=== PATIENT | female | born 1930 | race Caucasian/White ===

== ENCOUNTER 2016-04-17 14:08 | Inpatient (IN) | payer MEDICARE ==
[2016-04-17] MEDS ORDERED: NS 0.9% 1000 ML* 1,000 ML IV ONE (15:02)
[2016-04-17] MEDS ORDERED: cefTRIAXone VIAL(*) 1,000 MG in NS 0.9% 50 ML* 50 ML IVPB ONE (15:03)
[2016-04-17 15:16] LABS: Hematocrit 44 % (35-47); Hemoglobin 14.6 g/dl (12.0-16.0); Mean Corpuscular HGB Conc 33 g/dl (31-36); Mean Corpuscular Hemoglobin 29 pg (27-31); Mean Corpuscular Volume 89 fL (80-97); Mean Platelet Volume 9 um3 (7.4-10.4); Red Blood Count 5.01 10^6/ul (4.0-5.4); Red Cell Distribution Width 15 % (10.5-15); White Blood Count 11.7 10^3/ul (3.5-10.8)
--- NOTE | 2016-04-17 15:25 | RAD ---
INDICATION: Left-sided weakness. COMPARISON: Comparison is made with a prior CT of the brain from December 14, 2013. TECHNIQUE: Contiguous axial sections of the brain were obtained from the skull base to the vertex without contrast. FINDINGS: The ventricles, cisterns and sulci are enlarged consistent with age-related atrophy. No significant focal abnormality or mass effect is seen. There is no evidence for hemorrhage. No significant focal osseous abnormality is seen. The visualized portion of the paranasal sinuses and mastoid air cells appear clear. IMPRESSION: NO EVIDENCE FOR GROSS ACUTE INFARCT, MASS EFFECT OR HEMORRHAGE.
[2016-04-17 15:32] LABS: Albumin 3.8 g/dL (3.2-5.2); Calcium 9.1 mg/dL (8.6-10.3); EGFR African American 18.2 (>60); EGFR Non-African American 14.2 (>60); Globulin 2.4 g/dL (2-4); Potassium 3.9 mmol/L (3.5-5.0); Total Bilirubin 0.6 mg/dL (0.2-1.0); Total Protein 6.2 g/dL (6.4-8.9)
[2016-04-17 15:37] LABS: Troponin I 2.4 ng/mL (<0.04)
[2016-04-17] MEDS ORDERED: Aspirin EC Low Dose* 81 MG TAB.EC PO ONE (15:50)
[2016-04-17] MEDS ORDERED: Aspirin EC TAB* 325 MG ONE (16:04)
--- NOTE | 2016-04-17 16:44 | RAD ---
INDICATION: Hypoxia COMPARISON: September 07, 2015; March 30, 2012 TECHNIQUE: An AP portable view obtained at 1623 hours is submitted. FINDINGS: Bones/Soft Tissues: There are no acute bony findings. Cardiomediastinal: The heart is normal in size.. Lungs: There is mild right infrahilar prominence perhaps related to a right perihilar infiltrate. Suggest a follow-up two-view chest radiograph in one month to reassess. The remaining lung palomares are clear. Pleura: There are no pleural effusions. Other: None IMPRESSION: POSSIBLE RIGHT INFRAHILAR INFILTRATE. SUGGEST SHORT-TERM FOLLOW-UP.
[2016-04-17] MEDS ORDERED: Albuterol HFA INHALER* 8 gm MDI INH PRN (17:06)
[2016-04-17] MEDS ORDERED: Acetaminophen TAB* 325 MG PO PRN (17:07)
[2016-04-17] MEDS ORDERED: Ondansetron INJ* 2 MG/ML VIAL IV PRN (17:07)
[2016-04-17] MEDS ORDERED: Heparin DRIP 25,000 UNITS(*) 25,000 UNITS/500 ML BAG IVPB SCH (17:15)
[2016-04-17] MEDS ORDERED: Heparin VIAL(*) 5000 UNITS/ML VIAL (FIVE THOUSAND) IV SCH (18:00)
--- NOTE | 2016-04-17 18:20 | RAD ---
Indication: Evaluate for stroke. Sagittal and axial T1, axial T2, FLAIR, diffusion and susceptibility weighted images of the brain were obtained. Ventricular structures are midline. No midline shift is noted. There is central and cortical atrophy noted. There is no evidence of intracranial mass or hemorrhage. Tiny areas of restriction of diffusion is noted in the left cerebellar hemisphere, right precentral gyrus frontal lobe as well as the left subcortical precentral gyrus left frontal lobe. These are consistent with small acute strokes. The possibility of embolic phenomenon should be considered. Periventricular lucency consistent with chronic ischemic white matter changes noted. No evidence of hemorrhage from susceptibility weighted artifact is noted. The parotid glands and paranasal sinuses are otherwise unremarkable. IMPRESSION: TINY SUBCORTICAL AREAS OF RESTRICTION OF DIFFUSION IS NOTED IN THE LEFT AND RIGHT PRECENTRAL GYRUS SUBCORTICAL WHITE MATTER WELL IN THE LEFT CEREBELLAR HEMISPHERE. THESE ARE CONSISTENT WITH AREAS OF SMALL INFARCT. POSSIBILITY OF EMBOLIC PHENOMENON SHOULD BE CONSIDERED.
--- NOTE | 2016-04-17 19:55 | HP ---
ADMISSION HISTORY AND PHYSICAL: DATE OF ADMISSION: 04/17/16 PRIMARY CARE PROVIDER: Dr. Garcia. HEALTHCARE PROXY: Her daughter, Evan. CODE STATUS: DNR. SOURCE OF INFORMATION: History obtained from interview with the patient, her daughter, and her son-in-law. RELIABILITY: Fair. CHIEF COMPLAINT: Generalized weakness. HISTORY OF PRESENT ILLNESS: This is an 85-year-old female, past medical history of COPD, compensated diastolic heart failure by last echocardiogram, had been in her usual state of health until 4 days prior to admission, had difficulty sleeping overnight on Thursday. She noted a burning sensation in the center of her chest that lasted for 24 hours. Over the ensuring next 24 hours, she experienced chills and cold sweats associated with new productive cough of white phlegm, not associated with nausea or vomiting. The following day, which is the day prior to admission, she developed diarrhea and proceeded to her primary care provider. She was seen in the office and a spacer was ordered for one of her inhalers and given a Z-Mayank to start at home which she took the first dose yesterday. She notes again she had difficulty sleeping, felt disoriented like something had changed, felt anxious, but was difficult to characterize. She said it was like nothing else that she had experienced in the past. She frequently got out of bed to use the bathroom, but had urinary hesitancy, frequency, and dysuria. Her diarrhea continued. She notes that her p.o. intake had also decreased. In the morning, she had difficulty using her right hand. Noticed that she was dropping the phone and the water bottle and generalized weakness, difficulty getting to the bathroom. She denied any slurred speech, but her daughter had agreed to not bring her to the hospital and the plan would be the mother would call her daughter in the morning and when she did not respond to telephone, her daughter __presented __ to the patient's home, found her weak in bed, and unable to get around. She did not notice any slurred speech or facial asymmetry, but did note that her left arm was "dangling." The patient described that the arm felt numb and that she could not send messages through the neurons to move the arm. The patient was placed in the car with her son-in-law to bring to the emergency room and over the course of the trip to the emergency room, was able to start using her arm again and free it from entrapment under the seatbelt. In the emergency room, she received ceftriaxone as well as IV fluids and generally felt much improved since day prior. PAST MEDICAL HISTORY: Compensated diastolic heart failure, anxiety, insomnia, eczema, hypertension, hyperlipidemia, gout, COPD, history of hysterectomy, cataract surgery, removal of lip cancer, and knee arthroscopy. MEDICATIONS AT HOME: Include: 1. Temazepam 15 to 30 mg at bedtime as needed. 2. Xopenex 2 puffs inhaled every 4 hours as needed for shortness of breath. 3. Xalatan 1 drop both eyes daily. 4. Ibuprofen 400 mg twice daily as needed. The patient notes she was not taking any NSAIDs at home. ALLERGIES: Multiple; BEE VENOM, LATEX, AMOXICILLIN, AUGMENTIN, INDOMETHACIN, PREDNISONE, and SHELLFISH. FAMILY HISTORY: Mother with cervical cancer, father with CVA, brother with ruptured aneurysm, and sister with liver disease. SOCIAL HISTORY: Denies heavy alcohol use in the past, heavy exposure to second - hand smoke, endorses smoking several cigarettes when she was in college. REVIEW OF SYSTEMS: As per HPI. Otherwise, all other systems negative. PHYSICAL EXAMINATION GENERAL: An 85-year-old female sitting up in bed, interactive, pleasant, in no apparent distress. Talking full sentences, interactive. VITAL SIGNS: In the emergency room, blood pressure 115/47, heart rate 80, respiratory rate 20, satting 98% on 3 L nasal cannula, T-max 97.1. HEENT: Oropharynx is clear. Has dry mucous membranes. Sclerae are anicteric. NECK: Has elevated JVD to the angle of her ear. Has no palpable cervical or supraclavicular lymphadenopathy. LUNGS: She has rales in her left base extending to the apex with decreased air entry. HEART: Regular rate and rhythm. Soft, systolic ejection murmur, __LUSB___. ABDOMEN: Soft, nontender, nondistended. EXTREMITIES: Warm and well perfused without clubbing, cyanosis, or edema. She has less than 2-second cap refill. Good skin turgor. NEUROLOGIC: She is alert and oriented x3. Her cranial nerves II through XII are intact. She has 5/5 strength throughout. Sensation intact. Finger-nose- finger intact with slight dysmetria on both sides. Gait not assessed. DIAGNOSTIC STUDIES/LAB DATA: Labs reviewed: Notable for BUN of 53, creatinine 3.12. Lactic acid 2.1. AST 219, ALT 216, alk phos 137. Troponin I is 2.40. White blood cell count 11.7, hemoglobin 14.6, platelets 222. Data reviewed: EKG: Normal sinus rhythm, ventricular rate 79. Normal axis. Normal intervals. Normal R-wave progression, 1-mm ST depression in V5, V6, as well as new T-wave inversions in II, III, and aVF. Brain CT, impression: No evidence for gross infarct or mass effect. Chest x-ray, impression: Possible right infrahilar infiltrate, suggest short- term followup. ASSESSMENT AND PLAN: This is an 85-year-old female, past medical history as outlined above presenting with overall weakness, subjective fevers, and chills at home, found to have elevated troponin and renal insufficiency as well as potential for transient ischemic attack prior to presentation. 1. Elevated troponin: Trend troponin q.3 hours. Repeat EKG with next troponin. Aspirin given, continue tomorrow. Start on a heparin drip until troponin trend is noted. Check lipids in the morning. Holding on statin in the setting of transaminitis. Add on hemoglobin A1c to labs and check transthoracic echocardiogram. Cardiology consult with next troponin if elevated. 2. Pneumonia: Suspect based on x-ray as well as clinical findings. Ceftriaxone, azithromycin, 2 L fluid. Repeat chest x-ray, PA and lateral, tomorrow morning. 3. Neurological deficit: Transient left arm numbness is concerning. Place the patient on neuro checks, telemetry, aspirin. Check MRI of the brain. Transthoracic echocardiogram with bubble. Carotid Dopplers. Consider neurologic consult based on above findings. 4. Acute kidney failure: Suspect prerenal in the setting of diarrhea and frequent urination. Suspect potentially underlying urinary tract infection in the setting of dysuria, frequency, and hesitancy. Urinalysis collection is still pending. Renal ultrasound placed. 5. Lactic acidosis in the setting of above. Repeat pending after administration of fluid. Urine pending. Blood cultures pending. 6. Transaminitis: Potential underlying pneumonia, could be viral in etiology would explain transaminitis as would hepatic congestion, although bilirubin is stable. We will trend with labs tomorrow. Additionally check influenza. 7. DVT prophylaxis is heparin drip. 8. Code status is DNR, discussed with the patient and her daughter. CC: Dr. Garcia * [id number]/CPS #: [id number] [facility] CENTERLuke
--- NOTE | 2016-04-17 20:19 | RAD ---
Indication: Renal failure. Real-time sonography of the kidneys was performed. The right kidney measures 9.7 x 4.0 x 5.0 cm. No hydronephrosis is noted. The left kidney measures 9.1 x 4.0 x 4.4 cm. No hydronephrosis is noted. There is a lesion in the inferior tip of the right lobe liver measuring 4.9 x 3.5 x 5.2 cm. This is consistent with a hepatic cyst. Gallbladder demonstrates calculi. IMPRESSION: No hydronephrosis of either kidney is noted. Large hepatic cyst.
[2016-04-17 20:24] LABS: Troponin I 2.09 ng/mL (<0.04)
--- NOTE | 2016-04-17 20:24 | RAD ---
CPT II: CPT II Codes: 3100F Indication: Transient ischemic attack. Duplex Doppler sonography of the arteries was performed. The right common carotid artery demonstrates intimal wall thickening with plaque in the carotid bulb. Peak systolic velocity of the distal right common carotid arteries 86 cm/s. Peak systolic velocity of the right internal carotid artery is 80 cm/s. The IC/CC ratio of 0.94. Right vertebral artery demonstrates antegrade flow. The left common carotid artery demonstrates intimal wall thickening with heterogeneous plaque in the carotid bulb extending into the left internal carotid artery. Peak systolic velocity of the distal left common carotid artery is 99 cm/s. Peak systolic velocity of the left internal carotid artery 72 cm/s. The IC/CC ratio is 0.73. Left vertebral artery demonstrates antegrade flow. IMPRESSION: Plaque is noted in both internal carotid arteries however no hemodynamically significant stenosis is noted. Less than 50% stenosis of both internal carotid arteries.
[2016-04-17] MEDS: NS 0.9% 1000 ML* 1,000 ML IV SCH (20:48)
[2016-04-17] MEDS: Azithromycin IV(*) 250 MG in NS 0.9% 250 ML* 250 ML IVPB SCH (22:12)
--- NOTE | 2016-04-17 22:35 | ED ---
Ammon Mistry Adam, scribed for Fab Burkett MD on 04/17/16 at 1459 . Complex/Multi-Sys Presentation - HPI Summary HPI Summary: Pt is an 85 year old female presenting with left-sided weakness and confusion. She went to Family Medicine yesterday because of congestion, nausea, and diarrhea that set on 3 days ago. They heard rales and put her on Z-Mayank in case of PNA, as well as nausea medication. Pt has COPD and uses inhaler and they gave her a second inhaler. Her o2 sat was 90 at the doctor's office; she states that it is usually higher. Pt was noncompliant with the Z-Mayank last night and she woke up feeling confused in the middle of the night. She was unable to get out of bed this morning and she c/o weakness in the left side of her body. She also reports new onset of back pain and decreased PO intake (she has only had broth last night and saad juice this morning). She denies MATTA. - History Of Current Complaint Chief Complaint: EDNeurologicalDeficit Time Seen by Provider: 04/17/16 14:42 Hx Obtained From: Patient Onset/Duration: Sudden Onset, Lasting Hours, Still Present Timing: Constant Severity Currently: Moderate Severity Initially: Moderate Aggravating Factor(s): Nothing Alleviating Factor(s): Nothing Associated Signs And Symptoms: Positive: Confusion, Weakness - Left side, Nausea , Diarrhea. Negative: Headache - Allergies/Home Medications Allergies/Adverse Reactions: Allergies Allergy/AdvReac Type Severity Reaction Status Date / Time Bee Venom Allergy Severe Anaphylatic Verified 04/17/16 14:29 Shock Latex Allergy Intermediate REDNESS, Verified 04/17/16 14:29 SWELLING Indomethacin [From Indocin] Allergy SWELLING, Verified 04/17/16 14:29 DIZZINESS, ANXIETY, "BRAIN FOG" Prednisone Allergy SWELLING, Verified 04/17/16 14:29 DIZZINESS, ANXIETY, "BRAIN FOG" Shellfish Allergy Allergy See Comment Verified 09/07/15 13:16 Amoxicillin [From Augmentin] AdvReac Mild Vomiting Verified 04/17/16 17:12 Clavulanic Acid AdvReac Mild Vomiting Verified 04/17/16 17:12 [From Augmentin] Home Medications: Home Medications Azithromycin TAB* [Zithromax TAB (Z-MAYANK) 250 mg #6 tabs] 250 mg PO DAILY [History Confirmed 04/17/16] Latanoprost 0.005%* [Xalatan 0.005%*] 1 drop BOTH EYES DAILY 04/17/16 [History Confirmed 04/17/16] Levalbuterol HFA INHALER* [Xopenex Hfa Inhaler*] 2 puff INH QID PRN 04/17/16 [ History Confirmed 04/17/16] PMH/Surg Hx/FS Hx/Imm Hx Endocrine/Hematology History: Denies: Hx Diabetes, Hx Systemic Lupus Erythematosus, Hx Sickle Cell Disease Comment Only: Hx Thyroid Disease - THYROID NODULE Cardiovascular History: Reports: Hx Hypercholesterolemia, Hx Hypertension - HX OF- NOT CURRENTLY ON MEDICATION FOR Denies: Hx Pacemaker/ICD Respiratory History: Reports: Hx Chronic Bronchitis, Hx Chronic Obstructive Pulmonary Disease (COPD) Denies: Hx Pneumonia GI History: Reports: Other GI Disorders - GOUT, "BOWEL SPASMS" History: Denies: Hx Dialysis, Hx Renal Disease, Other Problems/Disorders Musculoskeletal History: Reports: Hx Arthritis - KNEES, Other Musculoskeletal History - OCC USE OF CANE Denies: Hx Rheumatoid Arthritis, Hx Osteoporosis Sensory History: Reports: Hx Contacts or Glasses - READING GLASSES Denies: Hx Cataracts, Hx Hearing Aid Opthamlomology History: Reports: Hx Contacts or Glasses - READING GLASSES Denies: Hx Cataracts Psychiatric History: Reports: Hx Anxiety - PRN MEDICATION FOR, Hx Depression Denies: Hx Panic Disorder - Cancer History Cancer Type, Location and Year: skin Hx Chemotherapy: No Hx Radiation Therapy: No - Surgical History Surgery Procedure, Year, and Place: 06/2011-left knee arthroscopy-[facility] [place]. BILAT CATARACTS [facility] [place]. 1970s hysterectomy. ovarian cystectomy. lip cancer squamous 2012 [facility] [place]. Mohs surgery July 2015 right side of nose. RIGHT KNEE RECONSTRUCTION [address]. D+C . RIGHT EAR CA EXC 2014 [facility] [place] Hx Anesthesia Reactions: No Infectious Disease History: No Infectious Disease History: Reports: Hx Shingles Denies: Traveled Outside the [place] in Last 30 Days - Family History Known Family History: Positive: Other - CVA. Negative malignant hyperthermia, negative anesthesia reaction. - Social History Occupation: Retired Lives: Alone Alcohol Use: Occasionally Hx Substance Use: No Substance Use Type: Reports: None Hx Tobacco Use: Yes Smoking Status (MU): Former Smoker Amount Used/How Often: <1/2 PPD X 10 YEARS Have You Smoked in the Last Year: No Review of Systems Positive: Shortness Of Breath Positive: Diarrhea, Nausea, Other - Decreased PO intake Positive: Myalgia - Back Neurological: Other - Confusion Positive: Weakness - Left side. Negative: Headache All Other Systems Reviewed And Are Negative: Yes Physical Exam - Summary Physical Exam Summary: General: Weak, alert, pleasant, no distress. HEENT: Mucosa moist, MUNDO. Neck: Soft, supple. Heart: No murmurs, rubs, or gallops. Lungs: Rales on the right. O2 sat on room air is 78%. Abdomen: Soft, flat, nontender. Extremities: No pitting edema. Neurologic: Obvious pronator drift on left. No slurred speech, CN 3-12 intact. Diminished strength bilaterally in the lower extremities. Ankle flexion/ extension 5/5 bilaterally. She seems to have some left-sided neglect. Psych: Logical, coherent. Triage Information Reviewed: Yes Vital Signs On Initial Exam: Initial Vitals Temp Pulse Resp BP Pulse Ox 97.1 F 86 20 115/47 0 04/17/16 14:21 04/17/16 14:21 04/17/16 14:21 04/17/16 14:21 04/17/16 14:21 Vital Signs Reviewed: Yes Diagnostics - Vital Signs Vital Signs Temp Pulse Resp BP Pulse Ox 04/17/16 14:46 96 04/17/16 14:21 97.1 F 86 20 115/47 0 - Laboratory Lab Results: Lab Results 04/17/16 04/17/16 04/17/16 Range/Units 15:05 15:05 15:05 WBC 11.7 H (3.5-10.8) 10^3/ul RBC 5.01 (4.0-5.4) 10^6/ul Hgb 14.6 (12.0-16.0) g/dl Hct 44 (35-47) % MCV 89 (80-97) fL MCH 29 (27-31) pg MCHC 33 (31-36) g/dl RDW 15 (10.5-15) % Plt Count 222 (150-450) 10^3/ul MPV 9 (7.4-10.4) um3 Neut % (Auto) 86.9 H (38-83) % Lymph % (Auto) 6.0 L (25-47) % Cottle % (Auto) 6.6 (1-9) % Eos % (Auto) 0 (0-6) % Baso % (Auto) 0.5 (0-2) % Absolute Neuts (auto) 10.2 H (1.5-7.7) 10^3/ul Absolute Lymphs (auto) 0.7 L (1.0-4.8) 10^3/ul Absolute Monos (auto) 0.8 (0-0.8) 10^3/ul Absolute Eos (auto) 0 (0-0.6) 10^3/ul Absolute Basos (auto) 0.1 (0-0.2) 10^3/ul Absolute Nucleated RBC 0.01 10^3/ul Nucleated RBC % 0 INR (Anticoag Therapy) 0.98 (0.89-1.11) APTT 28.2 (26.0-36.3) seconds Sodium 129 L (133-145) mmol/L Potassium 3.9 (3.5-5.0) mmol/L Chloride 93 L (101-111) mmol/L Carbon Dioxide 24 (22-32) mmol/L Anion Gap 12 H (2-11) mmol/L BUN 53 H (6-24) mg/dL Creatinine 3.12 H (0.51-0.95) mg/dL Est GFR ( Amer) 18.2 (>60) Est GFR (Non-Af Amer) 14.2 (>60) BUN/Creatinine Ratio 17.0 (8-20) Glucose 136 H (70-100) mg/dL Hemoglobin A1c (Less than 6.0) % Lactic Acid (0.5-2.0) mmol/L Calcium 9.1 (8.6-10.3) mg/dL Total Bilirubin 0.60 (0.2-1.0) mg/dL AST 219 H (13-39) U/L ALT 216 H (7-52) U/L Alkaline Phosphatase 137 H (34-104) U/L Troponin I 2.40 H* (<0.04) ng/mL Total Protein 6.2 L (6.4-8.9) g/dL Albumin 3.8 (3.2-5.2) g/dL Globulin 2.4 (2-4) g/dL Albumin/Globulin Ratio 1.6 (1-3) 04/17/16 04/17/16 Range/Units 15:05 15:05 WBC (3.5-10.8) 10^3/ul RBC (4.0-5.4) 10^6/ul Hgb (12.0-16.0) g/dl Hct (35-47) % MCV (80-97) fL MCH (27-31) pg MCHC (31-36) g/dl RDW (10.5-15) % Plt Count (150-450) 10^3/ul MPV (7.4-10.4) um3 Neut % (Auto) (38-83) % Lymph % (Auto) (25-47) % Cottle % (Auto) (1-9) % Eos % (Auto) (0-6) % Baso % (Auto) (0-2) % Absolute Neuts (auto) (1.5-7.7) 10^3/ul Absolute Lymphs (auto) (1.0-4.8) 10^3/ul Absolute Monos (auto) (0-0.8) 10^3/ul Absolute Eos (auto) (0-0.6) 10^3/ul Absolute Basos (auto) (0-0.2) 10^3/ul Absolute Nucleated RBC 10^3/ul Nucleated RBC % INR (Anticoag Therapy) (0.89-1.11) APTT (26.0-36.3) seconds Sodium (133-145) mmol/L Potassium (3.5-5.0) mmol/L Chloride (101-111) mmol/L Carbon Dioxide (22-32) mmol/L Anion Gap (2-11) mmol/L BUN (6-24) mg/dL Creatinine (0.51-0.95) mg/dL Est GFR ( Amer) (>60) Est GFR (Non-Af Amer) (>60) BUN/Creatinine Ratio (8-20) Glucose (70-100) mg/dL Hemoglobin A1c 4.9 (Less than 6.0) % Lactic Acid 2.1 H* (0.5-2.0) mmol/L Calcium (8.6-10.3) mg/dL Total Bilirubin (0.2-1.0) mg/dL AST (13-39) U/L ALT (7-52) U/L Alkaline Phosphatase (34-104) U/L Troponin I (<0.04) ng/mL Total Protein (6.4-8.9) g/dL Albumin (3.2-5.2) g/dL Globulin (2-4) g/dL Albumin/Globulin Ratio (1-3) Result Diagrams: 04/17/16 15:05 04/17/16 15:05 Lab Statement: Any lab studies that have been ordered have been reviewed, and results considered in the medical decision making process. - Radiology CXR Radiology Interpretation Completed By: Radiologist - IMPRESSION: POSSIBLE RIGHT INFRAHILAR INFILTRATE. SUGGEST SHORT-TERM FOLLOW-UP. - CT BRAIN CT Interpretation Completed By: Radiologist - IMPRESSION: NO EVIDENCE FOR GROSS ACUTE INFARCT, MASS EFFECT OR HEMORRHAGE. - EKG 16:02 Cardiac Rate: NL - 79 BPM EKG Interpretation: New T wave inversions in 2 and 3. Otherwise no evidence for STEMI - Additional Comments Diagnostic Additional Comments: Troponin I - 2.40 Lactic Acid - 2.1 Complex Multi-Symp Course/Dx Assessment/Plan: She presents with a few days of respiratory complaint. At some point last night she had an episode of AMS and confusion. This morning she awoke with left-sided weakness and was unable to ambulate. She is a typically high-functionaing 85 year old who lives alone. On exam she presents with hypoxia , rales on the right, and evidence of CVA with most notable finding of LUE pronator drift. No signs of intracranial bleed on CT scan. ASA was given and symptoms have improved. Given her age and the unknown time of onset, she does not meet critera for TPA. This has been relayed to Dr. Stock who accepts admission. Chest X-Ray and EKG are still pending. She is currently comfortable and stable and her oxygen has improved markedly with nasal cannula. - Diagnoses Provider Diagnoses: CVA (cerebral vascular accident), NSTEMI (non-ST elevated myocardial infarction ) - Critical Care Time Critical Care Time: 30-74 min - 60 minutes Discharge - Discharge Plan Condition: Fair Disposition: ADMITTED TO [facility] documentation as recorded by the Ammon hdez Adam accurately reflects the service I personally performed and the decisions made by Madelaine lobato Farzad, MD.
[2016-04-18] MEDS ORDERED: Heparin VIAL(*) 5000 UNITS/ML VIAL (FIVE THOUSAND) IV SCH (02:00)
[2016-04-18 02:29] LABS: Hematocrit 41 % (35-47); Hemoglobin 13.1 g/dl (12.0-16.0); Mean Corpuscular HGB Conc 32 g/dl (31-36); Mean Corpuscular Hemoglobin 29 pg (27-31); Mean Corpuscular Volume 89 fL (80-97); Mean Platelet Volume 9 um3 (7.4-10.4); Red Blood Count 4.54 10^6/ul (4.0-5.4); Red Cell Distribution Width 15 % (10.5-15); White Blood Count 14.2 10^3/ul (3.5-10.8)
[2016-04-18 02:35] LABS: Add Diff/Slide Review? Slide Review Added; Comments Flag Yes
[2016-04-18] MEDS: Heparin DRIP 25,000 UNITS(*) 25,000 UNITS/500 ML BAG IV SCH (02:36)
[2016-04-18 06:21] LABS: Hematocrit 40 % (35-47); Mean Corpuscular HGB Conc 33 g/dl (31-36); Mean Corpuscular Hemoglobin 29 pg (27-31); Mean Corpuscular Volume 88 fL (80-97); Mean Platelet Volume 9 um3 (7.4-10.4); Red Blood Count 4.49 10^6/ul (4.0-5.4); Red Cell Distribution Width 15 % (10.5-15); White Blood Count 13.5 10^3/ul (3.5-10.8)
[2016-04-18 06:37] LABS: Albumin 3.4 g/dL (3.2-5.2); BUN/Creatinine Ratio 18.8 (8-20); Calcium 7.9 mg/dL (8.6-10.3); Direct Bilirubin 0.1 mg/dL (0.03-0.18); EGFR African American 17.5 (>60); EGFR Non-African American 13.6 (>60); Globulin 2.3 g/dL (2-4); HDL Cholesterol 43.3 mg/dL; Indirect Bilirubin 0.2 mg/dL (0.3-1.0); Magnesium 1.9 mg/dL (1.9-2.7); Potassium 4.1 mmol/L (3.5-5.0); Total Bilirubin 0.3 mg/dL (0.2-1.0); Total Protein 5.7 g/dL (6.4-8.9)
[2016-04-18 06:58] LABS: Troponin I 2.05 ng/mL (<0.04)
[2016-04-18 06:59] LABS: Urine Bacteria Absent (Absent); Urine Bilirubin Negative (Negative); Urine Glucose Negative (Negative); Urine Nitrite Negative (Negative)
--- NOTE | 2016-04-18 08:07 | RAD ---
INDICATION: Evaluate for pneumonia COMPARISON: Chest x-ray April 17, 2016 TECHNIQUE: PA and lateral dual-energy views were obtained. FINDINGS: Bones/Soft Tissues: There are no acute bony findings. Cardiomediastinal: The heart is normal in size. The right hilum remains prominent on the PA view. This is likely related to the pulmonary artery as no abnormalities are seen on the lateral view. However, CT imaging the chest is recommended to exclude a right hilar abnormality. Lungs: There are no infiltrates. Pleura: There are no pleural effusions. Other: None IMPRESSION: PERSISTENT RIGHT HILAR PROMINENCE. SUGGEST CT IMAGING OF THE CHEST.
[2016-04-18] MEDS: NS 0.9% 1000 ML* 1,000 ML IV SCH (08:32)
[2016-04-18] MEDS ORDERED: Aspirin EC Low Dose* 81 MG TAB.EC PO SCH (09:00)
[2016-04-18] MEDS ORDERED: Levalbuterol HFA INHALER* 1 PUFF MDI INH PRN (09:20)
--- NOTE | 2016-04-18 13:28 | PN ---
Subjective Date of Service: 04/18/16 Interval History: Patient reports she feels better today overall. She continues to have a productive cough with sputum production. Reports mild SOB. No fevers or chills, Dysuria and diarrhea have resolved. Denies CP. No LE edema or pain. Pt confirms that she does not want "extraordinary measures" and wants to be DNR , Discussed with daughter who agrees with plan Objective Active Medications: Acetaminophen (Tylenol Tab*) 650 mg PO Q6H PRN PRN Reason: PAIN Aspirin (Aspirin Ec Low Dose*) 81 mg PO DAILY [facility] Last Admin: 04/18/16 08:32 Dose: 81 mg Heparin Sodium (Porcine) (Heparin Vial(*)) 0 units IV .PER PROTOCOL [facility] PRN Reason: Protocol Ceftriaxone Sodium 1,000 mg/ (Sodium Chloride) 50 mls @ 200 mls/hr IVPB Q24H [facility] Sodium Chloride (Ns 0.9% 1000 Ml*) 1,000 mls @ 125 mls/hr IV PER RATE [facility] Stop: 04/19/16 01:14 Last Admin: 04/18/16 08:32 Dose: 125 mls/hr Azithromycin 250 mg/ Sodium (Chloride) 250 mls @ 250 mls/hr IVPB Q24H [facility] Stop: 04/20/16 18:59 Last Admin: 04/17/16 22:12 Dose: 250 mls/hr Heparin Sodium/Dextrose (Heparin Drip 25,000 Units(*)) 25,000 units in 500 mls @ 0 mls/hr IV .NO INITIAL BOLUS SAMREEN; As Directed PRN Reason: Protocol Last Admin: 04/18/16 02:36 Dose: 18 mls/hr Levalbuterol HCl (Xopenex Hfa Inhaler*) 2 puff INH Q4H PRN PRN Reason: SHORTNESS OF BREATH Ondansetron HCl (Zofran Inj*) 4 mg IV Q4H PRN PRN Reason: NAUSEA Vital Signs 04/17/16 04/17/16 04/17/16 19:14 19:16 19:29 Temperature Pulse Rate 48 81 Respiratory 26 26 Rate Blood Pressure 119/60 120/59 (mmHg) O2 Sat by Pulse 84 97 Oximetry 04/17/16 04/17/16 04/17/16 19:30 19:45 20:00 Temperature Pulse Rate 81 82 Respiratory 26 23 18 Rate Blood Pressure 126/54 127/54 (mmHg) O2 Sat by Pulse 97 96 Oximetry 04/17/16 04/17/16 04/17/16 20:05 22:46 23:47 Temperature 98.1 F 98.7 F Pulse Rate 90 83 Respiratory 16 16 16 Rate Blood Pressure 122/49 113/48 (mmHg) O2 Sat by Pulse 94 100 Oximetry 04/18/16 04/18/16 04/18/16 02:53 07:28 08:00 Temperature 98.2 F Pulse Rate 78 81 Respiratory 17 20 18 Rate Blood Pressure 132/50 118/43 (mmHg) O2 Sat by Pulse 95 100 Oximetry 04/18/16 04/18/16 09:12 09:13 Temperature Pulse Rate 78 Respiratory 18 Rate Blood Pressure (mmHg) O2 Sat by Pulse 98 98 Oximetry Oxygen Devices in Use Now: Nasal Cannula - 2L Appearance: elderly 85 yo female sitting up in a chair in NAD> A+O x3 Eyes: No Scleral Icterus, PERRLA Ears/Nose/Mouth/Throat: NL Teeth, Lips, Gums, Mucous Membranes Moist Neck: NL Appearance and Movements; NL JVP, Trachea Midline Respiratory: Symmetrical Chest Expansion and Respiratory Effort, - - diminished b/l Cardiovascular: NL Sounds; No Murmurs; No JVD, RRR, No Edema Abdominal: NL Sounds; No Tenderness; No Distention Extremities: No Edema, No Clubbing, Cyanosis Skin: No Rash or Ulcers, No Nodules or Sclerosis Neurological: Alert and Oriented x 3, NL Sensation, NL Gait, NL Muscle Strength and Tone Lines/Tubes/Other Access: Clean, Dry and Intact Peripheral IV Nutrition: Taking PO's Result Diagrams: 04/18/16 06:01 04/18/16 06:01 Additional Lab and Data: Lab Results 04/17/16 04/17/16 04/17/16 Range/Units 15:05 15:05 15:05 WBC 11.7 H (3.5-10.8) 10^3/ul RBC 5.01 (4.0-5.4) 10^6/ul Hgb 14.6 (12.0-16.0) g/dl Hct 44 (35-47) % MCV 89 (80-97) fL MCH 29 (27-31) pg MCHC 33 (31-36) g/dl RDW 15 (10.5-15) % Plt Count 222 (150-450) 10^3/ul MPV 9 (7.4-10.4) um3 Neut % (Auto) 86.9 H (38-83) % Lymph % (Auto) 6.0 L (25-47) % [place] % (Auto) 6.6 (1-9) % Eos % (Auto) 0 (0-6) % Baso % (Auto) 0.5 (0-2) % Absolute Neuts (auto) 10.2 H (1.5-7.7) 10^3/ul Absolute Lymphs (auto) 0.7 L (1.0-4.8) 10^3/ul Absolute Monos (auto) 0.8 (0-0.8) 10^3/ul Absolute Eos (auto) 0 (0-0.6) 10^3/ul Absolute Basos (auto) 0.1 (0-0.2) 10^3/ul Absolute Nucleated RBC 0.01 10^3/ul Nucleated RBC % 0 INR (Anticoag Therapy) 0.98 (0.89-1.11) APTT 28.2 (26.0-36.3) seconds Sodium 129 L (133-145) mmol/L Potassium 3.9 (3.5-5.0) mmol/L Chloride 93 L (101-111) mmol/L Carbon Dioxide 24 (22-32) mmol/L Anion Gap 12 H (2-11) mmol/L BUN 53 H (6-24) mg/dL Creatinine 3.12 H (0.51-0.95) mg/dL Est GFR ( Amer) 18.2 (>60) Est GFR (Non-Af Amer) 14.2 (>60) BUN/Creatinine Ratio 17.0 (8-20) Glucose 136 H (70-100) mg/dL Hemoglobin A1c (Less than 6.0) % Lactic Acid (0.5-2.0) mmol/L Calcium 9.1 (8.6-10.3) mg/dL Total Bilirubin 0.60 (0.2-1.0) mg/dL AST 219 H (13-39) U/L ALT 216 H (7-52) U/L Alkaline Phosphatase 137 H (34-104) U/L Troponin I 2.40 H* (<0.04) ng/mL Total Protein 6.2 L (6.4-8.9) g/dL Albumin 3.8 (3.2-5.2) g/dL Globulin 2.4 (2-4) g/dL Albumin/Globulin Ratio 1.6 (1-3) 04/17/16 04/17/16 Range/Units 15:05 15:05 WBC (3.5-10.8) 10^3/ul RBC (4.0-5.4) 10^6/ul Hgb (12.0-16.0) g/dl Hct (35-47) % MCV (80-97) fL MCH (27-31) pg MCHC (31-36) g/dl RDW (10.5-15) % Plt Count (150-450) 10^3/ul MPV (7.4-10.4) um3 Neut % (Auto) (38-83) % Lymph % (Auto) (25-47) % [place] % (Auto) (1-9) % Eos % (Auto) (0-6) % Baso % (Auto) (0-2) % Absolute Neuts (auto) (1.5-7.7) 10^3/ul Absolute Lymphs (auto) (1.0-4.8) 10^3/ul Absolute Monos (auto) (0-0.8) 10^3/ul Absolute Eos (auto) (0-0.6) 10^3/ul Absolute Basos (auto) (0-0.2) 10^3/ul Absolute Nucleated RBC 10^3/ul Nucleated RBC % INR (Anticoag Therapy) (0.89-1.11) APTT (26.0-36.3) seconds Sodium (133-145) mmol/L Potassium (3.5-5.0) mmol/L Chloride (101-111) mmol/L Carbon Dioxide (22-32) mmol/L Anion Gap (2-11) mmol/L BUN (6-24) mg/dL Creatinine (0.51-0.95) mg/dL Est GFR ( Amer) (>60) Est GFR (Non-Af Amer) (>60) BUN/Creatinine Ratio (8-20) Glucose (70-100) mg/dL Hemoglobin A1c 4.9 (Less than 6.0) % Lactic Acid 2.1 H* (0.5-2.0) mmol/L Calcium (8.6-10.3) mg/dL Total Bilirubin (0.2-1.0) mg/dL AST (13-39) U/L ALT (7-52) U/L Alkaline Phosphatase (34-104) U/L Troponin I (<0.04) ng/mL Total Protein (6.4-8.9) g/dL Albumin (3.2-5.2) g/dL Globulin (2-4) g/dL Albumin/Globulin Ratio (1-3) Microbiology and Other Data: Microbiology 04/17/16 19:05 Influenza Types A,B Antigen (TAMERA) - Final Nasal Specimen received for Influenza A/B Molecular testing Assess/Plan/Problems-Billing Assessment: Ms. 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 - Patient Problems (1) CVA (cerebral vascular accident) Comment: MRI brain showing areas of small infarct consistent with cardioembolic CVA. Run of afib noted on tele monitoring TTE showing no PFO continue statin (2) Pulmonary embolism Comment: - concern for pulmonary embolism with noted RV dilitation on TTE. Appreciate cardiology consult - it is possible the RV dilitation could be from hx of COPD, however, VQ scan reading Intermediate placing her at a 20-80% probability of PE and in the setting of new cardioembolic cva, plan to tx for PE. Obtain doppler of the LE bridge Heparin gtt to coumadin (due to ARF) (3) Elevated troponin Comment: - appreciate cardiology consult - possible elevated trop from cva, renal failure , LVH or possible PE. No evidence of ischemia - on heparin gtt for PE protocol - continue statin, cards recommends no asa in the setting of anticoagulation (4) Acute kidney failure Comment: - pre-renal. continue gentle IVFs. BMP in am. (5) Pneumonia Comment: suspect pneumonia on chest xray, as well pt clinically appears to have possible pna. - continue azithro and ceftriaxone (6) Lactic acid acidosis Comment: - resolved with fluid resusitation (7) Transaminitis Comment: - unclear etiology. trending down. recheck in am (8) DVT prophylaxis Comment: Heparin gtt Status and Disposition: inpatient.
--- NOTE | 2016-04-18 13:53 | ECHO ---
Amended Report Patient: [facility] Rec#: [id number] : 1930 Date: 04/18/2016 Age: 85y Height: 155 cm / 61.0 in Weight: 55 kg / 121.2 lbs Sex: F BSA: 1.5 Room#: 446 Admit Date#: 04/17/2016 Type: Inpatient Referring: Pablo Stock MD Reading: Tin Toth DO Product Representative: Fanta Peres RN RDCS CC: Maulik Garcia MD Transthoracic Echocardiogram Indication: TIA, elevated troponin levels BP: 132/50 HR: 78 Rhythm: NSR Findings History: HTN, HLD, diastolic CHF, COPD, uterine cancer, gout, former smoker Technical Comments: The study is technically limited due to poor apical windows. The study is technically limited due to the patient's history of COPD. The study is technically limited due to the patient's smoking history. Left Ventricle: The left ventricular chamber size is normal. Mild to moderate concentric left ventricular hypertrophy is observed. Global left ventricular wall motion and contractility are within normal limits. There is normal left ventricular systolic function. The estimated ejection fraction is greater than 65%. The assessment of diastolic function is non-diagnostic. Left Atrium: The left atrial chamber size is normal. Right Ventricle: The right ventricle is mild to moderately dilated. The right ventricular global systolic function is moderately reduced., moderate to severely reduced Right Atrium: The right atrium is mildly dilated. The interatrial septum appears lipomatous. Interatrial septum appears intact without evidence of shunting. No atrial septal defected is demonstrated by color Doppler and agitated contrast. The bubble study is negative. Aortic Valve: The aortic valve is trileaflet. The aortic valve leaflets are mildly thickened. There is a trace of aortic regurgitation. There is no evidence of aortic stenosis. Mitral Valve: The mitral valve leaflets are mildly thickened. There is a trace of mitral regurgitation. There is no evidence of mitral stenosis. Tricuspid Valve: The tricuspid valve leaflets are normal. There is mild tricuspid regurgitation. There is evidence of mild pulmonary hypertension. Pulmonic Valve: The pulmonic valve appears normal. There is trace to mild pulmonic regurgitation. There is no pulmonic stenosis. Pericardium: There is no significant pericardial effusion. Aorta: There is no dilatation of the ascending aorta. The aortic arch is not well visualized. There is mild dilatation of the aortic root. Pulmonary Artery: The main pulmonary artery is not well visualized. Venous: The inferior vena cava appears normal in size. There is an approximate 50% respiratory change in the inferior vena cava dimension. Contrast: Normal saline was used as contrast for the bubble study. Image 1 Conclusions The left ventricular chamber size is normal. Mild to moderate concentric left ventricular hypertrophy is observed. The estimated ejection fraction is normal at 65-70% with no segmental wall motion abnormalities noted. The right ventricle is mild to moderately dilated with moderate to severely reduced function. The right atrium is mildly dilated. No significant valvular abnormalities noted. There is evidence of mild pulmonary hypertension that may be underestimated in severity No atrial septal defected is demonstrated by color Doppler and agitated contrast (negative bubble study) Compared to prior study from 11/2013, the LVEF appears higher, the RV size and function appears worse. Results discussed with Primary service at time of study. Report amended to include bubble study results. Measurements Name Value Normal Range RVDdMajor (2D) 4.4 cm (2.2 - 4.4) RAd ISD 4CH 4.5 cm (3.4 - 4.9) RA (A4C)W 5 cm (2.9 - 4.6) IVSd (2D) 1.3 cm (0.6 - 1) LVPWd (2D) 1.3 cm (0.6 - 1) LVIDd (2D) 3.7 cm (3.6 - 5.4) Aortic Annulus 2.2 cm (1.4 - 2.6) Ao root diameter (2D) 3.6 cm (2.1 - 3.5) Ascending Ao 3.3 cm (2.1 - 3.4) LA dimension (AP) 2D 3.2 cm (2.3 - 3.8) LAd ISD 4CH 4 cm (2.9 - 5.3) LA ISD 4CH W 3.1 cm (2.5 - 4.5) Name Value Normal Range LA ESV SP 4CH (A/L) 17 ml - LA ESV SP 4CH (MOD) 14 ml - Name Value Normal Range MV E-wave Vmax 0.53 m/sec - MV deceleration time 215 msec - MV A-wave Vmax 0.88 m/sec - MV E:A ratio 0.6 ratio - LV septal e' Vmax 0.06 m/sec - LV lateral e' Vmax 0.04 m/sec - LV E:e' septal ratio 8.8 ratio - LV E:e' lateral ratio 13.3 ratio - Name Value Normal Range AV Vmax 1.3 m/sec - LVOT Vmax 0.9 m/sec - Name Value Normal Range TR Vmax 2.7 m/sec - TR peak gradient 29 mmHg - RAP 8 mmHg - RVSP 37 mmHg - IVC diameter 2.1 cm - Name Value Normal Range PV Vmax 0.62 m/sec -
[2016-04-18 14:55] LABS: Urine Random Sodium < 18 mmol/L
--- NOTE | 2016-04-18 15:10 | RAD ---
INDICATION: Short of breath. Evaluate for pulmonary embolus COMPARISON: Chest x-ray April 18, 2016 TECHNIQUE: Following the administration of 6.48 millicuries of xenon gas, anterior and posterior deep breath, equilibrium, and washout phase imaging was performed. Following the intravenous administration of 6.18 millicuries of technetium 99m, MAA, anterior, posterior, lateral, and oblique imaging of the chest was performed. FINDINGS: Ventilation images show multiple subsegmental perfusion defects. The perfusion images likewise show show no multiple ventilation defects which are for the most part matched. The probability of acute pulmonary embolus is intermediate. IMPRESSION: INTERMEDIATE (20-80 %) PROBABILITY FOR ACUTE PULMONARY EMBOLUS.
--- NOTE | 2016-04-18 15:48 | CONSULT ---
Subjective Date of Service: 04/18/16 Interval History: Admission Date: 04/17/16 Provider: Hospitalist service Consult date 04/18/2016 PRIMARY CARE PROVIDER: Dr. Garcia. CHIEF COMPLAINT: Generalized weakness. Reason for consult: Stroke, elevated troponin HISTORY OF PRESENT ILLNESS: Elsie Preciado is an 85-year-old woman with a history of hypertension, dysplipidemia, normal creatinine in 2013 she had burning chest pain 4 days ago along with chills, sweats and cough. She was given antibiotics and inhalers. She then had difficulty sleeping, anxiety and disorientation. She had loose stools and decreased PO intake. Had been dropping items and was weakness particularly of left arm. She was found with CVA suggestive of cardioembolic stroke. She had a short episode of rapid atrial fibrillation overnight on telemetry. There has been no fevers, blood cultures are pending. Her TTE showed a dilated and dysfunctional RV with negative bubble study. Her V/Q scan was indeterminate for PE. She was found with acute renal failure. PAST MEDICAL HISTORY: hypertension, hyperlipidemia gout COPD surgical hx history of hysterectomy, cataract surgery, removal of lip cancer, and knee arthroscopy. ALLERGIES: Multiple; BEE VENOM, LATEX, AMOXICILLIN, AUGMENTIN, INDOMETHACIN, PREDNISONE, and SHELLFISH. FAMILY HISTORY: Mother with cervical cancer, father with CVA, brother with ruptured aneurysm, and sister with liver disease. SOCIAL HISTORY: Denies heavy alcohol use in the past, heavy exposure to second - hand smoke, endorses smoking several cigarettes when she was in college. Medications Active Medications: Acetaminophen (Tylenol Tab*) 650 mg PO Q6H PRN PRN Reason: PAIN Aspirin (Aspirin Ec Low Dose*) 81 mg PO DAILY [facility] Last Admin: 04/18/16 08:32 Dose: 81 mg Heparin Sodium (Porcine) (Heparin Vial(*)) 0 units IV .PER PROTOCOL [facility] PRN Reason: Protocol Ceftriaxone Sodium 1,000 mg/ (Sodium Chloride) 50 mls @ 200 mls/hr IVPB Q24H [facility] Sodium Chloride (Ns 0.9% 1000 Ml*) 1,000 mls @ 125 mls/hr IV PER RATE [facility] Stop: 04/19/16 01:14 Last Admin: 04/18/16 08:32 Dose: 125 mls/hr Azithromycin 250 mg/ Sodium (Chloride) 250 mls @ 250 mls/hr IVPB Q24H [facility] Stop: 04/20/16 18:59 Last Admin: 04/17/16 22:12 Dose: 250 mls/hr Heparin Sodium/Dextrose (Heparin Drip 25,000 Units(*)) 25,000 units in 500 mls @ 0 mls/hr IV .NO INITIAL BOLUS SAMREEN; As Directed PRN Reason: Protocol Last Admin: 04/18/16 02:36 Dose: 18 mls/hr Levalbuterol HCl (Xopenex Hfa Inhaler*) 2 puff INH Q4H PRN PRN Reason: SHORTNESS OF BREATH Ondansetron HCl (Zofran Inj*) 4 mg IV Q4H PRN PRN Reason: NAUSEA Home Medications: Ibuprofen TAB* [Advil TAB*] 400 mg PO BID PRN 09/08/14 [History Confirmed ] Temazepam CAP* [Restoril CAP*] 15 - 30 mg PO BEDTIME PRN 09/08/14 [History Confirmed 04/17/16] Azithromycin TAB* [Zithromax TAB (Z-NOA) 250 mg #6 tabs] 250 mg PO DAILY [History Confirmed 04/17/16] Latanoprost 0.005%* [Xalatan 0.005%*] 1 drop BOTH EYES DAILY 04/17/16 [History Confirmed 04/17/16] Levalbuterol HFA INHALER* [Xopenex Hfa Inhaler*] 2 puff INH QID PRN 04/17/16 [ History Confirmed 04/17/16] previously had been on a statin and ARB unsure if still taking. Review of Systems - Measurements Intake and Output: Intake and Output Last 24 Hours 04/16/16 04/17/16 04/18/16 04/19/16 06:59 06:59 06:59 06:59 Intake Total 1036 2237 Output Total 200 Balance 836 2237 Weight 121 lb Intake: IV Fluids 764 979 NS (0.9%) 764 979 IVPB 272 ABX - AZITHROMYCIN 272 Heparin 318 Oral 0 940 Output: Urine 200 Other: # Bowel Movements 0 # Voids 0 - Review of Systems Constitutional Symptoms: Positive: Weakness, Fatigue Dermatology: Negative: Rash, Skin Lesions HEENT: Negative: Change in Hearing, Vertigo Eyes: Negative: Change in Vision, Double Vision, Eye Pain Thyroid: Positive: Cold Intolerance Negative: Tremor, Frequent Defecation, Constipation, Palpitations, Primary Hypothyroidism, Primary Hyperthyroidism, Weight Loss, Weight Gain, Change in Skin/Hair Pulmonary: Positive: Cough, Shortness of Breath, COPD Negative: Sputum, Hemoptysis, Wheezing, Respiratory Distress, Asthma, Exercise Intolerance, Home Oxygen Cardiology: Positive: Chest Pain, Shortness of Breath, Faintness Negative: Palpitations, Swelling of Ankles, Peripheral Vascular Dis, Edema, Syncope, Claudication, Paroxysmal Nocturnal Dyspnea, Orthopnea Gastroenterology: Positive: Diarrhea Negative: Abdominal Pain, Nausea, Vomiting, Indigestion, Difficulty Swallowing, Heartburn, Constipation, Blood in Stools, Change in Bowel Habits, Haematemesis, Melena Genital - Urinary: Negative: Hematuria, Nocturia Musculoskeletal: Negative: Joint Pain, Joint Stiffness, Arthritis, Osteoporosis Endocrinology: Negative: Thyroid Problems, Family Hx Endocrine Disorders, Obesity, Diabetes , Hyperglycemia, Hypoglycemia Hematologic/Lymphatic: Negative: Anemia, Easy Brusing, Hx Leukemia, Hx Lymphoma, Use of Anticoagulant, Use of Antiplatelet Drugs Neurology: Positive: Dizziness, Change in Balancing, Change in Walking, Numbness \Paresthesiae, Unexplained Weakness Negative: Headaches, Migraines, Change in Vision, Diplopia, Change in Coordination, Change in Memory, Change in Speech, Change in Sphincter Function Psychiatry: Positive: Anxiety, Unusual Anxiety Negative: Depression, Sexual Dysfunction, Weight Change, Guilt Feelings, Eating Disorders Allergic/Immunologic: Negative: Hx HIV, Immunocompromise, Swollen Glands Lymph Nodes Review of Systems Statement: All other review of systems negative, unless stated above. Objective Vital Signs: Temp Pulse Resp BP Pulse Ox 98.2 F 79 18 110/40 98 04/18/16 13:41 04/18/16 13:41 04/18/16 13:41 04/18/16 13:41 04/18/16 09:13 Appearance: nad pleasant Ears/Nose/Mouth/Throat: Clear Oropharnyx, Mucous Membranes Moist Neck: NL Appearance and Movements; NL JVP Respiratory: Symmetrical Chest Expansion and Respiratory Effort, Clear to Auscultation Cardiovascular: RRR, No Edema, - - no murmur Abdominal: NL Sounds; No Tenderness; No Distention Extremities: No Edema Skin: No Rash or Ulcers Neurological: Alert and Oriented x 3 Laboratory Results: 04/18/16 06:01 04/18/16 06:01 INR (Anticoag Therapy) 0.98 (0.89-1.11) 04/17/16 15:05 APTT 107.2 seconds (26.0-36.3) H* 04/18/16 10:25 Total Bilirubin 0.30 mg/dL (0.2-1.0) 04/18/16 06:01 Direct Bilirubin 0.10 mg/dL (0.03-0.18) 04/18/16 06:01 Indirect Bilirubin 0.2 mg/dL (0.3-1.0) L 04/18/16 06:01 AST 112 U/L (13-39) H 04/18/16 06:01 ALT 161 U/L (7-52) H 04/18/16 06:01 Alkaline Phosphatase 107 U/L (34-104) H 04/18/16 06:01 Total Protein 5.7 g/dL (6.4-8.9) L 04/18/16 06:01 Albumin 3.4 g/dL (3.2-5.2) 04/18/16 06:01 Globulin 2.3 g/dL (2-4) 04/18/16 06:01 Albumin/Globulin Ratio 1.5 (1-3) 04/18/16 06:01 Triglycerides 118 mg/dL 04/18/16 06:01 Cholesterol 189 mg/dL 04/18/16 06:01 LDL Cholesterol 122 mg/dL 04/18/16 06:01 HDL Cholesterol 43.3 mg/dL 04/18/16 06:01 04/17/16 04/18/16 04/18/16 18:40 00:59 06:01 Troponin I 2.09 H* 2.61 H* 2.05 H* Diagnostic Imaging: US 04/18/2016: Intermediate risk for PE US abdomen: No hydronephrosis Carotid US 04/17/2016: Plaque b/l ICA < 50% stenosis MRI 04/17/2016: Tiny subcortical areas of restriction of diffuse noted in right precentral gyrus as well as left cerebellar hemisphere. There are consistent with small area of infarcts embolic phenomenon to be considered. TTE 04/18/2016: Normal LV size, mild-mod LVH, LVEF 65-70%, normal LA size, RV mild-moderately dilated with mod-severely reduced function. Mild pHTN may be underestimated, negative bubble study EKG Data: EKGs this admission: NSR, IVCD, new inferior T wave inversions from prior Assessment/Plan Elsie Preciado is an 85 year old woman with a history of HTN, dyslipidemia, ? COPD admitted with acute CVA suggestive of cardioembolic source and short episode of atrial fibrillation on telemetry monitoring. Also with RV dilation on TTE and intermediate risk V/Q PE study. Has THOMAS and hepatitis. - Elevated troponin likely from stroke, renal failure, LVH and possibly PE. No evidence of a type 1 plaque disruption ACS - Would start anti-coagulation without aspirin. Would use warfarin for now with bridge would cover both potential PE and AFib, possibility of using eliquis if renal function improves but would be uncomfortable using the 10 mg short term BID dose that is PE recommended. - Continue intensive dose statin - Would check lower extremity US - All things considered, I think the risks of a CHAVA outweigh the benefits in this situation - Other medical care per primary service - Will arrange cardiology follow up Thank you for allowing me to participate in the cardiovascular care of this patient. Please do not hesitate to contact me with questions or concerns.
[2016-04-18] MEDS: cefTRIAXone VIAL(*) 1,000 MG in NS 0.9% 50 ML* 50 ML IVPB SCH (15:52)
[2016-04-18] MEDS: Warfarin TAB(*) 5 MG PO SCH (16:35)
[2016-04-18] MEDS: Azithromycin IV(*) 250 MG in NS 0.9% 250 ML* 250 ML IVPB SCH (17:58)
--- NOTE | 2016-04-18 18:33 | RAD ---
INDICATION: Bilateral ankle edema. Diastolic heart failure. Assess for DVT. COMPARISON: None. TECHNIQUE: [place] scale, color Doppler, and spectral analysis of the deep veins of the bilateral lower extremities. Vessel compression, phasicity, and augmentation assessed. REPORT: The right common femoral, great saphenous, profunda femoral, femoral, popliteal, peroneal, and posterior tibial veins are patent. The left common femoral, great saphenous, profunda femoral, femoral, popliteal, peroneal, and posterior tibial veins are patent. Venous flow is pulsatile bilaterally consistent with elevated RIGHT atrial pressures. Bilateral diffuse lower extremity edema. IMPRESSION: 1. No evidence for right or left lower extremity deep venous thrombosis. 2. Pulsatile venous flow bilaterally consistent with elevated RIGHT atrial pressures. 3. Bilateral lower extremity edema.
--- NOTE | 2016-04-18 19:25 | CONS ---
NEUROLOGY CONSULT: DATE OF CONSULT: 04/18/16 ORDERING PROVIDER: Leti Powers NP REASON FOR CONSULT: Embolic strokes on MRI. PRIMARY CARE DOCTOR: Dr. Garcia. HISTORY OF PRESENT ILLNESS: Elsie Preciado is an 85-year-old woman with a history of COPD as well as diastolic heart failure, hypertension and hyperlipidemia who presented to the emergency department yesterday with left arm weakness. Over the past week; however, she has had several new health problems. She first reported having some difficulty sleeping and then developed a burning sensation in the center of her chest 5 days ago. She then had chills and cold sweats associated with a new productive cough of white phlegm with increased difficulty breathing. Though she has COPD, she does not typically need oxygen. She then developed diarrhea and went to see her primary care provider where she was given a Z-Mayank. She then describes what sounds to be a panic attack in the middle of the night where she says it felt like she went through some trauma and recalls her granddaughter somehow being involved and then, her daughter was trying to call her on the phone and she was unable to get out of bed to answer the phone. Her daughter subsequently showed up to her home and found her weak in bed with her left arm "dangling." The patient says that her arms felt very weak and also a bit numb and it still is not quite back to baseline at this point. Since she has been admitted and evaluated, there has been concern for infection including pneumonia and a possible urinary tract infection. Her labs have been notable for acute renal failure as well as an elevated white count and a slightly low sodium. In addition, she has had elevated troponins to over 2. I was contacted by Dr. Stock who was admitting the patient last evening as he was concerned for an NSTEMI and was going to put the patient on a heparin drip but then received MRI results of the brain, which indicated the patient had suffered several small embolic-appearing strokes. Neurology consultation was requested to weigh in on the safety of anticoagulation in the setting of these small embolic strokes. PAST MEDICAL HISTORY: 1. COPD. 2. Compensated diastolic heart failure. 3. Anxiety. 4. Insomnia. 5. Eczema. 6. Hypertension. 7. Hyperlipidemia. 8. Gout. 9. History of hysterectomy. 10. Cataract surgery. 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 12. Knee arthroscopy. HOME MEDICATIONS: 1. Temazepam 15 to 30 mg at bedtime as needed. 2. Xopenex 2 puffs q.4 hours as needed. 3. Xalatan drops. 4. Ibuprofen 400 mg twice daily. ALLERGIES: BEE VENOM causes anaphylaxis. LATEX causes redness and swelling. INDOMETHACIN causes swelling, dizziness, and anxiety. PREDNISONE causes similar symptoms. SHELLFISH allergy. AUGMENTIN causes vomiting. FAMILY HISTORY: Mother with cervical cancer. Father had a stroke. Brother had a ruptured aneurysm. Sister with liver disease. 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 She smoked briefly in the past, but has been a nonsmoker for 40 plus years, but had heavy exposure to secondhand smoke. She denies alcohol use. REVIEW OF SYSTEMS: She reports a 10-pound weight loss in the past few months but says that her weight has plateaued and she stopped losing weight. Her appetite has been down recently. No fevers. Otherwise, as per HPI. PHYSICAL EXAM: Vital Signs: Temperature 98.1, blood pressure 113/41, heart rate is 78, oxygen saturation 99% on 2 L nasal cannula. On general examination , she is a tired appearing elderly female in no acute distress. Heart was in a regular rate and rhythm with no murmurs, rubs, or gallops. Lungs were notable for decreased air entry bilaterally. On neurologic examination, she was fully oriented. Her speech is clear without dysarthria or aphasia. On cranial nerve testing, pupils are equal, round, and reactive from 3 to 2 mm bilaterally. Versions were full without nystagmus, but she endorsed diplopia on rightward gaze. There was no obvious malalignment of the eyes. Visual palomares are full to confrontation. Facial sensation and musculature was full and symmetric. Hearing is intact to voice. Palate elevates symmetrically and the tongue is midline. On motor examination, there is paratonia. There was slight proximal weakness in the left shoulder and left hip flexor and otherwise, strength appeared full. There was slight left pronator drift. Sensation was intact to light touch in the upper and lower extremities. There is no ataxia on [id number] testing. Reflexes are 2+ in the upper and lower extremities except some ankle jerks and downgoing toes. She was not ambulated. DIAGNOSTIC STUDIES/LAB DATA: CMP is notable for a sodium of 131, BUN of 61, creatinine of 3.24, a GFR of 13.6, and a glucose of 113. AST is 112, ALT 161, alkaline phosphatase 107. Troponin was 2.4 on admission, then 2.09, then trended to 2.61 and now most recently 2.05 this morning. Cholesterol studies showed triglycerides of 118, total cholesterol of 189, LDL of 122, HDL of 43.3. Flu was negative. Urinalysis was a dirty sample but showed 2+ protein, 2+ leukocyte esterase, 3+ white blood cells, 1+ rbc's. CBC is notable for a white count of 13.5 with 83% PMN's. MRI of the brain without contrast was personally reviewed and shows 3 tiny foci of restricted diffusion in the left cerebellar hemisphere, left and right precentral gyri. She underwent a carotid Doppler study, which showed plaque in both internal carotid arteries but no hemodynamically significant stenosis. She also underwent a transthoracic echocardiogram today which showed hyperdynamic left ventricle with EF of greater than 65%, [id number] concentric LVH and right ventricular dysfunction. There was no patent foramen ovale. The right ventricle was noted to be mild to moderately dilated. The patient had a short run of atrial fibrillation overnight. IMPRESSION: Elsie Preciado is an 85-year-old woman who presented to the emergency department due to left arm weakness in the context of approximately 1 week of productive cough as well as diarrhea and decreased p.o. intake. Imaging of her brain has been notable for 3 tiny areas of stroke, which appeared consistent with embolic phenomenon. She also has evidence of potential infection as well as right heart strain, which led to concern for pulmonary embolism. In addition, she has new acute renal failure and has had elevated troponins. Last evening, given the presence of embolic phenomenon in her brain and signs of infection, I was concerned about the possibility of infective endocarditis and septic emboli as the etiology for her strokes. I had cautioned about the use of heparin drip in this setting as there is a high risk of hemorrhagic transformation. Now, it appears that she has had some atrial fibrillation and most likely has a pneumonia, has not had any fever, and given the concern for a pulmonary embolism after her TTE, it seems that her risk of hemorrhagic transformation in the setting of anticoagulation from her small strokes is relatively low while the benefit to her for potential PEs would outweigh these small risks. The primary service is planning on having her undergo a transesophageal echocardiogram, which I would agree with given her overall complicated picture. At this time, it seems that her strokes are of relatively minor significance compared to the other issues she is facing with her other organ systems. Neurology will continue to follow along with the patient. Thank you for the consultation. [id number]/[facility] #: [id number] SHANNON
[2016-04-18] MEDS ORDERED: NS 0.9% 1000 ML* 1,000 ML IV SCH (20:45)
[2016-04-18] MEDS ORDERED: Atorvastatin* 40 MG TAB PO SCH (21:30)
--- NOTE | 2016-04-18 22:08 | PN ---
Hospitalist Progress Note I responded to a CAT call due to concern for pt being unresponsive. Dr. Langston at the bedside. The primary nurse tried to wake the patient and the patient appeared unresponsive, he applied a hard sternal rub and the patient did not respond so he called a CAT CALL. Upon my arrival the patient was A+O x3, groggy but awake and responding to my questions, she appeared to be at her baseline from my earlier assessment. VSS. patient is in NAD. My impression is that the patient was in a deep sleep and it took her several minutes to awake. Neuro exam: intact w/o deficit. No further recommendations or treatments at this time
[2016-04-19 03:58] LABS: Albumin 3.3 g/dL (3.2-5.2); BUN/Creatinine Ratio 28.8 (8-20); EGFR African American 22.8 (>60); EGFR Non-African American 17.7 (>60); Globulin 2.4 g/dL (2-4); Potassium 4.1 mmol/L (3.5-5.0); Total Bilirubin 0.3 mg/dL (0.2-1.0); Total Protein 5.7 g/dL (6.4-8.9)
[2016-04-19 04:19] LABS: Hematocrit 37 % (35-47); Hemoglobin 12.1 g/dl (12.0-16.0); Mean Corpuscular HGB Conc 33 g/dl (31-36); Mean Corpuscular Hemoglobin 29 pg (27-31); Mean Corpuscular Volume 90 fL (80-97); Mean Platelet Volume 9 um3 (7.4-10.4); Red Blood Count 4.12 10^6/ul (4.0-5.4); Red Cell Distribution Width 15 % (10.5-15); White Blood Count 13.2 10^3/ul (3.5-10.8)
[2016-04-19 05:55] LABS: Hematocrit 37 % (35-47); Hemoglobin 11.9 g/dl (12.0-16.0); Mean Platelet Volume 9 um3 (7.4-10.4)
[2016-04-19 06:00] LABS: Comments Flag Yes
--- NOTE | 2016-04-19 10:55 | PN ---
Subjective Date of Service: 04/19/16 Interval History: Patient seen this morning. Says her breathing feels "about the same" which she says is not great. Says she needs "supplementation" in the form of NC. Denies chest pain. Has been coughing and feels wheezy. No fever or chills. Reports little PO intake. Family History: Unchanged from Admission Social History: Unchanged from Admission Past Medical History: Unchanged from Admission Objective Active Medications: Acetaminophen (Tylenol Tab*) 650 mg PO Q6H PRN Atorvastatin Calcium (Lipitor*) 40 mg PO 2100 SAMREEN Heparin Sodium (Porcine) (Heparin Vial(*)) 0 units IV .PER PROTOCOL SAMREEN Ceftriaxone Sodium 1,000 mg/ (Sodium Chloride) 50 mls @ 200 mls/hr IVPB Q24H SAMREEN Azithromycin 250 mg/ Sodium (Chloride) 250 mls @ 250 mls/hr IVPB Q24H SAMREEN Heparin Sodium/Dextrose (Heparin Drip 25,000 Units(*)) 25,000 units in 500 mls @ 0 mls/hr IV .NO INITIAL BOLUS SAMREEN; As Directed Levalbuterol HCl (Xopenex 1.25 Mg/0.5 Ml Neb.Kate*) 1.25 mg INH Q2H PRN Mometasone Furoate/Formoterol Fumar (Dulera 200/5 Mdi*) 2 puff INH BID SAMREEN Ondansetron HCl (Zofran Inj*) 4 mg IV Q4H PRN Pharmacy Profile Note (Coumadin Per Pharmacy*) 1 note FOLLOW UP .PER PHARMACY PROTOC SAMREEN Prednisone (Deltasone Tab*) 40 mg PO DAILY SAMREEN Tiotropium [place] (Spiriva Cap.Inh*) 1 cap INH DAILY SAMREEN Warfarin Sodium (Coumadin Tab(*)) 5 mg PO DAILY@1700 [facility] Vital Signs 04/18/16 04/18/16 04/18/16 13:41 15:44 19:33 Temperature 98.2 F 98.1 F 98.0 F Pulse Rate 79 78 78 Respiratory 18 18 18 Rate Blood Pressure 110/40 113/41 118/55 (mmHg) O2 Sat by Pulse 99 100 Oximetry 04/18/16 04/18/16 04/19/16 20:00 23:21 02:53 Temperature 99.1 F Pulse Rate 83 81 Respiratory 16 16 16 Rate Blood Pressure 124/47 (mmHg) O2 Sat by Pulse 100 100 Oximetry 04/19/16 04/19/16 04/19/16 03:14 07:38 08:38 Temperature 98.4 F Pulse Rate 90 88 70 Respiratory 16 24 18 Rate Blood Pressure 147/47 138/45 (mmHg) O2 Sat by Pulse 97 97 91 Oximetry Oxygen Devices in Use Now: Nasal Cannula - 3L Appearance: Elderly, ill-appearing F, laying in chair in mild respiratory distress Eyes: No Scleral Icterus Ears/Nose/Mouth/Throat: - - Dry MM Neck: No Thyroid Enlargement, Masses Respiratory: Symmetrical Chest Expansion and Respiratory Effort, - - Mild tachypnea, diffuse wheezing throughout all lung palomares Cardiovascular: RRR Abdominal: NL Sounds; No Tenderness; No Distention Lymphatic: No Cervical Adenopathy Extremities: - - Mild LE edema Neurological: Alert and Oriented x 3, - - no notable neurological deficits Result Diagrams: 04/19/16 05:15 04/19/16 03:25 Additional Lab and Data: Microbiology and Other Data: Assess/Plan/Problems-Billing Assessment: Ms. Preciado is a 85 yo with a PMH HTN, COPD, compensated diastolic heart failure who presents to the ED on 04/17 with c/o of chest pain 4 days ago along with cough, sweats and chills now with generalized weakness found to have AKF, NSTEMI, pneumonia, transaminitis, lactic acidosis and cardioembolic CVA and possible PE. - Patient Problems (1) NSTEMI (non-ST elevated myocardial infarction) Current Visit: Yes Comment: - appreciate cardiology consult - possible elevated trop from cva, renal failure, LVH or possible PE. - on heparin gtt - LE dopplers negative, Dr. Toth recommends no CHAVA at this time - continue statin, cards recommends no asa in the setting of anticoagulation (2) Pneumonia Current Visit: Yes Comment: suspect pneumonia on chest xray, as well pt clinically appears to have possible pna. - continue azithro and ceftriaxone (3) Pulmonary embolism Current Visit: Yes Comment: - concern for pulmonary embolism with noted RV dilitation on TTE. Appreciate cardiology consult - it is possible the RV dilitation could be from hx of COPD, however, VQ scan reading Intermediate placing her at a 20-80% probability of PE and in the setting of new cardioembolic cva, plan to tx for PE. LE dopplers negative bridge Heparin gtt to coumadin (due to ARF) (4) COPD exacerbation Current Visit: Yes Comment: Diffuse wheezing on exam. Will change Xopenex to nebs and also start Dulera and Spiriva. Prednisone 40 mg daily. (5) Transaminitis Current Visit: Yes Comment: Likely congestive, trending down (6) CVA (cerebral vascular accident) Current Visit: Yes Comment: MRI brain showing areas of small infarct consistent with cardioembolic CVA. Run of afib noted on tele monitoring as well TTE showing no PFO continue AC (heparin bridging to coumadin) and statin INR daily (7) Acute kidney failure Current Visit: Yes Comment: - pre-renal, improving, continue to monitor closely. Receiving fluids with heparin gtt Status and Disposition: inpatient.
[2016-04-19] MEDS ORDERED: Mometasone/Formoter 200/5 MDI INH SCH (11:00)
[2016-04-19] MEDS ORDERED: predniSONE TAB* 20 MG PO SCH (11:00)
[2016-04-19] MEDS ORDERED: Tiotropium CAP.INH* CAP.INH/18 MCG (USE ORDER SET !) INH SCH (11:00)
[2016-04-19] MEDS ORDERED: Spiriva Inhaler DEVICE* 1 EACH DEVICE INH SCH (11:00)
[2016-04-19] MEDS: Levalbuterol 1.25MG/0.5ML NEB INH PRN ×2 (11:24→14:15)
[2016-04-19] MEDS ORDERED: Heparin DRIP 25,000 UNITS(*) 25,000 UNITS/500 ML BAG ONE (11:34)
[2016-04-19] MEDS: Heparin DRIP 25,000 UNITS(*) 25,000 UNITS/500 ML BAG IV SCH (11:39)
[2016-04-19] MEDS: Ipratropium 0.5MG/2.5ML NEB* 0.5 MG/2.5 ML NEB.SOLN INH SCH ×2 (11:53→17:39)
[2016-04-19 12:06] LABS: PCO2 Arterial 87 mmHg (35-45)
--- NOTE | 2016-04-19 12:19 | PN ---
Hospitalist Progress Note Throughtout the morning the patient continued to report SOB despite additional nebulizer therapy. Also became more lethargic. ABG was taken which demonstrated significant respiratory acidosis. BiPAP ordered stat and RT at bedside to apply. Will transfer to ICU. Discussed at length with friends at bedside who will notify patient's daughter who is in [place] [facility] today.
[2016-04-19] MEDS ORDERED: Senna TAB PO PRN (13:33)
[2016-04-19] MEDS ORDERED: Docusate CAP* 100 MG PO SCH (13:34)
[2016-04-19 13:36] LABS: EPAP 6; FIO2 40; IPAP 16; Resp Rate 12
[2016-04-19 13:44] LABS: PCO2 Arterial 88 mmHg (35-45)
[2016-04-19] MEDS ORDERED: Polyethylene Glycol 3350* 17 GM PACKET PO SCH (14:00)
[2016-04-19 14:37] LABS: EPAP 6; FIO2 30; IPAP 16; Resp Rate 18
[2016-04-19 14:43] LABS: PCO2 Arterial 84 mmHg (35-45)
[2016-04-19] MEDS ORDERED: Succinylcholine* 20 MG/ML 10 ML VIAL ONE (14:53)
[2016-04-19] MEDS ORDERED: fentaNYL* 50 MCG/ML 5 ML VIAL (250 MCG VIAL) ONE (15:30)
[2016-04-19] MEDS ORDERED: Etomidate* 2 MG/ML 20 ML VIAL (40 MG) ONE (15:33)
[2016-04-19] MEDS ORDERED: Propofol* 100 ML ONE (15:38)
--- NOTE | 2016-04-19 16:32 | RAD ---
INDICATION: Status post intubation, orogastric tube placement. COMPARISON: Comparison is made with a prior study from April 18, 2016. TECHNIQUE: A portable view of the chest was obtained. FINDINGS: There is an endotracheal tube which projects over the midline. There is a nasogastric tube present. The catheter tip projects in the midline overlying the inferior portion of the mediastinum likely in the distal esophagus. The heart is within normal limits in size. The lungs are hyperinflated and clear. IMPRESSION: 1. STATUS POST NASOGASTRIC TUBE PLACEMENT. THE CATHETER TIP IS LIKELY LOCATED WITHIN THE DISTAL ESOPHAGUS APPROXIMATELY 4 CM PROXIMAL TO THE GASTROESOPHAGEAL JUNCTION. 2. THE LUNGS ARE CLEAR.
[2016-04-19 16:56] LABS: FIO2 45; Resp Rate 16; Ventilator Volume 450
[2016-04-19 17:01] LABS: PCO2 Arterial 62 mmHg (35-45)
[2016-04-19] MEDS ORDERED: fentaNYL* 50 MCG/ML 2 ML VIAL (100 MCG VIAL) ONE (17:28)
--- NOTE | 2016-04-19 17:59 | PN ---
Critical Care Services: 80 YO female with multiple medical problems - currently hospitalized with SOB ( Hx of COPD and possible acute PE by V/Q scan), left-sided weakness (possible cardioembolic CVA), nonSTEMI (elevated troponins), and THOMAS - brought to ICU because of acute hypercapnic respiratory failure (PCO2 in high 80s) - did not improve after BiPAP, and was subsequently intubated. Vital Signs: Temp Pulse Resp BP SpO2 FiO2 99.1 F 89 15 128/47 96 45 Physical Exam: Gen:Patient unresponsive on propofol HEENT:Orotracheal tube in place Lungs:expiratory wheezing Cardiac: Exaggerated P2 Abdomen:Not distended. Extremities:No cyanosis. 1+ edema. Fluid Balance (Past 24 Hours): 04/19/16 06:59 Intake Total 3580 Output Total 1200 Balance +2380 Weight Intake: IV Fluids 1601 NS (0.9%) 1601 IVPB ABX - AZITHROMYCIN Medicated IV 221 Heparin Drip 221 Heparin 318 Oral 1440 Output: Urine 1200 Other: # Bowel Movements 0 Estimated Stool Amount Medium # Voids 0 Labs: Laboratory Results - last 24 hr 04/19/16 04/19/16 03:25 03:25 WBC 13.2 H RBC 4.12 Hgb 12.1 Hct 37 MCV 90 MCH 29 MCHC 33 RDW 15 Plt Count 204 MPV 9 Neut % (Auto) 86.6 H Lymph % (Auto) 6.7 L [place] % (Auto) 6.5 Eos % (Auto) 0 Baso % (Auto) 0.2 Absolute Neuts (auto) 11.5 H Absolute Lymphs (auto) 0.9 L Absolute Monos (auto) 0.9 H Absolute Eos (auto) 0 Absolute Basos (auto) 0 Absolute Nucleated RBC 0 Nucleated RBC % 0 Sodium 129 L Potassium 4.1 Chloride 98 L Carbon Dioxide 22 Anion Gap 9 BUN 74 H Creatinine 2.57 H Glucose 116 H Calcium 8.0 L Total Bilirubin 0.30 AST 62 H ALT 123 H Alkaline Phosphatase 88 Total Protein 5.7 L Albumin 3.3 Globulin 2.4 Albumin/Globulin Ratio 1.4 04/19/16 04/19/16 04/19/16 03:25 05:15 05:15 WBC RBC Hgb 11.9 L Hct 37 MCV MCH MCHC RDW Plt Count 215 MPV 9 Neut % (Auto) Lymph % (Auto) [place] % (Auto) Eos % (Auto) Baso % (Auto) Absolute Neuts (auto) Absolute Lymphs (auto) Absolute Monos (auto) Absolute Eos (auto) Absolute Basos (auto) Absolute Nucleated RBC Nucleated RBC % INR (Anticoag Therapy) 1.00 APTT 75.1 H Patient Temperature ABG pH ABG pCO2 ABG pO2 ABG HCO3 ABG O2 Saturation ABG Base Excess Respiration Rate O2 Delivery Device Ventilator Type Vent Mode FiO2 Inspiratory Time PEEP Pressure Support Pressure Control EPAP IPAP BiPAP Sodium Potassium Chloride Carbon Dioxide Anion Gap BUN Creatinine Est GFR ( Amer) Est GFR (Non-Af Amer) BUN/Creatinine Ratio Glucose Calcium Total Bilirubin AST ALT Alkaline Phosphatase Total Protein Albumin Globulin Albumin/Globulin Ratio 04/19/16 04/19/16 04/19/16 11:50 12:14 13:32 APTT 62.0 H Patient Temperature Not Reportable Not Reportable ABG pH 7.06 L* 7.08 L* ABG pCO2 87 H* 88 H* ABG pO2 114 H 135 H ABG HCO3 19.4 20.6 ABG O2 Saturation 99.2 H 99.5 H ABG Base Excess -7.1 L -5.5 L Respiration Rate Not Reportable 12 O2 Delivery Device 2 lnc Ventilator Type Not Reportable Not Reportable Vent Mode Not Reportable st FiO2 Not Reportable 40 Inspiratory Time Not Reportable Not Reportable PEEP Not Reportable Not Reportable Pressure Support Not Reportable Not Reportable Pressure Control Not Reportable Not Reportable EPAP Not Reportable 6 IPAP Not Reportable 16 BiPAP Not Reportable Not Reportable 04/19/16 04/19/16 14:33 16:50 ABG pH 7.10 L* 7.20 L ABG pCO2 84 H* 62 H ABG pO2 67 L 187 H ABG HCO3 20.9 21.4 ABG O2 Saturation 95.5 100.0 H ABG Base Excess -5.0 L -4.5 L Respiration Rate 18 16 O2 Delivery Device Bipap Ventilator Ventilator Type 450 Vent Mode spontaneous cmv FiO2 30 45 Inspiratory Time Not Reportable 1 PEEP Not Reportable 5 Pressure Control Not Reportable Not Reportable EPAP 6 Not Reportable IPAP 16 Not Reportable BiPAP Not Reportable Not Reportable Studies: CXR (post-intubation) : lung palomares clear, but marked hyperinflation bilaterally. Nutrition: None today Impression: Patient with multiple m,edical problems who has no developed acute hypercarbic respiratory failure, probably due to COPD exacerbation. Doubt PE is playing a major role here. Plan: Bronchodilators and steroids are the principle Rx here. Considering the multiple medical problems, the prognosis is poor. Intubation was performed at the request of the patient's daughter, who wants a trial of mechanical ventilation. We will continue heparin Rx for presumed thromboembolism (although the V/Q scan is nondiagnostic), but I will not repeat V/Q scan (can't do CT angio because of THOMAS). Critical Care Time: 70 minutes
[2016-04-19] MEDS ORDERED: fentaNYL PCA* 20 ML ONE (18:17)
[2016-04-19] MEDS ORDERED: Propofol* 100 ML IV SCH (19:00)
[2016-04-19] MEDS ORDERED: fentaNYL PCA* 20 ML PCA SCH (19:00)
[2016-04-19] MEDS: Albuterol/Ipratropium NEB.SOL* Albuterol 2.5 MG/Ipratropium 0.5 MG 3 ML INH SCH ×2 (19:40→23:23)
[2016-04-19] MEDS ORDERED: Heparin VIAL(*) 5000 UNITS/ML VIAL (FIVE THOUSAND) IV SCH (21:00)
[2016-04-19] MEDS: Chlorhexidine MOUTHWASH 0.12%* 15 ML UDC SWISH SPIT SCH (23:36)
[2016-04-20] MEDS: Albuterol/Ipratropium NEB.SOL* Albuterol 2.5 MG/Ipratropium 0.5 MG 3 ML INH SCH ×6 (03:30→23:00)
[2016-04-20] MEDS: Chlorhexidine MOUTHWASH 0.12%* 15 ML UDC SWISH SPIT SCH (04:47)
[2016-04-20 05:06] LABS: Hematocrit 30 % (35-47); Hemoglobin 10.2 g/dl (12.0-16.0); Mean Corpuscular HGB Conc 34 g/dl (31-36); Mean Corpuscular Hemoglobin 30 pg (27-31); Mean Corpuscular Volume 87 fL (80-97); Mean Platelet Volume 9 um3 (7.4-10.4); Red Blood Count 3.46 10^6/ul (4.0-5.4); Red Cell Distribution Width 14 % (10.5-15); White Blood Count 9.4 10^3/ul (3.5-10.8)
[2016-04-20 05:15] LABS: Albumin 2.9 g/dL (3.2-5.2); BUN/Creatinine Ratio 36.5 (8-20); Calcium 8.2 mg/dL (8.6-10.3); Globulin 1.9 g/dL (2-4); Potassium 4.1 mmol/L (3.5-5.0); Total Bilirubin 0.4 mg/dL (0.2-1.0); Total Protein 4.8 g/dL (6.4-8.9)
[2016-04-20] MEDS ORDERED: Furosemide IV* 10 MG/ML 10 ML VIAL (100 MG) IV ONE (08:42)
--- NOTE | 2016-04-20 12:47 | PRO ---
PROCEDURE NOTE: DATE OF PROCEDURE: 04/19/16 PROCEDURE: Endotracheal intubation. INDICATIONS: The patient is an 85-year-old white female, who was hospitalized for lethargy and shor tness of breath, who developed acute hypercapnic respiratory failure with PCO2s in the high 80s that did not improve with BiPAP therapy. The patient was subsequently brought to the intensive care [facility] and intubated with videoscopic assistance. DESCRIPTION OF PROCEDURE: A 7.5-Portuguese endotracheal tube was inserted without difficulty and trache al placement was verified by expiratory CO2 detection. The patient was sedated with 200 mg of fenta nyl and 20 mg of etomidate to facilitate the procedure. There were no apparent complications and th e patient was placed on mechanical ventilation, and a postinsertion portable chest film was ordered. Chest film subsequently verified the acceptable placement of the endotracheal tube within the [facility]a. The patient's immediate family was informed of the procedure and they are currently en route to the hospital. [id number]/[facility] #: [id number]
--- NOTE | 2016-04-20 16:28 | PN ---
Critical Care Services: Patient improved overnight and was weaned and extubated this aM. Family present at bedside. patient requested not to be reintubated, and a DNI order was entered. Vital Signs: Temp Pulse Resp BP SpO2 FiO2 98.9 F 85 19 155/65 99 35 Physical Exam: Gen:Somnolent but easily arousable. Oriented when awake. Lungs:wheezing both bases. Extremities:warm/ No cyanosis Fluid Balance (Past 24 Hours): 04/20/16 06:59 Intake Total 1532 Output Total 450 Balance 1082 Weight 133 lb Intake: IV Fluids 1348 LR 1074 NS (0.9%) 274 NS to Maintain IV Patency IVPB ABX - AZITHROMYCIN Medicated IV 70.3 CC - Propofol/Diprivan 70.3 Heparin Drip Heparin 114 Oral Output: Urine [place] 450 Other: # Bowel Movements Estimated Stool Amount # Voids 0 Labs: 04/20/16 04:30 Sodium 130 L Potassium 4.1 Chloride 100 L Carbon Dioxide 22 BUN 81 H Creatinine 2.22 H Glucose 115 Calcium 8.2 L Total Bilirubin 0.40 AST 45 ALT 90 Alkaline Phosphatase 61 Total Protein 4.8 Albumin 2.9 04/20/16 04/20/16 04:30 04:30 WBC 9.4 RBC 3.46 Hgb 10.2 Hct 30 MCV 87 MCH 30 MCHC 34 RDW 14 Plt Count 181 MPV 9 Neut % (Auto) 87.7 H Lymph % (Auto) 6.0 L [place] % (Auto) 6.0 Eos % (Auto) 0.1 Baso % (Auto) 0.2 Absolute Neuts (auto) 8.2 H Absolute Lymphs (auto) 0.6 L Absolute Monos (auto) 0.6 Absolute Eos (auto) 0 Absolute Basos (auto) 0 Absolute Nucleated RBC 0.02 Nucleated RBC % 0.2 APTT 99.7 H Studies: None today Nutrition: Oral diet Impression: Clinical improvement - most likely cause of acute hypercapnic respiratory failure is exacerbation of COPD, Plan: General supportive care, including bronchodilators. No steroids because of apparent patient allergy. Patient is now DNR/DNI Critical Care Time: 45 minutes
[2016-04-21] MEDS: Albuterol/Ipratropium NEB.SOL* Albuterol 2.5 MG/Ipratropium 0.5 MG 3 ML INH SCH ×7 (00:26→23:00)
[2016-04-21] MEDS ORDERED: hydrALAZINE IV* 20 MG/ML VIAL ONE (05:41)
[2016-04-21] MEDS ORDERED: hydrALAZINE IV* 20 MG/ML VIAL IV SLOW PU PRN (05:46)
[2016-04-21 05:47] LABS: Hematocrit 31 % (35-47); Hemoglobin 10.3 g/dl (12.0-16.0); Mean Corpuscular HGB Conc 34 g/dl (31-36); Mean Corpuscular Hemoglobin 29 pg (27-31); Mean Corpuscular Volume 87 fL (80-97); Mean Platelet Volume 8 um3 (7.4-10.4); Red Blood Count 3.55 10^6/ul (4.0-5.4); Red Cell Distribution Width 14 % (10.5-15); White Blood Count 8.6 10^3/ul (3.5-10.8)
[2016-04-21 05:57] LABS: BUN/Creatinine Ratio 37.5 (8-20); Calcium 8.5 mg/dL (8.6-10.3); EGFR African American 37.2 (>60); Potassium 3.9 mmol/L (3.5-5.0)
[2016-04-21] MEDS ORDERED: hydrALAZINE IV* 20 MG/ML VIAL IV SLOW PU ONE (07:21)
[2016-04-21] MEDS: fentaNYL* 50 MCG/ML 2 ML VIAL (100 MCG VIAL) IV SLOW PU PRN ×2 (07:32→21:12)
--- NOTE | 2016-04-21 16:17 | PN ---
Critical Care Services: Patient is somnolent but arousable, and mental status is appropriate when aroused. Up in chair and appears comfortable. Vital Signs: Temp Pulse Resp BP SpO2 FiO2 99.0 F 94 26 174/75 98 35 Physical Exam: Gen:As stated Lungs:Wheezes both bases. No crackles Extremities:Cool. No cyanosis or edema. Fluid Balance (Past 24 Hours): 04/21/16 06:59 Intake Total 308 Output Total 1100 Balance -792 Weight 122 lb Intake: IV Fluids 182 LR NS (0.9%) NS to Maintain IV Patency 182 Medicated IV 126 CC - Propofol/Diprivan Heparin Drip 126 Heparin Oral Output: Urine [place] 1100 Other: # Bowel Movements Estimated Stool Amount # Voids Labs: 04/21/16 04/21/16 05:27 05:30 WBC 8.6 Hgb 10.3 Hct 31 Plt Count 186 Sodium 138 Potassium 3.9 Chloride 104 Carbon Dioxide 28 Anion Gap 6 BUN 63 H Creatinine 1.68 H Glucose 96 Calcium 8.5 L Studies: None today Nutrition: Oral diet - intake poor. Impression: Patient working harder to breathe when compared to yesterday. Wheezing persists despite bronchodilator Rx. Plan: Continue present management, and use morphine infusion if respiratory distress returns. Patient's daughter and son present at bedside.
[2016-04-21] MEDS ORDERED: Albuterol 2.5 MG/3 ML NEB.SOL* (0.083%) INH PRN (16:21)
[2016-04-21] MEDS ORDERED: Morphine INJ* 2 MG/ML 1 ML CARPUJECT ONE (20:27)
[2016-04-21] MEDS: Azithromycin IV(*) 250 MG in NS 0.9% 250 ML* 250 ML IVPB SCH (21:36)
[2016-04-21] MEDS: Chlorhexidine MOUTHWASH 0.12%* 15 ML UDC SWISH SPIT SCH ×2 (21:36→21:37)
[2016-04-21] MEDS: cefTRIAXone VIAL(*) 1,000 MG in NS 0.9% 50 ML* 50 ML IVPB SCH (21:36)
[2016-04-21] MEDS: Warfarin TAB(*) 5 MG PO SCH (21:36)
[2016-04-21] MEDS: hydrALAZINE IV* 20 MG/ML VIAL IV SLOW PU PRN (23:12)
[2016-04-22] MEDS: Morphine INJ* 2 MG/ML 1 ML CARPUJECT IV PRN ×2 (01:33→23:44)
[2016-04-22] MEDS: Albuterol/Ipratropium NEB.SOL* Albuterol 2.5 MG/Ipratropium 0.5 MG 3 ML INH SCH ×6 (03:00→23:01)
[2016-04-22] MEDS: hydrALAZINE IV* 20 MG/ML VIAL IV SLOW PU PRN (03:05)
[2016-04-22 06:39] LABS: Hematocrit 34 % (35-47); Hemoglobin 11.5 g/dl (12.0-16.0); Mean Corpuscular HGB Conc 34 g/dl (31-36); Mean Corpuscular Hemoglobin 29 pg (27-31); Mean Corpuscular Volume 87 fL (80-97); Mean Platelet Volume 9 um3 (7.4-10.4); Red Blood Count 3.93 10^6/ul (4.0-5.4); Red Cell Distribution Width 14 % (10.5-15); White Blood Count 10.7 10^3/ul (3.5-10.8)
--- NOTE | 2016-04-22 17:09 | PN ---
Critical Care Services: Continues to improve. Now off Vapotherm and on [place] high-flow system. Vital Signs: Temp Pulse Resp BP SpO2 FiO2 99.2 F 93 23 162/57 96 35 Physical Exam: Gen:Alert, oriented, breathing comfortably Lungs: no wheezes today. Cardiac: Abdomen: Extremities:Warm. No cyanosis or edema Fluid Balance (Past 24 Hours): 04/22/16 06:59 Intake Total 520 Output Total 2175 Balance -1655 Weight 126 lb Intake: IV Fluids LR NS (0.9%) NS to Maintain IV Patency Medicated IV CC - Propofol/Diprivan Heparin Drip Heparin Oral 520 Output: [place] 2175 Other: Date of Last Bowel Movement # Voids Labs: 04/22/16 06:00 WBC 10.7 Hgb 11.5 L Hct 34 L Plt Count 243 Studies: None Nutrition: Oral diet Impression: Continues to improve, but still has high O2 requirement. Plan: Have consulted hospice service about future care.
[2016-04-22] MEDS: fentaNYL* 50 MCG/ML 2 ML VIAL (100 MCG VIAL) IV SLOW PU PRN (19:59)
--- NOTE | 2016-04-22 20:36 | CONS ---
CONSULTATION REPORT: DATE OF CONSULTATION: 04/22/16 REQUESTING PHYSICIAN: Demond Toth MD REASON FOR CONSULTATION: Evaluation for hospice. HISTORY OF PRESENT ILLNESS: This is an 85-year-old female who was living at home independent of her ADLs when she became acutely ill on the for generalized weakness. The patient and her daughter who is her healthcare proxy and the patient's friend are at the bedside all are contributing to the history. The patient states that she began feeling ill around the with upper respiratory symptoms and some nausea, vomiting, diarrhea. She was given a Z-Mayank when she saw her primary care physician on the and then on the , she was unable to get out of the bed. There was concern for a stroke because she had some focal weakness that was noted with her left arm dangling. She was seen in the emergency room. She was admitted for concern for pneumonia, possible stroke, acute kidney failure, and elevated troponin. She has had a thorough workup since her admission including an MRI that does show consistent areas of small infarct. Possibility of embolic phenomenon should be considered. Neurology has been consulted as well. She had an echocardiogram that showed an ejection fraction of 65% of 70% with no segmental wall motion abnormalities. The RV is mild to moderately dilated with moderate to severe reduced function. The right ventricular global systolic function is moderate to severely reduced, mild pulmonary hypertension that may be underestimated and no ASD. The patient had negative Dopplers of her lower extremities as there was concern for a PE. Her lung V/Q scan is equivocal, but unreliable in someone with underlying COPD. On hospital day 2, the patient became more short of breath and then became lethargic. ABG was done that showed significant respiratory acidosis and hypercapnic respiratory failure. The patient was put on BiPAP, transferred to the ICU. She was later intubated by Dr. Toth on the morning of 04/20/16. She was intubated for about 24 hours and transitioned to Vapotherm. She has been reduced off Vapotherm to the Salter at [address] Toth's concern is with her comorbidities and her COPD that she is a candidate for hospice. The patient states she has been living at home independently of her ADLs. She does have aides that come in with cleaning and she has assistance with her shopping. For the past 6 or 7 months, her energy has declined. She has stopped working at the [employer]. She was planning to go to [place] this winter for 6 weeks. She enjoys playing Scrabble, reading, and Facebooking. She feels that she is getting better, but is worried about how much this has made her weak and worried about her safety at home and taking the steroids and how she is going to do as she does not feel that she will be as independent as she was initially. The patient denies any shortness of breath. No pain at this time. She does have some anxiety regarding the situation. Otherwise, remaining review of systems is negative. PAST MEDICAL HISTORY: COPD, not on oxygen no hx of intubations in the past; compensated diastolic heart failure; anxiety; insomnia; eczema; hypertension; hyperlipidemia; gout; history of hysterectomy; cataract surgery; removal of lip cancer; and knee arthroscopic surgery. HOME MEDICATIONS: Include: 1. Temazepam 15 to 30 mg at bedtime as needed. 2. Xopenex 2 puffs inhaled every 4 hours as needed for shortness of breath. 3. Xalatan 1 drop both eyes daily. 4. Ibuprofen 400 mg twice daily. 5. Albuterol MDI as needed for shortness of breath, which was just prescribed to her a week prior to her admission for her URI illness. ALLERGIES: BEE VENOM, LATEX, INDOMETHACIN, PREDNISONE. She said she has swelling of her lower extremities. SHELLFISH ALLERGY, AMOXICILLIN CLAVULANIC ACID. FAMILY HISTORY: Mother with cervical cancer, father with CVA, brother with ruptured aneurysm, and sister with liver disease. SOCIAL HISTORY: As mentioned, she was living in home independently. 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 Her daughter, Evan Woodson, is her healthcare proxy. She also has a son Tristan, who lives in [place], [place]. She normally ambulates with a cane. MOLST form on admission was a trial of intubation and a DNR. Since she has been extubated, her MOLST form has been modified to be a DNR/DNI. She was a remote smoker, but not a heavy smoker but she was exposed to significant amount of secondhand smoke from her . REVIEW OF SYSTEMS: As mentioned in the HPI. PHYSICAL EXAMINATION: Vitals: Temperature 99.2, pulse rate 74, respiratory rate 22, oxygen saturation 100% on 10 L of Salter, blood pressure 162/57. General: In no acute distress, resting comfortably in the chair with her daughter and a friend at the bedside. HEENT: Neck is supple. No lymphadenopathy. Pupils equal, reactive to light, anicteric. Head: Normocephalic. Oropharynx: Mucous membranes moist. No erythema or exudate. Cardiac: Regular rate and rhythm. Soft systolic murmur heard throughout. Respiratory: Poor aeration, prolonged expiratory phase and bilateral expiratory wheezing. Abdomen: Soft, nontender, nondistended. Extremities: +1 pretibial edema. Neurologic: Alert and oriented x3. No focal neurologic deficits. LABORATORY DATA: White count 10.7, hemoglobin 11.5, hematocrit 34, platelets 243, sodium 138, potassium 3.9, chloride 104, bicarb 28, BUN 63, creatinine 1.68. Her LFTs are trending down, troponin peaked at 2.61, albumin currently 2.9, on admission 3.8, procalcitonin less than 0.1. ASSESSMENT: This is an 85-year-old female with a past medical history of chronic obstructive pulmonary disease, pulmonary hypertension, who presented to the emergency room after setting of an upper respiratory infection illness who came in with weakness and some focal neurologic deficits. It appears the patient has findings of small infarcts on her MRI, possibly embolic. She also has slight bump in her troponin, but no significant findings on her echocardiogram other than severe RV dysfunction, but unfortunately with a renal impairment, a CT of her chest is contraindicated. Her renal failure is also significant finding, although it has been improving during this admission. The patient is only on albuterol inhaler prior to this admission, and she had been on room air prior to this admission. It is unclear why she became short of breath and hypercapnic respiratory failure two days into her hospital course. There is a concern that she does have an underlying pulmonary embolism or more likely cor pulmonale. She talked about an allergy to ORAL STEROIDS, getting swelling of her hands and her feet. I wonder if an inhaled steroid may be beneficial as a limited systemic absorption to that. I think having Pulmonology weigh in and obtaining PFTs to determine the severity of chronic obstructive pulmonary disease to see if she would be a hospice candidate. At this time, she does not appear eligible for hospice but would be a good candidate for the PATH referral program for an outpatient palliative care followup and likely a candidate for short-term rehab. RECOMMENDATION: Recommend Pulmonary consultation to evaluate the severity of her COPD as it does not seem end-stage at this point. Based on her prior history and her improving on her respiratory status on her admission, the patient would benefit from a PATH referral for palliative care followup as an outpatient and further evaluation for her infarct and short-term rehab with physical therapy. Consider continuing nebulizer treatments at discharge as patient has a difficulty using an inhalers with her arthritis. Consider inhaled steroids with limited systemic side effects and long acting beta agonist. Thank you for this consultation. We will follow along with you. This patient was seen and discussed with Dr. Villatoro. PATIENT TIME: Greater than 60 minutes were spent doing the consultation, more than half the time was spent in direct patient contact. [id number]/CPS #: [id number] MTDD
[2016-04-23] MEDS: Albuterol/Ipratropium NEB.SOL* Albuterol 2.5 MG/Ipratropium 0.5 MG 3 ML INH SCH ×6 (02:44→23:00)
[2016-04-23 06:37] LABS: BUN/Creatinine Ratio 38.3 (8-20); Calcium 9.3 mg/dL (8.6-10.3); EGFR African American 62.7 (>60); EGFR Non-African American 48.7 (>60); Potassium 4.1 mmol/L (3.5-5.0)
--- NOTE | 2016-04-23 10:43 | PN ---
Critical Care Services: Continues to improve. Now on nasal O2 at 5 L/min, with adequate arterial oxygenation. This AM is up in bed and breathing comfortably. Vital Signs: Temp Pulse Resp BP SpO2 FiO2 97.9 F 64 18 151/54 100 35 Physical Exam: Gen:Alert, oriented, and appropriate Lungs:occasional wheezing (insp and exp) bilaterally. Extremities:Warm. No cyanosis or edema. Fluid Balance (Past 24 Hours): I and O recording not accurate because of oral intake. Labs: 0 04/23/16 06:10 Sodium 140 Potassium 4.1 Chloride 104 Carbon Dioxide 36 BUN 41 Creatinine 1.07 Glucose 113 Calcium 9.3 Note: Elevated HCO3 most likely due to chronic CO2 retention. Studies: None today. Nutrition: Oral diet Impression: Recovering from exacerbation of COPD. Patient is DNR/DNI. Plan: 1. Continue to taper inhaled O2 as tolerated. 2. Physical therapy to enhance recovery. Patient may need a stay in a rehab facility prior to returning home. Hospice consult: patient not a candidate. Pulmonary consult recommended, and will be sent.
[2016-04-23] MEDS: Heparin VIAL(*) 5000 UNITS/ML VIAL (FIVE THOUSAND) SUBCUT SCH ×2 (14:44→21:23)
--- NOTE | 2016-04-23 15:26 | PN ---
Progress Note - Progress Note Note: Stopped by to see patient who is now out of the ICU on the medical floor, and claims to be feeling much improved and is regaining her appetite, although still feels very fatigued. Respiratory: Although the patient did experience hypoxic hypercapnic respiratory failure in the context of her initial presentation with gastroenteritis and dehydration and CVA, now she is maintaining O2 sats of 100% on 2 LPM. Prior to hospitalization she was on no O2, no ipratropium, only Albuterol or Xopenex. She has never been on inhaled steroids, and had a reaction of "puffiness" to systemic prednisone, so has been avoiding steroids since then. However, I think she would benefit from inhaled budesonide, and also she and the family prefer to use a nebulizer, which would allow her inhaled medications to be covered 100% by Medicare. The family reports that the patient has very violent coughing fits and was also noted to have elevated LFTs on this admission. She did not get a CT scan due to concern for her renal function, but now that this has normalized it might make sense to have better imaging of her lungs and liver with concern for possible underlying neoplasm. She will be seen by Dr. Chung and she may elect to initiate inhaled steroids, order CT scan, and offer an opinion about this patient's prognosis since Dr. Toth felt she was hospice appropriate. Cardiac: The patient probably had her 3 small cerebral infarcts as a result of her intermittent A. Fib, and should be maintained on warfarin, which has not yet been initiated. Her troponins peaked at 2.61, she had inferior TW inversions and precordial ST changes, new intermittent rapid AFib, and RV overload and mild-mod pulmonary HTN on echo, and will need follow up with Dr. Tin Toth or Marv Membreno, who did her cardiac stress test a few years ago. Her blood pressure has been elevated and she may need Rx for this with ROLANDA inhibition. Neuro: The patient did have thre small infarcts with left hemiparesis, but on exam today she has equal strength in both UEs and seems quite articulate with her speech. As mentioned above, anticoagulation is indicated. ADLs: This patient was independent in her ADLs and living alone prior to admission. She needs a PT evaluation and may be a candidate for ST rehab before going home. The current plan is for her to return to live with her daughter, Evan, after discharge, at least temporarily.
[2016-04-23] MEDS ORDERED: Temazepam CAP* 15 MG PO ONE (15:38)
--- NOTE | 2016-04-23 17:55 | RAD ---
INDICATION: Short of breath COMPARISON: Chest x-ray April 19, 2016; thyroid sonogram January 29, 2009; renal sonogram April 17, 2016 TECHNIQUE: Noncontrast axial source images were obtained from the thoracic inlet to the hemidiaphragms. Coronal and sagittal reconstructed images were acquired. The left lobe of the thyroid is enlarged and heterogeneous. This is been documented previously.. Chest wall: There are no acute abnormalities of the bony thorax or chest wall. There is a minor scoliotic deformity. There is no gross supraclavicular, infraclavicular, or axillary lymphadenopathy. Lungs : There are no pulmonary masses. There is minor airspace disease in the lung bases likely related to compression atelectasis There are mild emphysematous changes. There are no endobronchial lesions. Cardiomediastinal structures: The heart is normal in size. There is no pericardial effusion. There is no evidence of aortic aneurysm or dissection. The pulmonary vessels appear normal. There is no mediastinal or hilar adenopathy. The esophagus appears normal. Pleura : Small moderate size bilateral pleural effusions. Other: Limited views the upper abdomen show a low-density right hepatic lesion which is imaged only in part. A cyst is documented on earlier sonography. There is also cholelithiasis as also reported previously. IMPRESSION: HYPERINFLATION WITH MILD BIBASILAR COMPRESSION ATELECTASIS AND SMALL TO MODERATE-SIZED BILATERAL PLEURAL EFFUSIONS.
--- NOTE | 2016-04-23 18:59 | CONS ---
PULMONARY CONSULTATION REPORT: DATE OF CONSULTATION: 04/23/16 CONSULTATION REQUESTED BY: Demond Toth MD. REASON FOR CONSULTATION: Evaluation of COPD, hypoxic and hypercapnic respiratory failure. HISTORY OF PRESENT ILLNESS: The patient is an 85-year-old female with history of COPD, diastolic CHF, who lives alone at home and was independent with activities of daily living prior to the current admission. The patient was brought in for evaluation of generalized weakness. The patient reported she started feeling ill around 15th of this month with URI symptoms. The patient also reported nausea, vomiting, and diarrhea around that time. The patient was seen by primary care physician, Z-Mayank was prescribed. She did not feel improved and was brought in for evaluation of generalized weakness and left arm dangling. The patient was admitted for evaluation of pneumonia, possible CVA, acute kidney failure and elevated troponins. Further workup including MRI did not reveal acute ischemic infarct, was consistent with areas of small infarct. The patient had echocardiogram, which showed normal ejection fraction with no segmental wall motion abnormalities, right ventricle that is mild to moderately dilated with decreased function. The patient had lower extremity Dopplers, which showed no DVT. The patient had decreased renal function and could not undergo CTA. A V/Q scan was read as intermittent probability for PE. The patient subsequently became more short of breath and lethargic. Blood gas analysis at that time revealed hypercapnic respiratory failure and respiratory acidosis. The patient was placed on BIPAP and transferred to the ICU. The patient had required intubation given further worsening while on BIPAP on 04/20/16 and was extubated to [facility] the next morning. The patient was seen and examined by me at bedside. The patient is currently on 2 L O2 supplementation. The patient reports improved breathing currently. The patient reports significant fatigue. The patient's daughter who is at bedside reports that the patient has been having declining generalized performance over the past 6 months. She has one exacerbation every year. The patient had last exacerbation in April 2015 at which time she also had pneumonia and was treated for that. The patient denies any other issues other than that one exacerbation. She had side effects to steroids and has difficulty coordinating her inhalers and is currently on Xopenex and albuterol as needed. The patient reports significant productive cough usually in the mornings. The patient also reports chest tightness and bronchospasm when she is exposed to strong perfumes, chemicals. The patient has wood stove at home and reports significant issues with fumes inside the house. The patient also reports secondhand smoke exposure. She quit smoking 50 years ago. The patient was also noted to have mildly enlarged troponins during this current admission. PAST MEDICAL HISTORY: 1. COPD. 2. Diastolic heart failure. 3. Anxiety. 4. Insomnia. 5. Eczema. 6. Hypertension. 7. Hyperlipidemia. 8. Gout. 9. Hysterectomy. 10. Cataract surgery. 11. Removal of lip cancer. 12. Knee arthroscopic surgery. MEDICATIONS: 1. Temazepam. 2. Xopenex. 3. Xalatan. 4. Ibuprofen. 5. Albuterol. ALLERGIES: BEE VENOM, LATEX, INDOMETHACIN, PREDNISONE, SHELLFISH, AMOXICILLIN. FAMILY HISTORY: Cervical cancer in mother, CVA in father, unruptured aneurysm in brother, sister with liver disease. SOCIAL HISTORY: She lives at home independently. 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 She quit smoking 50 years ago, significant secondhand smoke exposure. REVIEW OF SYSTEMS: All systems reviewed and as per HPI. PHYSICAL EXAMINATION: GENERAL: The patient is in bed in no apparent distress. VITAL SIGNS: Temperature 98, pulse 76 beats per minute, respiratory rate 16 per minute, O2 sat 100% on 2 L, blood pressure 155/62. HEENT: Pupils equal and reactive to light, mucous membranes moist. NECK: Supple. No lymphadenopathy. LUNGS: Good air entry bilaterally, scattered expiratory wheezing present. CARDIOVASCULAR: S1 and S2 present, regular. ABDOMEN: Soft, nontender, nondistended. Bowel sounds present. EXTREMITIES: 1+ edema bilaterally. NEUROLOGICAL: Alert, awake, oriented x3. No focal deficits. LABORATORY WORKUP: WBC count 10.7, hemoglobin 11.5, hematocrit 34, platelet count 243. Blood gas analysis on admission was suggestive of significant respiratory acidosis with pH of 7.06 and PCO2 of 87 with PO2 of 111 on 2 L O2 and bicarb of 19.4. Repeat blood gas on 04/19/16 showed pH of 7.20 with PCO2 of 62 and PO2 of 187 and bicarb of 21. Sodium is 140, potassium 4.1, chloride 104, bicarb 36, BUN 41, creatinine 1.07, the patient with improving renal function since admission. Elevated LFTs upon admission trending down currently. Procalcitonin less than 0.1. Chest x-ray performed on admission was personally reviewed by me. Clear lung palomares with no airspace opacities. V/Q scan and lower extremity Dopplers as described above in HPI. IMPRESSION AND RECOMMENDATIONS: 85-year-old female with history of chronic obstructive pulmonary disease, admitted with altered mental status, generalized weakness, found to have hypercapnic respiratory failure, elevated LFTs, and renal failure. 1. Acute hypercapnic respiratory failure. 2. Acute chronic obstructive pulmonary disease exacerbation. 3. Acute renal failure. 4. Elevated troponins likely secondary to renal failure and hypoxemia. 5. Elevated LFTs of unclear etiology, abdominal ultrasound suggestive of large liver cyst. The patient improving clinically. O2 requirements are minimal now, saturating 100% on 2 L O2. The patient has difficulty coordinating on inhalers. She would benefit from nebulizers at home upon discharge. The patient otherwise with stable chronic obstructive pulmonary disease until recently. I would recommend CT scan of the chest without contrast for evaluation of pulmonary nodules. She was advised to avoid exposure to wood stove. Pathophysiology of chronic obstructive pulmonary disease was discussed in detail. Signs of exacerbation were discussed in detail. Will follow her up as outpatient of for chronic obstructive pulmonary disease. She will need PFTs as outpatient. The patient is otherwise stable, not in need of hospice at this time. I would recommend physical therapy. Thank you for allowing me to participate in the care of your patient. I will follow up with you. [id number]/CPS #: [id number] SHANNON
[2016-04-23] MEDS: Temazepam CAP* 15 MG PO PRN (21:23)
[2016-04-24] MEDS: hydrALAZINE IV* 20 MG/ML VIAL IV SLOW PU PRN (03:53)
[2016-04-24] MEDS: Albuterol/Ipratropium NEB.SOL* Albuterol 2.5 MG/Ipratropium 0.5 MG 3 ML INH SCH ×6 (03:58→23:39)
[2016-04-24] MEDS: Heparin VIAL(*) 5000 UNITS/ML VIAL (FIVE THOUSAND) SUBCUT SCH (08:52)
[2016-04-24] MEDS: amLODIPine TAB* 5 MG PO SCH (08:52)
[2016-04-24 08:53] LABS: PCO2 Arterial 60 mmHg (35-45)
--- NOTE | 2016-04-24 10:13 | PN ---
Subjective Date of Service: 04/24/16 Interval History: Pt still feels SOB. Has had mostly nonproductive cough. Doesn't remember much from her hospital stay prior to intubation. Had a regular formed BM today Family History: Unchanged from Admission Social History: Unchanged from Admission Past Medical History: Unchanged from Admission Objective Active Medications: Albuterol (Ventolin 2.5 Mg/3 Ml Neb.Kate*) 2.5 mg INH Q2H PRN PRN Reason: SOB/WHEEZING Albuterol/Ipratropium (Duoneb Neb.Kate*) 1 neb INH [id number] AWAKE [facility] Last Admin: 04/24/16 08:33 Dose: 1 neb Amlodipine Besylate (Norvasc Tab*) 10 mg PO DAILY [facility] Last Admin: 04/24/16 08:52 Dose: 10 mg Enoxaparin Sodium (Lovenox(*)) 50 mg SUBCUT Q12H [facility] Hydralazine HCl (Apresoline Iv*) 10 mg IV SLOW PU Q2H PRN PRN Reason: SBP > 175 MMHG Last Admin: 04/24/16 03:53 Dose: 10 mg Mometasone Furoate/Formoterol Fumar (Dulera 200/5 Mdi*) 2 puff INH BID [facility] Morphine Sulfate (Morphine Inj (Syringe)*) 2 mg IV Q4H PRN PRN Reason: Pain/agitation Last Admin: 04/22/16 23:44 Dose: 2 mg Temazepam (Restoril Cap*) 15 mg PO BEDTIME PRN PRN Reason: INSOMNIA Last Admin: 04/23/16 21:23 Dose: 15 mg Warfarin Sodium (Coumadin Tab(*)) 5 mg PO DAILY@1700 [facility] PRN Reason: Protocol Vital Signs 04/23/16 04/23/16 04/23/16 11:00 12:00 12:59 Temperature 98.0 F 98.7 F Pulse Rate 81 84 90 Respiratory 24 21 25 Rate Blood Pressure 126/45 145/53 (mmHg) O2 Sat by Pulse 94 98 100 Oximetry 04/23/16 04/23/16 04/23/16 13:00 13:03 13:42 Temperature 98.0 F Pulse Rate 76 90 76 Respiratory 22 24 18 Rate Blood Pressure 142/49 155/62 (mmHg) O2 Sat by Pulse 99 100 100 Oximetry 04/23/16 04/23/16 04/23/16 13:59 16:35 16:40 Temperature 98.0 F 97.9 F Pulse Rate 76 75 78 Respiratory 16 20 14 Rate Blood Pressure 155/62 161/58 (mmHg) O2 Sat by Pulse 100 98 98 Oximetry 04/23/16 04/23/16 04/23/16 19:48 20:00 20:59 Temperature 97.9 F Pulse Rate 84 79 Respiratory 24 16 14 Rate Blood Pressure 160/62 (mmHg) O2 Sat by Pulse 99 98 Oximetry 04/23/16 04/24/16 04/24/16 23:51 03:46 04:36 Temperature 97.8 F 97.5 F Pulse Rate 89 88 93 Respiratory 16 18 Rate Blood Pressure 165/58 187/71 154/58 (mmHg) O2 Sat by Pulse 97 96 Oximetry 04/24/16 04/24/16 07:28 08:34 Temperature 97.3 F Pulse Rate 96 101 Respiratory 16 18 Rate Blood Pressure 163/46 (mmHg) O2 Sat by Pulse 97 94 Oximetry Oxygen Devices in Use Now: Nasal Cannula - 3L Appearance: 85 yo F in nAD, AAOx3, mildly increased WOB Eyes: No Scleral Icterus, PERRLA Ears/Nose/Mouth/Throat: NL Teeth, Lips, Gums, Mucous Membranes Moist Neck: NL Appearance and Movements; NL JVP, Trachea Midline Respiratory: Symmetrical Chest Expansion and Respiratory Effort, - - diffuse wheezes and rhonchi b/l Cardiovascular: NL Sounds; No Murmurs; No JVD, RRR Abdominal: NL Sounds; No Tenderness; No Distention, No Hepatosplenomegaly Lymphatic: No Cervical Adenopathy Extremities: No Clubbing, Cyanosis, - - trace pedal edema b/l Skin: No Rash or Ulcers, No Nodules or Sclerosis Neurological: Alert and Oriented x 3, NL Muscle Strength and Tone Result Diagrams: 04/22/16 06:00 04/23/16 06:10 Additional Lab and Data: Microbiology and Other Data: Assess/Plan/Problems-Billing Assessment: Ms. Preciado is a 85 yo with a PMH HTN, COPD, compensated diastolic heart failure who presents to the ED on 04/17 with c/o of chest pain 4 days ago along with cough, sweats and chills now with generalized weakness found to have AKF, NSTEMI, pneumonia, transaminitis, lactic acidosis and cardioembolic CVA and possible PE. - Patient Problems (1) Acute hypercapnic respiratory failure Comment: ABG shows high pC02 and normal PH. Pt's respiratory status is improving transferred out of ICU on 04/23/16 On 2-3 L Nc still significant wheezing Pt has h/o "face getting swollen" when on systemic steroids. Which seems a usual consequence of steroids. Will start on Dulera since systemic absorbtion of the inhaled steroid is minimal. cont duonebs CT chest shows b/l pleural effusion-most likley due to IVF resusctiation, and no nodules (2) NSTEMI (non-ST elevated myocardial infarction) Comment: Appreciate cardiology consult - possible elevated trop from cva, renal failure, LVH or possible PE. LE dopplers negative restart statin, cards recommended no asa in the setting of anticoagulation echo shows EF 65% (3) Acute kidney failure Comment: pre-renal, improving, continue to monitor closely. FeNa <1 (4) Pneumonia Comment: Pneumonia, community acquired, with severe sepsis and intubation /stay in ICU. 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 Run of afib noted on tele monitoring TTE showing no PFO will restart Lovenox and Coumadin INR daily (7) COPD exacerbation Comment: Diffuse wheezing on exam. Cont Dulera/nebs pt is not interested in systemic steroids due to h/o "facial edema" (8) Hypertension Comment: Started on Norvasc (9) DVT prophylaxis Comment: lovenox, Coumadin Status and Disposition: inpatient.
[2016-04-24] MEDS: Enoxaparin(*) 60 MG/0.6 ML SYR SUBCUT SCH ×2 (11:45→21:38)
[2016-04-24] MEDS: Mometasone/Formoter 200/5 MDI INH SCH ×3 (11:56→21:37)
--- NOTE | 2016-04-24 16:49 | PN ---
Progress Note - Progress Note Note: Pulm consult f/u note 04/24/16. Pt seen and examined at bedside. Pt reprots feeling better. Having dry cough Active Medications Generic Name Dose Route Start Last Admin Trade Name Freq PRN Reason Stop Dose Admin Albuterol 2.5 mg 04/21/16 16:21 Ventolin 2.5 Mg/3 Ml Neb.Kate* INH Q2H PRN SOB/WHEEZING Albuterol/Ipratropium 1 neb 04/19/16 19:00 04/24/16 15:33 Duoneb Neb.Kate* INH 1 neb [id number] AWAKE SAMREEN Administration Amlodipine Besylate 10 mg 04/24/16 09:00 04/24/16 08:52 Norvasc Tab* PO 10 mg DAILY SAMREEN Administration Atorvastatin Calcium 10 mg 04/24/16 17:00 Lipitor* PO 1700 [facility] Enoxaparin Sodium 50 mg 04/24/16 11:00 04/24/16 11:45 Lovenox(*) SUBCUT 50 mg Q12H SAMREEN Administration Hydralazine HCl 10 mg 04/21/16 21:38 04/24/16 03:53 Apresoline Iv* IV SLOW PU 10 mg Q2H PRN Administration SBP > 175 MMHG Mometasone Furoate/Formoterol Fumar 2 puff 04/24/16 11:00 04/24/16 11:56 Dulera 200/5 Mdi* INH 2 puff BID SAMREEN Administration Morphine Sulfate 2 mg 04/21/16 21:38 04/22/16 23:44 Morphine Inj (Syringe)* IV 2 mg Q4H PRN Administration Pain/agitation Temazepam 15 mg 04/23/16 16:32 04/23/16 21:23 Restoril Cap* PO 15 mg BEDTIME PRN Administration INSOMNIA Warfarin Sodium 5 mg 04/24/16 17:00 Coumadin Tab(*) PO DAILY@1700 [facility] Protocol Vital Signs Temp Pulse Resp BP Pulse Ox 97.7 F 84 20 168/66 98 04/24/16 15:58 04/24/16 15:58 04/24/16 15:58 04/24/16 15:58 04/24/16 15:58 Gen: Pt in NAD HEENT: No Scleral Icterus, PERRLA, NL Teeth, Lips, Gums, Mucous Membranes Moist Neck: NL Appearance and Movements; NL JVP, Trachea Midline Respiratory: Symmetrical Chest Expansion and Respiratory Effort, diffuse wheezes and rhonchi b/l Cardiovascular: NL Sounds; No Murmurs; No JVD, RRR Abdominal: NL Sounds; No Tenderness; No Distention, No Hepatosplenomegaly Lymphatic: No Cervical Adenopathy Extremities: No Clubbing, Cyanosis, trace pedal edema b/l Skin: No Rash or Ulcers, No Nodules or Sclerosis Neurological: Alert and Oriented x 3, NL Muscle Strength and Tone Laboratory Results - last 24 hr 04/24/16 08:40 ABG pH 7.39 ABG pCO2 60 H ABG pO2 85 ABG HCO3 32.2 H ABG O2 Saturation 98.2 H ABG Base Excess 9.[address] chest: Was personally reviewed by me. Mild emphysematous changes, no lymphadenopathy. No acute air space opacities. NO suspicious nodules or masses noted Impression/Recommendations: Pt is a 85 yo with a PMH HTN, COPD, compensated diastolic heart failure who presents to the ED with c/o of chest pain 4 days a , generalized weakness, cough, sweats and chills found to have AKF, NSTEMI, pneumonia, transaminitis, lactic acidosis and cardioembolic CVA Acute on chronic hypercapnic resp failure sec to COPD improving Transaminitis and renal failure improving ABG reviewed- compensated resp acidosis Pt's respiratory status is improving On 2-3 L Nc Still significant wheezing Steroids d/c ed due to . Will start on Dulera since systemic absorbtion of the inhaled steroid is minimal. contnebs, pt has difficulty with inhaler technique CT chest shows b/l pleural effusion-most likley due to IVF resusctiation, and no nodules
[2016-04-24] MEDS: Warfarin TAB(*) 5 MG PO SCH (17:06)
[2016-04-24] MEDS: Atorvastatin* 10 MG TAB PO SCH (17:06)
[2016-04-24] MEDS: Morphine INJ* 2 MG/ML 1 ML CARPUJECT IV PRN (20:21)
[2016-04-25] MEDS: Albuterol/Ipratropium NEB.SOL* Albuterol 2.5 MG/Ipratropium 0.5 MG 3 ML INH SCH ×6 (03:18→23:34)
[2016-04-25 06:20] LABS: Hematocrit 31 % (35-47); Hemoglobin 10.3 g/dl (12.0-16.0); Mean Corpuscular HGB Conc 33 g/dl (31-36); Mean Corpuscular Hemoglobin 29 pg (27-31); Mean Corpuscular Volume 89 fL (80-97); Mean Platelet Volume 8 um3 (7.4-10.4); Red Blood Count 3.52 10^6/ul (4.0-5.4); Red Cell Distribution Width 14 % (10.5-15); White Blood Count 7.7 10^3/ul (3.5-10.8)
[2016-04-25 06:26] LABS: Add Diff/Slide Review? Slide Review Added; Comments Flag Yes
[2016-04-25 06:30] LABS: BUN/Creatinine Ratio 31.7 (8-20); Calcium 9.3 mg/dL (8.6-10.3); EGFR African American 64.8 (>60); EGFR Non-African American 50.4 (>60); Potassium 4.4 mmol/L (3.5-5.0)
[2016-04-25] MEDS: Mometasone/Formoter 200/5 MDI INH SCH ×2 (08:22→19:25)
[2016-04-25] MEDS: amLODIPine TAB* 5 MG PO SCH (09:00)
[2016-04-25] MEDS: Enoxaparin(*) 60 MG/0.6 ML SYR SUBCUT SCH ×2 (11:10→22:33)
--- NOTE | 2016-04-25 13:59 | PN ---
Progress Note - Progress Note Note: Pulm consult f/u note 04/25/16. Pt seen and examined at bedside. Pt reprots feeling better. Active Medications Generic Name Dose Route Start Last Admin Trade Name Freq PRN Reason Stop Dose Admin Albuterol 2.5 mg 04/21/16 16:21 Ventolin 2.5 Mg/3 Ml Neb.Kate* INH Q2H PRN SOB/WHEEZING Albuterol/Ipratropium 1 neb 04/19/16 19:00 04/25/16 11:46 Duoneb Neb.Kate* INH 1 neb [id number] AWAKE SAMREEN Administration Amlodipine Besylate 10 mg 04/24/16 09:00 04/25/16 09:00 Norvasc Tab* PO 10 mg DAILY SAMREEN Administration Atorvastatin Calcium 10 mg 04/24/16 17:00 04/24/16 17:06 Lipitor* PO 10 mg 1700 SAMREEN Administration Enoxaparin Sodium 50 mg 04/24/16 11:00 04/25/16 11:10 Lovenox(*) SUBCUT 50 mg Q12H SAMREEN Administration Hydralazine HCl 10 mg 04/21/16 21:38 04/24/16 03:53 Apresoline Iv* IV SLOW PU 10 mg Q2H PRN Administration SBP > 175 MMHG Mometasone Furoate/Formoterol Fumar 2 puff 04/24/16 11:00 04/25/16 08:22 Dulera 200/5 Mdi* INH 2 puff BID SAMREEN Administration Morphine Sulfate 2 mg 04/21/16 21:38 04/24/16 20:21 Morphine Inj (Syringe)* IV 2 mg Q4H PRN Administration Pain/agitation Temazepam 15 mg 04/23/16 16:32 04/23/16 21:23 Restoril Cap* PO 15 mg BEDTIME PRN Administration INSOMNIA Warfarin Sodium 5 mg 04/24/16 17:00 04/24/16 17:06 Coumadin Tab(*) PO 5 mg DAILY@1700 SAMREEN Administration Protocol Vital Signs Temp Pulse Resp BP Pulse Ox 97.6 F 75 18 149/62 98 04/25/16 11:21 04/25/16 11:48 04/25/16 11:48 04/25/16 11:21 04/25/16 11:48 Gen: Pt in NAD HEENT: No Scleral Icterus, PERRLA, NL Teeth, Lips, Gums, Mucous Membranes Moist Neck: NL Appearance and Movements; NL JVP, Trachea Midline Respiratory: Symmetrical Chest Expansion and Respiratory Effort, diffuse wheezes and rhonchi b/l Cardiovascular: NL Sounds; No Murmurs; No JVD, RRR Abdominal: NL Sounds; No Tenderness; No Distention, No Hepatosplenomegaly Lymphatic: No Cervical Adenopathy Extremities: No Clubbing, Cyanosis, trace pedal edema b/l Skin: No Rash or Ulcers, No Nodules or Sclerosis Neurological: Alert and Oriented x 3, NL Muscle Strength and Tone Laboratory Results - last 24 hr 04/24/16 08:40 ABG pH 7.39 ABG pCO2 60 H ABG pO2 85 ABG HCO3 32.2 H ABG O2 Saturation 98.2 H ABG Base Excess 9.4 H Laboratory Results - last 24 hr 04/25/16 04/25/16 04/25/16 05:47 05:47 05:47 WBC 7.7 RBC 3.52 L Hgb 10.3 L Hct 31 L MCV 89 MCH 29 MCHC 33 RDW 14 Plt Count 225 MPV 8 Neut % (Auto) 79.7 Lymph % (Auto) 9.8 L [place] % (Auto) 8.4 Eos % (Auto) 1.9 Baso % (Auto) 0.2 Absolute Neuts (auto) 6.1 Absolute Lymphs (auto) 0.8 L Absolute Monos (auto) 0.6 Absolute Eos (auto) 0.1 Absolute Basos (auto) 0 Absolute Nucleated RBC 0 Nucleated RBC % 0 INR (Anticoag Therapy) 1.12 H Sodium Potassium Chloride Carbon Dioxide Anion Gap BUN Creatinine Est GFR ( Amer) Est GFR (Non-Af Amer) BUN/Creatinine Ratio Glucose Calcium Hepatitis A IgM Ab Nonreactive Hep Bs Antigen Nonreactive Hep B Core IgM Ab Nonreactive Hepatitis C Antibody Nonreactive 04/25/16 05:47 WBC RBC Hgb Hct MCV MCH MCHC RDW Plt Count MPV Neut % (Auto) Lymph % (Auto) [place] % (Auto) Eos % (Auto) Baso % (Auto) Absolute Neuts (auto) Absolute Lymphs (auto) Absolute Monos (auto) Absolute Eos (auto) Absolute Basos (auto) Absolute Nucleated RBC Nucleated RBC % INR (Anticoag Therapy) Sodium 142 Potassium 4.4 Chloride 105 Carbon Dioxide 35 H Anion Gap 2 BUN 33 H Creatinine 1.04 H Est GFR ( Amer) 64.8 Est GFR (Non-Af Amer) 50.4 BUN/Creatinine Ratio 31.7 H Glucose 100 Calcium 9.3 Hepatitis A IgM Ab Hep Bs Antigen Hep B Core IgM Ab Hepatitis C Antibody CT chest: Was personally reviewed by me. Mild emphysematous changes, no lymphadenopathy. No acute air space opacities. NO suspicious nodules or masses noted Impression/Recommendations: Pt is a 85 yo with a PMH HTN, COPD, compensated diastolic heart failure who presents to the ED with c/o of chest pain 4 days a , generalized weakness, cough, sweats and chills found to have AKF, NSTEMI, pneumonia, transaminitis, lactic acidosis and cardioembolic CVA Acute on chronic hypercapnic resp failure sec to COPD improving, now on 2L O2 Transaminitis and renal failure improving ABG - compensated resp acidosis Pt's respiratory status is improving On 2-3 L Nc Still has wheezing but much improved Steroids d/c ed due to side effects. c/w Dulera cont nebs, pt has difficulty with inhaler technique CT chest shows b/l pleural effusion-most likley due to IVF resusctiation, and no nodules Pt for d/c to rehab today Will f/u as out pt
--- NOTE | 2016-04-25 15:08 | DS ---
DISCHARGE SUMMARY: DATE OF ADMISSION: 04/17/16 DATE OF DISCHARGE: 04/25/16 PRIMARY CARE PROVIDER: Dr. Garcia. DISCHARGE DIAGNOSES: 1. Acute hypercapnic and hypoxic respiratory failure due to chronic obstructive pulmonary disease exacerbation and pneumonia requiring intubation. 2. Embolic cerebrovascular accident. 3. Paroxysmal atrial fibrillation. 4. Non-ST elevation myocardial infarction. 5. Acute renal failure due to severe sepsis, due to pneumonia. 6. Transaminitis, most likely due to severe sepsis. 7. Chronic obstructive pulmonary disease exacerbation. 8. Hypertension. PAST MEDICAL HISTORY: 1. Compensated diastolic heart failure. 2. Anxiety. 3. Insomnia. 4. Eczema. 5. Hypertension. 6. Hyperlipidemia. 7. Gout. 8. History of COPD. MEDICATIONS AT DISCHARGE: Include: 1. DuoNeb 1 neb every 6 hours p.r.n. 2. Lipitor 10 mg daily. 3. Lovenox 50 mg subcutaneously every 12 hours until INR above 2, then stop. 4. Xalatan eye drops 0.005% one drop both eyes daily. 5. Xopenex inhaler 2 puffs up to 4 times a day p.r.n. 6. Dulera 200/5 two puffs inhalation b.i.d. 7. Temazepam 15 mg at bedtime. 8. Coumadin 5 mg daily. 9. Norvasc 10 mg daily. The patient is discharged on oxygen continuously at 2 L. Ambulation with walker and assistance. The patient is being discharged to [facility] for rehabilitation. CONSULTANTS DURING THE HOSPITAL STAY: Included: 1. Dr. Garcia from Neurology. 2. Dr. Toth, the administrative and program specialist. 3. Dr. Sayra Maravilla. 4. Dr. Leanne Villatoro from Palliative Care. 5. Dr. Chung, Pulmonology. 6. Dr. Tin Toth from Cardiology. LABORATORY DATA AND STUDIES PERFORMED DURING THE HOSPITAL STAY: Included: 04/25, sodium of 142, potassium 4.4, chloride 105, carbon dioxide 35. BUN 33; creatinine 1.04, creatinine at its peak was 3.24. Troponin at its peak was 2.61. Procalcitonin was below 0.1 on 04/18/16. Liver function tests, last obtained on 04/18/16 showed AST of 45, ALT of 90, alkaline phosphatase of 61, total protein of 4.8, albumin 2.9, globulin 1.9, bilirubin total of 0.4. The LFTs peaked at admission with AST of 219, ALT of 216, alkaline phosphatase of 137, and total protein of 6.2. ABG last obtained on 04/24/16 showed pH of 7.39, PCO2 of 60, PO2 of 85, and bicarb of 32. The patient's ABG obtained on 04/19/16 showed pH of 7.06, PCO2 of 87, PO2 of 114 , bicarb of 19. Microbiology studies showed urine legionella and Strep pneumo antigen were negative. Urine culture growth was negative. Blood cultures showed no growth from admission. Influenza serology was nonreactive. Acute hepatitis serology was nonreactive for hepatitis A, B, and C. The patient's INR on the day of discharge on 04/25/16 was 1.12. Transthoracic echocardiogram obtained on 04/17/16, showed in conclusion: The left ventricular chamber size normal with moderate concentric LVH with EF of 65 % to 70%. The right ventricle was mild to moderately dilated with moderate-to- severe reduced function. The right atrium was mildly dilated. There was evidence of mild pulmonary hypertension. There was no ASD demonstrated by bubble study. Compared to prior study from 2014, the LVEF appears higher, the RV size and function appears worse. Brain CT obtained on 04/17/16, impression: "No evidence for gross acute infarct , mass effect, or hemorrhage." Chest x-ray obtained on admission, impression: "Possible right infrahilar infiltrate, suggest short-term followup." Brain MRI, impression: "Tiny subcortical areas of restriction of diffusion is noted in the left and right paracentral gyrus, subcortical white matter, as well as the left cerebellar hemisphere. These are consistent with areas of small infarct. Possibility of embolic phenomenon should be considered." Carotid Doppler study obtained on 04/17/16, impression: "Plaque is noted in both internal carotid arteries; however, no hemodynamically significant stenosis is noted. Less than 50% stenosis in both carotid arteries." Lung scan V/Q obtained on 04/18/16, impression: "Intermediate 20% to 80% probability for acute pulmonary embolism." Venous Doppler study obtained on 04/18/16, impression: "No evidence of right or left lower extremity DVT. Pulsatile venous flow bilaterally consistent with elevated right atrial pressures. Bilateral lower extremity edema." Chest CT obtained on 04/23/16, impression: "Hyperinflation with mild bibasilar compression atelectasis and [id number] sized bilateral pleural effusions. " HOSPITALIZATION COURSE: Elsie Preciado is an 85-year-old female with the above - mentioned chronic medical conditions, who presented to the hospital complaining of generalized weakness, shortness of breath. She also was noted to have left arm numbness. She was noted to have elevated troponin, acute renal failure. She was admitted and treated with IV antibiotics and despite that, she continued to progress and worsen with her respiratory status to the point of needing to be transferred to the intensive care unit on 04/19/16. On 04/19/16, the patient was intubated by Dr. Toth for acute hypercapnic respiratory failure, respiratory acidosis, and hypoxemia. Initially, the thought was that the patient may have PE. Due to acute renal failure, she was unable to have a CT angiogram of the chest. A V/Q scan was intermediate probability, but there were no clots noted on bilateral lower extremity Doppler study. Eventually, it was thought that PE is low on differential. The patient was eventually extubated on 04/20/16 and transitioned to Vapotherm. At that point, her condition appeared almost terminal to the point that Dr. Toth, the weighter, asked Dr. Maravilla and Dr. Leanne Villatoro from Palliative Care to see the patient in consultation. At that point, there was no evidence of terminal condition but Palliative Care followed with the patient throughout her hospital stay. In regards to the patient's left-sided numbness and reported weakness at home, an MRI of the brain showed embolic stroke. The patient's numbness resolved throughout her hospital stay. When on telemetry monitored bed, she was noted to be in intermittent atrial fibrillation. Anticoagulation with heparin and then Coumadin was recommended by Dr. Garcia, the neurologist. Briefly, due to the patient's terminal appearing condition in the ICU, the heparin drip was stopped and anticoagulation was not restarted until 04/24/16 when the patient was transferred out of the ICU. After the patient was transferred out of the ICU, she did markedly better and she was able to be weaned down to oxygen at 2 L continuously. Anticoagulation for cardioembolic stroke was restarted with Lovenox and Coumadin. Her acute renal failure was due to sepsis and pneumonia, resolved. Her creatinine at the time of discharge was down to baseline. Please also note the patient had transaminitis at admission and that was felt to be due to sepsis and that also resolved. Due to procalcitonin levels being low suspicion, viral infection is plausible. That will also explain the transaminitis and somewhat atypical course of the pneumonia. Unfortunately, for her COPD exacerbation, she was not able to take steroids due to her history of "face getting puffy" on steroids. Nevertheless, she was started on Dulera inhaler since the steroid absorption from the inhaler is minimal. She did very well and actually improved over 24 hours while using Dulera. Please also note that the patient had a troponin of above 2 at admission. She was consulted by Dr. Tin Toth. She was noted to most likely have suffered from non- ST elevation ND. Due to ongoing anticoagulation, aspirin was not recommended. A statin was added. Unfortunately, the patient cannot be on beta blockers due to her COPD. Her transthoracic echocardiogram actually showed pretty good EF function. Prior to discharge, the patient was evaluated by Physical Therapy, Occupational Therapy, and deemed to be a good candidate for short-term rehabilitation. She is going to be discharged to [facility] today. PHYSICAL EXAMINATION: At the time of discharge, blood pressure of 149/62, heart rate of 78 and regular, respiratory rate 16, oxygen saturation 100% on 2 L of oxygen nasal cannula, and temperature 97.6. General Appearance: This is a very pleasant 85-year-old female who is in no acute distress. Awake, alert, and oriented x3. HEENT: Head atraumatic and normocephalic. Eyes: Pupils equal, round, reactive to light and accommodation. Oropharynx clear. Mucosa moist. Neck: Supple. No JVD. No bruits bilaterally. Cardiovascular: Regular rate and rhythm. No murmur. Respiratory: Distant breath sounds bilaterally with scant wheezes in bilateral upper lung palomares. Abdomen: Soft and nontender. Bowel sounds present in all 4 quadrants. Lower Extremities: There is trace bilateral pedal edema. Pulses are +2 bilaterally. No clubbing or cyanosis. Neuro Evaluation: Speech clear. Cranial nerves II through XII grossly intact. Motor strength is 5/5 bilaterally. Please note that this is a short summary of the patient's long and complicated hospitalization. Please refer to further medical records for details. TIME SPENT: Approximately 50 minutes was spent on the patient's discharge. CC: Dr. Garcia; [facility] * [id number]/CPS #: [id number]
[2016-04-25] MEDS: Warfarin TAB(*) 5 MG PO SCH (18:13)
[2016-04-25] MEDS: Atorvastatin* 10 MG TAB PO SCH (18:13)
[2016-04-25] MEDS: Morphine INJ* 2 MG/ML 1 ML CARPUJECT IV PRN (20:18)
[2016-04-25] MEDS: Temazepam CAP* 15 MG PO PRN (20:19)
[2016-04-26] MEDS: Morphine INJ* 2 MG/ML 1 ML CARPUJECT IV PRN ×2 (00:40→21:00)
[2016-04-26] MEDS: Albuterol/Ipratropium NEB.SOL* Albuterol 2.5 MG/Ipratropium 0.5 MG 3 ML INH SCH ×6 (03:35→23:58)
[2016-04-26] MEDS: Mometasone/Formoter 200/5 MDI INH SCH ×2 (08:11→19:38)
[2016-04-26] MEDS: amLODIPine TAB* 5 MG PO SCH (08:19)
[2016-04-26] MEDS: Enoxaparin(*) 60 MG/0.6 ML SYR SUBCUT SCH ×2 (11:56→22:08)
--- NOTE | 2016-04-26 15:35 | PN ---
Subjective Date of Service: 04/26/16 Interval History: pt feels "so much better" Family History: Unchanged from Admission Social History: Unchanged from Admission Past Medical History: Unchanged from Admission Objective Active Medications: Albuterol (Ventolin 2.5 Mg/3 Ml Neb.Kate*) 2.5 mg INH Q2H PRN PRN Reason: SOB/WHEEZING Albuterol/Ipratropium (Duoneb Neb.Kate*) 1 neb INH [id number] AWAKE [facility] Last Admin: 04/26/16 15:08 Dose: 1 neb Amlodipine Besylate (Norvasc Tab*) 10 mg PO DAILY [facility] Last Admin: 04/26/16 08:19 Dose: 10 mg Atorvastatin Calcium (Lipitor*) 10 mg PO 1700 [facility] Last Admin: 04/25/16 18:13 Dose: 10 mg Enoxaparin Sodium (Lovenox(*)) 50 mg SUBCUT Q12H [facility] Last Admin: 04/26/16 11:56 Dose: 50 mg Hydralazine HCl (Apresoline Iv*) 10 mg IV SLOW PU Q2H PRN PRN Reason: SBP > 175 MMHG Last Admin: 04/24/16 03:53 Dose: 10 mg Mometasone Furoate/Formoterol Fumar (Dulera 200/5 Mdi*) 2 puff INH BID [facility] Last Admin: 04/26/16 08:11 Dose: 2 puff Morphine Sulfate (Morphine Inj (Syringe)*) 2 mg IV Q4H PRN PRN Reason: Pain/agitation Last Admin: 04/26/16 00:40 Dose: 2 mg Temazepam (Restoril Cap*) 15 mg PO BEDTIME PRN PRN Reason: INSOMNIA Last Admin: 04/25/16 20:19 Dose: 15 mg Warfarin Sodium (Coumadin Tab(*)) 5 mg PO DAILY@1700 [facility] PRN Reason: Protocol Last Admin: 04/25/16 18:13 Dose: 5 mg Vital Signs 04/25/16 04/25/16 04/25/16 16:09 19:16 19:26 Temperature 98.0 F Pulse Rate 80 86 85 Respiratory 18 21 16 Rate Blood Pressure 160/58 (mmHg) O2 Sat by Pulse 98 100 99 Oximetry 04/25/16 04/25/16 04/25/16 19:47 20:00 20:18 Temperature Pulse Rate 82 Respiratory 16 26 26 Rate Blood Pressure (mmHg) O2 Sat by Pulse 99 Oximetry 04/25/16 04/25/16 04/26/16 21:18 23:30 00:40 Temperature 97.9 F Pulse Rate 84 Respiratory 18 16 16 Rate Blood Pressure 128/49 (mmHg) O2 Sat by Pulse 99 Oximetry 04/26/16 04/26/16 04/26/16 01:40 07:31 08:00 Temperature 97.7 F Pulse Rate 72 Respiratory 16 16 18 Rate Blood Pressure 144/56 (mmHg) O2 Sat by Pulse 100 Oximetry 04/26/16 04/26/16 08:17 15:10 Temperature Pulse Rate 76 78 Respiratory 18 18 Rate Blood Pressure (mmHg) O2 Sat by Pulse 97 95 Oximetry Oxygen Devices in Use Now: Nasal Cannula - 1L Appearance: 85 yo F in nAD, aAOx3 Eyes: No Scleral Icterus, PERRLA Ears/Nose/Mouth/Throat: NL Teeth, Lips, Gums, Mucous Membranes Moist Neck: NL Appearance and Movements; NL JVP Respiratory: Symmetrical Chest Expansion and Respiratory Effort, - - decreased breath sounds b/l with scen mid lung rhonchi and wheezes Cardiovascular: NL Sounds; No Murmurs; No JVD, RRR Abdominal: NL Sounds; No Tenderness; No Distention Lymphatic: No Cervical Adenopathy Extremities: No Clubbing, Cyanosis, - - trace pedal edema b/l Skin: No Rash or Ulcers, No Nodules or Sclerosis Neurological: Alert and Oriented x 3, NL Muscle Strength and Tone Result Diagrams: 04/25/16 05:47 04/25/16 05:47 Additional Lab and Data: Microbiology and Other Data: Assess/Plan/Problems-Billing Assessment: Ms. Preciado is a 85 yo with a PMH HTN, COPD, compensated diastolic heart failure who presents to the ED on 04/17 with c/o of chest pain 4 days ago along with cough, sweats and chills now with generalized weakness found to have AKF, NSTEMI, pneumonia, transaminitis, lactic acidosis and cardioembolic CVA and possible PE. - Patient Problems (1) Acute hypercapnic respiratory failure Comment: ABG shows high pC02 and normal PH. Pt's respiratory status is improving transferred out of ICU on 04/23/16 On 1 L Nc Pt has h/o "face getting swollen" when on systemic steroids. Which seems a usual consequence of steroids. started on Dulera since systemic absorbtion of the inhaled steroid is minimal. cont duonebs prn CT chest shows b/l pleural effusion-most likley due to IVF resusctiation, and no nodules (2) NSTEMI (non-ST elevated myocardial infarction) Comment: troponin elevated due to most likley NSTEMI LE dopplers negative cont statin, cards recommended no asa in the setting of anticoagulation echo shows EF 65% (3) Acute kidney failure Comment: pre-renal, improving, continue to monitor closely. FeNa <1 (4) Pneumonia Comment: Pneumonia, community acquired, with severe sepsis and intubation /stay in ICU. Off antibiotics currently-discontinued by the dance artist (5) Transaminitis Comment: Likely congestive, trending down Liver US shows large liver cyst acute hepatitis panel negative (6) CVA (cerebral vascular accident) Comment: MRI brain showing areas of small infarct consistent with cardioembolic CVA. Run of afib noted on tele monitoring TTE showing no PFO cont Lovenox and Coumadin INR daily (7) COPD exacerbation Comment: Diffuse wheezing on exam. Cont Dulera/nebs pt is not interested in systemic steroids due to h/o "facial edema" (8) Hypertension Comment: Started on Norvasc (9) DVT prophylaxis Comment: lovenox, Coumadin Status and Disposition: inpatient. discharge to [facility] prepared on 04/25/16, but family appealed discharge and requested another evaluation for admission to [facility].
[2016-04-26] MEDS: Warfarin TAB(*) 5 MG PO SCH (17:12)
[2016-04-26] MEDS: Atorvastatin* 10 MG TAB PO SCH (17:14)
[2016-04-26] MEDS: Temazepam CAP* 15 MG PO PRN (21:00)
[2016-04-27] MEDS: Morphine INJ* 2 MG/ML 1 ML CARPUJECT IV PRN ×2 (01:00→21:51)
[2016-04-27] MEDS: Albuterol/Ipratropium NEB.SOL* Albuterol 2.5 MG/Ipratropium 0.5 MG 3 ML INH SCH ×6 (03:11→23:30)
[2016-04-27] MEDS: amLODIPine TAB* 5 MG PO SCH (08:13)
[2016-04-27] MEDS: Mometasone/Formoter 200/5 MDI INH SCH ×2 (09:10→19:32)
--- NOTE | 2016-04-27 11:16 | PN ---
Subjective Date of Service: 04/27/16 Interval History: feels better every day. off 02 when sitting today Family History: Unchanged from Admission Social History: Unchanged from Admission Past Medical History: Unchanged from Admission Objective Active Medications: Albuterol (Ventolin 2.5 Mg/3 Ml Neb.Kate*) 2.5 mg INH Q2H PRN PRN Reason: SOB/WHEEZING Albuterol/Ipratropium (Duoneb Neb.Kate*) 1 neb INH [id number] AWAKE [facility] Last Admin: 04/27/16 09:10 Dose: 1 neb Amlodipine Besylate (Norvasc Tab*) 10 mg PO DAILY [facility] Last Admin: 04/27/16 08:13 Dose: 10 mg Atorvastatin Calcium (Lipitor*) 10 mg PO 1700 [facility] Last Admin: 04/26/16 17:14 Dose: 10 mg Enoxaparin Sodium (Lovenox(*)) 50 mg SUBCUT Q12H [facility] Last Admin: 04/26/16 22:08 Dose: 50 mg Hydralazine HCl (Apresoline Iv*) 10 mg IV SLOW PU Q2H PRN PRN Reason: SBP > 175 MMHG Last Admin: 04/24/16 03:53 Dose: 10 mg Mometasone Furoate/Formoterol Fumar (Dulera 200/5 Mdi*) 2 puff INH BID [facility] Last Admin: 04/27/16 09:10 Dose: 2 puff Morphine Sulfate (Morphine Inj (Syringe)*) 2 mg IV Q4H PRN PRN Reason: Pain/agitation Last Admin: 04/27/16 01:00 Dose: 2 mg Temazepam (Restoril Cap*) 15 mg PO BEDTIME PRN PRN Reason: INSOMNIA Last Admin: 04/26/16 21:00 Dose: 15 mg Warfarin Sodium (Coumadin Tab(*)) 5 mg PO DAILY@1700 [facility] PRN Reason: Protocol Last Admin: 04/26/16 17:12 Dose: 5 mg Vital Signs 04/26/16 04/26/16 04/26/16 15:10 16:00 19:26 Temperature 97.5 F Pulse Rate 78 78 78 Respiratory 18 28 20 Rate Blood Pressure 123/65 (mmHg) O2 Sat by Pulse 95 100 98 Oximetry 04/26/16 04/26/16 04/26/16 20:00 21:00 22:00 Temperature Pulse Rate Respiratory 18 20 16 Rate Blood Pressure (mmHg) O2 Sat by Pulse 98 Oximetry 04/26/16 04/27/16 04/27/16 23:13 01:00 02:00 Temperature 97.5 F Pulse Rate 78 Respiratory 16 18 16 Rate Blood Pressure 157/55 (mmHg) O2 Sat by Pulse 91 Oximetry 04/27/16 04/27/16 07:45 09:13 Temperature 97.9 F Pulse Rate 77 78 Respiratory 16 16 Rate Blood Pressure 155/64 (mmHg) O2 Sat by Pulse 95 92 Oximetry Oxygen Devices in Use Now: None Appearance: 85 yo F in nAd, aAOx3 Eyes: No Scleral Icterus, PERRLA Ears/Nose/Mouth/Throat: NL Teeth, Lips, Gums, Mucous Membranes Moist Neck: NL Appearance and Movements; NL JVP, Trachea Midline Respiratory: Symmetrical Chest Expansion and Respiratory Effort, - - dry crackles in b/l lower lungs, distant breath sounds b/l Cardiovascular: NL Sounds; No Murmurs; No JVD, RRR Abdominal: NL Sounds; No Tenderness; No Distention Lymphatic: No Cervical Adenopathy Extremities: No Clubbing, Cyanosis, - - b/l LE edema, b/l hand edema l>R Neurological: Alert and Oriented x 3, NL Muscle Strength and Tone Result Diagrams: 04/25/16 05:47 04/25/16 05:47 Additional Lab and Data: Microbiology and Other Data: Assess/Plan/Problems-Billing Assessment: Ms. Preciado is a 85 yo with a PMH HTN, COPD, compensated diastolic heart failure who presents to the ED on 04/17 with c/o of chest pain 4 days ago along with cough, sweats and chills now with generalized weakness found to have AKF, NSTEMI, pneumonia, transaminitis, lactic acidosis and cardioembolic CVA and possible PE. - Patient Problems (1) Acute hypercapnic respiratory failure Comment: Pt's respiratory status is improving daily transferred out of ICU on 04/23/16 on RA, but requires 02 when ambulating 02 at 2 l is being set up for discharge) Pt has h/o "face getting swollen" when on systemic steroids. Which seems a usual consequence of steroids. started on Dulera since systemic absorbtion of the inhaled steroid is minimal. No side effects noted, but pt has problems with self administering the medication. will ask RT to advice. cont duonebs prn ( nebulizer is set up at discharge) CT chest shows b/l pleural effusion-most likley due to IVF resuscitation, and no nodules (2) NSTEMI (non-ST elevated myocardial infarction) Comment: troponin elevated due to most likley NSTEMI LE dopplers negative cont statin, cards recommended no asa in the setting of anticoagulation echo shows EF 65% (3) Acute kidney failure Comment: pre-renal, improving, continue to monitor closely. FeNa <1 at admission (4) Pneumonia Comment: Pneumonia, community acquired, with severe sepsis and intubation /stay in ICU. Off antibiotics currently-discontinued by the asphalt tamping machine operator (5) Transaminitis Comment: Likely congestive, trending down Liver US shows large liver cyst acute hepatitis panel negative (6) CVA (cerebral vascular accident) Comment: MRI brain showing areas of small infarct consistent with cardioembolic CVA. Run of afib noted on tele monitoring TTE showing no PFO cont Lovenox and Coumadin INR daily lovenox teaching for pt and family ordered. (7) COPD exacerbation Comment: Diffuse wheezing on exam. Cont Dulera/nebs pt is not interested in systemic steroids due to h/o "facial edema" (8) Hypertension Comment: Started on Norvasc, controlled (9) DVT prophylaxis Comment: lovenox, Coumadin Status and Disposition: Inpatient. Discharge to [facility] prepared on 04/25/16, but family appealed discharge and requested another evaluation for admission to [facility]. Currently pt has improved dramatically and will be able to go home on Thursday. Discussed with family that pt needs to use a walker and one person assist when ambulating and will require 24/7 assistance for the next 7-14 days. Daughter is in the process or arranging it
[2016-04-27] MEDS: Enoxaparin(*) 60 MG/0.6 ML SYR SUBCUT SCH ×2 (11:49→21:47)
[2016-04-27] MEDS: Warfarin TAB(*) 5 MG PO SCH (17:19)
[2016-04-27] MEDS: Atorvastatin* 10 MG TAB PO SCH (17:19)
[2016-04-27] MEDS: Temazepam CAP* 15 MG PO PRN (21:51)
[2016-04-28] MEDS: Albuterol/Ipratropium NEB.SOL* Albuterol 2.5 MG/Ipratropium 0.5 MG 3 ML INH SCH ×3 (03:13→13:42)
[2016-04-28] MEDS: Mometasone/Formoter 200/5 MDI INH SCH (07:45)
[2016-04-28] MEDS: amLODIPine TAB* 5 MG PO SCH (08:41)
--- NOTE | 2016-04-28 10:08 | DCNOTE ---
Patient seen this morning. Anxious to leave. Says she feels great. Has been walking "acres" around the unit. No SOB, chest pain. Understands plans for Lovenox bridge. On exam, lungs CTA B/L, no wheezing appreciated, RRR, s1 and s2 present, no m/g/ r, B/L LE edema to mid-chiu. Plan to discharge home today on Lovenox bridge to coumadin. Will write for home inhalers/nebs. F/U with Dr. Garcia.
[2016-04-28 10:25] VITALS: BP 173/68
[2016-04-28] MEDS: Enoxaparin(*) 60 MG/0.6 ML SYR SUBCUT SCH (11:23)
--- NOTE | 2016-04-29 08:20 | DS ---
DISCHARGE SUMMARY: ADDENDUM: This is an addendum to the discharge summary from 04/25/[address] Shirin Hughes. DATE OF ADMISSION: 04/17/16 DATE OF DISCHARGE: 04/28/16 FINAL DISCHARGE MEDICATION REGIMEN: 1. DuoNeb one nebulization inhaler every 6 hours as needed for shortness of breath or wheezing. 2. Amlodipine 10 mg by mouth daily. 3. Atorvastatin 10 mg by mouth daily. 4. Symbicort one puff inhale two times daily. 5. Lovenox 50 mg subcutaneous every 12 hours. 6. Xopenex inhaler two puffs inhaled 4 times daily as needed for shortness of breath or wheezing one nebulizer. 7. Senna one tablet by mouth daily as needed for constipation. 8. Warfarin 5 mg by mouth daily. 9. Latanoprost one drop in both eyes daily. Please see Dr. Shirin Hughes's discharge summary, which covers the patient's admission from 04/17/16 to 04/25/16. Remainder of hospital summary. The patient continued to improve and over the weekend it was felt that she did not require placement in rehabilitation center. She was able to be weaned off oxygen at rest, although was still recommended for her to continue during ambulation. Her INR was improving and it was 1.59 on discharge. He will continue home oral Coumadin as well as Lovenox bridging. The patient was sent home with an inhaled corticosteroid long-acting beta agonist combination as well as p.r.n. nebulizer and inhalers. She will follow up with her PCP as an outpatient. TIME SPENT: Total time spent on this discharge 30 minutes. This is a summary of the hospitalization. Please see the full medical record for further details. [id number]/[facility] #: [id number] MTDD
== END 2016-04-28 14:00 | disposition home health service (06) | DRG 871 ==
LOC: ED 14:08 → MEDTELE 17:10 → ICU 04-19 13:33 → MED 04-23 11:30
PROVIDERS: ADMIT Internal Medicine; ATTEND Hospitalist
PROC: 5A1935Z Respiratory Ventilation, Less than 24 Consecutive Hours (ICD-10-PCS; principal; 2016-04-19)
PROC: 0BH17EZ Insertion of Endotracheal Airway into Trachea, Via Natural or Artificial Opening (ICD-10-PCS; 2016-04-19)
PROC: 5A09357 Assistance with Respiratory Ventilation, Less than 24 Consecutive Hours, Continuous Positive Airway Pressure (ICD-10-PCS; 2016-04-19)
DX: A41.9 Sepsis, unspecified organism (principal); I63.9 Cerebral infarction, unspecified; I21.4 Non-ST elevation (NSTEMI) myocardial infarction; J96.02 Acute respiratory failure with hypercapnia; J18.9 Pneumonia, unspecified organism; N17.9 Acute kidney failure, unspecified; I11.0 Hypertensive heart disease with heart failure; J44.0 Chronic obstructive pulmonary disease with (acute) lower respiratory infection; D57.1 Sickle-cell disease without crisis; I50.32 Chronic diastolic (congestive) heart failure; E87.2 Acidosis; J44.1 Chronic obstructive pulmonary disease with (acute) exacerbation; G81.94 Hemiplegia, unspecified affecting left nondominant side; R65.20 Severe sepsis without septic shock; Z91.14 Patient's other noncompliance with medication regimen; Z88.1 Allergy status to other antibiotic agents; Z91.030 Bee allergy status; Z91.040 Latex allergy status; Z88.8 Allergy status to other drugs, medicaments and biological substances; Z91.013 Allergy to seafood; E78.5 Hyperlipidemia, unspecified; M13.862 Other specified arthritis, left knee; M13.861 Other specified arthritis, right knee; F32.9 Major depressive disorder, single episode, unspecified; F41.9 Anxiety disorder, unspecified; Z85.828 Personal history of other malignant neoplasm of skin; Z98.42 Cataract extraction status, left eye; Z98.41 Cataract extraction status, right eye; Z90.710 Acquired absence of both cervix and uterus; Z82.3 Family history of stroke; Z87.891 Personal history of nicotine dependence; M10.9 Gout, unspecified; Z80.49 Family history of malignant neoplasm of other genital organs; Z66 Do not resuscitate; I27.2 Other secondary pulmonary hypertension; I65.23 Occlusion and stenosis of bilateral carotid arteries; K75.9 Inflammatory liver disease, unspecified; Z51.5 Encounter for palliative care; K76.89 Other specified diseases of liver; I48.0 Paroxysmal atrial fibrillation; G47.00 Insomnia, unspecified; Z79.01 Long term (current) use of anticoagulants
CPT/HCPCS: 36415; 36600; 70450; 70551; 71010; 71020; 71250; 76770; 78582; 80048; 80053; 80061; 80074; 80076; 81003; 81015; 82570; 82803; 82947; 83036; 83605; 83735; 84145; 84300; 84484; 84520; 85014; 85018; 85025; 85049; 85610; 85730; 87040; 87086; 87502; 87899; 93005; 93306; 93880; 93970; 94002; 94640; 94660; 94760; 99284; A9270-GY; A9540; A9558; J0330; J0360; J0456; J0696; J1644; J1650; J2270; J2405; J2704; J3010; J7512; J7644

== ENCOUNTER 2016-05-01 13:41 | Inpatient (IN) | payer MEDICARE ==
[2016-05-01] MEDS ORDERED: NS 0.9% 1000 ML* 1,000 ML IV SCH ×2 (15:00→17:30)
[2016-05-01] MEDS ORDERED: Ondansetron INJ* 2 MG/ML VIAL IV ONE (17:01)
[2016-05-01 17:02] LABS: Hematocrit 19 % (35-47); Mean Corpuscular HGB Conc 34 g/dl (31-36); Mean Corpuscular Hemoglobin 30 pg (27-31); Mean Corpuscular Volume 88 fL (80-97); Mean Platelet Volume 9 um3 (7.4-10.4); Red Blood Count 2.13 10^6/ul (4.0-5.4); Red Cell Distribution Width 14 % (10.5-15); White Blood Count 19.7 10^3/ul (3.5-10.8)
[2016-05-01 17:04] LABS: Comments Flag Yes
[2016-05-01 17:07] LABS: Add Diff/Slide Review? Slide Review Added; Hemoglobin 6.3 g/dl (12.0-16.0)
[2016-05-01] MEDS ORDERED: Pantoprazole IV* 40 MG IV ONE (17:19)
[2016-05-01 17:24] LABS: Albumin 3.3 g/dL (3.2-5.2); C Reactive Protein 40.53 mg/L (< 5.00); Calcium 9.1 mg/dL (8.6-10.3); EGFR African American 37.5 (>60); EGFR Non-African American 29.2 (>60); Globulin 2.2 g/dL (2-4); Magnesium 1.4 mg/dL (1.9-2.7); Potassium 4.3 mmol/L (3.5-5.0); Total Bilirubin 0.5 mg/dL (0.2-1.0); Total Protein 5.5 g/dL (6.4-8.9)
[2016-05-01] MEDS ORDERED: Magnesium Sulfate IV* 3 GM in NS 0.9% 100 ML* 100 ML IVPB ONE (17:27)
[2016-05-01] MEDS ORDERED: Phytonadione Oral Solution* 5 MG/25 ML UDC PO ONE (17:29)
[2016-05-01] MEDS ORDERED: Phytonadione INJ (Adult)* 10 MG/ML 1 ML AMP IV ONE (17:30)
[2016-05-01] MEDS ORDERED: Magnesium Sulfate 1 GM IV* 1 GM/100 ML BAG IV ONE (17:43)
[2016-05-01] MEDS ORDERED: Morphine INJ* 2 MG/ML 1 ML CARPUJECT IV PRN (18:28)
[2016-05-01] MEDS ORDERED: Levalbuterol HFA INHALER* 1 PUFF MDI INH PRN (18:31)
[2016-05-01] MEDS ORDERED: Albuterol/Ipratropium NEB.SOL* Albuterol 2.5 MG/Ipratropium 0.5 MG 3 ML INH PRN (18:31)
--- NOTE | 2016-05-01 18:32 | RAD ---
INDICATION: Abdominal pain and constipation. COMPARISON: Comparison is made with a prior CT of the abdomen and pelvis from September 07, 2015. TECHNIQUE: A CT scan of the abdomen and pelvis was performed without intravenous and with oral contrast. Contiguous axial sections were obtained from the lung bases through the symphysis pubis. Images were reconstructed in the coronal and sagittal planes. FINDINGS: Images through the lung bases demonstrate small bilateral pleural effusions. There is also a small Bochdalek hernias present at both lung bases containing retroperitoneal fat. The liver and spleen are normal in size. There are several hypodense hepatic lesions which are better visualized on the prior study. These measure up to 4.9 cm in size and are unchanged and most consistent with cysts as previously noted. There are calcifications within the gallbladder consistent with gallstones. The pancreas appears grossly within normal limits. The adrenal glands appear to be within normal limits. The kidneys are slightly small in size with bilateral cortical thinning. No hydronephrosis is seen. The aorta is normal in caliber with moderate calcific plaque present. No significant enlarged retroperitoneal lymph nodes are seen. There is a small hiatal hernia present. There is increased soft tissue density at the esophageal gastric junction concerning for a mass. Recommend follow-up endoscopy for further evaluation. The stomach, small and large bowel appear nondistended. The appendix is nonvisualized. There is a moderate amount retained stool which is mainly in the transverse and ascending colon. There is a large heterogeneous mass present in the inferior portion of the rectus abdominis muscle nonspecific although most consistent with a rectus sheath hematoma. This measures 11.3 x 10.7 x 6.5 cm. There is a small amount of free intraperitoneal fluid present. No free intraperitoneal air is seen. No significant focal osseous abnormality is seen. IMPRESSION: 1. MASS IN THE LOWER ANTERIOR ABDOMINAL WALL MOST CONSISTENT WITH A RECTUS SHEATH HEMATOMA DESCRIBED. 2. INCREASED SOFT TISSUE DENSITY AT THE ESOPHAGOGASTRIC JUNCTION SUSPICIOUS FOR A MASS. RECOMMEND FOLLOW-UP ENDOSCOPY. 3. SMALL HIATAL HERNIA. 4. CHOLELITHIASIS. 5. SMALL BILATERAL PLEURAL EFFUSIONS AND BILATERAL SMALL BOCHDALEK HERNIAS.
--- NOTE | 2016-05-01 19:28 | ED ---
Arun Mistry Billy, scribed for Froilan Lozada MD on 05/01/16 at 1555 . Abdominal Pain/Female - HPI Summary HPI Summary: Patient is an 85 year-old female coming to [facility] presenting with constant RLQ pain and constipation since last night. Pain severity 5/10. She also reports nausea and vomiting last night and tonight. She took laxatives with no improvement. She states that she has only been able to move a "small amount of black tarry stool." She states she has not been passing any gas and has had urinary retention since his morning. She was discharged from [facility] on 04/28/2016 after a 10-day stay and she now has / home care. - History of Current Complaint Chief Complaint: EDAbdPain Stated Complaint: constipation Time Seen by Provider: 05/01/16 15:29 Hx Obtained From: Patient Onset/Duration: Gradual Onset, Lasting Hours, Still Present Timing: Constant Severity Initially: Moderate Severity Currently: Moderate Pain Intensity: 5 Pain Scale Used: 0-10 Numeric Location: Discrete At: RLQ Radiates: No Aggravating Factor(s): Nothing Alleviating Factor(s): Nothing Associated Signs and Symptoms: Positive: Constipation, Urinary Symptoms, Nausea , Vomiting, Other: - black tarry stool Allergies/Adverse Reactions: Allergies Allergy/AdvReac Type Severity Reaction Status Date / Time Bee Venom Allergy Severe Anaphylatic Verified 05/01/16 13:52 Shock Latex Allergy Intermediate REDNESS, Verified 05/01/16 13:52 SWELLING Indomethacin [From Indocin] Allergy SWELLING, Verified 05/01/16 13:52 DIZZINESS, ANXIETY, "BRAIN FOG" Prednisone Allergy SWELLING, Verified 05/01/16 13:52 DIZZINESS, ANXIETY, "BRAIN FOG" Shellfish Allergy Allergy See Comment Verified 05/01/16 13:52 Amoxicillin [From Augmentin] AdvReac Mild Vomiting Verified 05/01/16 13:52 Clavulanic Acid AdvReac Mild Vomiting Verified 05/01/16 13:52 [From Augmentin] Home Medications: Home Medications Mometasone/Formoter 200/5 MDI* [Dulera 200/5 MDI*] 2 puff INH BID 05/01/16 [ History Confirmed 05/01/16] amLODIPine TAB* [Norvasc TAB*] 10 mg PO DAILY 05/01/16 [History Confirmed ] PMH/Surg Hx/FS Hx/Imm Hx Endocrine/Hematology History: Denies: Hx Diabetes, Hx Systemic Lupus Erythematosus, Hx Sickle Cell Disease , Hx Thyroid Disease Cardiovascular History: Reports: Hx Hypercholesterolemia, Hx Hypotension, Hx Hypertension, Other Cardiovascular Problems/Disorders - Diastolic heart failure Denies: Hx Pacemaker/ICD, Hx Peripheral Vascular Disease Respiratory History: Reports: Hx Asthma, Hx Chronic Bronchitis, Hx Chronic Obstructive Pulmonary Disease (COPD), Hx Pneumonia GI History: Reports: Other GI Disorders - "BOWEL SPASMS" History: Denies: Hx Dialysis, Hx Renal Disease, Other Problems/Disorders Musculoskeletal History: Reports: Hx Gout, Other Musculoskeletal History - OCC USE OF CANE Denies: Hx Arthritis, Hx Rheumatoid Arthritis, Hx Osteoporosis Sensory History: Reports: Hx Contacts or Glasses - READING GLASSES Denies: Hx Cataracts, Hx Hearing Aid Opthamlomology History: Reports: Hx Contacts or Glasses - READING GLASSES Denies: Hx Cataracts Neurological History: Denies: Hx Headaches Psychiatric History: Reports: Hx Anxiety Denies: Hx Depression, Hx Panic Disorder - Cancer History Cancer Type, 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 [facility]. hysterectomy. ovarian cystectomy. lip cancer squamous 2012 [facility]. Mohs surgery July 2015 right side of nose. RIGHT KNEE RECONSTRUCTION [address]. D+C . RIGHT EAR CA EXC 2014 [facility] Hx Anesthesia Reactions: No Infectious Disease History: No Infectious Disease History: Reports: Hx Shingles Denies: Traveled Outside the [place] in Last 30 Days - Family History Known Family History: Positive: Other - CVA. Negative malignant hyperthermia, negative anesthesia reaction. - Social History Alcohol Use: Occasionally Hx Substance Use: No Substance Use Type: Reports: None Hx Tobacco Use: Yes Smoking Status (MU): Former Smoker Amount Used/How Often: <1/2 PPD X 10 YEARS Have You Smoked in the Last Year: No Review of Systems Positive: Abdominal Pain, Vomiting, Nausea, Other - constipation Positive: other - retention All Other Systems Reviewed And Are Negative: Yes Physical Exam - Summary Physical Exam Summary: VITAL SIGNS: Reviewed. GENERAL: Patient is a well developed and nourished female who is lying comfortable in the stretcher. Patient is not in any acute respiratory distress. HEAD AND FACE: Normocephalic and atraumatic. EYES: PERRLA, EOMI x 2, EARS: Hearing grossly intact. MOUTH: Oropharynx within normal limits. NECK: Supple, trachea is midline, no adenopathy, no JVD. CHEST: Symmetric, no tenderness at palpation LUNGS: Clear to auscultation bilaterally. No wheezing or crackles. CVS: RRR,, S1 and S2 present, no murmurs or gallops appreciated. ABDOMEN: Soft, lower badominal tenderness. No signs of distention. Positive bowel sounds. No rebound no guarding, and no masses palpated. No abdominal bruit or pulsations. Rectal exam: normal sphincter tone, positive external hemorrhoids, no melena and no stool in the vault. EXTREMITIES: FROM in all major joints, no edema, no cyanosis or clubbing. NEURO: Alert and oriented x 3. No acute neurological deficits. Speech is normal. SKIN: Dry and warm Triage Information Reviewed: Yes Vital Signs On Initial Exam: Initial Vitals Temp Pulse Resp BP Pulse Ox 100.7 F 90 20 98/43 100 05/01/16 13:52 05/01/16 13:52 05/01/16 13:52 05/01/16 13:52 05/01/16 13:52 Vital Signs Reviewed: Yes Diagnostics - Vital Signs Vital Signs Temp Pulse Resp BP Pulse Ox 05/01/16 14:48 100.6 F 87 32 107/40 100 05/01/16 13:52 100.7 F 90 20 98/43 100 - Laboratory Result Diagrams: 05/01/16 16:38 05/01/16 16:38 Lab Statement: Any lab studies that have been ordered have been reviewed, and results considered in the medical decision making process. - CT abd/pel w CT Interpretation Completed By: Radiologist - 1. MASS IN THE LOWER ANTERIOR ABDOMINAL WALL MOST CONSISTENT WITH A RECTUS SHEATH HEMATOMA DESCRIBED. 2. INCREASED SOFT TISSUE DENSITY AT THE ESOPHAGOGASTRIC JUNCTION SUSPICIOUS FOR A MASS. RECOMMEND FOLLOW-UP ENDOSCOPY. 3. SMALL HIATAL HERNIA. 4. CHOLELITHIASIS. 5. SMALL BILATERAL PLEURAL EFFUSIONS AND BILATERAL SMALL BOCHDALEK HERNIAS. Abdominal Pain Fem Course/Dx - Course Course Of Treatment: Patient is an 85 year-old female coming to [facility] presenting with constant RLQ pain and constipation since last night. Pain severity 5/10. She also reports nausea and vomiting last night and tonight. She took laxatives with no improvement. She states that she has only been able to move a "small amount of black tarry stool." She states she has not been passing any gas and has had urinary retention since his morning. She was discharged from [facility] on 04/28/2016 after a 10-day stay and she now has 24/7 home care. Bloodwork WNL except for WBC of 19.7, Hgb 6.3, Hct 19, INR is 2.52, BUN 40, creatinine 1.67, magnesium 1.4, and CRP of 40.53. Initially, the blood pressure was stable however he was given IV fluids. Rectal exam positive for occult blood and there was no stool in the vault. The patient seems to have a GI bleed and was started on Coumadin on discharge several days ago, which may be the cause of the rectal bleed. She was given Protonix and she will be given a transfusion of RBCs. Initially, I ordered a CT since she c/o constipation. She started to drink the PO contrast and is awaiting results. She continues to be hemodynamically stable, is A&Ox3. I discussed the case with Dr. Caldwell and Dr. Hughes who accept the patient for admission. Her last colonscopy was 7 years ago, with Dr. Pereyra (GI). Abdominal and pelvic CT as above. - Diagnoses Differential Diagnosis: Positive: Bowel Obstruction, Constipation, Diverticulitis, Pancreatitis, Urinary Tract Infection Provider Diagnoses: GI bleed, Abdominal wall hematoma, Symptomatic anemia - Provider Notifications Discussed Care Of Patient With: Dr. Caldwell (hospitalist) @ 1722: accepts admission. Discharge - Discharge Plan Condition: Stable Disposition: ADMITTED TO [facility] documentation as recorded by the Arun hdez Billy accurately reflects the service I personally performed and the decisions made by me, Froilan Lozada MD.
[2016-05-01] MEDS: Mometasone/Formoter 200/5 MDI INH SCH ×2 (19:34→21:44)
[2016-05-01] MEDS: cefTRIAXone VIAL(*) 1,000 MG in NS 0.9% 50 ML* 50 ML IVPB SCH (22:07)
[2016-05-01] MEDS: metroNIDAZOLE IV 500 MG/100ML* 500 MG/100 ML BAG IVPB SCH (22:54)
[2016-05-01] MEDS: Polyethylene Glycol 3350* 17 GM PACKET PO SCH (23:06)
--- NOTE | 2016-05-01 23:22 | HP ---
HISTORY AND PHYSICAL: DATE OF ADMISSION: 05/01/16 PRIMARY CARE PHYSICIAN: Maulik Garcia MD CHIEF COMPLAINT: Constipation and abdominal pain. HISTORY OF PRESENT ILLNESS: Elsie Preciado is a very nice 85-year-old female who was just discharged from our service in the hospital on 04/28/16 after a long hospitalization for acute hypercapnic and hypoxic respiratory failure due to COPD exacerbation and pneumonia. During that hospital stay, the patient was intubated. 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 She also developed a complication of acute renal failure due to severe sepsis and pneumonia and transient transaminitis. She was eventually able to be discharged home on room air on 04/28/16 and to home under the care of her daughter. Apparently, the patient had been doing okay for a couple of days, but then she developed lower abdominal pain. She also complained of constipation and not being able to have a "normal bowel movement" for several days. She also had been burping and vomited a couple of times. The description of the vomitus was "brown." The patient's stool was melenic and heme-positive in the ED. CT of the abdomen showed abundant stool in the colon as well as the rectus sheath hematoma. Her hemoglobin was 6. She is going to be admitted with a diagnosis of GI bleed. PAST MEDICAL HISTORY: 1. History of compensated diastolic heart failure. 2. Anxiety. 3. Insomnia. 4. Eczema. 5. Hypertension. 6. Hyperlipidemia. 7. Gout. 9. History of COPD with recent history of COPD exacerbation and pneumonia, requiring ventilator in March 2016. 10. 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 PAST SURGICAL HISTORY: Includes: 1. Cataract surgery. 2. Appendectomy. 3. Hysterectomy. 4. Knee surgery. MEDICATIONS AT HOME: Included: 1. Coumadin 5 mg daily. 2. DuoNeb on a p.r.n. basis. 3. Dulera 200/5 mcg 2 puffs inhalation b.i.d. 4. Xopenex inhaler 2 puffs up to 4 times a day p.r.n. 5. Senna 1 tablet daily p.r.n. 6. Xalatan eye drops 1 drop both eyes daily. 7. Lipitor 10 mg daily. 8. Amlodipine 10 mg daily. ALLERGIES: Include BEE VENOM, LATEX, INDOMETHACIN, and SHELLFISH. The patient is allergic to PREDNISONE, but she stated that PREDNISONE makes her "face swell up." She had been on inhaled steroids without any consequences. SOCIAL HISTORY: The patient quit smoking about 50 years ago. She has a history of approximately 20-pack year smoking. She denies any alcohol or drug use. She used to live alone prior to her hospitalization in March 2016. Currently, she is under the care of her daughter who for the time being is staying with her. The patient's daughter is also the surrogate. The patient had been DNR. REVIEW OF SYSTEMS: Please see history of present illness. All the remaining 14 systems were reviewed with the patient and were otherwise negative. PHYSICAL EXAMINATION GENERAL: The patient is a very pleasant 85-year-old female who is in no acute distress. Awake, alert, and oriented x3. VITAL SIGNS: Blood pressure of 107/40, heart rate of 87 and regular, respiratory rate 32, oxygen saturation 100% on room air, and temperature of 100.7. HEENT: Head is atraumatic, normocephalic. Eyes: Pupils equal and reactive to light and accommodation. Oropharynx clear. Mucosa moist. NECK: Supple. No JVD. No bruit bilaterally. RESPIRATORY: Clear to auscultation bilaterally with very faint bibasilar crackles. CARDIOVASCULAR: Regular rate and rhythm. No murmur. ABDOMEN: Soft. Exquisitely tender in the right lower quadrant, where a palpable rectal sheath hematoma is present of the size of a sphere approximately 12 cm in diameter . Bowel sounds present in all 4 quadrants. There is no rebound. No guarding. EXTREMITIES: There is +1 pitting pedal edema. Pulses present 2+ bilaterally. No clubbing or cyanosis. SKIN: On evaluation of the skin, no rashes noted. NEUROLOGIC: Speech clear. Cranial nerves II through XII grossly intact. Motor strength is 5/5 bilaterally. DIAGNOSTIC STUDIES/LAB DATA: Shows white blood cell count of 19.7, hemoglobin of 6.3, hematocrit of 19, and platelets of 155. Sodium 133, chloride 98, carbon dioxide 28, BUN 40, and creatinine 1.67. The patient's C-reactive protein was 40.5. INR was 2.5. CT of abdomen and pelvis, impression: "Mass in the lower abdominal wall most consistent with a rectus sheath hematoma as described. Increased soft tissue density at the esophagogastric junction suspicious for a mass. Recommend followup endoscopy. Small hiatal hernia. Cholelithiasis. Small bilateral pleural effusions and bilateral small Bochdalek hernia." ASSESSMENT AND PLAN: 1. In regards to the patient's GI bleed, it appears to be upper. 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 At this point, she prefers conservative treatment. We will place her on Protonix drip and transfuse her with packed red blood cells. We will talk with Gastroenterology consultants in the morning in regards to further management. For the time being , the patient is going to be placed on clear liquid diet. 2. In regards to the patient's rectus sheath hematoma as above, she is going to be transfused. She has anemia due to acute blood loss due to above GI bleed as well as rectus sheath hematoma. Anticoagulation is going to be reversed with vitamin K. 3. Sepsis: The patient meets sepsis criteria with fever and increased respiratory rate. At this point, the source maybe intraabdominal or that the CAT scan failed to show possibility of diverticulitis. She is constipated and I discussed with the mainspring winder on-call. I will place the patient on gentle MiraLAX. I will place the patient empirically on ceftriaxone and metronidazole. Blood cultures are going to be obtained. 4. In regards to the patient's chronic obstructive pulmonary disease, she does not appear to be in exacerbation and her inhalers are going to be continued. 5. In regards to acute kidney injury most likely due to dehydration: We will place the patient on intravenous hydration and monitor. 6. For DVT prophylaxis, the patient's anticoagulation is contraindicated due to GI bleed. 7. In regards to hypertension history, the patient's systolic blood pressures are in the low normal. We will hold all of her antihypertensives. 8. In regards to history of paroxysmal atrial fibrillation, the patient is going to be placed on telemetry monitored bed for the time being. 9. In regards to code status, the patient is a full code. TIME SPENT: Approximately 65 minutes was spent on admission of this patient, more than half that time was spent [id number] with the patient during the interview and physical exam. CC: Dr. Garcia * [id number]/[facility] #: [id number] [facility]
[2016-05-02] MEDS: Pantoprazole IV* 80 MG in NS 0.9% 250 ML* 250 ML IVPB SCH ×3 (00:28→21:56)
[2016-05-02] MEDS: metroNIDAZOLE IV 500 MG/100ML* 500 MG/100 ML BAG IVPB SCH ×3 (05:02→20:59)
[2016-05-02 05:51] LABS: Hematocrit 23 % (35-47); Hemoglobin 7.5 g/dl (12.0-16.0); Mean Corpuscular HGB Conc 33 g/dl (31-36); Mean Corpuscular Hemoglobin 28 pg (27-31); Mean Corpuscular Volume 85 fL (80-97); Mean Platelet Volume 10 um3 (7.4-10.4); Red Blood Count 2.68 10^6/ul (4.0-5.4); Red Cell Distribution Width 15 % (10.5-15); White Blood Count 17.3 10^3/ul (3.5-10.8)
[2016-05-02 05:55] LABS: BUN/Creatinine Ratio 25.2 (8-20); Calcium 8.4 mg/dL (8.6-10.3); EGFR African American 46.3 (>60); Potassium 4.4 mmol/L (3.5-5.0)
[2016-05-02 06:35] LABS: Urine Bacteria Absent (Absent); Urine Bilirubin Negative (Negative); Urine Glucose Negative (Negative); Urine Nitrite Negative (Negative)
[2016-05-02] MEDS: Latanoprost 0.005%* 2.5 ml BTL BOTH EYES SCH (07:27)
[2016-05-02] MEDS: Polyethylene Glycol 3350* 17 GM PACKET PO SCH ×2 (07:29→20:59)
[2016-05-02] MEDS ORDERED: Phytonadione Oral Solution* 5 MG/25 ML UDC PO ONE (07:42)
[2016-05-02] MEDS: Mometasone/Formoter 200/5 MDI INH SCH ×2 (07:53→19:24)
[2016-05-02] MEDS ORDERED: NS 0.9% 1000 ML* 1,000 ML IV SCH (08:49)
--- NOTE | 2016-05-02 14:16 | PN ---
Subjective Date of Service: 05/02/16 Interval History: pt feels better, still c/o pain in R lower abd. no BM since admission Objective Active Medications: Albuterol/Ipratropium (Duoneb Neb.Kaet*) 1 neb INH Q6H PRN PRN Reason: WHEEZING Ceftriaxone Sodium 1,000 mg/ (Sodium Chloride) 50 mls @ 200 mls/hr IVPB Q24H [facility] Last Admin: 05/01/16 22:07 Dose: 200 mls/hr Metronidazole/Sodium Chloride (Flagyl 500 Mg Ivpb*) 500 mg in 100 mls @ 100 mls /hr IVPB Q8H [facility] Last Admin: 05/02/16 13:06 Dose: 100 mls/hr Pantoprazole Sodium 80 mg/ (Sodium Chloride) 250 mls @ 25 mls/hr IVPB Q10H [facility] Last Admin: 05/02/16 11:43 Dose: 25 mls/hr Sodium Chloride (Ns 0.9% 1000 Ml*) 1,000 mls @ 75 mls/hr IV PER RATE [facility] Latanoprost (Xalatan 0.005%*) 1 drop BOTH EYES DAILY [facility] Last Admin: 05/02/16 07:27 Dose: 1 drop Levalbuterol HCl (Xopenex Hfa Inhaler*) 2 puff INH QID PRN PRN Reason: SHORTNESS OF BREATH Mometasone Furoate/Formoterol Fumar (Dulera 200/5 Mdi*) 2 puff INH BID [facility] Last Admin: 05/02/16 07:53 Dose: 2 puff Morphine Sulfate (Morphine Inj (Syringe)*) 2 mg IV Q4H PRN PRN Reason: PAIN Last Admin: 05/02/16 07:28 Dose: 2 mg Polyethylene Glycol/Electrolytes (Miralax*) 17 gm PO 0800,2100 [facility] Last Admin: 05/02/16 07:29 Dose: 17 gm Temazepam (Restoril Cap*) 30 mg PO BEDTIME PRN PRN Reason: INSOMNIA Vital Signs 05/01/16 05/01/16 05/01/16 20:00 20:25 21:55 Temperature 98.2 F Pulse Rate 80 Respiratory 18 18 18 Rate Blood Pressure 143/61 (mmHg) O2 Sat by Pulse 97 Oximetry 05/01/16 05/01/16 05/01/16 22:00 22:15 23:59 Temperature 98.2 F 98.2 F 98.3 F Pulse Rate 82 82 88 Respiratory 18 18 20 Rate Blood Pressure 139/51 144/56 137/51 (mmHg) O2 Sat by Pulse 90 91 92 Oximetry 05/02/16 05/02/16 05/02/16 01:17 01:35 04:25 Temperature 98.3 F 98.3 F 98.5 F Pulse Rate 87 85 84 Respiratory 18 18 18 Rate Blood Pressure 127/56 140/53 139/55 (mmHg) O2 Sat by Pulse 90 92 91 Oximetry 05/02/16 05/02/16 05/02/16 07:28 07:47 07:51 Temperature 98.3 F Pulse Rate 80 Respiratory 18 14 16 Rate Blood Pressure 120/47 (mmHg) O2 Sat by Pulse 93 Oximetry 05/02/16 05/02/16 05/02/16 07:55 08:28 11:27 Temperature 97.8 F Pulse Rate 82 85 Respiratory 14 16 18 Rate Blood Pressure 145/57 (mmHg) O2 Sat by Pulse 92 92 Oximetry Oxygen Devices in Use Now: None Appearance: 85 yo F in NAD, AAOx3 Eyes: No Scleral Icterus, PERRLA Ears/Nose/Mouth/Throat: NL Teeth, Lips, Gums, Mucous Membranes Moist Neck: NL Appearance and Movements; NL JVP, Trachea Midline Respiratory: Symmetrical Chest Expansion and Respiratory Effort, - - crackles in b/l lower lung and at R anterior mid lung Cardiovascular: NL Sounds; No Murmurs; No JVD, RRR Abdominal: - - palpable mass (hematoma) in r lower abd at 10 cm in diam-tender, BS+ Lymphatic: No Cervical Adenopathy Extremities: No Clubbing, Cyanosis, - - +1 pitting pedal edema b/l Skin: No Rash or Ulcers, No Nodules or Sclerosis Neurological: Alert and Oriented x 3, NL Muscle Strength and Tone Result Diagrams: 05/02/16 05:04 05/02/16 05:04 Assess/Plan/Problems-Billing Assessment: 85 yo F with h/o PAF, cardioembolic CVA ( on coumadin x 1 week), recent pneumonia and intubation 1 week prior to current admission presents with melena, constipation and tender lower abd mass (CT shows rectus sheath hematoma) - Patient Problems (1) GI bleed Comment: suspect upper. CT shows mass like thickening of EG junction Dr. Maki consulted cont Protonix gtt. (2) Anemia due to acute blood loss Comment: due to GI bleed and rectus sheath hematoma s/p 2 U PRBC transfusion Hb improved, cont to monitor (3) Rectus sheath hematoma Comment: INR down to 1.5 Treated with vit K (4) CVA (cerebral vascular accident) Comment: h/o cardioembolic CVA in 03/2016. H/o PAF Off antocoagulation (5) COPD (chronic obstructive pulmonary disease) Comment: not in exacerbation, cont inhalers as at home (6) Sepsis Comment: Pt met sepsis criteria at admission. Source suspect intraabdominal. ?diverticulitis? cont empiric Ceftriaxone/Flagyl Blood cx pending (7) Acute kidney failure Comment: pre-renal, improving, continue to monitor closely. (8) DVT prophylaxis Comment: SCD's anticoagulants contraindicated Status and Disposition: inpatient for GI bleed, rectus sheath hemmatoma
[2016-05-02 15:04] LABS: Hematocrit 23 % (35-47); Hemoglobin 7.5 g/dl (12.0-16.0)
[2016-05-02] MEDS: cefTRIAXone VIAL(*) 1,000 MG in NS 0.9% 50 ML* 50 ML IVPB SCH (19:51)
--- NOTE | 2016-05-02 20:52 | CONS ---
GASTROENTEROLOGY CONSULT: DATE OF CONSULT: 05/02/16 REASON FOR CONSULTATION: Nausea, vomiting, heme positive stool, and hemoglobin of 6 in a woman discharged 5 days ago on Lovenox and warfarin because of CVA, felt related to paroxysmal atrial fibrillation. HISTORY OF PRESENT ILLNESS: This 85-year-old woman was hospitalized about 2 weeks ago with a respiratory infection and she developed a sequence of derangements including fluid overload, need for intubation, then fluctuating neurologic deficits, thus she went home on 04/28/16 on Lovenox shots and warfarin. At home, she was doing okay for a couple of days, able to eat. She developed some constipation and was straining. There was also an episode of gagging and profound abdominal contraction when she gagged on Listerine. She really did not effectively have a bowel movement. She has been prone to constipation for a long time taking MiraLAX on rare occasions. She states she might do this twice a year. Why it is so infrequent is not clear. She actually had to come to the emergency room a couple of years ago with an impaction secondary to hydrocodone. Yesterday, she developed abdominal pain along with constipation and she came to the ER and CT scan shows a large right rectus sheath hematoma. PAST MEDICAL HISTORY: 1. Diastolic heart failure. 2. Insomnia and anxiety. 3. Hyperlipidemia. 4. Gout. 5. COPD. 6. Atrial fibrillation. 7. Status post hysterectomy. 8. Status post appendectomy. SOCIAL HISTORY: She lives alone. She has a daughter, Shayna Woodson ([phone] ), living in [place]. MEDICATIONS: At home: Amlodipine 10mg, Lipitor, Dulera inhaler, DuoNeb inhaler , Warfarin 5 mg. She is not taking anything routinely for GERD. REVIEW OF SYSTEMS: She does have GERD on occasion, but does not really take anything for it. She eats a general diet. During the August 2015 admission, she had a CTA of the abdomen and pelvis, which raised a question of an esophagogastric mass. She had EGD by Dr García and there was nothing there besides a [id number] hiatal hernia. She also had some scoliosis. On this admission, another CT scan raised the same question. There is no history of syncope, IA, renal stone, or hepatitis. CT scans have shown a large 6 cm right hepatic cyst and a 3 cm one on the left. She had her EGD, there were some polyps, but none looked impressive. PHYSICAL EXAMINATION: She is a somewhat pale elderly woman in bed, interviewed with her daughter present. She is in no cardiorespiratory distress whatsoever. She has no adenopathy. The lungs are clear. Heart sounds are irregular. The abdomen has normal bowel sounds. She is quite tender on the right deepti-abdomen exquisitely so. Rectal deferred. Extremities show no edema. Neurologic shows her to be awake and alert with normal mentation and no facial weakness. There is no arm weakness. Gait was not tested. DIAGNOSTIC STUDIES/LAB DATA: Initial hemoglobin this admission was 6.3, hematocrit 19, MCV 88, white count 19.7, platelets 255. BUN 40, creatinine 1.67. LFTs normal. Radiology review - the EG junction is difficult to isolate on the CAT scans, August 2015 and April 2016. A hiatal hernia can be appreciated with intraluminal gas, but there is lack of distention of this area and scoliosis appears to compress the anatomy together. The esophagus is not dilated IMPRESSION: This 85-year-old woman who had a cardioembolic cerebrovascular accident was sent home on warfarin and because of the acuteness of the cerebrovascular accident, also Lovenox. She now presents with bleeding into her right rectus muscle and there may have been some gastrointestinal bleeding, but its extent is very modest. She has not really been vomiting much blood and she has been constipated. Majority of the blood loss resulting in hemoglobin of 6.3 what appeared to be into the rectus sheath. A question was raised about the EG junction on CT scan and I do not think, there would be any reason to think that has changed from August 2015 until now especially with no symptoms focused on that area and would not repeat the EGD. For the moment, we can follow her diet intake and Hemoccult status on the stool. I would not rule out cautiously starting warfarin as a single agent again in a month, monitoring her Hemoccult and CBC. Something routinely for constipation would likely assist with the plan - i.e. Miralax QOD ongoing. [id number]/[facility] #: [id number] [facility]
[2016-05-02] MEDS: Temazepam CAP* 15 MG PO PRN (20:59)
[2016-05-03] MEDS: metroNIDAZOLE IV 500 MG/100ML* 500 MG/100 ML BAG IVPB SCH (05:32)
[2016-05-03 05:59] LABS: Hematocrit 20 % (35-47); Mean Corpuscular HGB Conc 33 g/dl (31-36); Mean Corpuscular Hemoglobin 29 pg (27-31); Mean Corpuscular Volume 86 fL (80-97); Mean Platelet Volume 10 um3 (7.4-10.4); Red Blood Count 2.36 10^6/ul (4.0-5.4); Red Cell Distribution Width 15 % (10.5-15); White Blood Count 14.5 10^3/ul (3.5-10.8)
[2016-05-03 06:02] LABS: Comments Flag Yes; Hemoglobin 6.7 g/dl (12.0-16.0)
[2016-05-03 06:15] LABS: BUN/Creatinine Ratio 20.8 (8-20); EGFR African American 52.4 (>60); EGFR Non-African American 40.7 (>60); Magnesium 1.8 mg/dL (1.9-2.7); Potassium 3.7 mmol/L (3.5-5.0)
[2016-05-03] MEDS ORDERED: Pantoprazole IV* 40 MG ONE (08:20)
[2016-05-03] MEDS: Pantoprazole IV* 80 MG in NS 0.9% 250 ML* 250 ML IVPB SCH (08:46)
[2016-05-03] MEDS: Latanoprost 0.005%* 2.5 ml BTL BOTH EYES SCH (08:48)
[2016-05-03] MEDS: Polyethylene Glycol 3350* 17 GM PACKET PO SCH ×2 (08:48→21:11)
[2016-05-03] MEDS: Mometasone/Formoter 200/5 MDI INH SCH ×2 (10:36→20:18)
--- NOTE | 2016-05-03 13:03 | PN ---
Subjective Date of Service: 05/03/16 Interval History: pt feels "much better.". Had a small dark brown BM today. Objective Active Medications: Albuterol/Ipratropium (Duoneb Neb.Kate*) 1 neb INH Q6H PRN PRN Reason: WHEEZING Latanoprost (Xalatan 0.005%*) 1 drop BOTH EYES DAILY [facility] Last Admin: 05/03/16 08:48 Dose: 1 drop Levalbuterol HCl (Xopenex Hfa Inhaler*) 2 puff INH QID PRN PRN Reason: SHORTNESS OF BREATH Magnesium Oxide (Magox 400 Tab*) 800 mg PO DAILY [facility] Mometasone Furoate/Formoterol Fumar (Dulera 200/5 Mdi*) 2 puff INH BID [facility] Last Admin: 05/03/16 10:36 Dose: 2 puff Morphine Sulfate (Morphine Inj (Syringe)*) 2 mg IV Q4H PRN PRN Reason: PAIN Last Admin: 05/02/16 07:28 Dose: 2 mg Omeprazole (Prilosec Cap*) 20 mg PO BID [facility] Polyethylene Glycol/Electrolytes (Miralax*) 17 gm PO 0800,2100 [facility] Last Admin: 05/03/16 08:48 Dose: 17 gm Temazepam (Restoril Cap*) 30 mg PO BEDTIME PRN PRN Reason: INSOMNIA Last Admin: 05/02/16 20:59 Dose: 30 mg Vital Signs 05/02/16 05/02/16 05/02/16 13:55 14:28 15:27 Temperature 99.9 F 99.4 F 98.1 F Pulse Rate 77 77 79 Respiratory 20 19 Rate Blood Pressure 125/47 125/47 148/53 (mmHg) O2 Sat by Pulse 95 95 91 Oximetry 05/02/16 05/02/16 05/03/16 20:00 21:04 00:54 Temperature 97.6 F Pulse Rate 84 83 Respiratory 16 15 16 Rate Blood Pressure 117/45 (mmHg) O2 Sat by Pulse 93 87 Oximetry 05/03/16 05/03/16 05/03/16 08:00 08:50 10:00 Temperature 97.7 F 98.0 F Pulse Rate 76 79 Respiratory 18 Rate Blood Pressure 121/51 128/49 (mmHg) O2 Sat by Pulse 98 94 Oximetry 05/03/16 05/03/16 10:28 10:37 Temperature 97.9 F Pulse Rate 75 77 Respiratory 18 18 Rate Blood Pressure 111/37 (mmHg) O2 Sat by Pulse 91 95 Oximetry Oxygen Devices in Use Now: None Appearance: 85 yo f in nAd, AAOx3 Eyes: No Scleral Icterus, PERRLA Ears/Nose/Mouth/Throat: NL Teeth, Lips, Gums, Mucous Membranes Moist Neck: NL Appearance and Movements; NL JVP, Trachea Midline Respiratory: Symmetrical Chest Expansion and Respiratory Effort, - - crackles at b/l bases Cardiovascular: NL Sounds; No Murmurs; No JVD, RRR Abdominal: NL Sounds; No Tenderness; No Distention, - - palpable tender R rectus sheath hematoma Lymphatic: No Cervical Adenopathy Extremities: No Clubbing, Cyanosis Skin: No Nodules or Sclerosis, - - +1 pitting pedal edema Neurological: Alert and Oriented x 3, NL Muscle Strength and Tone Result Diagrams: 05/03/16 05:09 05/03/16 05:09 Microbiology and Other Data: Microbiology 05/01/16 22:30 Aerobic Blood Culture - Preliminary Blood Venous No Growth Day 1 Anaerobic Blood Culture - Preliminary No Growth Day 1 Assess/Plan/Problems-Billing Assessment: 85 yo F with h/o PAF, cardioembolic CVA ( on coumadin x 1 week), recent pneumonia and intubation 1 week prior to current admission presents with melena, constipation and tender lower abd mass (CT shows rectus sheath hematoma) - Patient Problems (1) GI bleed Comment: suspect upper. CT shows mass like thickening of EG junction Dr. Maki consulted. In light of no findings on EGD in 08/2015, will cont PPI BID, no EGD needed. (2) Anemia due to acute blood loss Comment: due to GI bleed and rectus sheath hematoma s/p 2 U PRBC transfusion on 05/01/16 Hb down again , will transfuse another 2 U. (3) Rectus sheath hematoma Comment: INR down to 1.5 Treated with vit K (4) CVA (cerebral vascular accident) Comment: h/o cardioembolic CVA in 03/2016. H/o PAF Off antocoagulation (5) COPD (chronic obstructive pulmonary disease) Comment: not in exacerbation, cont inhalers as at home (6) Sepsis Comment: Pt met sepsis criteria at admission. Source suspect intraabdominal, but no evidence of infection so far. Possible inflammatory response to hematoma. will d/c antibiotics. (7) Acute kidney failure Comment: pre-renal, improving, continue to monitor closely. (8) DVT prophylaxis Comment: SCD's anticoagulants contraindicated Status and Disposition: inpatient for GI bleed, rectus sheath hematoma
[2016-05-03] MEDS: Magnesium Oxide TAB* 400 MG PO SCH (14:47)
[2016-05-03 20:01] LABS: Hematocrit 31 % (35-47); Hemoglobin 10.3 g/dl (12.0-16.0)
[2016-05-03] MEDS: Temazepam CAP* 15 MG PO PRN (21:10)
[2016-05-03] MEDS: Omeprazole CAP* 20 MG PO SCH (21:11)
[2016-05-04 06:00] LABS: Hematocrit 29 % (35-47); Hemoglobin 9.8 g/dl (12.0-16.0); Mean Corpuscular HGB Conc 33 g/dl (31-36); Mean Corpuscular Hemoglobin 29 pg (27-31); Mean Corpuscular Volume 88 fL (80-97); Mean Platelet Volume 9 um3 (7.4-10.4); Red Blood Count 3.33 10^6/ul (4.0-5.4); Red Cell Distribution Width 15 % (10.5-15); White Blood Count 13.6 10^3/ul (3.5-10.8)
[2016-05-04 06:16] LABS: BUN/Creatinine Ratio 23.5 (8-20); Calcium 8.5 mg/dL (8.6-10.3); EGFR African American 66.2 (>60); EGFR Non-African American 51.5 (>60); Potassium 3.6 mmol/L (3.5-5.0)
[2016-05-04] MEDS: Magnesium Oxide TAB* 400 MG PO SCH (07:57)
[2016-05-04] MEDS: Polyethylene Glycol 3350* 17 GM PACKET PO SCH ×2 (07:57→19:46)
[2016-05-04] MEDS: Latanoprost 0.005%* 2.5 ml BTL BOTH EYES SCH (07:57)
[2016-05-04] MEDS: Omeprazole CAP* 20 MG PO SCH ×2 (07:58→22:15)
[2016-05-04] MEDS: Mometasone/Formoter 200/5 MDI INH SCH ×2 (10:01→21:08)
--- NOTE | 2016-05-04 11:50 | PN ---
Subjective Date of Service: 05/04/16 Interval History: Pt noted labia majora edema last night. Today much improved with ice packs tx. No pain in the area noted. Pt had several loose , black BM's in the past 24H. Objective Active Medications: Albuterol/Ipratropium (Duoneb Neb.Kate*) 1 neb INH Q6H PRN PRN Reason: WHEEZING Latanoprost (Xalatan 0.005%*) 1 drop BOTH EYES DAILY [facility] Last Admin: 05/04/16 07:57 Dose: 1 drop Levalbuterol HCl (Xopenex Hfa Inhaler*) 2 puff INH QID PRN PRN Reason: SHORTNESS OF BREATH Magnesium Oxide (Magox 400 Tab*) 800 mg PO DAILY [facility] Last Admin: 05/04/16 07:57 Dose: 800 mg Mometasone Furoate/Formoterol Fumar (Dulera 200/5 Mdi*) 2 puff INH BID [facility] Last Admin: 05/04/16 10:01 Dose: 2 puff Morphine Sulfate (Morphine Inj (Syringe)*) 2 mg IV Q4H PRN PRN Reason: PAIN Last Admin: 05/02/16 07:28 Dose: 2 mg Omeprazole (Prilosec Cap*) 20 mg PO BID [facility] Last Admin: 05/04/16 07:58 Dose: 20 mg Polyethylene Glycol/Electrolytes (Miralax*) 17 gm PO 0800,2100 [facility] Last Admin: 05/04/16 07:57 Dose: 17 gm Temazepam (Restoril Cap*) 30 mg PO BEDTIME PRN PRN Reason: INSOMNIA Last Admin: 05/03/16 21:10 Dose: 30 mg Vital Signs 05/03/16 05/03/16 05/03/16 13:25 14:08 16:06 Temperature 97.9 F 97.9 F 98.2 F Pulse Rate 79 83 82 Respiratory 18 16 Rate Blood Pressure 137/69 149/60 153/68 (mmHg) O2 Sat by Pulse 98 96 96 Oximetry 05/03/16 05/03/16 05/04/16 19:24 20:00 00:13 Temperature 98.1 F 97.8 F Pulse Rate 92 72 Respiratory 22 20 16 Rate Blood Pressure 160/61 127/57 (mmHg) O2 Sat by Pulse 94 94 Oximetry 05/04/16 10:04 Temperature Pulse Rate 72 Respiratory 16 Rate Blood Pressure (mmHg) O2 Sat by Pulse 96 Oximetry Oxygen Devices in Use Now: None Appearance: 85 yo f in nAD, aAOx3 Eyes: No Scleral Icterus, PERRLA Ears/Nose/Mouth/Throat: NL Teeth, Lips, Gums, Mucous Membranes Moist Neck: NL Appearance and Movements; NL JVP, Trachea Midline Respiratory: Symmetrical Chest Expansion and Respiratory Effort, - - b/l lower lung crackles, crackles in R mid lung anteriorly Cardiovascular: NL Sounds; No Murmurs; No JVD, RRR Abdominal: - - b/l labia majora edema +1, no erythema, no tenderness noted.On abd eval: R sided hemaotma palpated, mildy tended, no rebound, no guarding Lymphatic: No Cervical Adenopathy Extremities: No Clubbing, Cyanosis, - - +1 pitting edema b/l ankles Skin: No Rash or Ulcers, No Nodules or Sclerosis Neurological: Alert and Oriented x 3, NL Muscle Strength and Tone Result Diagrams: 05/04/16 05:39 05/04/16 05:39 Microbiology and Other Data: Microbiology 05/01/16 22:30 Aerobic Blood Culture - Preliminary Blood Venous No Growth Day 1 Anaerobic Blood Culture - Preliminary No Growth Day 1 Assess/Plan/Problems-Billing Assessment: 85 yo F with h/o PAF, cardioembolic CVA ( on coumadin x 1 week), recent pneumonia and intubation 1 week prior to current admission presents with melena, constipation and tender lower abd mass (CT shows rectus sheath hematoma) - Patient Problems (1) GI bleed Comment: suspect upper. CT shows mass like thickening of EG junction Dr. Maki consulted. In light of no findings on EGD in 08/2015, will cont PPI BID, no EGD needed. (2) Anemia due to acute blood loss Comment: due to GI bleed and rectus sheath hematoma s/p 2 U PRBC transfusion on 05/01/16 and another 2 U on 05/03/16. Hb now appears stable will re-check stool guaiac. (3) Rectus sheath hematoma Comment: Hb fairly stable. cont to monitor daily (4) CVA (cerebral vascular accident) Comment: h/o cardioembolic CVA in 03/2016. H/o PAF Off anticoagulation for now, could be restarted in approx a month if stool guaiac neg as per Dr. Maki (5) COPD (chronic obstructive pulmonary disease) Comment: not in exacerbation, cont inhalers as at home (6) Acute kidney failure Comment: pre-renal, improving, continue to monitor closely. (7) SIRS (systemic inflammatory response syndrome) Comment: Pt met SIRS criteria at admission. Source suspect intraabdominal, but no evidence of infection so far. Possible inflammatory response to hematoma. Off antibiotics x 24 H, doing well, afebrile (8) DVT prophylaxis Comment: SCD's anticoagulants contraindicated Status and Disposition: inpatient for GI bleed, rectus sheath hematoma
[2016-05-04] MEDS: Temazepam CAP* 15 MG PO PRN (22:15)
[2016-05-05 06:10] LABS: Hematocrit 30 % (35-47); Hemoglobin 10.2 g/dl (12.0-16.0); Mean Corpuscular HGB Conc 34 g/dl (31-36); Mean Corpuscular Hemoglobin 30 pg (27-31); Mean Corpuscular Volume 88 fL (80-97); Mean Platelet Volume 9 um3 (7.4-10.4); Red Blood Count 3.45 10^6/ul (4.0-5.4); Red Cell Distribution Width 15 % (10.5-15); White Blood Count 9.7 10^3/ul (3.5-10.8)
[2016-05-05 06:22] LABS: BUN/Creatinine Ratio 20.4 (8-20); Calcium 8.9 mg/dL (8.6-10.3); EGFR African American 69.4 (>60); EGFR Non-African American 53.9 (>60); Magnesium 1.5 mg/dL (1.9-2.7); Potassium 3.4 mmol/L (3.5-5.0)
[2016-05-05] MEDS: Polyethylene Glycol 3350* 17 GM PACKET PO SCH (06:54)
[2016-05-05] MEDS ORDERED: Furosemide IV* 10 MG/ML 2 ML VIAL (20 MG) IV ONE (07:33)
[2016-05-05] MEDS: Latanoprost 0.005%* 2.5 ml BTL BOTH EYES SCH (08:14)
[2016-05-05] MEDS: Omeprazole CAP* 20 MG PO SCH ×2 (08:15→22:00)
[2016-05-05] MEDS: Magnesium Oxide TAB* 400 MG PO SCH ×2 (08:15→21:59)
[2016-05-05] MEDS ORDERED: Potassium Chlor TAB* 20 MEQ TAB.ER PO ONE (08:41)
[2016-05-05] MEDS: Mometasone/Formoter 200/5 MDI INH SCH ×2 (09:36→20:58)
--- NOTE | 2016-05-05 16:33 | PN ---
Subjective Date of Service: 05/05/16 Interval History: Pt now has loose stool that is becoming "less black". Good appetite. Vulvar edema resolved. abd pain due to hematoma resolving Objective Active Medications: Albuterol/Ipratropium (Duoneb Neb.Kate*) 1 neb INH Q6H PRN PRN Reason: WHEEZING Latanoprost (Xalatan 0.005%*) 1 drop BOTH EYES DAILY [facility] Last Admin: 05/05/16 08:14 Dose: 1 drop Levalbuterol HCl (Xopenex Hfa Inhaler*) 2 puff INH QID PRN PRN Reason: SHORTNESS OF BREATH Magnesium Oxide (Magox 400 Tab*) 800 mg PO DAILY [facility] Last Admin: 05/05/16 08:15 Dose: 800 mg Mometasone Furoate/Formoterol Fumar (Dulera 200/5 Mdi*) 2 puff INH BID [facility] Last Admin: 05/05/16 09:36 Dose: 2 puff Morphine Sulfate (Morphine Inj (Syringe)*) 2 mg IV Q4H PRN PRN Reason: PAIN Last Admin: 05/02/16 07:28 Dose: 2 mg Omeprazole (Prilosec Cap*) 20 mg PO BID [facility] Last Admin: 05/05/16 08:15 Dose: 20 mg Polyethylene Glycol/Electrolytes (Miralax*) 17 gm PO 0800,2100 [facility] Last Admin: 05/05/16 06:54 Dose: Not Given Temazepam (Restoril Cap*) 30 mg PO BEDTIME PRN PRN Reason: INSOMNIA Last Admin: 05/04/16 22:15 Dose: 30 mg Vital Signs 05/04/16 05/04/16 05/05/16 16:29 20:17 04:40 Temperature 98.4 F 98.3 F Pulse Rate 81 86 Respiratory 16 18 16 Rate Blood Pressure 162/58 159/67 (mmHg) O2 Sat by Pulse 95 94 Oximetry 05/05/16 05/05/16 05/05/16 07:41 07:45 09:40 Temperature 98.0 F Pulse Rate 87 85 Respiratory 18 16 Rate Blood Pressure 148/52 (mmHg) O2 Sat by Pulse 93 94 Oximetry 05/05/16 15:41 Temperature 98.3 F Pulse Rate 81 Respiratory 19 Rate Blood Pressure 150/60 (mmHg) O2 Sat by Pulse 97 Oximetry Oxygen Devices in Use Now: None Appearance: 85 yo F in nAd, aAOx3 Eyes: No Scleral Icterus, PERRLA Ears/Nose/Mouth/Throat: NL Teeth, Lips, Gums, Mucous Membranes Moist Neck: NL Appearance and Movements; NL JVP, Trachea Midline Respiratory: Symmetrical Chest Expansion and Respiratory Effort, - - crackles at b/l lower lungs Cardiovascular: NL Sounds; No Murmurs; No JVD, RRR Abdominal: No Hepatosplenomegaly, - - R rectus sheath hematoma less prominent and less tender on eval today Lymphatic: No Cervical Adenopathy Extremities: No Clubbing, Cyanosis, - - +1 pitting pedal edma Skin: No Rash or Ulcers, No Nodules or Sclerosis Neurological: Alert and Oriented x 3, NL Muscle Strength and Tone Result Diagrams: 05/05/16 05:35 05/05/16 05:35 Microbiology and Other Data: Microbiology 05/01/16 22:30 Aerobic Blood Culture - Preliminary Blood Venous No Growth Day 1 Anaerobic Blood Culture - Preliminary No Growth Day 1 Assess/Plan/Problems-Billing Assessment: 85 yo F with h/o PAF, cardioembolic CVA ( on coumadin x 1 week), recent pneumonia and intubation 1 week prior to current admission presents with melena, constipation and tender lower abd mass (CT shows rectus sheath hematoma) - Patient Problems (1) GI bleed Comment: suspect upper. Stool still heme + last night, but Hb stable. I suspect she will be stable enough to go home tomorrow. CT shows mass like thickening of EG junction Dr. Maki consulted. In light of no findings on EGD in 08/2015, will cont PPI BID, no EGD needed. (2) Anemia due to acute blood loss Comment: due to GI bleed and rectus sheath hematoma s/p 2 U PRBC transfusion on 05/01/16 and another 2 U on 05/03/16. Hb now appears stable (3) Rectus sheath hematoma Comment: Hb fairly stable. cont to monitor daily (4) CVA (cerebral vascular accident) Comment: h/o cardioembolic CVA in 03/2016. H/o PAF Off anticoagulation for now, could be restarted in approx a month if stool guaiac neg as per Dr. Maki (5) COPD (chronic obstructive pulmonary disease) Comment: not in exacerbation, cont inhalers as at home (6) Acute kidney failure Comment: resolved. appears slightly fluid overloaded. will start Lasix daily (7) SIRS (systemic inflammatory response syndrome) Comment: Pt met SIRS criteria at admission. Source suspect intraabdominal, but no evidence of infection so far. Possible inflammatory response to hematoma. Off antibiotics x 48 H, doing well, afebrile (8) DVT prophylaxis Comment: SCD's anticoagulants contraindicated Status and Disposition: inpatient for GI bleed, rectus sheath hematoma. Plan to d/c home tomorrow
[2016-05-05] MEDS ORDERED: Magnesium Sulfate 2 GM IV* 2 GM/50 ML BAG IVPB ONE (17:00)
[2016-05-05] MEDS: Temazepam CAP* 15 MG PO PRN (22:00)
[2016-05-06] MEDS ORDERED: Furosemide IV* 10 MG/ML 2 ML VIAL (20 MG) IV SLOW PU ONE (08:00)
[2016-05-06] MEDS ORDERED: Furosemide IV* 10 MG/ML 10 ML VIAL (100 MG) IV ONE ×2 (08:14)
--- NOTE | 2016-05-06 08:20 | PN ---
Subjective Date of Service: 05/06/16 Interval History: Despite fair amount of urine output last night pt's appears more SOB today . Feet still with edema Still has dark loose BM's Objective Active Medications: Albuterol/Ipratropium (Duoneb Neb.Kate*) 1 neb INH Q6H PRN PRN Reason: WHEEZING Furosemide (Lasix Iv*) 20 mg IV ONCE ONE Stop: 05/06/16 08:15 Latanoprost (Xalatan 0.005%*) 1 drop BOTH EYES DAILY [facility] Last Admin: 05/05/16 08:14 Dose: 1 drop Levalbuterol HCl (Xopenex Hfa Inhaler*) 2 puff INH QID PRN PRN Reason: SHORTNESS OF BREATH Magnesium Oxide (Magox 400 Tab*) 800 mg PO BID [facility] Last Admin: 05/05/16 21:59 Dose: 800 mg Mometasone Furoate/Formoterol Fumar (Dulera 200/5 Mdi*) 2 puff INH BID [facility] Last Admin: 05/05/16 20:58 Dose: 2 puff Morphine Sulfate (Morphine Inj (Syringe)*) 2 mg IV Q4H PRN PRN Reason: PAIN Last Admin: 05/02/16 07:28 Dose: 2 mg Omeprazole (Prilosec Cap*) 20 mg PO BID [facility] Last Admin: 05/05/16 22:00 Dose: 20 mg Temazepam (Restoril Cap*) 30 mg PO BEDTIME PRN PRN Reason: INSOMNIA Last Admin: 05/05/16 22:00 Dose: 30 mg Vital Signs 05/05/16 05/05/16 05/05/16 09:40 15:41 22:00 Temperature 98.3 F Pulse Rate 85 81 Respiratory 16 19 18 Rate Blood Pressure 150/60 (mmHg) O2 Sat by Pulse 94 97 Oximetry 05/05/16 22:45 Temperature Pulse Rate 80 Respiratory 18 Rate Blood Pressure 169/64 (mmHg) O2 Sat by Pulse 96 Oximetry Oxygen Devices in Use Now: None Appearance: 85 yo F in nAD, aAOx3 Eyes: No Scleral Icterus, PERRLA Ears/Nose/Mouth/Throat: NL Teeth, Lips, Gums, Mucous Membranes Moist Neck: NL Appearance and Movements; NL JVP, Trachea Midline Respiratory: Symmetrical Chest Expansion and Respiratory Effort, - - crackles at b/l lower to mid lungs Cardiovascular: NL Sounds; No Murmurs; No JVD, RRR Abdominal: - - soft, tender over R rectus sheath hematoma Lymphatic: No Cervical Adenopathy Extremities: No Clubbing, Cyanosis, - - +2 pitting pedal edema Skin: No Rash or Ulcers, No Nodules or Sclerosis Neurological: Alert and Oriented x 3, NL Muscle Strength and Tone Result Diagrams: 05/05/16 05:35 05/05/16 05:35 Microbiology and Other Data: Microbiology 05/01/16 22:30 Aerobic Blood Culture - Preliminary Blood Venous No Growth Day 1 Anaerobic Blood Culture - Preliminary No Growth Day 1 Assess/Plan/Problems-Billing Assessment: 85 yo F with h/o PAF, cardioembolic CVA ( on coumadin x 1 week), recent pneumonia and intubation 1 week prior to current admission presents with melena, constipation and tender lower abd mass (CT shows rectus sheath hematoma) - Patient Problems (1) GI bleed Comment: suspect upper. Hb stable. I suspect she will be stable enough to go home tomorrow. CT shows mass like thickening of EG junction Dr. Maki consulted. In light of no findings on EGD in 08/2015, will cont PPI BID, no EGD needed. (2) Anemia due to acute blood loss Comment: due to GI bleed and rectus sheath hematoma s/p 2 U PRBC transfusion on 05/01/16 and another 2 U on 05/03/16. Hb now appears stable (3) Rectus sheath hematoma Comment: Hb fairly stable. (4) CVA (cerebral vascular accident) Comment: h/o cardioembolic CVA in 03/2016. H/o PAF Off anticoagulation for now, could be restarted in approx a month if stool guaiac neg as per Dr. Maki (5) COPD (chronic obstructive pulmonary disease) Comment: not in exacerbation, cont inhalers as at home (6) Acute kidney failure Comment: resolved. (7) Fluid overload Comment: pt received 4 U PRBC and IVF, now in fluid overload. will tx with a dose of Lasix 40 IV today. Although she would like to go home I suspect that she may need more IV diuretic for another 24-48 H priror to d/c (8) SIRS (systemic inflammatory response syndrome) Comment: Pt met SIRS criteria at admission. Source suspect intraabdominal, but no evidence of infection so far. Possible inflammatory response to hematoma. Off antibiotics ,doing well, afebrile (9) Hypomagnesemia Comment: replacing PO (10) DVT prophylaxis Comment: SCD's anticoagulants contraindicated Status and Disposition: inpatient for GI bleed, rectus sheath hematoma.
[2016-05-06] MEDS: Magnesium Oxide TAB* 400 MG PO SCH ×2 (08:30→21:49)
[2016-05-06] MEDS: Omeprazole CAP* 20 MG PO SCH ×2 (08:31→21:49)
[2016-05-06] MEDS: Latanoprost 0.005%* 2.5 ml BTL BOTH EYES SCH (08:38)
[2016-05-06] MEDS: Mometasone/Formoter 200/5 MDI INH SCH ×2 (08:39→22:22)
[2016-05-06] MEDS: Lactobacillus Acidophilu (GG)* 1 CAP CAP PO SCH ×2 (10:23→21:49)
[2016-05-06] MEDS: amLODIPine TAB* 5 MG PO SCH (10:23)
[2016-05-06] MEDS: Temazepam CAP* 15 MG PO PRN (22:28)
[2016-05-07 07:04] LABS: Hematocrit 30 % (35-47); Hemoglobin 10.1 g/dl (12.0-16.0); Mean Corpuscular HGB Conc 34 g/dl (31-36); Mean Corpuscular Hemoglobin 30 pg (27-31); Mean Corpuscular Volume 88 fL (80-97); Mean Platelet Volume 8 um3 (7.4-10.4); Red Blood Count 3.39 10^6/ul (4.0-5.4); Red Cell Distribution Width 15 % (10.5-15); White Blood Count 6.9 10^3/ul (3.5-10.8)
[2016-05-07 07:18] LABS: BUN/Creatinine Ratio 19.6 (8-20); EGFR African American 70.2 (>60); EGFR Non-African American 54.6 (>60); Magnesium 1.5 mg/dL (1.9-2.7); Potassium 3.4 mmol/L (3.5-5.0)
[2016-05-07] MEDS ORDERED: Furosemide IV* 10 MG/ML 10 ML VIAL (100 MG) IV ONE (10:00)
[2016-05-07 10:12] VITALS: BP 162/70
[2016-05-07] MEDS: Mometasone/Formoter 200/5 MDI INH SCH (10:12)
[2016-05-07] MEDS: amLODIPine TAB* 5 MG PO SCH (10:25)
[2016-05-07] MEDS: Lactobacillus Acidophilu (GG)* 1 CAP CAP PO SCH (10:25)
[2016-05-07] MEDS: Omeprazole CAP* 20 MG PO SCH (10:25)
[2016-05-07] MEDS: Magnesium Oxide TAB* 400 MG PO SCH (10:25)
[2016-05-07] MEDS: Latanoprost 0.005%* 2.5 ml BTL BOTH EYES SCH (10:26)
--- NOTE | 2016-05-08 04:23 | DS ---
DISCHARGE SUMMARY: DATE OF ADMISSION: 05/01/16 DATE OF DISCHARGE: 05/07/16 PRIMARY CARE PROVIDER: Dr. Garcia. PRIMARY DIAGNOSES: 1. Rectus sheath hematoma. 2. Suspected upper gastrointestinal bleed. SECONDARY DIAGNOSES: 1. Cerebrovascular accident. 2. Hypertension. 3. History of compensated diastolic heart failure. 4. Anxiety. 5. Insomnia. 6. Hyperlipidemia. 7. Gout. 8. History of chronic obstructive pulmonary disease. 9. Acute kidney injury. MEDICATIONS ON DISCHARGE: Include: 1. Dulera 200/5 two puffs inhaled twice daily. 2. Xopenex 2 puffs inhaled 4 times a day as needed for shortness of breath or wheezing. 3. Senna 1 tab daily as needed for constipation. 4. Xalatan 1 drop both eyes daily. 5. Lipitor 20 mg daily. 6. DuoNeb 1 neb inhaled every 6 hours as needed for shortness of breath. 7. Prilosec 20 mg twice daily. 8. Aspirin 81 mg daily. LABORATORY DATA: Apparent labs from hospital stay, hemoglobin on presentation 6.3, on discharge 9.8 after receipt of 4 units of packed red blood cells. INR on discharge 1.59. Creatinine on presentation 1.67, on discharge 0.97. PERTINENT IMAGING STUDIES: CT abdomen and pelvis, impression: Mass in the lower anterior abdominal wall most consistent with rectus sheath hematoma. Increased soft tissue density at the esophagogastric junction suspicious for a mass, small hiatal hernia, cholelithiasis, small bilateral pleural effusions, and bilateral small Bochdalek hernias. CONSULTATIONS DURING THE HOSPITAL STAY: Dr. Mickey Maki from Gastroenterology. HISTORY OF PRESENT ILLNESS AND HOSPITAL COURSE: This is autumn 85-year-old female with complicated medical course in the last month after presenting with suspected embolic CVA in the setting of atrial fibrillation, started with that hospital stay complicated by respiratory failure, requiring intubation in the setting of pneumonia, extubation, discharged home last week, re-presenting after having episode of what sounds like melenic stool as well as coffee-ground emesis. She was also found to have a rectus sheath hematoma on imaging. On discussion with Dr. Maki, the patient ultimately decided not to pursue EGD. She received 4 units of packed red blood cells during the course of the hospital stay, complicated by volume overload, transfusion-associated cardiac overload (TACO). She was diuresed with Lasix, improved with improvement in her acute kidney injury, volume overload, and titration off to room air. On the day of discharge, felt comfortable returning home. She was able to get out of bed without assistance. She had at most 1+ lower extremity edema and clear lungs. We discussed discontinuation of Coumadin at this time. FOLLOWUP INSTRUCTIONS: At followup, please: 1. As per Dr. Maki's note, which I agree with the patient, could be considered for repeat initiation of Coumadin in the future, but not in less than 1 month. 2. Please evaluate for blood pressure control. 3. Please evaluate volume status. The patient may require additional Lasix in the future, although at this time, she does not. 4. Please evaluate for any evidence of continued bleeding. May require serial CBCs or stool guaiacs in the future. 5. No other specific labs or vitals that need followup. Reason to return to the hospital including but not limited to recurrent or worsening symptoms including chest pain, shortness of breath, nausea, vomiting, headache, lightheadedness, loss of consciousness, near loss of consciousness, bleeding from any source, black or tarry stool, coffee-ground emesis, asymmetric weakness or numbness, difficulty with speaking were discussed with the patient. She acknowledged understanding. TIME SPENT: Greater than 45 minutes was spent on the discharge of this patient , greater than half was spent [id number] with the patient. CC: Dr. Garcia * [id number]/CPS #: [id number] MTDD
== END 2016-05-07 14:40 | disposition home or self-care (01) | DRG 377 ==
LOC: ED 13:41 → MEDTELE 17:42 → MED 05-02 13:48
PROVIDERS: ADMIT Internal Medicine; ATTEND Internal Medicine
PROC: 30233N1 Transfusion of Nonautologous Red Blood Cells into Peripheral Vein, Percutaneous Approach (ICD-10-PCS; principal; 2016-05-02)
DX: K92.1 Melena (principal); Q79.0 Congenital diaphragmatic hernia; N17.9 Acute kidney failure, unspecified; I50.32 Chronic diastolic (congestive) heart failure; E87.71 Transfusion associated circulatory overload; D62 Acute posthemorrhagic anemia; E83.42 Hypomagnesemia; I48.0 Paroxysmal atrial fibrillation; M79.81 Nontraumatic hematoma of soft tissue; I12.9 Hypertensive chronic kidney disease with stage 1 through stage 4 chronic kidney disease, or unspecified chronic kidney disease; F41.9 Anxiety disorder, unspecified; G47.00 Insomnia, unspecified; E78.5 Hyperlipidemia, unspecified; M10.9 Gout, unspecified; J44.9 Chronic obstructive pulmonary disease, unspecified; J45.909 Unspecified asthma, uncomplicated; Z66 Do not resuscitate; K80.20 Calculus of gallbladder without cholecystitis without obstruction; N90.89 Other specified noninflammatory disorders of vulva and perineum; Z86.73 Personal history of transient ischemic attack (TIA), and cerebral infarction without residual deficits; Z79.82 Long term (current) use of aspirin; Z87.01 Personal history of pneumonia (recurrent); Z88.8 Allergy status to other drugs, medicaments and biological substances; Z88.0 Allergy status to penicillin; Z91.030 Bee allergy status; Z91.040 Latex allergy status; Z91.013 Allergy to seafood; Z85.828 Personal history of other malignant neoplasm of skin; Z98.42 Cataract extraction status, left eye; Z98.41 Cataract extraction status, right eye; Z90.710 Acquired absence of both cervix and uterus; Z82.3 Family history of stroke; Z87.891 Personal history of nicotine dependence
CPT/HCPCS: 36415; 74176; 80048; 80053; 81003; 81015; 82150; 82272; 83605; 83690; 83735; 85014; 85018; 85025; 85027; 85610; 86140; 86850; 86900; 86901; 86922; 87040; 94640; 94760; 96374; 99282; A9270-GY; J0696; J1940; J2270; J2405; J3475; J3490; P9016; P9040

== ENCOUNTER 2016-07-02 17:10 | Emergency (ER) | payer MEDICARE ==
[2016-07-02] MEDS ORDERED: Ondansetron INJ* 2 MG/ML VIAL IV ONE (18:02)
[2016-07-02] MEDS ORDERED: Morphine INJ* 4 MG/ML 1 ML SYRINGE IV ONE ×2 (18:02→20:01)
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
[2016-07-02 18:18] LABS: Hematocrit 35 % (35-47); Hemoglobin 11.6 g/dl (12.0-16.0); Mean Corpuscular HGB Conc 33 g/dl (31-36); Mean Corpuscular Hemoglobin 29 pg (27-31); Mean Corpuscular Volume 87 fL (80-97); Mean Platelet Volume 8 um3 (7.4-10.4); Red Blood Count 3.96 10^6/ul (4.0-5.4); Red Cell Distribution Width 14 % (10.5-15); White Blood Count 7.8 10^3/ul (3.5-10.8)
[2016-07-02 18:32] LABS: BUN/Creatinine Ratio 23.3 (8-20); EGFR African American 65.5 (>60); EGFR Non-African American 50.9 (>60); Globulin 2.1 g/dL (2-4); Potassium 4.6 mmol/L (3.5-5.0); Total Bilirubin 0.6 mg/dL (0.2-1.0); Total Protein 6.1 g/dL (6.4-8.9)
[2016-07-02 18:44] LABS: Urine Bilirubin Negative (Negative); Urine Glucose Negative (Negative); Urine Nitrite Negative (Negative)
[2016-07-02] MEDS ORDERED: Iodixanol* (CONTRAST) 320 MG/ML 100 ML SDV IV ONE (19:22)
--- NOTE | 2016-07-02 20:04 | RAD ---
Indication: Fall. LEFT facial injury. Comparison: April 17, [address] Technique: Noncontrast CT vertex of skull through foramen magnum. Report: 1.2 x 0.6 cm chronic lacunar infarct at the subcortical white matter of the RIGHT frontal lobe at the vertex. No new region of hypodensity or mass effect. Negative for intra or extra-axial hemorrhage. Moderate prominence of the cerebral sulci and cerebellar fissures reflecting atrophy. Unremarkable orbital contents. Negative for calvarial or skull base fracture. Clear visualized paranasal sinuses and mastoid air spaces. Negative for scalp hematoma. IMPRESSION: 1. No evidence for traumatic brain injury. 2. Moderate involutional change. Small chronic lacunar infarct at the subcortical white matter of the RIGHT frontal lobe.
--- NOTE | 2016-07-02 20:17 | RAD ---
INDICATION: Fall. Extreme LEFT rib pain. Abdomen pain. Shortness of breath. COMPARISON: April 23, [address] and May 01, [address] TECHNIQUE: Multidetector CT images were obtained from the lung apices to the ischial tuberosities with 68 mL Visipaque 320 IV contrast. No oral contrast administered. Multiplanar reformation including with bone algorithm. CHEST REPORT: Minimal bilateral apical pleural-parenchymal scarring. Small calcified granuloma at the anteromedial basal segment of the LEFT lower lobe. No suspicious focal pulmonary lesions. Negative for pleural effusion or pneumothorax. Negative for mediastinal hematoma. Mild atherosclerotic plaque of normal diameter thoracic aorta. No evidence for aortic dissection. Negative for thoracic lymphadenopathy. 3.1 x 2.8 cm heterogeneous density LEFT thyroid lobe nodule extending into the superior mediastinum without change. Chronic bilateral glenohumeral joint effusions. Healing fracture of the LEFT eighth rib laterally. No acute rib or other thoracic fracture evident. Negative for soft tissue plane hematoma. CHEST IMPRESSION: 1. No evidence for acute traumatic thoracic injury. 2. Healing LEFT eighth rib fracture laterally. 3. Unchanged large heterogeneous density LEFT thyroid lobe nodule extending to the superior mediastinum. ABDOMEN PELVIS REPORT: 2.3 cm sharply circumscribed water density simple cyst dome of LEFT hepatic lobe without change. 4.7 cm simple cyst at the RIGHT hepatic lobe inferiorly and adjacent smaller hepatic cyst without change. No suspicious hepatic lesions evident. Suggestion of small dependent stones at the gallbladder without additional CT abnormality of the gallbladder. Unremarkable pancreas and spleen. Negative for CT abnormality of the upper GI or small bowel. Moderate diverticulosis of the sigmoid colon without findings of diverticulitis. Negative for ascites, free air, or significant hernias. Normal adrenal glands. Mildly atrophic kidneys with symmetric nephrograms and pyelograms. No suspicious focal renal lesions. Unremarkable nondilated ureters and urinary bladder. The uterus is not visualized. Unremarkable adnexal regions. Negative for lymphadenopathy. Peripheral atherosclerotic plaque. Negative for aortoiliac aneurysm. Negative for superficial or retroperitoneal soft tissue hematoma. Atrophy of the bilateral hip abductor muscles primarily the gluteus minimus. Polyarticular degenerative arthropathy. Negative for fracture of the lumbar sacral spine, pelvis, or proximal femurs. ABDOMEN PELVIS IMPRESSION: 1. No evidence for traumatic abdominal pelvic visceral injury or fracture. 2. Cholelithiasis without additional CT abnormality of the gallbladder. 3. Colonic diverticulosis without findings of diverticulitis.
[2016-07-02] MEDS ORDERED: traMADol TAB* 50 MG PO ONE (20:34)
[2016-07-02] MEDS ORDERED: Naproxen TAB* 250 MG PO ONE (20:34)
[2016-07-02 21:37] VITALS: BP 153/63
== END 2016-07-02 21:55 | disposition home or self-care (01) ==
LOC: ED 17:10
DX: S20.212A Contusion of left front wall of thorax, initial encounter (principal); R06.02 Shortness of breath; R10.9 Unspecified abdominal pain; W19.XXXA Unspecified fall, initial encounter; Y93.9 Activity, unspecified; Y92.9 Unspecified place or not applicable; Z87.891 Personal history of nicotine dependence
CPT/HCPCS: 36415; 70450; 71260; 74177; 80053; 81003; 83605; 85025; 85610; 96374; 96375; 99283; A9270-GY; J2270; J2405; Q9967

== ENCOUNTER 2016-08-28 17:07 | Emergency (ER) | payer MEDICARE ==
--- NOTE | 2016-08-28 18:26 | RAD ---
INDICATION: Pain and shortness of breath. History of rib fracture COMPARISON: April 19, 2016 TECHNIQUE: PA and lateral dual-energy views were obtained. FINDINGS: Bones/Soft Tissues: There are no acute bony findings. There are no acute bony findings Cardiomediastinal: The cardiomediastinal silhouette is normal. Lungs: There are no infiltrates. There is no pneumothorax. There is mild hyperinflation Pleura: There are no pleural effusions. Other: None IMPRESSION: HYPERINFLATION. NO ACTIVE DISEASE.
[2016-08-28] MEDS ORDERED: oxyCODONE/Acetamin 5/325 MG* TAB PO ONE (18:27)
[2016-08-28 19:06] VITALS: BP 167/93
--- NOTE | 2016-08-28 20:49 | ED ---
Donna Mistry Claudia, scribed for Tomer Rausch MD on 08/28/16 at 1800 . HPI Chest Pain - HPI Summary HPI Summary: 85 year old female presents to the ED with left lateral CP over her ribs. Pt states that she bruised her 8th rib on her left side about 1 month ago. She notes that over the last 2 days she has been having 10/10 pain similar to that when she suffered the fall bruising her rib. Pt states that she has not had the pain for weeks but it returned yesterday and today. She notes SOB, cough and chills with the pain. PMHx of COPD is noted. Pt neighbor notes that the pt had a tick on her and she removed it 2 days ago. Pt notes that she has been more active lately especially gardening- pulling and twisting. She states aggravating factors of movement, certain positions and ambulation. She also notes some positions are alleviating. She notes that her pain has decreased since in ED to a 3/10. - History of Current Complaint Chief Complaint: EDShortnessOfBreath Time Seen by Provider: 08/28/16 17:48 Hx Obtained From: Patient, Family/[employer]ling [employer] Maker Onset/Duration: Started Days Ago, Still Present Timing: Constant Pain Intensity: 5 Pain Scale Used: 0-10 Numeric Chest Pain Location: Left Lateral - over her lower ribs Character: Cough, Productive, Other: - SOB Aggravating Factor(s): Position, Movement - ambulating Alleviating Factor(s): Position Associated Signs and Symptoms: Positive: Chest Pain - rib pain, Shortness of Breath, Chills. Negative: Abdominal Pain - Additional Pertinent History Primary Care Physician: EDILBERTO - Allergy/Home Medications Allergies/Adverse Reactions: Allergies Allergy/AdvReac Type Severity Reaction Status Date / Time Bee Venom Allergy Severe Anaphylatic Verified 05/01/16 13:52 Shock Latex Allergy Intermediate REDNESS, Verified 05/01/16 13:52 SWELLING Indomethacin [From Indocin] Allergy SWELLING, Verified 05/01/16 13:52 DIZZINESS, ANXIETY, "BRAIN FOG" Prednisone Allergy SWELLING, Verified 05/01/16 13:52 DIZZINESS, ANXIETY, "BRAIN FOG" Shellfish Allergy Allergy See Comment Verified 05/01/16 13:52 Amoxicillin [From Augmentin] AdvReac Mild Vomiting Verified 05/01/16 13:52 Clavulanic Acid AdvReac Mild Vomiting Verified 05/01/16 13:52 [From Augmentin] PMH/Surg Hx/FS Hx/Imm Hx Previously Healthy: Yes Endocrine/Hematology History: Denies: Hx Diabetes, Hx Systemic Lupus Erythematosus, Hx Sickle Cell Disease , Hx Thyroid Disease Cardiovascular History: Reports: Hx Hypercholesterolemia, Hx Hypotension, Hx Hypertension, Other Cardiovascular Problems/Disorders - Diastolic heart failure Denies: Hx Pacemaker/ICD, Hx Peripheral Vascular Disease Respiratory History: Reports: Hx Asthma, Hx Chronic Bronchitis, Hx Chronic Obstructive Pulmonary Disease (COPD), Hx Pneumonia GI History: Reports: Other GI Disorders - "BOWEL SPASMS" History: Denies: Hx Dialysis, Hx Renal Disease, Other Problems/Disorders Musculoskeletal History: Reports: Hx Gout, Other Musculoskeletal History - USES CANE Denies: Hx Arthritis, Hx Rheumatoid Arthritis, Hx Osteoporosis Sensory History: Reports: Hx Contacts or Glasses - READING GLASSES, at home Denies: Hx Cataracts, Hx Hearing Aid Opthamlomology History: Reports: Hx Contacts or Glasses - READING GLASSES, at home Denies: Hx Cataracts Neurological History: Denies: Hx Headaches Psychiatric History: Reports: Hx Anxiety Denies: Hx Depression, Hx Panic Disorder - Cancer History Cancer Type, 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 BILAT CATARACTS [facility] [place]. 1970 hysterectomy. ovarian cystectomy. lip cancer squamous 2012 [facility] [place]. Mohs surgery July 2015 right side of nose. RIGHT KNEE RECONSTRUCTION [address]. D+C . RIGHT EAR CA EXC 2014 [facility] [place] Hx Anesthesia Reactions: No Infectious Disease History: No Infectious Disease History: Reports: Hx Shingles Denies: Traveled Outside the [place] in Last 30 Days - Family History Known Family History: Positive: None, Other - CVA. Negative malignant hyperthermia, negative anesthesia reaction. - Social History Occupation: Retired Alcohol Use: None Hx Substance Use: No Substance Use Type: Reports: None Hx Tobacco Use: Yes Smoking Status (MU): Former Smoker Amount Used/How Often: <1/2 PPD X 10 YEARS Have You Smoked in the Last Year: No Review of Systems Positive: Chills Eyes: Negative ENT: Negative Positive: Chest Pain - rib pain- left lateral Positive: Shortness Of Breath Gastrointestinal: Negative Negative: Abdominal Pain Genitourinary: Negative Musculoskeletal: Negative Skin: Negative Neurological: Negative Psychological: Normal All Other Systems Reviewed And Are Negative: Yes Physical Exam - Summary Physical Exam Summary: The patient is well-nourished in no acute distress and in no acute pain. The skin is warm and dry and skin color reflects adequate perfusion. HEENT: The head is normocephalic and atraumatic. The pupils are equal and reactive. The conjunctivae are clear and without drainage. Nares are patent and without drainage. Mouth reveals moist mucous membranes and the throat is without erythema and exudate. The external ears are intact. The ear canals are patent and without drainage. The tympanic membranes are intact. Neck is supple with full range of motion and non-tender. There are no carotid bruits. There is no neck vein distension. Respiratory: Chest is non-tender. Lungs are clear to auscultation and breath sounds are diminished more so in the left than right. There was reproducible pain on the lower left anterior/lateral pain. there was no crepitus or step off. Cardiovascular: Hear is regular rate and rhythm. There is no murmur or rub auscultated. There is no peripheral edema and pulses are symmetrical and equal. Abdomen: The abdomen is soft and non-tender. There are normal bowel sounds heard in all four quadrants and there is no organomegaly palpated. Musculoskeletal: There is no back pain noted. Extremities are non-tender with full range of motion. There is good capillary refill 2 seconds. Theremis edema to the LE. Neurological: Patient is alert and oriented to person, place and time. The patient has symmetrical motor strength in all four extremities. Cranial nerves are grossly intact. Deep tendon reflexes are symmetrical and equal in all four extremities. Psychiatric: The patient has an appropriate affect and does not exhibit any anxiety or depression. Vital Signs On Initial Exam: Initial Vitals Temp Pulse Resp BP Pulse Ox 98.7 F 85 24 233/75 98 08/28/16 17:09 08/28/16 17:09 08/28/16 17:09 08/28/16 17:09 08/28/16 17:09 Diagnostics - Vital Signs Vital Signs Temp Pulse Resp BP Pulse Ox 08/28/16 17:15 98.6 F 82 20 170/92 99 08/28/16 17:09 98.7 F 85 24 233/75 98 - Laboratory Lab Statement: Any lab studies that have been ordered have been reviewed, and results considered in the medical decision making process. - Radiology CXR Xray Interpretation: No Acute Changes - HYPERINFLATION. NO ACTIVE DISEASE. Radiology Interpretation Completed By: Radiologist - EKG 1726 Cardiac Rate: NL EKG Rhythm: Sinus Rhythm - 79 beats/min EKG Interpretation: no stemi Re-Evaluation - Re-Evaluation 1 Re-Evaluation Time: 18:41 Comment: CXR are discussed with the pt. The pt is agreeable with the plan to be d/c home and follow-up with PCP. Chest Pain Course/Dx - Course Assessment/Plan: MDM: 85 year old female presents to the ED with left sided rib pain. Concerns for rib fracture and pneumothorax. CXR reveals no acute disease. Pt will be discharged home with instructions to continue the use of tramadol and follow-up with PCP. - Chest Pain Differential Diagnosis/HQI/PQRI: Lower Respiratory Infection, Other: - pneumothorax - Diagnoses Provider Diagnoses: Rib pain on left side Discharge - Discharge Plan Condition: Stable Disposition: HOME Patient Education Materials: Rib Contusion (ED) Referrals: Maulik Garcia MD [Primary Care Provider] - 4 Days Additional Instructions: Continue with the Tramadol and follow-up with your primary care provider. The documentation as recorded by the Donna hdez Claudia accurately reflects the service I personally performed and the decisions made by , Tomer Rausch MD.
== END 2016-08-28 19:05 | disposition home or self-care (01) ==
LOC: ED 17:07
DX: R07.81 Pleurodynia (principal); Z87.891 Personal history of nicotine dependence; R06.02 Shortness of breath
CPT/HCPCS: 71020; 93005; 99282; A9270-GY

== ENCOUNTER 2016-12-11 13:51 | Inpatient (IN) | payer MEDICARE ==
[2016-12-11] MEDS ORDERED: NS 0.9% 1000 ML* 1,000 ML IV ONE (15:15)
[2016-12-11 15:37] LABS: Urine Bacteria Absent (Absent); Urine Bilirubin Negative (Negative); Urine Glucose Negative (Negative); Urine Nitrite Negative (Negative)
--- NOTE | 2016-12-11 15:56 | RAD ---
HISTORY: Weakness, pneumonia, CHF COMPARISONS: October 24, 2016 VIEWS: 2: Frontal and lateral views of the chest. FINDINGS: CARDIOMEDIASTINAL SILHOUETTE: The cardiomediastinal silhouette is normal. MARTA: There is prominence of the central pulmonary vasculature PLEURA: The costophrenic angles are sharp. No pleural abnormalities are noted. LUNG PARENCHYMA: There is hyperinflation with flattening of the diaphragm and expansion of the AP diameter of the chest. ABDOMEN: The upper abdomen is clear. There is no subphrenic gas. BONES AND SOFT TISSUES: No bone or soft tissue abnormalities are noted. OTHER: None. IMPRESSION: HYPERINFLATION, CONSISTENT WITH COPD. NO ACTIVE CARDIOPULMONARY DISEASE.
--- NOTE | 2016-12-11 16:08 | RAD ---
INDICATION: Fall. Possible intracranial injury. COMPARISON: CT brain July 02, 2016 TECHNIQUE: Noncontrast axial source images were acquired from the skull base to the vertex. FINDINGS: Ventricles/sulci: There is age-related cortical atrophy with compensatory dilatation of the CSF spaces. Brain parenchyma: There is mild periventricular and subcortical white matter change compatible with chronic ischemia. Intracranial hemorrhage:None. Extra-axial spaces: There are no abnormal extra axial fluid collections or evidence of extra-axial mass. Calvarium: There is no calvarial fracture or other calvarial abnormality. Scalp: There is no evidence of scalp or extracalvarial soft tissue abnormality. Paranasal sinuses/mastoid: The paranasal sinuses and mastoid air cells are clear. Other: None. IMPRESSION: Mild cortical atrophy with mild chronic marked thoracic ischemic change. No acute findings
--- NOTE | 2016-12-11 16:14 | RAD ---
INDICATION: Fall. Possible back injury COMPARISON: CT chest/abdomen/pelvis July 02, 2016 TECHNIQUE: Noncontrast axial source images was performed from the thoracolumbar junction to the sacrum. Coronal and and sagittal reformatted images were generated. FINDINGS: Vertebrae: There is no fracture or acute focal bony lesion. There is multilevel degenerative spurring with marginal osteophyte formation throughout. There is endplate sclerosis at L2-L3 with moderate disc space narrowing. There is minor disc space narrowing at L4-L5 and L5-S1 with vacuum disc phenomena. There is facet arthropathy at L4-L5 and L5-S1. Alignment: There is S-type scoliotic deformity with dextroscoliosis of the lumbar spine with apex of curvature at L2. There is mild compensatory levoscoliosis of the lower thoracic spine. Central Canal: There are no significant CT abnormalities of the central canal or foramina. MR imaging is a more sensitive method to evaluate the canal and foramina. Intervertebral disc spaces: The remaining disc spaces are maintained. Soft tissues: The paravertebral soft tissues are normal. Other: None IMPRESSION: MULTILEVEL OSTEOARTHRITIC CHANGE. NO ACUTE FINDINGS.
[2016-12-11 16:18] LABS: BUN/Creatinine Ratio 24.3 (8-20); C Reactive Protein 5.68 mg/L (< 5.00); Calcium 9.3 mg/dL (8.6-10.3); EGFR African American 95.7 (>60); EGFR Non-African American 74.4 (>60); Globulin 2.7 g/dL (2-4); Hematocrit 32 % (35-47); Hemoglobin 10.8 g/dl (12.0-16.0); Magnesium 1.4 mg/dL (1.9-2.7); Mean Corpuscular HGB Conc 33 g/dl (31-36); Mean Corpuscular Hemoglobin 28 pg (27-31); Mean Corpuscular Volume 85 fL (80-97); Mean Platelet Volume 8 um3 (7.4-10.4); Potassium 4.1 mmol/L (3.5-5.0); Red Blood Count 3.81 10^6/ul (4.0-5.4); Red Cell Distribution Width 15 % (10.5-15); Total Bilirubin 0.7 mg/dL (0.2-1.0); Total Protein 5.7 g/dL (6.4-8.9); White Blood Count 12.9 10^3/ul (3.5-10.8)
--- NOTE | 2016-12-11 16:28 | RAD ---
INDICATION: Fall. Possible neck injury. COMPARISON: CTA head and neck December 15, 2013 TECHNIQUE: Noncontrast axial source images was performed from the skull base to the thoracic inlet. Coronal and and sagittal reformatted images were generated. The images are mildly degraded due to dental amalgam FINDINGS: Vertebrae: There is no fracture or acute focal bony lesion. There is multilevel degenerative change with multilevel facet arthropathy left greater than right. There is marginal osteophyte formation. There is a 2 to 3 mm anterolisthesis of C5 and C6 unchanged and likely related to underlying osteoarthritis. Alignment: The craniocervical junction appears normal. The cervical vertebrae are otherwise normally aligned. Central Canal: There are no significant CT abnormalities of the central canal or foramina. MR imaging is a more sensitive method to evaluate the canal and foramina. Intervertebral disc spaces: The disc spaces are maintained. Brain: The visualized brain appears unremarkable. Soft tissues: The visualized soft tissue elements of the neck are unremarkable. The prevertebral soft tissues appear normal. The lung apices are clear. IMPRESSION: MODERATE OSTEOARTHRITIC CHANGES. NO ACUTE FINDINGS.
--- NOTE | 2016-12-11 16:29 | RAD ---
INDICATION: Fall. Possible back injury. COMPARISON: CT chest September 16, 2016 TECHNIQUE: Noncontrast axial source images was performed from the thoracic inlet to the level the hemidiaphragms. Coronal and and sagittal reformatted images were generated. FINDINGS: Vertebrae: There is no fracture or acute focal bony lesion. Alignment: The thoracic vertebrae are normally aligned. Central Canal: There are no significant CT abnormalities of the central canal or foramina. MR imaging is a more sensitive method to evaluate the canal and foramina. Intervertebral disc spaces: The disc spaces are maintained. Soft tissues: There are no paravertebral soft tissue abnormalities. There is a left thyroid mass similar to earlier imaging and likely related to a goiter IMPRESSION: NO ACUTE CT FINDINGS. SUSPECTED GOITER
[2016-12-11 16:53] LABS: TSH (Thyroid Stimulating Horm) 3.51 mcIU/mL (0.34-5.60)
[2016-12-11] MEDS ORDERED: amLODIPine TAB* 5 MG PO ONE (17:54)
[2016-12-11] MEDS ORDERED: Labetalol IV* 5 MG/ML 20 ML VIAL IV PUSH ONE (18:15)
--- NOTE | 2016-12-11 19:05 | ED ---
Zoë Mistry SooYoung, scribed for Tomer Rausch MD on 12/11/16 at 1509 . Dizziness - HPI Summary HPI Summary: An 86 y/o F presents to ED with c/o constant MATTA due to head trauma onset yesterday after a fall. Pt was attempting to get out of bed to use the bathroom and she passed out. She hit her head on the dresser and then the floor. Momentary LOC. She states she was able to get up off the floor, but "it took a while." Associated sx: confusion onset two days, atraumatic back pain, LE weakness, dizziness/lightheaded, syncope with LOC, decreased oral intake, worsening hallucinations. Denies: slurred speech, vomiting, CP, SOB. Home UTI test which was positive. Family states she's usually quite coherent. They are also requesting a social work consult. Ambulates with cane. No new medications. PMHx: TIA, COPD, cardiac event. - History Of Current Complaint Chief Complaint: EDDizziness Stated Complaint: DIZZINESS Time Seen by Provider: 12/11/16 14:54 Hx Obtained From: Patient, Family/Copywriter Onset/Duration: Still Present Timing: Constant Character: Lightheaded, Dizzy Associated Signs And Symptoms: Positive: Decreased Oral Intake, Other: - pos: confusion, back pain, LE weakness, dizzy/lightheaded, syncope with LOC, hallucinations. Negative: Vomiting, Chest Pain, SOB, Slurred Speech - Allergies/Home Medications Allergies/Adverse Reactions: Allergies Allergy/AdvReac Type Severity Reaction Status Date / Time Bee Venom Allergy Severe Anaphylatic Verified 12/11/16 14:10 Shock Latex Allergy Intermediate REDNESS, Verified 12/11/16 14:10 SWELLING Indomethacin [From Indocin] Allergy SWELLING, Verified 12/11/16 14:10 DIZZINESS, ANXIETY, "BRAIN FOG" Prednisone Allergy SWELLING, Verified 12/11/16 14:10 DIZZINESS, ANXIETY, "BRAIN FOG" Shellfish Allergy Allergy See Comment Verified 12/11/16 14:10 Amoxicillin [From Augmentin] AdvReac Mild Vomiting Verified 12/11/16 14:10 Clavulanic Acid AdvReac Mild Vomiting Verified 12/11/16 14:10 [From Augmentin] PMH/Surg Hx/FS Hx/Imm Hx Previously Healthy: No Endocrine/Hematology History: Denies: Hx Diabetes, Hx Systemic Lupus Erythematosus, Hx Sickle Cell Disease , Hx Thyroid Disease Cardiovascular History: Reports: Hx Hypercholesterolemia, Hx Hypotension, Hx Hypertension, Other Cardiovascular Problems/Disorders - Diastolic heart failure Denies: Hx Pacemaker/ICD, Hx Peripheral Vascular Disease Respiratory History: Reports: Hx Asthma, Hx Chronic Bronchitis, Hx Chronic Obstructive Pulmonary Disease (COPD), Hx Pneumonia GI History: Reports: Other GI Disorders - "BOWEL SPASMS" History: Denies: Hx Dialysis, Hx Renal Disease, Other Problems/Disorders Musculoskeletal History: Reports: Hx Gout, Other Musculoskeletal History - USES CANE Denies: Hx Arthritis, Hx Rheumatoid Arthritis, Hx Osteoporosis Sensory History: Reports: Hx Contacts or Glasses - READING GLASSES, at home Denies: Hx Cataracts, Hx Hearing Aid Opthamlomology History: Reports: Hx Contacts or Glasses - READING GLASSES, at home Denies: Hx Cataracts Neurological History: Denies: Hx Headaches Psychiatric History: Reports: Hx Anxiety Denies: Hx Depression, Hx Panic Disorder - Cancer History Cancer Type, 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 BILAT CATARACTS [facility] – [place]. hysterectomy. ovarian cystectomy. lip cancer squamous 2012 [facility] – [place]. Mohs surgery July 2015 right side of nose. RIGHT KNEE RECONSTRUCTION [address]. D+C . RIGHT EAR CA EXC 2014 [facility] – [place] Hx Anesthesia Reactions: No Infectious Disease History: No Infectious Disease History: Reports: Hx Shingles Denies: Traveled Outside the [place] in Last 30 Days - Family History Known Family History: Positive: Other - CVA. Negative malignant hyperthermia, negative anesthesia reaction. - Social History Occupation: Retired Lives: With Family Alcohol Use: None Hx Substance Use: No Substance Use Type: Reports: None Hx Tobacco Use: Yes Smoking Status (MU): Former Smoker Amount Used/How Often: <1/2 PPD X 10 YEARS Have You Smoked in the Last Year: No Review of Systems Negative: Chest Pain Negative: Shortness Of Breath Positive: Other - pos: decreased oral intake. Negative: Vomiting Positive: Other - pos: back pain Neurological: Other - pos: confusion, dizzy/lightheaded Positive: Headache, Weakness - LE, Syncope - with LOC. Negative: Slurred Speech Psychological: Other - pos: hallucinations All Other Systems Reviewed And Are Negative: Yes Physical Exam - Summary Physical Exam Summary: The patient is well-nourished in no acute distress and in no acute pain. Pt is frail. The skin is warm and dry and skin color reflects adequate perfusion. Pt has decreased skin turgor. HEENT: The head is normocephalic. Pt has tenderness to L occipital area. The pupils are equal and reactive. EOMI. The conjunctivae are clear and without drainage. Nares are patent and without drainage. Mouth reveals dry oral mucous membranes and the throat is without erythema and exudate. The external ears are intact. The ear canals are patent and without drainage. The tympanic membranes are intact. Neck is supple with full range of motion and non-tender. There are no carotid bruits. There is no neck vein distension. Respiratory: Chest is non-tender. Lungs are clear to auscultation and breath sounds are symmetrical and equal. Pt has diminished breath sounds without rales , rhonchi or wheezing. Cardiovascular: Heart is regular rate and rhythm. There is no murmur or rub auscultated. There is bilat peripheral edema. Pulses are symmetrical and equal. Abdomen: The abdomen is soft. LLQ and epigastric pain without rebound or guarding. Pt has questionable CVA tenderness. There are normal bowel sounds heard in all four quadrants and there is no organomegaly palpated. Musculoskeletal: There is tenderness to lower T-spine and upper L-spine. Extremities are non-tender with full range of motion. There is good capillary refill. There is bilat pitting edema. No calf tenderness elicited. Neurological: Patient is alert and oriented to person, place and time. The patient has symmetrical motor strength in all four extremities. Cranial nerves are grossly intact. Deep tendon reflexes are symmetrical and equal in all four extremities. No obvious focal neuro deficits. Psychiatric: The patient has an appropriate affect and does not exhibit any anxiety or depression. Triage Information Reviewed: Yes Vital Signs On Initial Exam: Initial Vitals BP 196/83 12/11/16 14:02 Vital Signs Reviewed: Yes - [place] Coma Scale Coma Scale Total: 15 Diagnostics - Vital Signs Vital Signs Temp Pulse Resp BP Pulse Ox 12/11/16 14:30 209/81 12/11/16 14:05 75 92 12/11/16 14:04 98.7 F 75 15 196/83 99 12/11/16 14:02 83 - Laboratory Lab Results: Lab Results 12/11/16 12/11/16 12/11/16 Range/Units 15:19 15:47 15:47 WBC (3.5-10.8) 10^3/ul RBC (4.0-5.4) 10^6/ul Hgb (12.0-16.0) g/dl Hct (35-47) % MCV (80-97) fL MCH (27-31) pg MCHC (31-36) g/dl RDW (10.5-15) % Plt Count (150-450) 10^3/ul MPV (7.4-10.4) um3 Neut % (Auto) (38-83) % Lymph % (Auto) (25-47) % [place] % (Auto) (1-9) % Eos % (Auto) (0-6) % Baso % (Auto) (0-2) % Absolute Neuts (auto) (1.5-7.7) 10^3/ul Absolute Lymphs (auto) (1.0-4.8) 10^3/ul Absolute Monos (auto) (0-0.8) 10^3/ul Absolute Eos (auto) (0-0.6) 10^3/ul Absolute Basos (auto) (0-0.2) 10^3/ul Absolute Nucleated RBC 10^3/ul Nucleated RBC % Sodium 124 L (133-145) mmol/L Potassium 4.1 (3.5-5.0) mmol/L Chloride 94 L (101-111) mmol/L Carbon Dioxide 26 (22-32) mmol/L Anion Gap 4 (2-11) mmol/L BUN 18 (6-24) mg/dL Creatinine 0.74 (0.51-0.95) mg/dL Est GFR ( Amer) 95.7 (>60) Est GFR (Non-Af Amer) 74.4 (>60) BUN/Creatinine Ratio 24.3 H (8-20) Glucose 110 H (70-100) mg/dL Lactic Acid (0.5-2.0) mmol/L Calcium 9.3 (8.6-10.3) mg/dL Magnesium 1.4 L (1.9-2.7) mg/dL Total Bilirubin 0.70 (0.2-1.0) mg/dL AST 14 (13-39) U/L ALT 10 (7-52) U/L Alkaline Phosphatase 72 (34-104) U/L Total Creatine Kinase 15 (10-223) U/L Troponin I 0.00 (<0.04) ng/mL C-Reactive Protein 5.68 H (< 5.00) mg/L B-Natriuretic Peptide 184 H ( - 100) pg/mL Total Protein 5.7 L (6.4-8.9) g/dL Albumin 3.0 L (3.2-5.2) g/dL Globulin 2.7 (2-4) g/dL Albumin/Globulin Ratio 1.1 (1-3) TSH 3.51 (0.34-5.60) mcIU/mL Urine Color Yellow Urine Appearance Cloudy Urine pH 7.0 (5-9) Ur Specific Sar[place] 1.015 (1.010-1.030) Urine Protein 1+(30 mg/dl) H (Negative) Urine Ketones Negative (Negative) Urine Blood Negative (Negative) Urine Nitrate Negative (Negative) Urine Bilirubin Negative (Negative) Urine Urobilinogen Negative (Negative) Ur Leukocyte Esterase Negative (Negative) Urine WBC (Auto) Absent (Absent) Urine RBC (Auto) Absent (Absent) Ur Squamous Epith Cells Present H (Absent) Urine Bacteria Absent (Absent) Urine Glucose Negative (Negative) Urine Ascorbic Acid * H (Negative) 12/11/16 12/11/16 Range/Units 15:47 15:47 WBC 12.9 H (3.5-10.8) 10^3/ul RBC 3.81 L (4.0-5.4) 10^6/ul Hgb 10.8 L (12.0-16.0) g/dl Hct 32 L (35-47) % MCV 85 (80-97) fL MCH 28 (27-31) pg MCHC 33 (31-36) g/dl RDW 15 (10.5-15) % Plt Count 357 (150-450) 10^3/ul MPV 8 (7.4-10.4) um3 Neut % (Auto) 86.0 H (38-83) % Lymph % (Auto) 6.6 L (25-47) % [place] % (Auto) 6.6 (1-9) % Eos % (Auto) 0.4 (0-6) % Baso % (Auto) 0.4 (0-2) % Absolute Neuts (auto) 11.1 H (1.5-7.7) 10^3/ul Absolute Lymphs (auto) 0.9 L (1.0-4.8) 10^3/ul Absolute Monos (auto) 0.8 (0-0.8) 10^3/ul Absolute Eos (auto) 0.1 (0-0.6) 10^3/ul Absolute Basos (auto) 0.1 (0-0.2) 10^3/ul Absolute Nucleated RBC 0.01 10^3/ul Nucleated RBC % 0.1 Sodium (133-145) mmol/L Potassium (3.5-5.0) mmol/L Chloride (101-111) mmol/L Carbon Dioxide (22-32) mmol/L Anion Gap (2-11) mmol/L BUN (6-24) mg/dL Creatinine (0.51-0.95) mg/dL Est GFR ( Amer) (>60) Est GFR (Non-Af Amer) (>60) BUN/Creatinine Ratio (8-20) Glucose (70-100) mg/dL Lactic Acid 0.6 (0.5-2.0) mmol/L Calcium (8.6-10.3) mg/dL Magnesium (1.9-2.7) mg/dL Total Bilirubin (0.2-1.0) mg/dL AST (13-39) U/L ALT (7-52) U/L Alkaline Phosphatase (34-104) U/L Total Creatine Kinase (10-223) U/L Troponin I (<0.04) ng/mL C-Reactive Protein (< 5.00) mg/L B-Natriuretic Peptide ( - 100) pg/mL Total Protein (6.4-8.9) g/dL Albumin (3.2-5.2) g/dL Globulin (2-4) g/dL Albumin/Globulin Ratio (1-3) TSH (0.34-5.60) mcIU/mL Urine Color Urine Appearance Urine pH (5-9) Ur Specific [place] (1.010-1.030) Urine Protein (Negative) Urine Ketones (Negative) Urine Blood (Negative) Urine Nitrate (Negative) Urine Bilirubin (Negative) Urine Urobilinogen (Negative) Ur Leukocyte Esterase (Negative) Urine WBC (Auto) (Absent) Urine RBC (Auto) (Absent) Ur Squamous Epith Cells (Absent) Urine Bacteria (Absent) Urine Glucose (Negative) Urine Ascorbic Acid (Negative) Result Diagrams: 12/11/16 15:47 12/11/16 15:47 Lab Statement: Any lab studies that have been ordered have been reviewed, and results considered in the medical decision making process. - Radiology CXR Xray Interpretation: No Acute Changes - IMPRESSION: HYPERINFLATION, CONSISTENT WITH COPD. NO ACTIVE CARDIOPULMONARY DISEASE. ED physician has reviewed this radiology report and agrees Radiology Interpretation Completed By: Radiologist - CT Brain CT CT Interpretation: No Acute Changes - IMPRESSION: Mild cortical atrophy with mild chronic marked thoracic ischemic change. No acute findings. ED physician has reviewed this radiology report and agrees. CT Interpretation Completed By: Radiologist L-SPINE CT Interpretation: No Acute Changes - IMPRESSION: MULTILEVEL OSTEOARTHRITIC CHANGE. NO ACUTE FINDINGS. ED physician has reviewed this radiology report and agrees. CT Interpretation Completed By: Radiologist C-Spine CT Interpretation: No Acute Changes - IMPRESSION: MODERATE OSTEOARTHRITIC CHANGES. NO ACUTE FINDINGS. ED physician has reviewed this radiology report and agrees CT Interpretation Completed By: Radiologist T-SPINE CT Interpretation: Positive (See Comments) - IMPRESSION: NO ACUTE CT FINDINGS. SUSPECTED GOITER. ED physician has reviewed this radiology report and agrees CT Interpretation Completed By: Radiologist - EKG 1421 Cardiac Rate: NL - 75bpm EKG Rhythm: Sinus Rhythm ST Segment: Non-Specific - no STEMI EKG Interpretation: nml axis Re-Evaluation - Re-Evaluation 1 Re-Evaluation Time: 17:58 Change: Unchanged Comment: Discussing with family, results and hospitalist consult to admit. Family voiced understanding. Dizzy Course/Dx - Course Course Of Treatment: An 86 y/o F presents to ED with c/o constant MATTA due to head trauma onset yesterday after a fall. Pt was attempting to get out of bed to use the bathroom and she passed out. She hit her head on the dresser and then the floor. Momentary LOC. She states she was able to get up off the floor, but "it took a while." Associated sx: confusion onset two days, atraumatic back pain, LE weakness, dizziness/lightheaded, syncope with LOC, decreased oral intake, worsening hallucinations. Denies: slurred speech, vomiting, CP, SOB. Home UTI test which was positive. Family states she's usually quite coherent. They are also requesting a social work consult. Ambulates with cane. No new medications. PMHx: TIA, COPD, cardiac event. Bloodwork is without significant abnormality. UA shows 1+ protein, squamous epithelia present, ascorbic acid is present. EKG is NSR with no STEMI. CXR shows " HYPERINFLATION, CONSISTENT WITH COPD. NO ACTIVE CARDIOPULMONARY DISEASE." Brain CT, L-Spine, C-Spine have no acute findings. T-Spine shows "no acute CT findings, suspected goiter.". Pt given fluids in ED. Consulted with hospitalist, will admit pt. - Diagnoses Differential Diagnosis/HQI/PQRI: Benign Paroxysmal Positional Vertigo, Coronary Artery Disease, Medication Reaction, Metabolic Abnormality, Other - uti, dehydration, cerebral hemorhage, lumbar spine fracture, Provider Diagnoses: Dizziness, Dehydration - Provider Notifications Discussed Care Of Patient With: Nelsy Iyer - hospitalist Time Discussed With Above Provider: 17:53 Instructed by Provider To: Admit As Inpatient Discharge - Discharge Plan Condition: Stable Disposition: ADMITTED TO [facility] Referrals: Maulik Garcia MD [Primary Care Provider] - The documentation as recorded by the Zoë hdez SooYoung accurately reflects the service I personally performed and the decisions made by me, Tomer Rausch MD.
[2016-12-11] MEDS ORDERED: Labetalol IV* 200 MG in NS 0.9% 250 ML* 160 ML IVPB SCH (20:00)
[2016-12-11] MEDS: Labetalol IV* 200 MG in NS 0.9% 250 ML* 160 ML IVPB SCH (20:50)
[2016-12-11] MEDS: LORazepam TAB(*) 0.5 MG PO SCH (21:38)
[2016-12-11] MEDS ORDERED: NS 0.9% 1000 ML* 1,000 ML IV SCH (21:45)
[2016-12-11] MEDS ORDERED: Magnesium Sulfate 2 GM IV* 2 GM/50 ML BAG IVPB ONE (22:00)
[2016-12-11 22:15] LABS: BUN/Creatinine Ratio 22.2 (8-20); Calcium 9.1 mg/dL (8.6-10.3); EGFR African American 98.8 (>60); EGFR Non-African American 76.8 (>60); Potassium 4.1 mmol/L (3.5-5.0)
--- NOTE | 2016-12-12 01:16 | HP ---
CC: Dr. Garcia * [facility] MEDICINE HISTORY AND PHYSICAL: DATE OF ADMISSION: 12/11/16 PRIMARY CARE PHYSICIAN: Dr. Garcia. ATTENDING PHYSICIAN: Nelsy Iyer DO * (dictation provided by Donna Meza NP ) CHIEF COMPLIANT: Altered mental status, syncope and dizziness. HISTORY OF PRESENT ILLNESS: Ms. 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 Ms. Preciado lives alone normally, but she has her son and [id number] staying with her since Thursday. They report that when they first came to visit that she was oriented and appeared her "normal self." However, yesterday at 4:30 a.m., she reports passing out. She felt like she could not get to sleep after that, but then through today slept on and off. She has very poor recollection of what happened during the day, but her son who is at the bedside reports that she was acting very abnormally. She was sleeping and wandering around the house intermittently. At some points, she was oriented and at some points, she was making unusual statements such as " have I been [facility] the [facility] all day." They saw her walking into bedrooms other than hers and randomly lying down on guest beds. She has reported to have at least 2 separate syncopal episodes, although the exact course of events is a little unclear. Today, when her symptoms persisted, they brought her in to the emergency room for evaluation. Ms. Preciado denies any other complaints. She has no report of known fever. No complaint of chest pain, shortness of breath, nausea, vomiting or abdominal pain. In the emergency room, Ms. Preciado had dramatically elevated blood pressure with a systolic blood pressure running as high as 228. She is not normally on any blood pressure medications (though she has been on them in the past) and she notes that she was seen by Dr. Garcia in his office just last week and her systolic blood pressure was 103. The patient reports dizziness and clearly states that the room is spinning when she sits up in bed. She is unsteady on her feet. She had a CT of the brain, which showed mild cortical atrophy with mild chronic marked thoracic ischemic change and no acute findings. She had a CT of the cervical, thoracic and lumbar spine all of which were negative for acute injury, but showed multilevel osteoarthritic changes. Her labs were remarkable for hyponatremia with a sodium of 124, which is new for her. I will note Ms. Preciado was oriented and answered all questions appropriately today in the ED. PAST MEDICAL HISTORY: 1. 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 2. History of rectus sheath hematoma and suspected upper GI bleed, now off anticoagulation despite AFib with history of CVA. 3. Hypertension. 4. History of chronic congestive diastolic heart failure. 5. Anxiety. 6. Insomnia. 7. Hyperlipidemia. 8. Gout. 9. History of COPD. MEDICATIONS: 1. Latanoprost 0.005% one drop left eye q.p.m. 2. Lorazepam 0.5 mg p.o. b.i.d. 3. Citalopram 30 mg p.o. daily. 4. Atorvastatin 20 mg p.o. daily. 5. Levalbuterol 2 puffs inhaled q.4 hours p.r.n. 6. Breo Ellipta 1 puff inhaled daily. 7. Aspirin 81 mg p.o. daily. 8. Omeprazole 20 mg p.o. daily. 9. Morphine 15 mg p.o. at bedtime (the patient states this is for difficulty sleeping.) ALLERGIES: To BEE VENOM, LATEX, INDOMETHACIN, PREDNISONE, SHELL FISH, AMOXICILLIN and CLAVULANIC ACID. FAMILY HISTORY: The patient reports her mother at 62 related to cervical cancer and father related after multiple CVAs at age 86. She has had a sister, who has COPD, 2 brothers with COPD and a brother who related to a burst triple abdominal aortic aneurysms. SOCIAL HISTORY: No reported alcohol, tobacco or drug use. She lives alone, but has some visitors consisting of her son and her [id number] who are up from [place] after [place]. Her healthcare proxy is her daughter, Shayna. REVIEW OF SYSTEMS: A 14-point review of systems was completed with Ms. Preciado and all those not mentioned above were negative. PHYSICAL EXAMINATION GENERAL: Ms. Preciado is lying in the bed. She is no acute distress. VITAL SIGNS: Temperature 98.7, heart rate 65, respiratory rate 15, O2 saturation 97% on room air. Blood pressure is as high as 220/97 in the ED running systolically approximately right at 200 at the time of my evaluation. LUNGS: Clear to auscultation bilaterally with no accessory muscle use and good aeration. HEART: S1 and S2. No murmur, rub or gallop and regular. ABDOMEN: Soft, nontender with bowel sounds positive x4. EXTREMITIES: No cyanosis or edema. NEUROLOGIC: She is alert. She is oriented x3. She is very appropriate in her conversation. She move all extremities equally. Not able to detect any weakness or focal abnormality. Her face is symmetrical. Her pupils are equal and reactive to light. Sensation is intact. No nystagmus evident on exam. SKIN: Intact. LABORATORY DATA/DIAGNOSTIC STUDIES: Sodium 124, potassium 4.1, chloride 94, serum bicarbonate 26, BUN 18, creatinine 0.74, glucose 110, lactic acid 0.6, magnesium 1.4. Troponin 0.00. CRP 5.68. WBC 12.9, hemoglobin 10.8, hematocrit 32, platelet count 357. Urine shows no evidence of infection. BNP is 184. TSH is 3.51. CT brain is as per above. Chest x-ray shows hyperinflation consistent with COPD. No active cardiopulmonary disease. The lumbar spine CT shows multilevel osteoarthritic change. No acute findings. The thoracic spine CT shows no acute findings, suspected goiter. The cervical spine CT shows moderate osteoarthritic changes, no acute findings. EKG shows sinus rhythm with no evidence of ischemia. ASSESSMENT AND PLAN: Ms. Preciado is an 86-year-old female with a past medical history of cerebrovascular accident suspected due to atrial fibrillation, who has been unable to tolerate anticoagulation due to rectus sheath hematoma and suspected GI bleed back in April 2016. She presents today after having episodes yesterday of syncope and altered mental status, now with dizziness and hypertensive urgency. Our plans are for inpatient admission to the intensive care unit for the followin. Hypertensive urgency. The fact that her blood pressure is so high today and was actually normal back last week at Dr. Garcia's office raises my suspicion of posterior CVA. Plans are to control the blood pressure with labetalol drip with the goal systolic blood pressure of 160 to 180 given the high concerns for stroke. It is also possible that her symptoms are related to hypertensive urgency and we will see how her symptoms evolve when her blood pressure is better controlled. 2. Syncope. The patient reports 2 episode of syncope yesterday, plans for her to be monitored on telemetry. She will also have a transthoracic echocardiogram. Her last one was done in March of this year. 3. Dizziness. The patient could certainly have a posterior cerebrovascular accident especially given her history of stroke in April, now her dramatically elevated blood pressure. I have consulted Neurology and Dr. Lopez will be seeing the patient. The patient's CT of the brain is negative and the MRI of the brain has been ordered. She will have aspirin. She is not able to be anticoagulated due to her history of GI bleeding and rectus sheath hematoma. 4. Altered mental status. The patient was very confused yesterday and acting abnormally. Here today in the emergency room, she seems more appropriate. The patient's family reports that she seems much better after receiving 1 L of IV fluids. I am not quite clear what has caused her alteration in mentation yesterday. Perhaps, she was dehydrated as evidenced by her low sodium at 124 today. Regardless, continue the workup as per above and treat any alternate etiologies as indicated. 5. Hyponatremia. The patient received a liter of IV fluids in the ED and again has improved in her mentation per family. Plan to recheck her sodium level this evening and will continue with normal saline infusion based on the clinical course. 6. DVT prophylaxis will be with SCDs only in this patient with history of significant bleeding during last hospitalization. 7. Depression. Continue citalopram. 8. Insomnia. Plan to hold morphine for now given the patient's recent altered mental status, and then consider resuming at a lower dose. She states she has been taking this regularly at a 15 mg dose each night and actually took half a dose last night. It could be that the use of narcotics and benzodiazepines in an 86 year old female may have contributed to her alteration in mental status yesterday. 9. Hypomagnesemia. The patient will magnesium supplementation, we will recheck in the the a.m. 10. Hyperlipidemia. Continue atorvastatin. 11. Suspected goiter. Noted on thoracic CT, TSH normal. Follow up outpatient as indicated. 12. Code status is full code. TIME SPENT: Approximately 75 minutes were spent on the admission of this patient, more than half of the time was spent with the patient at the bedside reviewing the events leading up to this hospitalization, performing the physial examination and reviewing the plan of care. DONNA MEZA NP [id number]/[facility] #: [id number] SHANNON
[2016-12-12 05:43] LABS: Hematocrit 29 % (35-47); Hemoglobin 9.7 g/dl (12.0-16.0); Mean Corpuscular HGB Conc 33 g/dl (31-36); Mean Corpuscular Hemoglobin 29 pg (27-31); Mean Corpuscular Volume 85 fL (80-97); Mean Platelet Volume 8 um3 (7.4-10.4); Red Blood Count 3.41 10^6/ul (4.0-5.4); Red Cell Distribution Width 15 % (10.5-15); White Blood Count 12.5 10^3/ul (3.5-10.8)
[2016-12-12 05:57] LABS: BUN/Creatinine Ratio 22.7 (8-20); Calcium 8.8 mg/dL (8.6-10.3); EGFR African American 109.2 (>60); EGFR Non-African American 84.9 (>60); Magnesium 1.8 mg/dL (1.9-2.7); Potassium 3.8 mmol/L (3.5-5.0)
[2016-12-12] MEDS: Atorvastatin* 20 MG TAB PO SCH (08:15)
[2016-12-12] MEDS: Aspirin EC Low Dose* 81 MG TAB.EC PO SCH (08:15)
[2016-12-12] MEDS: LORazepam TAB(*) 0.5 MG PO SCH ×2 (08:15→20:41)
[2016-12-12] MEDS: Citalopram TAB* 20 MG PO SCH (08:16)
[2016-12-12] MEDS: Omeprazole CAP* 20 MG PO SCH (08:16)
--- NOTE | 2016-12-12 08:33 | PN ---
Subjective Date of Service: 12/12/16 Interval History: Ms. Preciado states that she is feeling well today though she feels a bit confused on the details about the events of the past 24-48 hours. She denies chest pain, SOB. She does have some nausea and dizziness. Objective Active Medications: Aspirin (Aspirin Ec Low Dose*) 81 mg PO DAILY [facility] Atorvastatin Calcium (Lipitor*) 20 mg PO DAILY [facility] Citalopram Hydrobromide (Celexa Tab*) 30 mg PO DAILY [facility] Labetalol HCl 200 mg/ Sodium (Chloride) 200 mls @ 30 mls/hr IVPB Q6H SAMREEN Sodium Chloride (Ns 0.9% 1000 Ml*) 1,000 mls @ 75 mls/hr IV PER RATE [facility] Latanoprost (Xalatan 0.005%*) 1 drop BOTH EYES QPM [facility] Levalbuterol HCl (Xopenex Hfa Inhaler*) 2 puff INH Q4HR PRN Lorazepam (Ativan Tab(*)) 0.5 mg PO BID [facility] Omeprazole (Prilosec Cap*) 20 mg PO DAILY@0730 [facility] Vital Signs 12/11/16 12/11/16 12/11/16 19:30 19:34 20:00 Temperature Pulse Rate 71 66 Respiratory Rate Blood Pressure 174/137 182/69 173/73 (mmHg) O2 Sat by Pulse 95 96 Oximetry 12/11/16 12/11/16 12/11/16 20:25 20:30 20:50 Temperature 99 F Pulse Rate 70 66 Respiratory 24 Rate Blood Pressure 198/81 205/101 (mmHg) O2 Sat by Pulse 96 97 Oximetry 12/11/16 12/11/16 12/11/16 20:52 21:00 21:15 Temperature Pulse Rate 68 62 Respiratory 18 22 28 Rate Blood Pressure 200/93 198/81 176/71 (mmHg) O2 Sat by Pulse 96 96 Oximetry 12/11/16 12/11/16 12/11/16 21:30 21:38 21:45 Temperature Pulse Rate 62 59 Respiratory 20 27 25 Rate Blood Pressure 195/76 157/71 (mmHg) O2 Sat by Pulse 94 93 Oximetry 12/11/16 12/11/16 12/11/16 22:00 22:15 22:30 Temperature Pulse Rate 56 59 59 Respiratory 23 26 24 Rate Blood Pressure 155/70 144/71 167/69 (mmHg) O2 Sat by Pulse 96 95 94 Oximetry 12/11/16 12/11/16 12/11/16 22:43 22:45 23:00 Temperature Pulse Rate 60 60 58 Respiratory 25 24 26 Rate Blood Pressure 144/65 159/59 (mmHg) O2 Sat by Pulse 94 95 95 Oximetry 12/11/16 12/11/16 12/11/16 23:15 23:16 23:21 Temperature Pulse Rate 58 57 58 Respiratory 25 29 27 Rate Blood Pressure 138/62 (mmHg) O2 Sat by Pulse 94 94 94 Oximetry 12/11/16 12/11/16 12/11/16 23:22 23:30 23:45 Temperature Pulse Rate 57 56 56 Respiratory 23 23 26 Rate Blood Pressure 125/52 133/57 (mmHg) O2 Sat by Pulse 93 94 94 Oximetry 12/12/16 12/12/16 12/12/16 00:00 00:15 00:30 Temperature 98.1 F Pulse Rate 57 56 62 Respiratory 25 25 26 Rate Blood Pressure 143/58 149/58 166/63 (mmHg) O2 Sat by Pulse 94 94 94 Oximetry 12/12/16 12/12/16 12/12/16 00:45 01:00 01:15 Temperature Pulse Rate 60 64 63 Respiratory 26 20 25 Rate Blood Pressure 160/65 171/69 174/72 (mmHg) O2 Sat by Pulse 94 92 94 Oximetry 12/12/16 12/12/16 12/12/16 01:30 01:32 01:45 Temperature Pulse Rate 66 64 64 Respiratory 24 25 28 Rate Blood Pressure 170/72 166/71 (mmHg) O2 Sat by Pulse 93 94 93 Oximetry 12/12/16 12/12/16 12/12/16 02:00 02:15 02:30 Temperature Pulse Rate 61 59 57 Respiratory 29 26 25 Rate Blood Pressure 150/62 129/53 144/58 (mmHg) O2 Sat by Pulse 93 92 93 Oximetry 12/12/16 12/12/16 12/12/16 02:45 03:00 03:15 Temperature Pulse Rate 57 57 58 Respiratory 26 25 28 Rate Blood Pressure 144/60 143/55 152/61 (mmHg) O2 Sat by Pulse 93 92 93 Oximetry 12/12/16 12/12/16 12/12/16 03:30 03:45 04:00 Temperature 98.5 F Pulse Rate 63 62 61 Respiratory 27 28 28 Rate Blood Pressure 144/59 167/65 167/64 (mmHg) O2 Sat by Pulse 93 93 97 Oximetry 12/12/16 12/12/16 12/12/16 04:15 04:16 04:30 Temperature Pulse Rate 57 57 57 Respiratory 25 25 27 Rate Blood Pressure 151/78 168/73 (mmHg) O2 Sat by Pulse 98 98 98 Oximetry 12/12/16 12/12/16 12/12/16 04:45 05:00 05:15 Temperature Pulse Rate 58 58 59 Respiratory 24 21 26 Rate Blood Pressure 165/68 173/67 174/76 (mmHg) O2 Sat by Pulse 99 98 99 Oximetry 12/12/16 12/12/16 12/12/16 05:30 05:45 06:00 Temperature Pulse Rate 58 58 56 Respiratory 26 21 25 Rate Blood Pressure 160/63 161/68 167/75 (mmHg) O2 Sat by Pulse 98 98 99 Oximetry 12/12/16 12/12/16 12/12/16 06:15 06:30 06:31 Temperature Pulse Rate 58 57 58 Respiratory 21 19 24 Rate Blood Pressure 163/77 167/68 (mmHg) O2 Sat by Pulse 98 98 98 Oximetry 12/12/16 12/12/16 12/12/16 06:45 07:00 07:15 Temperature Pulse Rate 59 57 57 Respiratory 25 26 26 Rate Blood Pressure 180/84 169/67 (mmHg) O2 Sat by Pulse 98 98 98 Oximetry 12/12/16 12/12/16 12/12/16 07:16 07:30 07:45 Temperature Pulse Rate 57 55 56 Respiratory 27 21 19 Rate Blood Pressure 159/67 151/59 (mmHg) O2 Sat by Pulse 98 98 98 Oximetry 12/12/16 12/12/16 12/12/16 07:48 08:00 08:15 Temperature 98.3 F Pulse Rate 57 56 Respiratory 16 26 Rate Blood Pressure 174/57 (mmHg) O2 Sat by Pulse 98 98 Oximetry 12/12/16 08:16 Temperature Pulse Rate 55 Respiratory 25 Rate Blood Pressure 142/59 (mmHg) O2 Sat by Pulse 98 Oximetry Oxygen Devices in Use Now: None Appearance: Female lying in bed in NAD Eyes: No Scleral Icterus Ears/Nose/Mouth/Throat: Mucous Membranes Moist Neck: Trachea Midline Respiratory: Symmetrical Chest Expansion and Respiratory Effort, Clear to Auscultation Cardiovascular: NL Sounds; No Murmurs; No JVD, No Edema Abdominal: NL Sounds; No Tenderness; No Distention Lymphatic: No Cervical Adenopathy Extremities: No Edema Skin: No Rash or Ulcers Neurological: Alert and Oriented x 3, NL Muscle Strength and Tone Nutrition: Taking PO's Result Diagrams: 12/12/16 05:30 12/12/16 05:30 Additional Lab and Data: Lab Results 12/11/16 12/11/16 12/11/16 Range/Units 15:19 15:47 15:47 WBC (3.5-10.8) 10^3/ul RBC (4.0-5.4) 10^6/ul Hgb (12.0-16.0) g/dl Hct (35-47) % MCV (80-97) fL MCH (27-31) pg MCHC (31-36) g/dl RDW (10.5-15) % Plt Count (150-450) 10^3/ul MPV (7.4-10.4) um3 Neut % (Auto) (38-83) % Lymph % (Auto) (25-47) % [place] % (Auto) (1-9) % Eos % (Auto) (0-6) % Baso % (Auto) (0-2) % Absolute Neuts (auto) (1.5-7.7) 10^3/ul Absolute Lymphs (auto) (1.0-4.8) 10^3/ul Absolute Monos (auto) (0-0.8) 10^3/ul Absolute Eos (auto) (0-0.6) 10^3/ul Absolute Basos (auto) (0-0.2) 10^3/ul Absolute Nucleated RBC 10^3/ul Nucleated RBC % Sodium 124 L (133-145) mmol/L Potassium 4.1 (3.5-5.0) mmol/L Chloride 94 L (101-111) mmol/L Carbon Dioxide 26 (22-32) mmol/L Anion Gap 4 (2-11) mmol/L BUN 18 (6-24) mg/dL Creatinine 0.74 (0.51-0.95) mg/dL Est GFR ( Amer) 95.7 (>60) Est GFR (Non-Af Amer) 74.4 (>60) BUN/Creatinine Ratio 24.3 H (8-20) Glucose 110 H (70-100) mg/dL Lactic Acid (0.5-2.0) mmol/L Calcium 9.3 (8.6-10.3) mg/dL Magnesium 1.4 L (1.9-2.7) mg/dL Total Bilirubin 0.70 (0.2-1.0) mg/dL AST 14 (13-39) U/L ALT 10 (7-52) U/L Alkaline Phosphatase 72 (34-104) U/L Total Creatine Kinase 15 (10-223) U/L Troponin I 0.00 (<0.04) ng/mL C-Reactive Protein 5.68 H (< 5.00) mg/L B-Natriuretic Peptide 184 H ( - 100) pg/mL Total Protein 5.7 L (6.4-8.9) g/dL Albumin 3.0 L (3.2-5.2) g/dL Globulin 2.7 (2-4) g/dL Albumin/Globulin Ratio 1.1 (1-3) TSH 3.51 (0.34-5.60) mcIU/mL Urine Color Yellow Urine Appearance Cloudy Urine pH 7.0 (5-9) Ur Specific [place] 1.015 (1.010-1.030) Urine Protein 1+(30 mg/dl) H (Negative) Urine Ketones Negative (Negative) Urine Blood Negative (Negative) Urine Nitrate Negative (Negative) Urine Bilirubin Negative (Negative) Urine Urobilinogen Negative (Negative) Ur Leukocyte Esterase Negative (Negative) Urine WBC (Auto) Absent (Absent) Urine RBC (Auto) Absent (Absent) Ur Squamous Epith Cells Present H (Absent) Urine Bacteria Absent (Absent) Urine Glucose Negative (Negative) Urine Ascorbic Acid * H (Negative) 12/11/16 12/11/16 Range/Units 15:47 15:47 WBC 12.9 H (3.5-10.8) 10^3/ul RBC 3.81 L (4.0-5.4) 10^6/ul Hgb 10.8 L (12.0-16.0) g/dl Hct 32 L (35-47) % MCV 85 (80-97) fL MCH 28 (27-31) pg MCHC 33 (31-36) g/dl RDW 15 (10.5-15) % Plt Count 357 (150-450) 10^3/ul MPV 8 (7.4-10.4) um3 Neut % (Auto) 86.0 H (38-83) % Lymph % (Auto) 6.6 L (25-47) % [place] % (Auto) 6.6 (1-9) % Eos % (Auto) 0.4 (0-6) % Baso % (Auto) 0.4 (0-2) % Absolute Neuts (auto) 11.1 H (1.5-7.7) 10^3/ul Absolute Lymphs (auto) 0.9 L (1.0-4.8) 10^3/ul Absolute Monos (auto) 0.8 (0-0.8) 10^3/ul Absolute Eos (auto) 0.1 (0-0.6) 10^3/ul Absolute Basos (auto) 0.1 (0-0.2) 10^3/ul Absolute Nucleated RBC 0.01 10^3/ul Nucleated RBC % 0.1 Sodium (133-145) mmol/L Potassium (3.5-5.0) mmol/L Chloride (101-111) mmol/L Carbon Dioxide (22-32) mmol/L Anion Gap (2-11) mmol/L BUN (6-24) mg/dL Creatinine (0.51-0.95) mg/dL Est GFR ( Amer) (>60) Est GFR (Non-Af Amer) (>60) BUN/Creatinine Ratio (8-20) Glucose (70-100) mg/dL Lactic Acid 0.6 (0.5-2.0) mmol/L Calcium (8.6-10.3) mg/dL Magnesium (1.9-2.7) mg/dL Total Bilirubin (0.2-1.0) mg/dL AST (13-39) U/L ALT (7-52) U/L Alkaline Phosphatase (34-104) U/L Total Creatine Kinase (10-223) U/L Troponin I (<0.04) ng/mL C-Reactive Protein (< 5.00) mg/L B-Natriuretic Peptide ( - 100) pg/mL Total Protein (6.4-8.9) g/dL Albumin (3.2-5.2) g/dL Globulin (2-4) g/dL Albumin/Globulin Ratio (1-3) TSH (0.34-5.60) mcIU/mL Urine Color Urine Appearance Urine pH (5-9) Ur Specific [place] (1.010-1.030) Urine Protein (Negative) Urine Ketones (Negative) Urine Blood (Negative) Urine Nitrate (Negative) Urine Bilirubin (Negative) Urine Urobilinogen (Negative) Ur Leukocyte Esterase (Negative) Urine WBC (Auto) (Absent) Urine RBC (Auto) (Absent) Ur Squamous Epith Cells (Absent) Urine Bacteria (Absent) Urine Glucose (Negative) Urine Ascorbic Acid (Negative) Microbiology and Other Data: Microbiology 12/11/16 23:30 Nasal Screen MRSA (PCR)([facility]) - Final Nasal Mrsa Negative Assess/Plan/Problems-Billing Assessment: Ms. 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 - Patient Problems (1) Dizziness Comment: - Patient described sensation that room was spinning when she would sit up in bed in ED. - Concern for possible posterior CVA given hx of CVA and dramatic hypertension in ED. Could also be BPPV or labrynthitis. - Neuro consult pending. MRI brain pending. (2) Hypertensive urgency Comment: - BP well controlled on labetalol gtt. - D/C gtt and switch to amlodipine, add additional agents as needed. (3) Hyponatremia Comment: - Na essentially unchanged overnight with IV fluids. - ? SIADH vs hypovolemia. ? if drop in sodium be causing symptoms. - Check urine na and osmolality. Stop IVF for now, may need salt tabs. (4) Altered mental status Comment: - Patient described as acting oddly yesterday by family. Wandering around the house, opening doors, sleeping in a guest bedroom, making odd statements. - No evidence of infection. ? if related to dehydration, low sodium, occult seizures. - EEG pending. (5) Syncope Comment: - At least two syncopal episodes described by patient. - Plan to check echo. No evidence of arrhythmia on telemetry. (6) History of CVA (cerebrovascular accident) Comment: - Hx of embolic stroke earlier this year. No longer on anticoagulation due to suspected GI bleed and rectus sheath hematoma. (7) COPD (chronic obstructive pulmonary disease) Comment: - No evidence of exacerbation. (8) DVT prophylaxis Comment: - SCD's. Status and Disposition: Inpatient with expected LOS > 2 days. Patient may need rehab vs NH placement pending clinical course.
[2016-12-12] MEDS: Ondansetron INJ* 2 MG/ML VIAL IV PRN (09:14)
[2016-12-12] MEDS: amLODIPine TAB* 5 MG PO SCH (10:06)
[2016-12-12] MEDS: Labetalol IV* 200 MG in NS 0.9% 250 ML* 160 ML IVPB SCH ×3 (10:08→20:15)
--- NOTE | 2016-12-12 10:28 | ECHO ---
Patient: [facility] Rec#: [id number] : 1930 Date: 12/12/2016 Age: 86y Height: 154.94 cm / 61.0 in Weight: 49.44 kg / 109.0 lbs Sex: F BSA: 1.46 Room#: [facility] Admit Date#: 12/11/2016 Type: Inpatient Referring: Donna Meza NP Reading: Julian Perez MD B[employer] Molding Machine Operator: Indy Atkins RDCS CC: Maulik Garcia MD Transthoracic Echocardiogram Indication: Syncope BP: 167/75 HR: 55 Rhythm: Bradycardia Findings History: Embolic CVA, a-fib, HTN, diastolic CHF, anxiety, COPD, HLD, gout. Technical Comments: The study quality is fair. The study is technically limited due to poor apical windows. Completed at 0830. Left Ventricle: The left ventricular chamber size is normal. Mild concentric left ventricular hypertrophy is observed. There is a prominent septal knuckle. Global left ventricular wall motion and contractility are within normal limits. There is normal left ventricular systolic function. The estimated ejection fraction is 60-65%. Abnormal left ventricular diastolic function is observed. Abnormal left ventricular diastolic filling is observed, consistent with impaired relaxation. Left Atrium: The left atrium is moderately dilated. Right Ventricle: Moderator Band present. The right ventricular cavity size is normal. The right ventricular global systolic function is normal. Right Atrium: The right atrium is mild to moderately dilated. Aortic Valve: The aortic valve is trileaflet. The aortic valve leaflets are mildly thickened. There is mild aortic regurgitation. There is no evidence of aortic stenosis. Mitral Valve: The mitral valve leaflets are mildly thickened. There is trace to mild mitral regurgitation. There is no evidence of mitral stenosis. Tricuspid Valve: The tricuspid valve leaflets are normal. There is moderate tricuspid regurgitation. The right ventricular systolic pressure is estimated at 34 mmHg. No pulmonary hypertension is noted. There is no tricuspid stenosis. Pulmonic Valve: The pulmonic valve appears thickened with good excursion. There is moderate pulmonic regurgitation. There is no pulmonic stenosis. Pericardium: There is no significant pericardial effusion. Aorta: There is no dilatation of the ascending aorta. There is no dilatation of the aortic arch. The aortic root is normal in size. Pulmonary Artery: The main pulmonary artery is not well visualized. Venous: The inferior vena cava appears normal in size. There is a greater than 50% respiratory change in the inferior vena cava dimension. Conclusions Mild concentric left ventricular hypertrophy is observed. The estimated ejection fraction is 60-65%. Abnormal left ventricular diastolic function is observed. The left atrium is moderately dilated. There is mild aortic regurgitation. There is trace to mild mitral regurgitation. There is moderate tricuspid regurgitation. There is moderate pulmonic regurgitation. No bubble study performed. Similar to 03/2016 except that RV function has improved and the TR,PI have increased from mild then to moderate now. Measurements Name Value Normal Range RVIDd (AP) 2D 2.9 cm (0.9 - 2.6) RVDdMajor (2D) 3.1 cm (2.2 - 4.4) RAd ISD 4CH 4.5 cm (3.4 - 4.9) RA (A4C)W 4.4 cm (2.9 - 4.6) IVSd (2D) 1.1 cm (0.6 - 1) LVPWd (2D) 1.1 cm (0.6 - 1) LVIDd (2D) 4.5 cm (3.6 - 5.4) LVIDs (2D) 2.9 cm - LV FS (2D) 35 % (25 - 45) Aortic Annulus 2.1 cm (1.4 - 2.6) Ao root diameter (2D) 3.3 cm (2.1 - 3.5) Ascending Ao 3.4 cm (2.1 - 3.4) Aortic arch 2.5 cm (1.8 - 3.4) LA dimension (AP) 2D 3.3 cm (2.3 - 3.8) LAd ISD 4CH 4.7 cm (2.9 - 5.3) LA ISD 4CH W 4.1 cm (2.5 - 4.5) Name Value Normal Range LA ESV SP 4CH (A/L) 43 ml - LA ESV SP 2CH (A/L) 56 ml - LA ESV BP (A/L) 57 ml - LA ESV BP (A/L) index 39 ml/m2 - LA ESV SP 4CH (MOD) 39 ml - LA ESV SP 2CH (MOD) 53 ml - Name Value Normal Range MV E-wave Vmax 0.53 m/sec - MV deceleration time 319.4 msec - MV A-wave Vmax 0.9 m/sec - MV E:A ratio 0.57 ratio - LV septal e' Vmax 0.04 m/sec - LV lateral e' Vmax 0.05 m/sec - LV E:e' septal ratio 13.25 ratio - LV E:e' lateral ratio 10.6 ratio - Name Value Normal Range AV Vmax 1.25 m/sec - AV VTI 30.7 cm - AV peak gradient 6.29 mmHg - AV mean gradient 3.59 mmHg - LVOT diameter 2 cm - LVOT Vmax 1.02 m/sec - LVOT VTI 22.48 cm - LVOT peak gradient 4.18 mmHg - LVOT mean gradient 1.66 mmHg - SV LVOT 70 ml - FUENTES Vmax 0.49 m/sec - Name Value Normal Range TR Vmax 2.81 m/sec - TR peak gradient 31 mmHg - RAP 3 mmHg - RVSP 34 mmHg - IVC diameter 1.5 cm - Name Value Normal Range PV Vmax 0.78 m/sec - PV peak gradient 2.42 mmHg - VA end-diastolic Vmax 1.25 m/sec -
[2016-12-12] MEDS ORDERED: Gadoteridol* (CONTRAST) 279.3 MG/ML 10 ML IV ONE (11:43)
--- NOTE | 2016-12-12 12:10 | RAD ---
HISTORY: The loss, right-sided numbness COMPARISONS: Head CT dated December 11, 2016, MRI dated April 17, 2016 TECHNIQUE: The following sequences were obtained of the head: Sagittal T1-weighted images, axial T2-weighted images, axial FLAIR images, axial susceptibility weighted images, axial T1-weighted images. Additionally, axial diffusion-weighted images were obtained with calculated apparent diffusion coefficients. FINDINGS: The study is limited by patient motion artifact. HEMORRHAGE/INFARCT: There is no hemorrhage or acute infarct. MASSES/SHIFT: There is no mass or shift. EXTRA-AXIAL SPACES/MENINGES: There are small subdural fluid collections S unenhanced the CSF along the frontal convexities bilaterally measuring up to 0.4 cm in depth. SULCI AND VENTRICLES: The sulci and ventricles are normal in size and position for the patient's stated age. CEREBRUM: There are multiple scattered small foci of elevated T2/FLAIR signal within the periventricular and subcortical white matter. BRAINSTEM: There are no focal parenchymal abnormalities. CEREBELLUM: There are no focal parenchymal abnormalities. The cerebellar tonsils are normal in size and position. SELLA: The sella is normal. PINEAL: The pineal region is clear. CP ANGLE/TEMPORAL BONES: The labyrinthine structures are grossly normal. VESSELS: Normal flow-voids are noted within the visualized vertebral vasculature. DIFFUSION ABNORMALITIES: There are no diffusion abnormalities. PARANASAL SINUSES/MASTOIDS: The paranasal sinuses are clear. ORBITS: The orbits are unremarkable. BONES AND SOFT TISSUE: No bone or soft tissue abnormalities are noted. OTHER: None IMPRESSION: 1. LIMITED STUDY. 2. SMALL BIFRONTAL CHRONIC SUBDURAL HEMATOMAS VERSUS SUBDURAL HYGROMAS. 3. SCATTERED NONSPECIFIC WHITE MATTER CHANGES,.
--- NOTE | 2016-12-12 12:14 | RAD ---
HISTORY: Right-sided numbness, weight loss COMPARISONS: CT of the thoracic spine dated December 11, 2016 TECHNIQUE: The following sequences were obtained of the thoracic spine: Sagittal and axial T1- and T2-weighted images, coronal T2-weighted images, and sagittal STIR images. Additionally, axial and sagittal T1 weighted images were obtained after contrast enhancement with a gadolinium-based intravenous contrast agent.. FINDINGS: The study is limited by patient motion artifact. Localization is based on counting from C2 SPINAL CORD, CONUS, AND CAUDA EQUINA: The visualized spinal cord, conus, and cauda equina are normal in caliber, position, and signal intensity. ALIGNMENT: The alignment is normal. VERTEBRAL BODIES: Several hemangiomas are noted. The vertebral bodies are preserved in height. There is mild anterolateral marginal osteophyte formation. JOINTS: There is osteoporosis of the costovertebral articulations. MUSCULATURE: Unremarkable INTERVERTEBRAL DISCS: The intervertebral discs are normal in height and T2 signal AXIAL IMAGES: There is no central canal stenosis or neuroforaminal narrowing. SOFT TISSUES: There is a small right pleural effusion. A hepatic cyst is noted. OTHER: There is no abnormal enhancement. IMPRESSION: 1. LIMITED STUDY. 2. DEGENERATIVE DISC DISEASE AND OSTEOARTHRITIS. 3. NO SIGNIFICANT NEURAL FORAMINAL NARROWING OR CENTRAL CANAL STENOSIS. 4. NO APPRECIABLE ABNORMAL ENHANCEMENT
[2016-12-12 14:12] LABS: Folate > 20.00 ng/mL (>3.99); Vitamin B12 624 pg/mL (180-914)
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
[2016-12-12] MEDS: Latanoprost 0.005%* 2.5 ml BTL BOTH EYES SCH (20:20)
[2016-12-12] MEDS ORDERED: Acetaminophen TAB* 325 MG PO PRN (23:10)
[2016-12-13] MEDS: Labetalol IV* 200 MG in NS 0.9% 250 ML* 160 ML IVPB SCH ×4 (03:09→23:18)
[2016-12-13] MEDS: amLODIPine TAB* 5 MG PO SCH (04:16)
[2016-12-13] MEDS ORDERED: Morphine ORAL.SOLN 10 mg* 2 MG/ML UDC 5 ml ONE (04:35)
--- NOTE | 2016-12-13 05:04 | EEG ---
ELECTROENCEPHALOGRAPHY: DATE OF STUDY: CLINICAL PROBLEM: Ms. Preciado is an 86-year-old woman admitted to the hospital after repeat episodes of passing out and confusion. She has very little memory of what happened during the day. Her son states that she was acting very abnormally. She was sleeping and wondering around the house. At one point, she will be oriented. Other times, she will make unusual comments such as "I had been at the [facility] all day." REPORT: This was a 16-channel EEG. In the beginning of the record, there was a quite bit of muscle artifact posteriorly; however, there was a well formed rhythm. At best, there was a posterior dominant alpha rhythm of 8 Hz. There was attenuation of the alpha rhythm with eye opening. As the record continued during the record that was a quite bit of muscle artifact particularly anteriorly, and more generalized when the patient was talking. Throughout the record, there was no clear asymmetry to the background rhythm. There was no evidence of sharp or spike wave activity. CLINICAL IMPRESSION: This was an essentially normal; however, limited EEG. The EEG was limited by muscle artifact. There was; however, no evidence of epileptiform activity. [id number]/[facility] #: [id number] [facility]
[2016-12-13] MEDS: Aspirin EC Low Dose* 81 MG TAB.EC PO SCH (09:01)
[2016-12-13] MEDS: Omeprazole CAP* 20 MG PO SCH (09:02)
[2016-12-13] MEDS: Citalopram TAB* 20 MG PO SCH (09:02)
[2016-12-13] MEDS: Atorvastatin* 20 MG TAB PO SCH (09:02)
[2016-12-13] MEDS: LORazepam TAB(*) 0.5 MG PO SCH ×2 (09:03→21:24)
[2016-12-13 10:33] LABS: BUN/Creatinine Ratio 24.6 (8-20); Blood Urea Nitrogen 17 mg/dL (6-24); CO2 Carbon Dioxide 31 mmol/L (22-32); Calcium 8.8 mg/dL (8.6-10.3); Chloride 88 mmol/L (101-111); EGFR African American 103.7 (>60); EGFR Non-African American 80.7 (>60); Glucose 142 mg/dL (70-100); Potassium 3.7 mmol/L (3.5-5.0)
[2016-12-13 10:47] LABS: Sodium 118 mmol/L (133-145)
[2016-12-13] MEDS ORDERED: Sodium Chloride TAB* 1 GM PO SCH ×2 (11:00→21:00)
[2016-12-13] MEDS: Ondansetron INJ* 2 MG/ML VIAL IV PRN (11:05)
[2016-12-13 15:14] LABS: BUN/Creatinine Ratio 25.7 (8-20); Calcium 8.9 mg/dL (8.6-10.3); EGFR Non-African American 79.3 (>60)
--- NOTE | 2016-12-13 16:23 | PN ---
Subjective Date of Service: 12/13/16 Interval History: Ms. Preciado states that she is feeling much better. She denies any complaint this morning including chest pain, SOB, nausea, or abdominal pain. Objective Active Medications: Acetaminophen (Tylenol Tab*) 650 mg PO Q4H PRN Amlodipine Besylate (Norvasc Tab*) 5 mg PO DAILY [facility] Aspirin (Aspirin Ec Low Dose*) 81 mg PO DAILY [facility] Atorvastatin Calcium (Lipitor*) 20 mg PO DAILY [facility] Citalopram Hydrobromide (Celexa Tab*) 30 mg PO DAILY [facility] Labetalol HCl 200 mg/ Sodium (Chloride) 200 mls @ 30 mls/hr IVPB Q6H [facility] Latanoprost (Xalatan 0.005%*) 1 drop BOTH EYES QPM [facility] Levalbuterol HCl (Xopenex Hfa Inhaler*) 2 puff INH Q4HR PRN Lorazepam (Ativan Tab(*)) 0.5 mg PO BID [facility] Morphine Sulfate (Morphine Oral Concentrate*) 2.5 mg PO Q6H PRN Omeprazole (Prilosec Cap*) 20 mg PO DAILY@0730 [facility] Ondansetron HCl (Zofran Inj*) 4 mg IV Q6H PRN Sodium Chloride (Sodium Chloride Tab*) 1 gm PO BID [facility] Vital Signs: Temp Pulse Resp BP Pulse Ox 97.8 F 60 20 145/50 91 12/13/16 14:17 12/13/16 14:17 12/13/16 14:17 12/13/16 14:17 12/13/16 14:17 Oxygen Devices in Use Now: None Appearance: Female lying in bed in NAD Eyes: No Scleral Icterus Ears/Nose/Mouth/Throat: Mucous Membranes Moist Neck: Trachea Midline Respiratory: Symmetrical Chest Expansion and Respiratory Effort, Clear to Auscultation Cardiovascular: NL Sounds; No Murmurs; No JVD, No Edema Abdominal: NL Sounds; No Tenderness; No Distention Lymphatic: No Cervical Adenopathy Extremities: No Edema Skin: No Rash or Ulcers Neurological: Alert and Oriented x 3, NL Muscle Strength and Tone Nutrition: Taking PO's Result Diagrams: 12/12/16 05:30 12/13/16 14:46 Additional Lab and Data: . Microbiology and Other Data: Microbiology 12/11/16 23:30 Nasal Screen MRSA (PCR)(TAEMRA) - Final Nasal Mrsa Negative Assess/Plan/Problems-Billing Assessment: Ms. 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 - Patient Problems (1) Hyponatremia Comment: - Na down to 118 this AM. - Urine Na 58, suspect SIADH. Salts tabs initiated, Na 119 this afternoon. - No etiology apparent for SIADH except MACHINE HAND disturbance of unknown cause, which seems to have resolved. (2) Dizziness Comment: - Resolved. - Appreciate neuro consult. No evidence of stroke on MRI brain. Could have be BPPV or labrynthitis. (3) Hypertensive urgency Comment: - Resolved. - Continue amlodipine. (4) Altered mental status Comment: - Patient described as acting oddly prior to admission by family. Wandering around the house, opening doors, sleeping in a guest bedroom, making odd statements. - No evidence of infection. ? if related to dehydration, low sodium, occult seizures. EEG negative, MRI negative. Question if patient may have been using her benzodiazepines and/or inappropriately. (5) Syncope Comment: - At least two syncopal episodes described by patient. - Echo essentially normal with no significant wall motion or valvular abnormalities. No evidence of arrhythmia on telemetry. (6) History of CVA (cerebrovascular accident) Comment: - Hx of embolic stroke earlier this year. No longer on anticoagulation due to suspected GI bleed and rectus sheath hematoma. (7) COPD (chronic obstructive pulmonary disease) Comment: - No evidence of exacerbation. (8) DVT prophylaxis Comment: - SCD's. Status and Disposition: Inpatient with expected LOS > 2 days. Patient may need rehab vs NH placement pending clinical course.
[2016-12-13] MEDS: Latanoprost 0.005%* 2.5 ml BTL BOTH EYES SCH (18:17)
[2016-12-13] MEDS: Levalbuterol HFA INHALER* 1 PUFF MDI INH PRN (19:32)
[2016-12-13] MEDS ORDERED: Labetalol IV* 5 MG/ML 20 ML VIAL ONE (20:57)
[2016-12-13] MEDS: Morphine ORAL CONCENTRATE* 5 MG/0.25 ML ORAL.SYRIN PO PRN (21:23)
--- NOTE | 2016-12-13 22:57 | PN ---
PROGRESS NOTE: DATE OF PROGRESS NOTE: 12/13/16 SUBJECTIVE: Overnight, the patient had some high blood pressure and received her morning blood pressure medication, but otherwise has been doing well. She has had no further episodes of altered mental status or speech difficulties as she did previously. Her appetite remains poor. She continues to feel down and does endorse some depression. She feels that her appetite changes have been secondary to her depression. I reviewed her recent history and physical and progress notes and apparently she has had some major psychosocial changes in the last few months. On admission to the hospital, she was noted to have sodium of 124, which dropped to 123 yesterday. Due to her elevated blood pressure, she was put on labetalol drip initially, but that has since been removed. She is getting p.o. medications. She denies any nausea currently. She has had no vomiting reported. She denies any shortness of breath or chest pain. Otherwise , has been doing about the same overnight, no worsening, no significant improvement. STUDIES: I did review her MRI of the brain from yesterday, which showed bilateral frontal subdural hematomas versus hygromas, which are very small and some white matter changes. EEG from yesterday was limited, but no epileptiform activity. There was some muscle artifact as well. She had a thoracic spine study yesterday because of her weight loss and some paresthesias she was having in her chest. It showed no significant neuroforaminal narrowing or central canal stenosis and no abnormal enhancement. She did have an echocardiogram done as well, which showed an ejection fraction of 60% to 65% and some hypertensive changes similar to her study in March 2016 with improvement of right ventricular function and some increased tricuspid regurg and PI since her last study. OBJECTIVE: Vital Signs: Heart rate of 71, respiratory rate of 25, pulse ox 99%, blood pressure of 154/68 this morning, 168/68 earlier today, high of 182/67 this morning and around 4 a.m. yesterday high of 185/71. Her blood pressures generally remain in the 150 to 160s over 60 to 70s. In general, she is a well-developed although very thin female in no acute distress, sitting in her hospital bed, the nurse is at the bedside. She is well dressed, well groomed. HEENT: She is normocephalic, atraumatic. Her sclerae are anicteric. Her mucous membranes are slightly dry. Neck is supple. No carotid bruits. Chest: Clear to auscultation bilaterally. Cardiovascular: Regular rate and rhythm. Abdomen: Nontender, scaphoid. Extremities: No rashes or lesions. Neurologic Exam: She is oriented to person, place and time this morning. Speech is fluent. There is no dysarthria. Her repetition is intact. Cranial nerves II through XII are intact. Motor exam, she is moving all extremities antigravity with good resistance, 5/5 throughout. Tone is normal. [id number] rapid alternating movements were intact. Sensation showed reduced vibration in the feet, otherwise intact. She continues to have some mild numbness in the right T7 to 10 distribution. Reflexes at the biceps were 2+, brachioradialis 2+, at the knees trace, at the ankles absent. She had equivocal response on the left and some mild flexion on the right. Gait was not tested this morning. ASSESSMENT AND PLAN: Ms. Preciado is an 86-year-old female who presented to the hospital with an episode of some altered mental status prior to admission. She has family who is with her now who came up recently from [place]. Since admission to the hospital, she did have some word finding difficulties yesterday morning, but has not had any further episodes. There is possible loss of consciousness at the time of admission as well. She was found to be hyponatremic on presentation and she also noted some depression. It was thought that she has had very poor intake with possible weight loss secondary to her anorexia and depression. She did note to me that she has had disinterest in her life recently. She is also on antidepressant currently. Her workup today has been essentially negative. She has no evidence of stroke. No evidence of thoracic spine disease. An EEG was essentially normal and at this point, I suspect that her altered mental status and possible loss of consciousness may have been due to dehydration. She seems to have improved since she was hydrated. Transient ischemic attack is within the differential. She is on Lipitor and aspirin, was previously on blood thinner for paroxysmal atrial fibrillation, but had a significant GI bleed earlier this year, so I think that aspirin is appropriate. She is on a blood pressure medication. Her primary is working on correcting her hyponatremia, which could have also contributed. My suspicion for underlying transient ischemic attack is low. Certainly, an episode of arrhythmia could cause some alteration of consciousness as well. She is currently being monitored on telemetry, ultimately although I suspect that her depression is playing a very large role in her presentation and I will continue to follow her. I have no new recommendations at this time. [id number]/[facility] #: [id number] SHANNON
[2016-12-14] MEDS: Labetalol IV* 200 MG in NS 0.9% 250 ML* 160 ML IVPB SCH (04:10)
[2016-12-14 06:39] LABS: BUN/Creatinine Ratio 25.4 (8-20); Blood Urea Nitrogen 17 mg/dL (6-24); CO2 Carbon Dioxide 31 mmol/L (22-32); Calcium 8.8 mg/dL (8.6-10.3); Chloride 88 mmol/L (101-111); EGFR African American 107.3 (>60); EGFR Non-African American 83.5 (>60); Glucose 96 mg/dL (70-100); Potassium 4.1 mmol/L (3.5-5.0)
[2016-12-14 06:42] LABS: Sodium 119 mmol/L (133-145)
--- NOTE | 2016-12-14 07:57 | PN ---
Subjective Date of Service: 12/14/16 Interval History: Ms. Preciado states that she is feeling much better overall this morning. She does have complaint of abdominal distention and feels that she is constipated. She denies chest pain, SOB, nausea. She has long standing decreased appetite but states that she doesn't want to eat much this morning because her abdomen feels full. Objective Active Medications: Acetaminophen (Tylenol Tab*) 650 mg PO Q4H PRN Amlodipine Besylate (Norvasc Tab*) 5 mg PO DAILY [facility] Aspirin (Aspirin Ec Low Dose*) 81 mg PO DAILY [facility] Atorvastatin Calcium (Lipitor*) 20 mg PO DAILY [facility] Citalopram Hydrobromide (Celexa Tab*) 30 mg PO DAILY [facility] Labetalol HCl 200 mg/ Sodium (Chloride) 200 mls @ 30 mls/hr IVPB Q6H [facility] Latanoprost (Xalatan 0.005%*) 1 drop BOTH EYES QPM [facility] Levalbuterol HCl (Xopenex Hfa Inhaler*) 2 puff INH Q4HR PRN Lorazepam (Ativan Tab(*)) 0.5 mg PO BID [facility] Morphine Sulfate (Morphine Oral Concentrate*) 2.5 mg PO Q6H PRN Omeprazole (Prilosec Cap*) 20 mg PO DAILY@0730 [facility] Ondansetron HCl (Zofran Inj*) 4 mg IV Q6H PRN Sodium Chloride (Sodium Chloride Tab*) 1 gm PO TID [facility] Vital Signs: Temp Pulse Resp BP Pulse Ox 98.3 F 67 16 172/57 100 12/14/16 05:41 12/14/16 05:41 12/14/16 05:41 12/14/16 05:41 12/14/16 05:41 Oxygen Devices in Use Now: None Appearance: Female sitting up in chair in NAD Eyes: No Scleral Icterus Ears/Nose/Mouth/Throat: Mucous Membranes Moist Neck: Trachea Midline Respiratory: Symmetrical Chest Expansion and Respiratory Effort, Clear to Auscultation Cardiovascular: NL Sounds; No Murmurs; No JVD, No Edema Abdominal: - - Soft, nontender, distended, BS+ Extremities: No Edema Skin: No Rash or Ulcers Neurological: Alert and Oriented x 3, NL Muscle Strength and Tone Nutrition: Taking PO's Result Diagrams: 12/12/16 05:30 12/14/16 05:48 Additional Lab and Data: . Microbiology and Other Data: Microbiology 12/11/16 23:30 Nasal Screen MRSA (PCR)([facility]) - Final Nasal Mrsa Negative Assess/Plan/Problems-Billing Assessment: Ms. 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 - Patient Problems (1) Hyponatremia Comment: - Na up to 119 this AM. - Urine Na 58, suspect SIADH. Increase salt tabs to TID dosing. - ? if SIADH could be related to citalopram, patient reports only starting this medication recently and having the dose increased in the past 2 weeks. Plan to titrate down to 20mg and then discontinue over the next few days. (2) Constipation Comment: - Senna, colace, miralax, dulcolax and fleets enema available prn. (3) Dizziness Comment: - Resolved. - Appreciate neuro consult. No evidence of stroke on MRI brain. Could have be BPPV or labrynthitis. (4) Hypertensive urgency Comment: - Resolved. - Continue amlodipine. (5) Altered mental status Comment: - Patient described as acting oddly prior to admission by family. Wandering around the house, opening doors, sleeping in a guest bedroom, making odd statements. - No evidence of infection. ? if related to dehydration, low sodium, occult seizures. EEG negative, MRI negative. Question if patient may have been using her benzodiazepines and/or inappropriately. (6) Syncope Comment: - At least two syncopal episodes described by patient. - Echo essentially normal with no significant wall motion or valvular abnormalities. No evidence of arrhythmia on telemetry. (7) History of CVA (cerebrovascular accident) Comment: - Hx of embolic stroke earlier this year. No longer on anticoagulation due to suspected GI bleed and rectus sheath hematoma. (8) COPD (chronic obstructive pulmonary disease) Comment: - No evidence of exacerbation. (9) DVT prophylaxis Comment: - SCD's. Status and Disposition: Inpatient with expected LOS > 2 days. Patient may need rehab vs NH placement pending clinical course.
[2016-12-14] MEDS: Sodium Chloride TAB* 1 GM PO SCH ×3 (08:35→20:48)
[2016-12-14] MEDS: Aspirin EC Low Dose* 81 MG TAB.EC PO SCH (08:35)
[2016-12-14] MEDS: Atorvastatin* 20 MG TAB PO SCH (08:35)
[2016-12-14] MEDS: Citalopram TAB* 20 MG PO SCH ×2 (08:35→08:57)
[2016-12-14] MEDS: LORazepam TAB(*) 0.5 MG PO SCH ×2 (08:35→20:50)
[2016-12-14] MEDS: Omeprazole CAP* 20 MG PO SCH (08:36)
[2016-12-14] MEDS: amLODIPine TAB* 5 MG PO SCH (08:36)
[2016-12-14] MEDS: Morphine ORAL CONCENTRATE* 5 MG/0.25 ML ORAL.SYRIN PO PRN ×2 (09:09→20:53)
[2016-12-14] MEDS: Ondansetron INJ* 2 MG/ML VIAL IV PRN (09:10)
[2016-12-14] MEDS ORDERED: Senna TAB PO PRN (12:05)
[2016-12-14] MEDS ORDERED: Sodium Phosphate ADULT ENEMA* 118 ml bottle PR PRN (12:05)
[2016-12-14] MEDS ORDERED: Bisacodyl SUPP* 10 MG SUPP PR PRN (12:05)
[2016-12-14] MEDS: Polyethylene Glycol 3350* 17 GM PACKET PO PRN (14:58)
[2016-12-14] MEDS: Latanoprost 0.005%* 2.5 ml BTL BOTH EYES SCH (17:42)
--- NOTE | 2016-12-14 18:58 | PN ---
PROGRESS NOTE: DATE OF SERVICE: 12/14/16 SUBJECTIVE: No new issues overnight. She continues to have a poor appetite with poor p.o. intake, but she denies any episodes of altered mental status or confusion. No episodes of loss of consciousness. No worsening shortness of breath, no palpitations that she is aware of. This morning, she is somewhat tearful. She states that she had reached her rock bottom, but feels hopeful now and may have some options as far as getting better. She admits to some depression. She states that her symptoms seem to have worsened at the time she was put on Celexa. She denies any suicidal or homicidal ideations. She has had no focal findings or focal numbness, tingling or weakness overnight. She has otherwise been stable. OBJECTIVE: Vital Signs: She is afebrile, pulse is 67, blood pressure of 172/57 , pulse ox of 100%. General: She is a thin well-developed female, in no acute distress. She is lying in her hospital bed, pleasant, well dressed, well groomed. HEENT: She is normocephalic, atraumatic. Sclerae are anicteric. Mucous membranes are moist. Oropharynx is clear. Neck: Supple. No thyromegaly or carotid bruits. Chest: Clear to auscultation bilaterally. Cardiovascular: Regular rate and rhythm. Abdomen: Nontender. Extremities: No edema present. Neurologic Exam: She is awake, alert. She is oriented x3. Her speech is fluent. There is no dysarthria. Repetition is intact. Cranial nerves II through XII are intact. No focal deficits. Motor exam: Spontaneously moving all extremities antigravity 4+/5 throughout. There is no focal weakness noted. Sensation is grossly intact to light touch and pinprick in all 4 extremities. [id number] and rapid alternating movements were intact without tremor. Gait was not tested. LABORATORY DATA: Her sodium this morning of 119, chloride of 88, BUN and creatinine ratio of 25.4. Her cortisol 14.45, B12 of 624, folate of greater than 20. She has had no new studies done since I last saw her. ASSESSMENT AND PLAN: Ms. Preciado is an 86-year-old female, who has a history of prior stoke and was previously on anticoagulation, but had a bleed and is now on aspirin, came in with an episode of altered mental status, what appears to be worsening depression, poor p.o. intake, and anorexia. She also takes both morphine and Klonopin at home. There was one episode of word finding difficulties 2 days ago, but she has had none since. She was also found to be hyponatremic on admission, currently on salt tablets. At this point, I suspect that her episodes were likely multifactorial in nature. I do not see any evidence for transient ischemic attack or stroke. There is no strong evidence for underlying seizure. It is likely that it was the combination of her depression and anxiety, her medications, her poor p.o. intake, and likely some dehydration and poor nutrition. She has been taken off her Celexa as this seems to be the point when her symptoms worsened. Family is apparently moving up to be closer to her and will need to monitor her medications, specifically her narcotics and benzodiazepines at home as this may be part of the problem. From a stroke standpoint, I would not change anything, continue her current medications including the aspirin and a statin. This morning we did discuss the fact that she would benefit from continued psychological care. I do suspect that depression is playing a large role in her symptoms, amotivation, anorexia. I have no new recommendations at this time. I will continue to follow her. [id number]/[facility] #: [id number] SHANNON
[2016-12-14] MEDS: Docusate CAP* 100 MG PO PRN (20:52)
[2016-12-14] MEDS: MDI INH SCH (22:24)
[2016-12-14] MEDS: FLUTICASONE INH SCH (22:24)
[2016-12-14] MEDS: VILANTEROL MDI INH SCH (22:24)
[2016-12-15] MEDS: Ondansetron INJ* 2 MG/ML VIAL IV PRN (02:37)
[2016-12-15] MEDS: Morphine ORAL CONCENTRATE* 5 MG/0.25 ML ORAL.SYRIN PO PRN (02:51)
[2016-12-15 07:34] LABS: BUN/Creatinine Ratio 25.7 (8-20); Blood Urea Nitrogen 18 mg/dL (6-24); CO2 Carbon Dioxide 32 mmol/L (22-32); Calcium 8.8 mg/dL (8.6-10.3); Chloride 90 mmol/L (101-111); EGFR Non-African American 79.3 (>60); Glucose 118 mg/dL (70-100); Potassium 4.2 mmol/L (3.5-5.0); Sodium 122 mmol/L (133-145)
[2016-12-15] MEDS: amLODIPine TAB* 5 MG PO SCH (08:08)
[2016-12-15] MEDS: Sodium Chloride TAB* 1 GM PO SCH ×3 (08:08→20:22)
[2016-12-15] MEDS: LORazepam TAB(*) 0.5 MG PO SCH ×2 (08:13→20:22)
[2016-12-15] MEDS: Atorvastatin* 20 MG TAB PO SCH (08:13)
[2016-12-15] MEDS: Aspirin EC Low Dose* 81 MG TAB.EC PO SCH (08:13)
[2016-12-15] MEDS: Omeprazole CAP* 20 MG PO SCH (08:13)
[2016-12-15] MEDS: Citalopram TAB* 20 MG PO SCH (08:14)
--- NOTE | 2016-12-15 15:22 | PN ---
Subjective Date of Service: 12/15/16 Interval History: Ms. Preciado states that she is feeling well today. She reports eating about a quarter of her breakfast this morning which is an improvement for her. She denies any specific acute complaint including chest pain, SOB, nausea, or abdominal pain. Objective Active Medications: Acetaminophen (Tylenol Tab*) 650 mg PO Q4H PRN Amlodipine Besylate (Norvasc Tab*) 5 mg PO DAILY [facility] Aspirin (Aspirin Ec Low Dose*) 81 mg PO DAILY [facility] Atorvastatin Calcium (Lipitor*) 20 mg PO DAILY [facility] Bisacodyl (Dulcolax Supp*) 10 mg ME DAILY [facility] Citalopram Hydrobromide (Celexa Tab*) 20 mg PO DAILY [facility] Docusate Sodium (Colace Cap*) 100 mg PO DAILY PRN Fluticasone/Vilanterol (Breo Ellipta Mdi 100/25(Nf)) 1 puff INH DAILY@2000 [facility] Latanoprost (Xalatan 0.005%*) 1 drop BOTH EYES QPM [facility] Levalbuterol HCl (Xopenex Hfa Inhaler*) 2 puff INH Q4HR PRN Lorazepam (Ativan Tab(*)) 0.5 mg PO BID [facility] Morphine Sulfate (Morphine Oral Concentrate*) 2.5 mg PO Q6H PRN Omeprazole (Prilosec Cap*) 20 mg PO DAILY@0730 [facility] Ondansetron HCl (Zofran Inj*) 4 mg IV Q6H PRN Polyethylene Glycol/Electrolytes (Miralax*) 17 gm PO DAILY PRN Senna (Senokot Tab*) 1 tab PO BEDTIME PRN Sodium Biphosphate/Sodium Phosphate (Fleet Enema*) 1 bottle ME DAILY PRN Sodium Chloride (Sodium Chloride Tab*) 1 gm PO TID [facility] Vital Signs: Temp Pulse Resp BP Pulse Ox 98.2 F 72 24 148/55 100 12/14/16 23:30 12/15/16 06:15 12/15/16 08:13 12/15/16 06:15 12/15/16 06:15 Oxygen Devices in Use Now: None Appearance: Female sitting up in bed in NAD Eyes: No Scleral Icterus Ears/Nose/Mouth/Throat: Mucous Membranes Moist Neck: Trachea Midline Respiratory: Symmetrical Chest Expansion and Respiratory Effort, Clear to Auscultation Cardiovascular: NL Sounds; No Murmurs; No JVD, No Edema Abdominal: NL Sounds; No Tenderness; No Distention Lymphatic: No Cervical Adenopathy Extremities: No Edema Skin: No Rash or Ulcers Neurological: Alert and Oriented x 3, NL Muscle Strength and Tone Nutrition: Taking PO's Result Diagrams: 12/12/16 05:30 12/15/16 06:40 Additional Lab and Data: . Microbiology and Other Data: Microbiology 12/11/16 23:30 Nasal Screen MRSA (PCR)([facility]) - Final Nasal Mrsa Negative Assess/Plan/Problems-Billing Assessment: Ms. 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 - Patient Problems (1) Hyponatremia Comment: - Na up to 122 this AM. - Urine Na 58, suspect SIADH. Continue salt tabs at TID dosing. - ? if SIADH could be related to citalopram, patient reports only starting this medication recently and having the dose increased in the past 2 weeks. Plan to titrate down to 20mg and then discontinue over the next few days. (2) Constipation Comment: - Had BM yesterday. - Senna, colace, miralax, dulcolax and fleets enema available prn. (3) Dizziness Comment: - Resolved. - Appreciate neuro consult. No evidence of stroke on MRI brain. Could have be BPPV or labrynthitis. (4) Hypertensive urgency Comment: - Resolved. - Continue amlodipine. (5) Altered mental status Comment: - Patient described as acting oddly prior to admission by family. Wandering around the house, opening doors, sleeping in a guest bedroom, making odd statements. - No evidence of infection. ? if related to dehydration, low sodium, occult seizures. EEG negative, MRI negative. Question if patient may have been using her benzodiazepines and/or inappropriately. (6) Syncope Comment: - At least two syncopal episodes described by patient. - Echo essentially normal with no significant wall motion or valvular abnormalities. No evidence of arrhythmia on telemetry. (7) History of CVA (cerebrovascular accident) Comment: - Hx of embolic stroke earlier this year. No longer on anticoagulation due to suspected GI bleed and rectus sheath hematoma. (8) COPD (chronic obstructive pulmonary disease) Comment: - No evidence of exacerbation. (9) DVT prophylaxis Comment: - SCD's. Status and Disposition: Inpatient with expected LOS > 2 days. Patient may need rehab vs NH placement pending clinical course. [facility] has offered a bed but patient is still considering.
[2016-12-15] MEDS: Latanoprost 0.005%* 2.5 ml BTL BOTH EYES SCH (17:21)
[2016-12-15] MEDS: MDI INH SCH ×2 (17:37→20:21)
[2016-12-15] MEDS: FLUTICASONE INH SCH ×2 (17:37→20:21)
[2016-12-15] MEDS: VILANTEROL MDI INH SCH ×2 (17:37→20:21)
[2016-12-16 06:15] LABS: Calcium 8.8 mg/dL (8.6-10.3); EGFR African American 94.2 (>60); EGFR Non-African American 73.3 (>60); Potassium 4.4 mmol/L (3.5-5.0)
[2016-12-16] MEDS: Aspirin EC Low Dose* 81 MG TAB.EC PO SCH (08:12)
[2016-12-16] MEDS: Omeprazole CAP* 20 MG PO SCH (08:12)
[2016-12-16] MEDS: Atorvastatin* 20 MG TAB PO SCH (08:12)
[2016-12-16] MEDS: Sodium Chloride TAB* 1 GM PO SCH ×3 (08:12→19:51)
[2016-12-16] MEDS: amLODIPine TAB* 5 MG PO SCH (08:13)
[2016-12-16] MEDS: Citalopram TAB* 20 MG PO SCH (08:13)
[2016-12-16] MEDS: LORazepam TAB(*) 0.5 MG PO SCH ×2 (08:13→19:51)
--- NOTE | 2016-12-16 14:09 | PN ---
Subjective Date of Service: 12/16/16 Interval History: Patient seen and examined at bedside. Patient is pleased her sodium level has improved. The patient states she has changed her mind and now does not want to go to [facility]. She states is walking the entire floor with her walker. She does not want to go there because she feels she will not move enough while she is there. Family History: Unchanged from Admission Social History: Unchanged from Admission Past Medical History: Unchanged from Admission Objective Active Medications: Acetaminophen (Tylenol Tab*) 650 mg PO Q4H PRN Amlodipine Besylate (Norvasc Tab*) 5 mg PO DAILY [facility] Aspirin (Aspirin Ec Low Dose*) 81 mg PO DAILY [facility] Atorvastatin Calcium (Lipitor*) 20 mg PO DAILY [facility] Bisacodyl (Dulcolax Supp*) 10 mg TN DAILY PRN Citalopram Hydrobromide (Celexa Tab*) 20 mg PO DAILY [facility] Docusate Sodium (Colace Cap*) 100 mg PO DAILY PRN Fluticasone/Vilanterol (Breo Ellipta Mdi 100/25(Nf)) 1 puff INH DAILY@2000 [facility] Latanoprost (Xalatan 0.005%*) 1 drop BOTH EYES QPM [facility] Levalbuterol HCl (Xopenex Hfa Inhaler*) 2 puff INH Q4HR PRN Lorazepam (Ativan Tab(*)) 0.5 mg PO BID [facility] Morphine Sulfate (Morphine Oral Concentrate*) 2.5 mg PO Q6H PRN Omeprazole (Prilosec Cap*) 20 mg PO DAILY@0730 [facility] Ondansetron HCl (Zofran Inj*) 4 mg IV Q6H PRN Polyethylene Glycol/Electrolytes (Miralax*) 17 gm PO DAILY PRN Senna (Senokot Tab*) 1 tab PO BEDTIME PRN Sodium Biphosphate/Sodium Phosphate (Fleet Enema*) 1 bottle TN DAILY PRN Sodium Chloride (Sodium Chloride Tab*) 1 gm PO TID [facility] 12/16/16 11:48 Temperature 98.0 F Pulse Rate 71 Respiratory 16 Rate Blood Pressure 119/48 (mmHg) O2 Sat by Pulse 98 Oximetry Oxygen Devices in Use Now: None Appearance: sitting up in bed, NAD Eyes: No Scleral Icterus, PERRLA Ears/Nose/Mouth/Throat: NL Teeth, Lips, Gums Neck: NL Appearance and Movements; NL JVP Respiratory: Symmetrical Chest Expansion and Respiratory Effort, Clear to Auscultation Cardiovascular: NL Sounds; No Murmurs; No JVD Abdominal: NL Sounds; No Tenderness; No Distention Extremities: No Edema Skin: No Rash or Ulcers Neurological: Alert and Oriented x 3 Lines/Tubes/Other Access: Clean, Dry and Intact Peripheral IV Nutrition: Taking PO's Result Diagrams: 12/12/16 05:30 12/16/16 05:05 Additional Lab and Data: . Assess/Plan/Problems-Billing Assessment: Ms. 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 - Patient Problems (1) Hyponatremia Comment: Sodium to 124 today. Most likely SIADH. Continue salt tabs at TID dosing. SIADH could be related to citalopram, patient reports only starting this medication recently and having the dose increased in the past 2 weeks. Plan to titrate down to 20mg and then discontinue over the next few days. (2) Constipation Comment: Last BM 12/15. Continue stool softeners and PRN enema. (3) Dizziness Comment: Resolved; Appreciate neuro consult. No evidence of stroke on MRI brain. Could have been BPPV or labrynthitis. (4) Hypertensive urgency Comment: Resolved; Continue amlodipine. (5) Altered mental status Comment: Patient described as acting oddly prior to admission by family: Wandering around the house, opening doors, sleeping in a guest bedroom, making odd statements. There is no evidence of infection. This could be related to dehydration, low sodium, occult seizures. EEG negative, MRI negative. Could be inapproriate use of medications? (6) Syncope Comment: At least two syncopal episodes described by patient; Echo essentially normal with no significant wall motion or valvular abnormalities. No evidence of arrhythmia on telemetry. (7) History of CVA (cerebrovascular accident) Comment: Hx of embolic stroke earlier this year. No longer on anticoagulation due to suspected GI bleed and rectus sheath hematoma. (8) COPD (chronic obstructive pulmonary disease) Comment: No evidence of exacerbation. (9) DVT prophylaxis Comment: SCD's. (10) DNR (do not resuscitate) Status and Disposition: Inpatient with expected LOS > 2 days. Patient offered a bed at [facility] but is now not sure she wants to go. She wants to be at her home. RICH working with VNS and family specifically for support with medication safety.
[2016-12-16] MEDS ORDERED: Morphine ORAL CONCENTRATE* 5 MG/0.25 ML ORAL.SYRIN PO PRN (15:23)
[2016-12-16] MEDS: Latanoprost 0.005%* 2.5 ml BTL BOTH EYES SCH (18:22)
[2016-12-16] MEDS: VILANTEROL MDI INH SCH (20:09)
[2016-12-16] MEDS: MDI INH SCH (20:09)
[2016-12-16] MEDS: FLUTICASONE INH SCH (20:09)
[2016-12-17 06:38] LABS: Hematocrit 30 % (35-47); Hemoglobin 9.9 g/dl (12.0-16.0); Mean Corpuscular HGB Conc 33 g/dl (31-36); Mean Corpuscular Hemoglobin 29 pg (27-31); Mean Corpuscular Volume 86 fL (80-97); Mean Platelet Volume 8 um3 (7.4-10.4); Red Blood Count 3.48 10^6/ul (4.0-5.4); Red Cell Distribution Width 15 % (10.5-15); White Blood Count 10.4 10^3/ul (3.5-10.8)
[2016-12-17 06:57] LABS: BUN/Creatinine Ratio 29.2 (8-20); Blood Urea Nitrogen 19 mg/dL (6-24); CO2 Carbon Dioxide 34 mmol/L (22-32); Calcium 9.1 mg/dL (8.6-10.3); Chloride 92 mmol/L (101-111); EGFR African American 111.1 (>60); EGFR Non-African American 86.4 (>60); Glucose 93 mg/dL (70-100); Potassium 4.3 mmol/L (3.5-5.0); Sodium 125 mmol/L (133-145)
[2016-12-17] MEDS: Sodium Chloride TAB* 1 GM PO SCH (08:08)
[2016-12-17] MEDS: Citalopram TAB* 20 MG PO SCH (08:09)
[2016-12-17] MEDS: Atorvastatin* 20 MG TAB PO SCH (08:09)
[2016-12-17] MEDS: Aspirin EC Low Dose* 81 MG TAB.EC PO SCH (08:09)
[2016-12-17] MEDS: LORazepam TAB(*) 0.5 MG PO SCH (08:10)
[2016-12-17] MEDS: amLODIPine TAB* 5 MG PO SCH ×2 (08:10→08:11)
[2016-12-17] MEDS: Omeprazole CAP* 20 MG PO SCH (08:10)
[2016-12-17 08:12] VITALS: BP 141/54
[2016-12-17] MEDS: Levalbuterol HFA INHALER* 1 PUFF MDI INH PRN (09:55)
[2016-12-17] MEDS: Polyethylene Glycol 3350* 17 GM PACKET PO PRN (10:02)
[2016-12-17] MEDS: Docusate CAP* 100 MG PO PRN (10:02)
--- NOTE | 2016-12-17 10:45 | PN ---
Subjective Date of Service: 12/17/16 Interval History: Patient seen and examined at bedside. Patient had good night's sleep and states she is ready to go home. She states it has been multiple days since a BM but nursing state she had one yesterday. Family History: Unchanged from Admission Social History: Unchanged from Admission Past Medical History: Unchanged from Admission Objective Active Medications: Acetaminophen (Tylenol Tab*) 650 mg PO Q4H PRN Amlodipine Besylate (Norvasc Tab*) 5 mg PO DAILY [facility] Aspirin (Aspirin Ec Low Dose*) 81 mg PO DAILY [facility] Atorvastatin Calcium (Lipitor*) 20 mg PO DAILY [facility] Bisacodyl (Dulcolax Supp*) 10 mg ID DAILY PRN Citalopram Hydrobromide (Celexa Tab*) 20 mg PO DAILY [facility] Docusate Sodium (Colace Cap*) 100 mg PO DAILY PRN Fluticasone/Vilanterol (Breo Ellipta Mdi 100/25(Nf)) 1 puff INH DAILY@2000 [facility] Latanoprost (Xalatan 0.005%*) 1 drop BOTH EYES QPM [facility] Levalbuterol HCl (Xopenex Hfa Inhaler*) 2 puff INH Q4HR PRN Lorazepam (Ativan Tab(*)) 0.5 mg PO BID [facility] Morphine Sulfate (Morphine Oral Concentrate*) 5 mg PO Q6H PRN Omeprazole (Prilosec Cap*) 20 mg PO DAILY@0730 [facility] Ondansetron HCl (Zofran Inj*) 4 mg IV Q6H PRN Polyethylene Glycol/Electrolytes (Miralax*) 17 gm PO DAILY PRN Senna (Senokot Tab*) 1 tab PO BEDTIME PRN Sodium Biphosphate/Sodium Phosphate (Fleet Enema*) 1 bottle ID DAILY PRN Sodium Chloride (Sodium Chloride Tab*) 1 gm PO TID [facility] Vital Signs 12/16/16 12/16/16 12/16/16 11:48 15:16 18:57 Temperature 98.0 F 98.1 F 99.3 F Pulse Rate 71 78 79 Respiratory 16 22 16 Rate Blood Pressure 119/48 162/49 144/49 (mmHg) O2 Sat by Pulse 98 94 97 Oximetry 12/16/16 12/16/16 12/16/16 19:51 20:00 20:21 Temperature Pulse Rate Respiratory 16 16 16 Rate Blood Pressure (mmHg) O2 Sat by Pulse Oximetry 12/16/16 12/16/16 12/17/16 22:21 23:33 03:28 Temperature 98.3 F 98.0 F Pulse Rate 77 67 Respiratory 18 16 20 Rate Blood Pressure 127/52 141/56 (mmHg) O2 Sat by Pulse 100 100 Oximetry 12/17/16 12/17/16 12/17/16 07:51 08:00 08:10 Temperature 98.4 F Pulse Rate 81 Respiratory 20 19 20 Rate Blood Pressure 141/54 (mmHg) O2 Sat by Pulse 96 Oximetry Oxygen Devices in Use Now: None Appearance: sitting up in chair, NAD Eyes: No Scleral Icterus, PERRLA Ears/Nose/Mouth/Throat: NL Teeth, Lips, Gums Neck: NL Appearance and Movements; NL JVP Respiratory: Symmetrical Chest Expansion and Respiratory Effort, Clear to Auscultation Cardiovascular: NL Sounds; No Murmurs; No JVD, RRR Abdominal: NL Sounds; No Tenderness; No Distention Extremities: No Edema Skin: No Rash or Ulcers Neurological: Alert and Oriented x 3, NL Muscle Strength and Tone Lines/Tubes/Other Access: Clean, Dry and Intact Peripheral IV Nutrition: Taking PO's Result Diagrams: 12/17/16 05:47 12/17/16 05:48 Additional Lab and Data: . Assess/Plan/Problems-Billing Assessment: Ms. 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 - Patient Problems (1) Hyponatremia (2) Constipation (3) Dizziness (4) Hypertensive urgency (5) Altered mental status (6) Syncope (7) History of CVA (cerebrovascular accident) (8) COPD (chronic obstructive pulmonary disease) Comment: No evidence of exacerbation. (9) DVT prophylaxis (10) DNR (do not resuscitate) Status and Disposition: Inpatient with expected LOS > 2 days. Stable to be discharged home with VNS and additional help at home for medication safety.
--- NOTE | 2016-12-18 12:42 | DS ---
CC: Dr. Alissa Lopez; Dr. Garcia * DISCHARGE SUMMARY: DATE OF ADMISSION: 12/11/16 DATE OF DISCHARGE: 12/17/16 ATTENDING PHYSICIAN: Dr. Kathie Covarrubias * (report dictated by Sharonda Carty NP). PRIMARY CARE PROVIDER: Dr. Maulik Garcia. CONSULTATIONS WHILE IN THE HOSPITAL: Dr. Alissa Lopez, Neurology. PRIMARY DIAGNOSES: 1. Altered mental status secondary to hyponatremia. 2. Hypertensive urgency. 3. Syncope. 4. Dizziness. SECONDARY DIAGNOSES: 1. Depression. 2. Insomnia. 3. Hyperlipidemia. 4. Suspected goiter. STUDIES WHILE IN THE HOSPITAL: 1. CT of brain without contrast, 12/11/16, mild cortical atrophy with mild chronic marked thoracic ischemic change, no acute findings. 2. On 12/11/16, chest x-ray PA and lateral, hyperinflation consistent with COPD , no active cardiopulmonary disease. 3. CT of spine, lumbar without contrast, 12/11/16, multilevel osteoarthritic change, no acute findings. 4. On 12/11/16, CT spine thoracic without contrast, no acute CT findings, suspected goiter. 5. On 12/11/16, CT spine cervical without contrast, moderate osteoarthritic changes, no acute finding. 6. Transthoracic echocardiogram, 12/11/16, mild concentric left ventricular hypertrophy is observed. The estimated ejection fraction is 60% to 65%. Abnormal left ventricular diastolic function is observed. The left atrium is moderately dilated. There is mild aortic regurgitation. There is trace to mild mitral regurgitation. There is moderate tricuspid regurgitation. There is moderate pulmonic regurgitation. No bubble study performed. 7. On 12/12/16, MRI of the brain without contrast, limited study. 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 Scattered nonspecific white matter changes. 8. On 12/12/16, MRI of thoracic spine with and without contrast, limited study. Degenerative disk disease and osteoarthritis. No significant neural foraminal narrowing or central canal stenosis. No appreciable abnormal enhancement. MEDICATIONS AT THE TIME OF DISCHARGE: New medications: 1. Colace 100 mg oral daily as needed. 2. MiraLAX 17 g oral daily as needed. 3. Senna 1 tablet oral at bedtime as needed. 4. Sodium chloride 1 g oral 3 times daily. 4. Norvasc 5 mg oral daily. Changed medications: 1. Morphine 7.5 mg oral at bedtime as needed. 2. Celexa 20 mg oral daily for 1 week, then 10 mg oral daily for 1 week, then stop. Following are the medications patient came in on: 1. Ativan 0.5 mg oral twice daily. 2. Lipitor 20 mg oral daily. 3. Xopenex 2 puffs inhaled every 4 hours as needed. 4. Breo Ellipta MDI 100/25, 1 puff inhaled daily. 5. Aspirin 81 mg oral daily. 6. Xalatan 1 drop left eye every evening. 7. Prilosec 20 mg oral daily. HISTORY OF PRESENT ILLNESS AND HOSPITAL COURSE: Ms. 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 In the emergency room, patient was found to have significantly elevated blood pressure as well as a sodium of 124 and dizziness. The patient was admitted to the intensive care unit for the hypertensive urgency. The patient's blood pressure was controlled with labetalol, gradually she was transitioned to Norvasc 5 mg, which has provided a great control for her blood pressure. She will be discharged on this medication. Upon admission, the patient reported 2 episodes of syncope. She was monitored on telemetry and had a repeat echocardiogram that did not show any acute changes. In addition, she was reporting dizziness. There was consultation obtained from Dr. Lopez given her history of a recent stroke. Please refer to Dr. Lopez's dictation for detail. Aspirin was continued. MRI did not see evidence of any acute stroke. An EEG was essentially normal. Neurology felt that the altered mental status is possibly due to dehydration and TIA was also on the differential. In addition, the patient was taking a significant amount of morphine as well as Ativan and this also could have been a cause. Gradually, the patient's dizziness resolved and the patient's mental status returned to normal. It appears that there was a combination of factors that was causing the altered mental status including the ones I have mentioned above. The patient does live alone and there is a question as to whether the patient was using her benzodiazepines and/or morphine appropriately. The patient's sodium continued to drop to 118. 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 She had recently been started on this dose and it was increased. Celexa was cut back down to 20 mg and the patient was placed on salt tablets as well as an aggressive fluid restriction. With these measures, the patient's sodium significantly improved and on the day of discharge, the patient's sodium was up to 125. The patient will continue on this regimen with labs drawn every 3 days to ensure that her sodium continued to normalize. The patient continued to struggle with insomnia during the hospitalization. Morphine was added back at a lower dose and this was slowly titrated up. She will be discharged on a dose of 7.5 mg at bedtime to help with both her pain and sleep. The patient was seen by Physical Therapy and Occupational Therapy and deemed appropriate to be discharged home. There was concern about her ability to administer her medications herself. For this reason, family will be staying with her until they can hire help to come into the house to help her with her medications. On 12/17/16, vitals were as follows: Temperature 98.4, heart rate 81, respiratory rate 20, blood pressure 141/51, oxygen saturation 96%. At this point, she was stable for discharge. DISCHARGE PLANNING: She was discharged on a regular diet. The patient is to have activity as tolerated. The patient will follow up with Dr. Garcia within 7 to 10 days. The patient will have her basic metabolic panel initially checked on Thursday and every 3 days thereafter through VNS home draws. Dr. Garcia's office will follow up on these lab draws. As the patient's sodium continues to improve, the salt tabs should be titrated down. The patient should return to the hospital if she experiences any worsening shortness of breath or altered mental status or any further syncopal episodes. I reviewed all these instructions with the patient and her son and they are agreeable with her discharge today. This is a summarized report of a complex medical history and hospital stay. For more details, please see the entire medical record. TIME SPENT: Time for discharge was 60 minutes and 35 minutes were spent with the patient and her son discussing medication at discharge and followup instructions. CONDITION ON DISCHARGE: Stable. SHARONDA CARTY NP [id number]/[facility] #: [id number] SHANNON
== END 2016-12-17 13:40 | disposition home health service (06) | DRG 304 ==
LOC: ED 13:51 → ICU 19:05 → MED 12-13 14:11
PROVIDERS: ADMIT Hospitalist; ATTEND Internal Medicine
PROC: 4A00X4Z Measurement of Central Nervous Electrical Activity, External Approach (ICD-10-PCS; principal; 2016-12-13)
DX: I16.0 Hypertensive urgency (principal); I62.03 Nontraumatic chronic subdural hemorrhage; I50.32 Chronic diastolic (congestive) heart failure; E22.2 Syndrome of inappropriate secretion of antidiuretic hormone; E83.42 Hypomagnesemia; I08.3 Combined rheumatic disorders of mitral, aortic and tricuspid valves; J44.9 Chronic obstructive pulmonary disease, unspecified; E86.0 Dehydration; I48.0 Paroxysmal atrial fibrillation; F32.9 Major depressive disorder, single episode, unspecified; E78.5 Hyperlipidemia, unspecified; M10.9 Gout, unspecified; R40.2412 Glasgow coma scale score 13-15, at arrival to emergency department; I11.0 Hypertensive heart disease with heart failure; G47.00 Insomnia, unspecified; R42 Dizziness and giddiness; D18.1 Lymphangioma, any site; M47.9 Spondylosis, unspecified; R63.4 Abnormal weight loss; E04.9 Nontoxic goiter, unspecified; K59.00 Constipation, unspecified; H53.8 Other visual disturbances; R63.0 Anorexia; R20.0 Anesthesia of skin; F41.9 Anxiety disorder, unspecified; Z85.828 Personal history of other malignant neoplasm of skin; Z88.8 Allergy status to other drugs, medicaments and biological substances; Z88.1 Allergy status to other antibiotic agents; Z91.030 Bee allergy status; Z91.040 Latex allergy status; Z91.013 Allergy to seafood; Z98.42 Cataract extraction status, left eye; Z98.41 Cataract extraction status, right eye; Z90.710 Acquired absence of both cervix and uterus; Z87.891 Personal history of nicotine dependence; Z86.73 Personal history of transient ischemic attack (TIA), and cerebral infarction without residual deficits; Z82.3 Family history of stroke; Z80.49 Family history of malignant neoplasm of other genital organs; Z82.5 Family history of asthma and other chronic lower respiratory diseases; Z79.82 Long term (current) use of aspirin; Z68.21 Body mass index [BMI] 21.0-21.9, adult
CPT/HCPCS: 36415; 70450; 70551; 71020; 72125; 72128; 72131; 72157; 80048; 80053; 81003; 81015; 82533; 82550; 82607; 82746; 83605; 83735; 83880; 83935; 84300; 84443; 84484; 85025; 86140; 87040; 87641; 93005; 93306; 94760; 95816; A9270-GY; A9579; J2405; J3475

== ENCOUNTER 2017-05-07 12:32 | Inpatient (IN) | payer MEDICARE ==
[2017-05-07] MEDS ORDERED: NS 0.9% 1000 ML* 1,000 ML IV ONE (12:37)
--- OUTSIDE RECORDS SUMMARY | 2017-05-07 12:43 | XMS REPORT ---
:1930 External Reference #:[id number] Author Organization [facility] Address [address] [address] Phone [phone] Care Team Providers Name Role Phone Maulik Garcia MD Care Team Information Geography Head Unavailable Maulik Garcia MD Primary Care Physician Unavailable Payers Type Date Identification Numbers Payment Provider Subscriber Medicare Primary Policy Number: [id number] Medicare Elsie E Ozzy PayID: [id number] [address] [place] [address] [facility] Part B Policy Number: [id number] [facility] Elsie E Michaelанна PayID: [id number] [address] [place] [address] Problems Date Description Provider Status Onset: 05/22/2016 Chronic obstructive lung disease Danielle Chung MD Active Family History Date Family Member(s) Problem(s) Comments General Ruptured aneurysm Brother General Liver disease sister Father Cerebrovascular Accident (CVA) Mother Cervical Cancer Siblings 2 Siblings Sister w/liver issues Brother aneurysm Social History Type Date Description Comments Marital Status Lives With Alone 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 Cigarette Use Former Cigarette Smoker Cigarette Use Quit 50 years ago, as of 05/22/16 ETOH Use Denies alcohol use ETOH Use consumed 1-2 glasses of wine per day Smoking Patient is a former smoker in college, quit in 1966 Recreational Drug Use Denies Drug Use Smoking Second hand smoke smoked for 31 years Daily Caffeine Consumes on average 1 cup of regular coffee per day Exercise Type/Frequency Exercises regularly walking 6-9 minutes laps Allergies, Adverse Reactions, Alerts Date Description Reaction Status Severity Comments 05/20/2016 Bee Sting active 05/20/2016 Augmentin active 05/20/2016 Indomethacin active 05/20/2016 Prednisone active 05/20/2016 Shellfish-derived Products active Medications Medication Date Status Form Strength Qnty SIG Indications Ordering Provider Spiriva 04/27/ Active Aerosol 2.5mcg/Act 12gm 1 puff J44.9 Sharonda S. Respimat 2018 inhaled Foster, daily N.P. Breo Ellipta 06/02/ Active Aerosol 100-25mcg/ 60unit 1 puff Danielle 2017 Inh s inhaled Juliet, daily Oxygen 05/21/ Active as Unknown 2016 directed/n eeded about 8 pm, over night Xopenex HFA / Active Aerosol 45mcg/Act inhale two Unknown 0000 puffs by mouth every four hours as needed Epipen 2-Mayank / Active Solution 0.3mg/0.3M use as Unknown 0000 Auto-Inject L directed Aspirin / Active Tablets DR 81mg 1 by mouth Unknown 0000 every day Omeprazole / Active Capsules DR 20mg 1 by mouth Unknown 0000 bid Citalopram / Active Tablets 10mg 1 po daily Breiman, Hydrobromide 0000 in esther Willingham MD to 20mg tab Lorazepam / Active Tablets 0.5mg 1-2 Tab PO Darlow, 0000 bid Christopher De Leon MD Atorvastatin 05/21/ Hx Tablets 40mg 1 by mouth Unknown Calcium 2017 - every day 2017 Align 05/21/ Hx Capsules 4mg 30caps 1 by mouth Danielle Probiotic 2017 - every day Juliet 11/19/ MD Mathias Albuterol 05/21/ Hx Nebulizer (2.5mg/3ML 1 vial via Unknown Sulfate 2016 - ) 0.083% nebulizer 04/27/ 4 times 2018 daily as needed (states has not needed) Miralax / Hx Powder [id number] 17 gm Unknown 0000 - every day 04/27/ mixed / 2017 oz water/juic e prn Ondansetron / Hx Tablets 4mg one to two Unknown HCL 0000 - tabs by 05/21/ mouth 2016 every 4-6 hours as needed for nausea Dulera / Hx Aerosol 100-5mcg/A 1-2 puff Unknown 0000 - ct twice a day 2016 Centrum Silver / Hx Tablets 1 by mouth Unknown 0000 - every day 2017 Restoril / Hx Capsules 15mg 1-2 caps Unknown 0000 - po as needed for 2016 sleep Citalopram / Hx Tablets 20mg 1 po daily Breiman, Hydrobromide 0000 - in Maulik, 04/26/ addition 2018 to 10mg tab Morphine / Hx Tablets 15mg 1 po in Unknown Sulfate 0000 - evening 2017 Medications Administered in Office Medication Date Status Form Strength Qnty SIG Indications Ordering Provider Inj, Administered Injection Surjit Bose Regadenoson, 013 Scott Membreno 0.1 MG Technetium TC Administered Injection Surjit Bose 99M 013 Scott Membreno Tetrofosmin, Per Unit Dose Up To 40 Millicuries Vital Signs Date Vital Result Comment 04/27/2017 Height 61 inches 5'1" Weight 124.00 lb with shoes Heart Rate 66 /min BP Systolic Sitting 138 mmHg Lue reg cuff BP Diastolic Sitting 76 mmHg Lue reg cuff Respiratory Rate 30 /min O2 % BldC Oximetry 94 % On Ra BMI (Body Mass Index) 23.4 kg/m2 11/20/2016 Height 61 inches 5'1" Weight 116.00 lb Heart Rate 56 /min BP Systolic Sitting 104 mmHg BP Diastolic Sitting 64 mmHg Respiratory Rate 24 /min Pain Level 0 O2 % BldC Oximetry 95 % BMI (Body Mass Index) 21.9 kg/m2 05/28/2016 Height 61 inches 5'1" Weight 120.00 lb Heart Rate 76 /min BP Systolic Sitting 158 mmHg Lue reg cuff BP Diastolic Sitting 90 mmHg Lue reg cuff BP Systolic Standing 166 mmHg Lue BP Diastolic Standing 92 mmHg Lue Respiratory Rate 14 /min BMI (Body Mass Index) 22.7 kg/m2 Ejection Fraction 65% 04/18/16 05/22/2016 Height 61 inches 5'1" Weight 118.00 lb Heart Rate 81 /min BP Systolic Sitting 136 mmHg BP Diastolic Sitting 78 mmHg Respiratory Rate 16 /min O2 % BldC Oximetry 95 % BMI (Body Mass Index) 22.3 kg/m2 Results Description No Information Procedures Date CPT Code Description Status 03/16/2017 08300 ECHO Transthoracic, Real-Time 2D With Doppler And Color Completed Flow 03/16/2017 09536 ECHO Transthoracic, Real-Time 2D With Doppler And Color Completed Flow 12/12/2016 17395 EEG Recording Awake & Drowsy Completed 12/12/2016 02882 ECHO Transthorasic Realtime 2D W Doppler & Color Completed Flow Hosp 06/09/2016 76944 Diffusing Capacity Completed 06/09/2016 16797 Plethysmography Determination Lung Volumes & Per Completed Airway Resist 06/09/2016 00795 Pulmonary Stress Test Simple Completed 06/09/2016 71842 Pulmonary Function><Bronchodil Completed 05/28/2016 13358 EKG Tracing & Interpretation Completed 04/19/2016 25241 Endo-Trachial Tube Completed 04/18/2016 89932 ECHO Transthorasic Realtime 2D W Doppler & Color Completed [facility] 04/18/2016 17525 EKG, Interpretation Only Completed 12/15/2013 20065 ECHO Transthorasic Realtime 2D W Doppler & Color Completed [facility] 01/19/2013 71562 Stress Test Completed 01/19/2013 57366 Myocardial Perfusion Imaging Tomographic (Spect) Completed Multiple Studies Encounters Type Date Location Provider CPT E/M Dx Office Visit 12/17/2016 7:00a [facility],lizabeth Meza, N.P. 82266 E22.2 Hospitalists R55 R41.0 I16.0 Office Visit 12/16/2016 7:00a [facility],lizabeth Meza, N.P. 74077 E22.2 Hospitalists R55 R41.0 I16.0 Office Visit 12/15/2016 6:59a [facility],lizabeth Meza, N.P. 81119 E22.2 Hospitalists R55 R41.0 I16.0 Office Visit 12/14/2016 9:21a [facility] Sherwin Ashraf 70996 Julianna Chavez R41.0 R63.0 Z86.73 Office Visit 12/14/2016 6:59a [facility],lizabeth Meza, N.P. 07401 R55 Hospitalists R41.0 I16.0 E22.2 Office Visit 12/13/2016 9:21a [facility] Corneliustia Andriy, 72164 R55 Scott R41.0 E87.1 Z86.73 Office Visit 12/13/2016 6:58a [facility], Donna Meza, N.P. 77321 E22.2 Hospitalists R55 R41.0 I16.0 Office Visit 12/12/2016 9:18a [facility] Alissa Lopez M.D. 20471 R55 R41.0 R63.0 E87.1 I10 Z86.73 Office Visit 12/12/2016 6:58a [facility], Donna Meza, N.P. 89575 R55 Hospitalists R42 R41.0 I16.0 Office Visit 12/11/2016 6:57a [facility], Donna Meza N.P. 48713 R55 Hospitalists R42 R41.0 I16.0 Office Visit 11/20/2016 1:00p [facility] [place] [address] J44.9 Services [facility] [employer] R53.83 R60.9 Office Visit 05/28/2016 2:40p [facility], 83052 R94.39 Business Continuity Planner DO FAC Office Visit 05/22/2016 1:45p [facility] [place] [address] J44.9 [facility] [employer] Z87.891 I50.9 Office Visit 05/07/2016 1:34p [facility], Pablo Stock, 49391 K92.2 Hospitalists Scott R65.10 S30.1xxA Office Visit 05/06/2016 1:34p [facility], Shirin Hughes, 42950 K92.2 Hospitalists Scott R65.10 S30.1xxA Office Visit 05/05/2016 1:33p [facility], Shirin Hughes, 66674 K92.2 Hospitalists Scott R65.10 S30.1xxA Office Visit 05/04/2016 1:33p [facility], Shirin Hughes, 98161 K92.2 Hospitalists Scott A41.9 S30.1xxA Office Visit 05/03/2016 1:32p [facility], Shirin Mckayhn, 39799 K92.2 Hospitalists Scott A41.9 S30.1xxA Office Visit 05/02/2016 1:32p [facility], Shirin Mckayhn, 81419 K92.2 Hospitalists Scott A41.9 S30.1xxA Office Visit 05/01/2016 1:31p [facility], Shirin Hughes, 36459 K92.2 Hospitalists Scott A41.9 S30.1xxA Office Visit 04/28/2016 3:18p [facility], [place] [address] J96.02 Hospitalists I21.4 G45.9 J44.1 E87.2 N17.9 Office Visit 04/27/2016 3:21p [facility] Shirin Ellen, 12345 J96.02 Assoc, Hospitalists Scott I21.4 N19 G45.9 Office Visit 04/26/2016 3:20p [facility] Shirin Ellen, 46981 J96.02 Assoc, Hospitalists MToya I21.4 N19 G45.9 Office Visit 04/25/2016 3:10p [facility] Shirin Ellen, 43930 J96.02 Assoc, Hospitalists MToya I21.4 G45.9 J18.9 E87.2 J44.1 N17.9 Office Visit 04/25/2016 4:32p [facility] [place] [address] J96.22 Services [facility] [employer] Continuity [employer] J44.1 N17.9 Office Visit 04/24/2016 3:20p [facility] Shirin Ellen, 91695 J96.02 Assoc, Hospitalists Scott I21.4 N19 G45.9 Office Visit 04/24/2016 4:32p [facility] [place] [address] J96.22 Services Of [employer] Continuity [employer] J44.1 N17.9 Office Visit 04/23/2016 2:04p [facility],pc Demond Toth M.D. 00892 J96.02 Hospitalists I21.4 N19 G45.9 Office Visit 04/23/2016 4:31p [facility] [place] [address] J96.02 [facility] J44.1 N17.9 Office Visit 04/22/2016 11:04a [facility],[place] [address] J96.02 Hospitalists I21.4 N19 G45.9 Office Visit 04/21/2016 11:01a [facility],lizabeth Toth M.D. 46522 J96.02 Hospitalists I21.4 N19 G45.9 Office Visit 04/20/2016 11:00a [facility],pc Demond Toth M.D. 16186 J96.01 Hospitalists I21.4 N19 Office Visit 04/19/2016 10:59a [facility],pc Demond Toth M.D. 99107 J96.01 Hospitalists I21.4 N19 Office Visit 04/19/2016 10:58a [facility],[place] [address] I21.4 Hospitalists J18.1 N19 J96.02 Office Visit 04/18/2016 4:29p [facility] [place] [address] I63.40 I48.91 Office Visit 04/18/2016 3:05p [facility] [place] [place] [address] I63.9 [facility] FACC I48.0 R79.89 N19 I51.7 Office Visit 04/18/2016 10:56a [facility],[place] [address] J18.1 Hospitalists N19 I21.4 G45.9 Office Visit 04/17/2016 10:55a [facility],pc Pablo Stock, 90457 J18.1 Hospitalists Scott N19 I21.4 G45.9 Office Visit 12/15/2013 1:51p [facility] [place], [address] 435.9 Assoc, Hospitalists Scott 401.9 272.4 Plan of Care Future Appointment(s):10/26/2017 1:45 pm - Danielle Chung MD at [facility]04/27/2017 - Danielle Chung MDJ44.9 Chronic obstructive pulmonary disease, unspecifiedNew Medication:Spiriva Respimat 2.5 mcg/ActComments:Continue Breo Ellipta and XopenexWe will check your oxygen levels while walking.Follow up:6 sfylacL07.83 Other [id number] Edema, unspecified
[2017-05-07] MEDS: Albuterol/Ipratropium NEB.SOL* Albuterol 2.5 MG/Ipratropium 0.5 MG 3 ML INH SCH ×2 (12:58→13:05)
--- NOTE | 2017-05-07 13:16 | RAD ---
INDICATION: Shortness of breath. COMPARISON: Comparison is made with a prior chest x-ray study from December 11, 2016. TECHNIQUE: A portable view of the chest was obtained. FINDINGS: The heart is mildly enlarged and unchanged from the prior exam. The lungs are slightly underinflated and clear. No pleural effusion is seen. IMPRESSION: NO EVIDENCE FOR ACUTE DISEASE.
[2017-05-07 13:36] LABS: ABS Basophils 0 10^3/ul (0-0.2); ABS Eosinophils 0.1 10^3/ul (0-0.6); ABS Lymphocytes 1.3 10^3/ul (1.0-4.8); ABS Monocytes 0.7 10^3/ul (0-0.8); ABS Neutrophils 4.3 10^3/ul (1.5-7.7); ABS Nucleated RBC 0 10^3/ul; Eosinophil % 1.5 % (0-6); Hematocrit 36 % (35-47); Lymphocyte % 19.7 % (25-47); Mean Corpuscular HGB Conc 33 g/dl (31-36); Mean Corpuscular Hemoglobin 28 pg (27-31); Mean Corpuscular Volume 86 fL (80-97); Mean Platelet Volume 9 um3 (7.4-10.4); Nucleated Red Blood Cells % 0; Platelet Count 216 10^3/ul (150-450); Red Blood Count 4.24 10^6/ul (4.0-5.4); Red Cell Distribution Width 15 % (10.5-15); White Blood Count 6.4 10^3/ul (3.5-10.8)
[2017-05-07] MEDS: LORazepam INJ* 2 MG/ML 1 ML VIAL IV PUSH PRN (15:16)
[2017-05-07] MEDS ORDERED: Albuterol 2.5 MG/3 ML NEB.SOL* (0.083%) INH PRN (15:35)
--- NOTE | 2017-05-07 15:46 | HP ---
H&P (Free Text) History and Physical: CRITICAL CARE MEDICINE DATE: 05/07/17 TIME: 1445 GLUE JOINTER OPERATOR: Juliet REFERRING PROVIDER: Neville REASON/CHIEF COMPLAINT: sob HISTORY OF PRESENT ILLNESS: 86 yo with copd, just recently started on 24/7 O2 after previously only on night O2, who had started with more sob this week and today felt like she couldn't even care for herself any more. Saw pulm, who sent to ED. Bipap order in ED and pt flu swab pos for influenza B. Pt states she had a cough and production, but now unable to produce phlegm. started cefuraxime this week withjout improved sx. receive flu shot. REVIEW OF SYSTEMS: As per HPI. PAST MEDICAL HISTORY: As per HPI. 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 ALLERGIES: Reviewed. SOCIAL HISTORY: Reviewed. FAMILY HISTORY: Noncontributory at present. PHYSICAL EXAM: elderly appearaing. Vital Signs: Reviewed. Neurologic: awake, communicating; conversational dyspnea HEENT: anicteric, non injected sclera. mmm. Cardiovascular: tracey, S1, S2 Respiratory: dec bs bl; no real appreciable wheeze, but force exhalation present. Abdomen: soft, nt Extremities: warm Access: piv LABS: Reviewed. IMAGING: Reviewed. cxr - copd, no infiltrate. MEDICATIONS: Reviewed. ASSESSMENT: 86 F Acute on chronic hypercapnic resp failure Influenza B pna copd exac anxiety PLAN: Neurologic: utilize prn ativan as she declines morphine. Cardiovascular: perfusing. vol status ok and no need for fluids. bp up and hopefully can calm post improved respirations and anxiolytics. if not can use prns and resume her toprol. Respiratory: copd exac. try bipap for an hour or 2 if she can get comfortable with. then allow time off with O2 support and consider nocturnal use tonight. Just needs some support to avoid fatigue as she works through this exacerbation. No infiltrate and avoid lung injury. Gastrointestinal: po later. outpt ppi Renal/Metabolic: stable and HCO3 up chronically but avoid further contraction with steroids. follow Infectious Disease: start tamiflu dosed for her gfr; was on cefuraxime and can hold off on abx at this time but consider needs for anti-inflammatory Hematology: stable. lovenox Endocrine: steroid pulse and taper. Musculoskeletal: oob as able and avoid deconditioning. Psych/Social: d/w pt and her daughter. Agree upon plans. DNR, trail intubation. Supportive and preventative care as ordered. Vaccine: up to date SUP: ppi VTE prophylaxis: lovenox Disposition: ICU Code Status: DNR, trial i Critical Care Time: 45min Jignesh Stein DO
[2017-05-07] MEDS ORDERED: Albuterol 2.5 MG/3 ML NEB.SOL* (0.083%) INH SCH (16:00)
[2017-05-07] MEDS: Oseltamivir CAP* 30 MG CAP PO SCH ×2 (16:36→20:50)
[2017-05-07] MEDS: methylPREDNISolone SOD 40 MG* 1 ML VIAL IV SCH (16:36)
[2017-05-07] MEDS: Fluticasone/Vilanterol MDI(NF) 100/25 MDI INH SCH (20:37)
[2017-05-07] MEDS: Levalbuterol 1.25MG/0.5ML NEB INH SCH (20:38)
[2017-05-07] MEDS: LORazepam TAB(*) 0.5 MG PO PRN (20:51)
[2017-05-07] MEDS: traZODone TAB* 50 MG TAB PO PRN (20:54)
[2017-05-07 22:04] LABS: Urine Appearance Clear; Urine Blood Negative (Negative); Urine Color Yellow; Urine Ketones Negative (Negative); Urine Protein 2+(100 mg/dL) (Negative); Urine Urobilinogen Negative (Negative)
[2017-05-07] MEDS: hydrALAZINE IV* 20 MG/ML VIAL IV SLOW PU PRN (22:22)
[2017-05-07] MEDS ORDERED: Labetalol IV* 5 MG/ML 20 ML VIAL IV PUSH ONE (23:05)
[2017-05-07] MEDS: amLODIPine TAB* 5 MG PO SCH (23:35)
[2017-05-08] MEDS: methylPREDNISolone SOD 40 MG* 1 ML VIAL IV SCH ×3 (00:15→16:55)
[2017-05-08] MEDS: Levalbuterol 1.25MG/0.5ML NEB INH SCH ×4 (01:05→20:04)
[2017-05-08] MEDS: LORazepam INJ* 2 MG/ML 1 ML VIAL IV PUSH PRN (03:42)
[2017-05-08] MEDS: Tiotropium CAP.INH* CAP.INH/18 MCG (USE ORDER SET !) INH SCH (07:38)
[2017-05-08] MEDS: Aspirin EC Low Dose* 81 MG TAB.EC PO SCH (07:54)
[2017-05-08] MEDS: amLODIPine TAB* 5 MG PO SCH ×2 (07:54→12:57)
[2017-05-08] MEDS: Metoprolol Succinate XL TAB* 25 MG PO SCH (07:54)
[2017-05-08] MEDS: Omeprazole CAP* 20 MG PO SCH (07:54)
[2017-05-08] MEDS: hydrALAZINE IV* 20 MG/ML VIAL IV SLOW PU PRN (07:56)
[2017-05-08] MEDS: Oseltamivir CAP* 30 MG CAP PO SCH ×2 (09:00→20:41)
[2017-05-08] MEDS ORDERED: Spiriva Inhaler DEVICE* 1 EACH DEVICE INH ONE (09:00)
--- NOTE | 2017-05-08 12:05 | PN ---
Progress Note - Progress Note Date of Service: 05/08/17 Note: CRITICAL CARE MEDICINE DATE: 05/08/17 TIME: 900 SUBJECTIVE: Patient seen and examined. daughter at bedside. dec sleep due to alarms etc. feels ok. eating PHYSICAL EXAM: Vital Signs: Reviewed. Neurologic: awake, communicating; conversational dyspnea less HEENT: anicteric, non injected sclera. mmm. Cardiovascular: reg, S1, S2 Respiratory: dec bs bl; no wheeze, but force exhalation still present. Abdomen: soft, nt Extremities: warm Access: piv LABS: Reviewed. IMAGING: Reviewed. MEDICATIONS: Reviewed. ASSESSMENT: 86 F Acute on chronic hypercapnic resp failure Influenza B pna copd exac anxiety PLAN: doing ok. equilibrating towards her usual resp pattern with 2L O2 but tachypnea that is comfortable and closer again to her outpt needs. Needs to overcome flu trigeer now and stay on steroids and nebs at present. copd adjunctives. O2 re-assessment. po. oob. continue tamiflu. No abx needs at present. take it slow give poor reserve. See how she can equilibrate over the weekend to ensure no rescue therapy needs. Pulm f/u as needed. ok for floor. daughter who is very involved is leaving town and is to be back on Thursday. Supportive and preventative care as ordered. Vaccine: up to date SUP: pp VTE prophylaxis: lovenox Disposition: ICU Code Status: DNR, trial i Critical Care Time: 25min Jignesh Stein DO
[2017-05-08] MEDS: Fluticasone/Vilanterol MDI(NF) 100/25 MDI INH SCH (13:01)
[2017-05-08] MEDS: MDI INH SCH (20:05)
[2017-05-08] MEDS: FLUTICASONE INH SCH (20:05)
[2017-05-08] MEDS: VILANTEROL MDI INH SCH (20:05)
[2017-05-08] MEDS: LORazepam TAB(*) 0.5 MG PO PRN (20:41)
[2017-05-08] MEDS: traZODone TAB* 50 MG TAB PO PRN (22:15)
[2017-05-09] MEDS: Levalbuterol 1.25MG/0.5ML NEB INH SCH ×4 (01:16→19:55)
--- NOTE | 2017-05-09 08:35 | ED ---
Maxim Mistry Thomas, scribed for Froilan Lozada MD on 05/07/17 at 1252 . Shortness of Breath - HPI Summary HPI Summary: The patient is an 86 year old female with a history of COPD referred from Dr. Wilder office with shortness of breath and low oxygen saturation that is worsening despite antibiotics and Duoneb. She additionally complains of chills, a cough with yellow production, and left-sided chest tightness. She denies fever. The patient is on Cefuroxime 500mg BID. The patient is on PRN oxygen. - History of Current Complaint Chief Complaint: EDShortnessOfBreath Time Seen by Provider: 05/07/17 12:37 Hx Obtained From: Patient Onset/Duration: Still Present Timing: Constant Current Severity: Moderate Dyspnea At: Rest Aggrevating Factors: Nothing Alleviating Factors: Nothing Associated Signs & Symptoms: Cough (Productive) - yellow, Chills - Allergy/Home Medications Allergies/Adverse Reactions: Allergies Allergy/AdvReac Type Severity Reaction Status Date / Time bee venom protein (honey bee) Allergy Severe Anaphylatic Verified 05/07/17 15:39 Shock latex Allergy Intermediate See Comment Verified 05/07/17 15:40 amoxicillin Allergy Mild Vomiting Verified 05/07/17 15:41 clavulanic acid Allergy Mild Vomiting Verified 05/07/17 15:41 indomethacin Allergy See Comment Verified 05/07/17 15:47 prednisone Allergy See Comment Verified 05/07/17 15:46 shellfish derived Allergy See Comment Verified 05/07/17 15:44 Home Medications: Home Medications Albuterol 2.5MG/3ML (0.083%)* [Ventolin 2.5 MG/3 ML NEB.LIV*] 2.5 mg INH Q6H PRN 05/07/17 [History Confirmed 05/07/17] Metoprolol Succinate XL TAB* [Toprol XL TAB*] 25 mg PO DAILY 05/07/17 [History Confirmed 05/07/17] Tiotropium CAP.INH* [Spiriva CAP.INH*] 1 cap.inh INH DAILY 05/07/17 [History Confirmed 05/07/17] ceFUROXime TAB(*) [Ceftin TAB 250 MG(*)] 500 mg PO BID 05/07/17 [History Confirmed 05/07/17] traZODone TAB* [Desyrel TAB*] 50 mg PO BEDTIME 05/07/17 [History Confirmed 05/07] PMH/Surg Hx/FS Hx/Imm Hx Endocrine/Hematology History: Denies: Hx Diabetes, Hx Systemic Lupus Erythematosus, Hx Sickle Cell Disease , Hx Thyroid Disease Cardiovascular History: Reports: Hx Hypercholesterolemia, Hx Hypotension, Hx Hypertension, Other Cardiovascular Problems/Disorders - Diastolic heart failure Denies: Hx Pacemaker/ICD, Hx Peripheral Vascular Disease Respiratory History: Reports: Hx Asthma, Hx Chronic Bronchitis, Hx Chronic Obstructive Pulmonary Disease (COPD), Hx Pneumonia GI History: Reports: Other GI Disorders - "BOWEL SPASMS" History: Denies: Hx Dialysis, Hx Renal Disease, Other Problems/Disorders Musculoskeletal History: Reports: Hx Gout, Other Musculoskeletal History - USES CANE Denies: Hx Arthritis, Hx Rheumatoid Arthritis, Hx Osteoporosis Sensory History: Reports: Hx Contacts or Glasses Denies: Hx Cataracts, Hx Hearing Aid Opthamlomology History: Reports: Hx Contacts or Glasses Denies: Hx Cataracts Neurological History: Reports: 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 [place] [facility] [place]. ovarian cystectomy. lip cancer squamous [place] [facility] [place] Mohs surgery July 2015 right side of nose. RIGHT KNEE RECONSTRUCTION 194 [address]. D+C . RIGHT EAR CA EXC [place] [facility] [place] Anesthesia Reactions: No Infectious Disease History: No Infectious Disease History: Reports: Hx Shingles Denies: Traveled Outside the [place] in Last 30 Days - Family History Known Family History: Positive: Other - CVA. Negative malignant hyperthermia, negative anesthesia reaction. - Social History Alcohol Use: None Hx Substance Use: No Substance Use Type: Reports: None Hx Tobacco Use: Yes Smoking Status (MU): Former Smoker Amount Used/How Often: <1/2 PPD X 10 YEARS Have You Smoked in the Last Year: No Review of Systems Positive: Chills. Negative: Fever Positive: Shortness Of Breath, Other - Low oxygen saturation, chest tightness All Other Systems Reviewed And Are Negative: Yes Physical Exam - Summary Physical Exam Summary: VITAL SIGNS: Reviewed. GENERAL: Patient is a well-developed and nourished female who is lying comfortable in the stretcher. Patient is not in any acute respiratory distress. HEAD AND FACE: No signs of trauma. ~No ecchymosis, hematomas or skull depressions. No sinus tenderness. EYES: PERRLA, EOMI x 2, No injected conjunctiva, no nystagmus. EARS: Hearing grossly intact. Ear canals and tympanic membranes are within normal limits. MOUTH: Oropharynx within normal limits. NECK: Supple, trachea is midline, no adenopathy, no JVD, no carotid bruit, no c- spine tenderness, neck with full ROM. CHEST: Symmetric, no tenderness at palpation LUNGS: She has crackles in the bases of the lungs. Decreased breath sounds. The patient is not in any respiratory distress. CVS: Regular rate and rhythm, S1 and S2 present, no murmurs or gallops appreciated. ABDOMEN: Soft, non-tender. No signs of distention. No rebound no guarding, and no masses palpated. Bowel sounds are normal. EXTREMITIES: FROM in all major joints, no edema, no cyanosis or clubbing. NEURO: Alert and oriented x 3. No acute neurological deficits. Speech is normal and follows commands. SKIN: Dry and warm Triage Information Reviewed: Yes Vital Signs On Initial Exam: Initial Vitals Temp Pulse Resp BP Pulse Ox 98.7 F 66 26 186/70 99 05/07/17 12:34 05/07/17 12:34 05/07/17 12:34 05/07/17 12:34 05/07/17 12:34 Vital Signs Reviewed: Yes Diagnostics - Vital Signs Vital Signs Temp Pulse Resp BP Pulse Ox 05/07/17 12:34 98.7 F 66 26 186/70 99 - Laboratory Lab Results: Lab Results 05/07/17 05/07/17 05/07/17 Range/Units 12:50 12:50 12:50 WBC 6.4 (3.5-10.8) 10^3/ul RBC 4.24 (4.0-5.4) 10^6/ul Hgb 12.0 (12.0-16.0) g/dl Hct 36 (35-47) % MCV 86 (80-97) fL MCH 28 (27-31) pg MCHC 33 (31-36) g/dl RDW 15 (10.5-15) % Plt Count 216 (150-450) 10^3/ul MPV 9 (7.4-10.4) um3 Neut % (Auto) 67.0 (38-83) % Lymph % (Auto) 19.7 L (25-47) % [place] % (Auto) 11.3 H (1-9) % Eos % (Auto) 1.5 (0-6) % Baso % (Auto) 0.5 (0-2) % Absolute Neuts (auto) 4.3 (1.5-7.7) 10^3/ul Absolute Lymphs (auto) 1.3 (1.0-4.8) 10^3/ul Absolute Monos (auto) 0.7 (0-0.8) 10^3/ul Absolute Eos (auto) 0.1 (0-0.6) 10^3/ul Absolute Basos (auto) 0 (0-0.2) 10^3/ul Absolute Nucleated RBC 0 10^3/ul Nucleated RBC % 0 Patient Temperature ABG pH (7.35-7.45) ABG pH (Temp Correct) ABG pCO2 (35-45) mmHg ABG pCO2 (Temp Corrct ABG pO2 (80-100) mmHg ABG pO2 (Temp Correct ABG HCO3 (19-31) mmol/L ABG O2 Saturation (95-98) % ABG Base Excess (-2.0-2.0) Respiration Rate O2 Delivery Device Ventilator Type Vent Mode FiO2 Inspiratory Time PEEP Pressure Support Pressure Control EPAP IPAP BiPAP Sodium 136 (133-145) mmol/L Potassium 3.9 (3.5-5.0) mmol/L Chloride 99 L (101-111) mmol/L Carbon Dioxide 36 H (22-32) mmol/L Anion Gap 1 L (2-11) mmol/L BUN 21 (6-24) mg/dL Creatinine 0.81 (0.51-0.95) mg/dL Est GFR ( Amer) 86.2 (>60) Est GFR (Non-Af Amer) 67.0 (>60) BUN/Creatinine Ratio 25.9 H (8-20) Glucose 83 (70-100) mg/dL Lactic Acid (0.5-2.0) mmol/L Calcium 9.1 (8.6-10.3) mg/dL Total Bilirubin 0.40 (0.2-1.0) mg/dL AST 32 (13-39) U/L ALT 32 (7-52) U/L Alkaline Phosphatase 97 (34-104) U/L Total Creatine Kinase 46 (10-223) U/L CK-MB (CK-2) 3.8 (0.6-6.3) ng/mL Troponin I 0.03 (<0.04) ng/mL C-Reactive Protein 6.45 H (< 5.00) mg/L B-Natriuretic Peptide 367 H ( - 100) pg/mL Total Protein 7.0 (6.4-8.9) g/dL Albumin 3.7 (3.2-5.2) g/dL Globulin 3.3 (2-4) g/dL Albumin/Globulin Ratio 1.1 (1-3) Influenza A (Rapid) (Negative) Influenza B (Rapid) (Negative) 05/07/17 05/07/17 05/07/17 Range/Units 12:50 13:15 14:25 WBC (3.5-10.8) 10^3/ul RBC (4.0-5.4) 10^6/ul Hgb (12.0-16.0) g/dl Hct (35-47) % MCV (80-97) fL MCH (27-31) pg MCHC (31-36) g/dl RDW (10.5-15) % Plt Count (150-450) 10^3/ul MPV (7.4-10.4) um3 Neut % (Auto) (38-83) % Lymph % (Auto) (25-47) % [place] % (Auto) (1-9) % Eos % (Auto) (0-6) % Baso % (Auto) (0-2) % Absolute Neuts (auto) (1.5-7.7) 10^3/ul Absolute Lymphs (auto) (1.0-4.8) 10^3/ul Absolute Monos (auto) (0-0.8) 10^3/ul Absolute Eos (auto) (0-0.6) 10^3/ul Absolute Basos (auto) (0-0.2) 10^3/ul Absolute Nucleated RBC 10^3/ul Nucleated RBC % Patient Temperature Not Reportable ABG pH 7.29 L (7.35-7.45) ABG pH (Temp Correct) Not Reportable ABG pCO2 70 H (35-45) mmHg ABG pCO2 (Temp Corrct Not Reportable ABG pO2 359 H (80-100) mmHg ABG pO2 (Temp Correct Not Reportable ABG HCO3 29.1 (19-31) mmol/L ABG O2 Saturation 100.4 H (95-98) % ABG Base Excess 5.3 H (-2.0-2.0) Respiration Rate Not Reportable O2 Delivery Device Neb Ventilator Type Not Reportable Vent Mode Not Reportable FiO2 8 Inspiratory Time Not Reportable PEEP Not Reportable Pressure Support Not Reportable Pressure Control Not Reportable EPAP Not Reportable IPAP Not Reportable BiPAP Not Reportable Sodium (133-145) mmol/L Potassium (3.5-5.0) mmol/L Chloride (101-111) mmol/L Carbon Dioxide (22-32) mmol/L Anion Gap (2-11) mmol/L BUN (6-24) mg/dL Creatinine (0.51-0.95) mg/dL Est GFR ( Amer) (>60) Est GFR (Non-Af Amer) (>60) BUN/Creatinine Ratio (8-20) Glucose (70-100) mg/dL Lactic Acid 0.7 (0.5-2.0) mmol/L Calcium (8.6-10.3) mg/dL Total Bilirubin (0.2-1.0) mg/dL AST (13-39) U/L ALT (7-52) U/L Alkaline Phosphatase (34-104) U/L Total Creatine Kinase (10-223) U/L CK-MB (CK-2) (0.6-6.3) ng/mL Troponin I (<0.04) ng/mL C-Reactive Protein (< 5.00) mg/L B-Natriuretic Peptide ( - 100) pg/mL Total Protein (6.4-8.9) g/dL Albumin (3.2-5.2) g/dL Globulin (2-4) g/dL Albumin/Globulin Ratio (1-3) Influenza A (Rapid) Negative (Negative) Influenza B (Rapid) Positive H (Negative) Result Diagrams: 05/07/17 12:50 05/07/17 12:50 Lab Statement: Any lab studies that have been ordered have been reviewed, and results considered in the medical decision making process. - Radiology CXR Xray Interpretation: No Acute Changes - No evidence for active disease. Dr. Lozada has reviewed this report. Radiology Interpretation Completed By: Radiologist - EKG 13:23 Cardiac Rate: NL EKG Rhythm: Sinus Rhythm - at 98 BPM EKG Interpretation: No ST elevations. Normal axis. Course/Dx - Course Assessment/Plan: The patient is an 86 year old female with a history of COPD referred from Dr. Wilder office with shortness of breath and low oxygen saturation that is worsening despite antibiotics and Duoneb. She additionally complains of chills, a cough with yellow production, and left-sided chest tightness. She denies fever. The patient is on Cefuroxime 500mg BID. The patient is on PRN oxygen. Test results are without significant abnormality except for BNP 367, CRP 6.45. ABG shows pH 7.29, pCO2 70, pO2 359. In the ED course, the patient was given Duoneb and Tamiflu. The patient was placed in a BiPap since the patient is acidodic with a pCO2 of 70. At this point, I discussed the case with Dr. Stein, ICU, who accepts the patient for admission. - Diagnoses Provider Diagnoses: COPD with exacerbation, Hypercapnia - Critical Care Time Critical Care Time: 75-104 min Discharge - Discharge Plan Condition: Fair Disposition: ADMITTED TO [facility] The documentation as recorded by the Maxim hdez Thomas accurately reflects the service I personally performed and the decisions made by me, Froilan Lozada MD.
[2017-05-09] MEDS: Tiotropium CAP.INH* CAP.INH/18 MCG (USE ORDER SET !) INH SCH (08:38)
[2017-05-09] MEDS ORDERED: predniSONE TAB* 20 MG PO ONE (09:00)
[2017-05-09] MEDS: amLODIPine TAB* 5 MG PO SCH (10:58)
[2017-05-09] MEDS: Aspirin EC Low Dose* 81 MG TAB.EC PO SCH (10:58)
[2017-05-09] MEDS: Omeprazole CAP* 20 MG PO SCH (10:58)
[2017-05-09] MEDS: Metoprolol Succinate XL TAB* 25 MG PO SCH (10:58)
[2017-05-09] MEDS: LORazepam TAB(*) 0.5 MG PO PRN ×2 (10:59→23:03)
[2017-05-09] MEDS: Oseltamivir CAP* 30 MG CAP PO SCH ×2 (10:59→20:12)
--- NOTE | 2017-05-09 12:11 | PN ---
Subjective Date of Service: 05/09/17 Interval History: Feels much better. Some white sputum. Patient is very concerned that she can' t take care of herelf and her aide won't be back until Thursday. Objective Active Medications: Albuterol (Ventolin 2.5 Mg/3 Ml Neb.Kate*) 2.5 mg INH Q2H PRN PRN Reason: SOB/WHEEZING Amlodipine Besylate (Norvasc Tab*) 2.5 mg PO DAILY [facility] Aspirin (Aspirin Ec Low Dose*) 81 mg PO DAILY [facility] Last Admin: 05/09/17 10:58 Dose: 81 mg Fluticasone/Vilanterol (Breo Ellipta Mdi 100/25(Nf)) 1 puff INH BEDTIME [facility] Last Admin: 05/08/17 20:05 Dose: 1 puff Hydralazine HCl (Apresoline Iv*) 10 mg IV SLOW PU Q6H PRN PRN Reason: SYSTOLIC BP GREATER THAN: Last Admin: 05/08/17 07:56 Dose: 10 mg Levalbuterol HCl (Xopenex 1.25 Mg/0.5 Ml Neb.Kate*) 1.25 mg INH [id number] AWAKE [facility] Last Admin: 05/09/17 08:31 Dose: 1.25 mg Lorazepam (Ativan Inj*) 0.5 mg IV PUSH Q4H PRN PRN Reason: ANXIETY Last Admin: 05/08/17 03:42 Dose: 0.5 mg Lorazepam (Ativan Tab(*)) 0.5 mg PO BID PRN PRN Reason: AGITATION Last Admin: 05/09/17 10:59 Dose: 0.5 mg Metoprolol Succinate (Toprol Xl Tab*) 25 mg PO DAILY [facility] Last Admin: 05/09/17 10:58 Dose: 25 mg Omeprazole (Prilosec Cap*) 20 mg PO DAILY [facility] Last Admin: 05/09/17 10:58 Dose: 20 mg Oseltamivir Phosphate (Tamiflu Cap*) 30 mg PO BID [facility] Stop: 05/11/17 21:01 Last Admin: 05/09/17 10:59 Dose: 30 mg Prednisone (Deltasone Tab*) 20 mg PO DAILY [facility] Tiotropium [place] (Spiriva Cap.Inh*) 1 cap INH DAILY [facility] Last Admin: 05/09/17 08:38 Dose: 1 cap Trazodone HCl (Desyrel Tab*) 50 mg PO BEDTIME PRN PRN Reason: INSOMNIA Last Admin: 05/08/17 22:15 Dose: 50 mg Vital Signs - 8 hr 05/09/17 05/09/17 05/09/17 08:13 08:30 10:59 Temperature 97.7 F Pulse Rate 64 76 Respiratory 16 20 Rate Blood Pressure 161/66 (mmHg) O2 Sat by Pulse 100 Oximetry Oxygen Devices in Use Now: Nasal Cannula Appearance: Alert, partly up in bed. Somewhat anxious otherwise looks comfortable. No cough during my visit. Eyes: No Scleral Icterus Neck: NL Appearance and Movements; NL JVP, No Thyroid Enlargement, Masses Respiratory: Symmetrical Chest Expansion and Respiratory Effort, Clear to Percussion, - - markedly diminished BS BL Cardiovascular: NL Sounds; No Murmurs; No JVD, RRR, No Edema, - Extremities: No Edema, No Clubbing, Cyanosis, - Skin: No Nodules or Sclerosis, - - facial seborrhea Neurological: Alert and Oriented x 3, NL Sensation Result Diagrams: 05/07/17 12:50 05/07/17 12:50 Additional Lab and Data: Lab Results 05/07/17 05/07/17 05/07/17 Range/Units 12:50 12:50 12:50 WBC 6.4 (3.5-10.8) 10^3/ul RBC 4.24 (4.0-5.4) 10^6/ul Hgb 12.0 (12.0-16.0) g/dl Hct 36 (35-47) % MCV 86 (80-97) fL MCH 28 (27-31) pg MCHC 33 (31-36) g/dl RDW 15 (10.5-15) % Plt Count 216 (150-450) 10^3/ul MPV 9 (7.4-10.4) um3 Neut % (Auto) 67.0 (38-83) % Lymph % (Auto) 19.7 L (25-47) % [place] % (Auto) 11.3 H (1-9) % Eos % (Auto) 1.5 (0-6) % Baso % (Auto) 0.5 (0-2) % Absolute Neuts (auto) 4.3 (1.5-7.7) 10^3/ul Absolute Lymphs (auto) 1.3 (1.0-4.8) 10^3/ul Absolute Monos (auto) 0.7 (0-0.8) 10^3/ul Absolute Eos (auto) 0.1 (0-0.6) 10^3/ul Absolute Basos (auto) 0 (0-0.2) 10^3/ul Absolute Nucleated RBC 0 10^3/ul Nucleated RBC % 0 Patient Temperature ABG pH (7.35-7.45) ABG pH (Temp Correct) ABG pCO2 (35-45) mmHg ABG pCO2 (Temp Corrct ABG pO2 (80-100) mmHg ABG pO2 (Temp Correct ABG HCO3 (19-31) mmol/L ABG O2 Saturation (95-98) % ABG Base Excess (-2.0-2.0) Respiration Rate O2 Delivery Device Ventilator Type Vent Mode FiO2 Inspiratory Time PEEP Pressure Support Pressure Control EPAP IPAP BiPAP Sodium 136 (133-145) mmol/L Potassium 3.9 (3.5-5.0) mmol/L Chloride 99 L (101-111) mmol/L Carbon Dioxide 36 H (22-32) mmol/L Anion Gap 1 L (2-11) mmol/L BUN 21 (6-24) mg/dL Creatinine 0.81 (0.51-0.95) mg/dL Est GFR ( Amer) 86.2 (>60) Est GFR (Non-Af Amer) 67.0 (>60) BUN/Creatinine Ratio 25.9 H (8-20) Glucose 83 (70-100) mg/dL Lactic Acid (0.5-2.0) mmol/L Calcium 9.1 (8.6-10.3) mg/dL Total Bilirubin 0.40 (0.2-1.0) mg/dL AST 32 (13-39) U/L ALT 32 (7-52) U/L Alkaline Phosphatase 97 (34-104) U/L Total Creatine Kinase 46 (10-223) U/L CK-MB (CK-2) 3.8 (0.6-6.3) ng/mL Troponin I 0.03 (<0.04) ng/mL C-Reactive Protein 6.45 H (< 5.00) mg/L B-Natriuretic Peptide 367 H ( - 100) pg/mL Total Protein 7.0 (6.4-8.9) g/dL Albumin 3.7 (3.2-5.2) g/dL Globulin 3.3 (2-4) g/dL Albumin/Globulin Ratio 1.1 (1-3) Influenza A (Rapid) (Negative) Influenza B (Rapid) (Negative) 05/07/17 05/07/17 05/07/17 Range/Units 12:50 13:15 14:25 WBC (3.5-10.8) 10^3/ul RBC (4.0-5.4) 10^6/ul Hgb (12.0-16.0) g/dl Hct (35-47) % MCV (80-97) fL MCH (27-31) pg MCHC (31-36) g/dl RDW (10.5-15) % Plt Count (150-450) 10^3/ul MPV (7.4-10.4) um3 Neut % (Auto) (38-83) % Lymph % (Auto) (25-47) % [place] % (Auto) (1-9) % Eos % (Auto) (0-6) % Baso % (Auto) (0-2) % Absolute Neuts (auto) (1.5-7.7) 10^3/ul Absolute Lymphs (auto) (1.0-4.8) 10^3/ul Absolute Monos (auto) (0-0.8) 10^3/ul Absolute Eos (auto) (0-0.6) 10^3/ul Absolute Basos (auto) (0-0.2) 10^3/ul Absolute Nucleated RBC 10^3/ul Nucleated RBC % Patient Temperature Not Reportable ABG pH 7.29 L (7.35-7.45) ABG pH (Temp Correct) Not Reportable ABG pCO2 70 H (35-45) mmHg ABG pCO2 (Temp Corrct Not Reportable ABG pO2 359 H (80-100) mmHg ABG pO2 (Temp Correct Not Reportable ABG HCO3 29.1 (19-31) mmol/L ABG O2 Saturation 100.4 H (95-98) % ABG Base Excess 5.3 H (-2.0-2.0) Respiration Rate Not Reportable O2 Delivery Device Neb Ventilator Type Not Reportable Vent Mode Not Reportable FiO2 8 Inspiratory Time Not Reportable PEEP Not Reportable Pressure Support Not Reportable Pressure Control Not Reportable EPAP Not Reportable IPAP Not Reportable BiPAP Not Reportable Sodium (133-145) mmol/L Potassium (3.5-5.0) mmol/L Chloride (101-111) mmol/L Carbon Dioxide (22-32) mmol/L Anion Gap (2-11) mmol/L BUN (6-24) mg/dL Creatinine (0.51-0.95) mg/dL Est GFR ( Amer) (>60) Est GFR (Non-Af Amer) (>60) BUN/Creatinine Ratio (8-20) Glucose (70-100) mg/dL Lactic Acid 0.7 (0.5-2.0) mmol/L Calcium (8.6-10.3) mg/dL Total Bilirubin (0.2-1.0) mg/dL AST (13-39) U/L ALT (7-52) U/L Alkaline Phosphatase (34-104) U/L Total Creatine Kinase (10-223) U/L CK-MB (CK-2) (0.6-6.3) ng/mL Troponin I (<0.04) ng/mL C-Reactive Protein (< 5.00) mg/L B-Natriuretic Peptide ( - 100) pg/mL Total Protein (6.4-8.9) g/dL Albumin (3.2-5.2) g/dL Globulin (2-4) g/dL Albumin/Globulin Ratio (1-3) Influenza A (Rapid) Negative (Negative) Influenza B (Rapid) Positive H (Negative) Microbiology and Other Data: Microbiology 05/07/17 16:00 Nasal Screen MRSA (PCR)([facility]) - Final Nasal Mrsa Not Detected Assess/Plan/Problems-Billing Assessment: - Patient Problems (1) Influenza B Current Visit: Yes Status: Acute Code(s): J10.1 - FLU DUE TO OTH IDENT INFLUENZA VIRUS W OTH RESP MANIFEST SNOMED Code(s): 18585192 Comment: Finish oseltamivir course, dose reduced due to creat clearance est 37 per pharmacist. (2) COPD exacerbation Current Visit: No Status: Acute Code(s): J44.1 - CHRONIC OBSTRUCTIVE PULMONARY DISEASE W (ACUTE) EXACERBATION SNOMED Code(s): 972955587782625 Comment: Continue tiotropium, dual inhaler, PRN nebs. pt is not interested in systemic steroids due to side effects, would taper rapidly. (3) Hypertension Current Visit: No Status: Chronic Priority: Medium Onset Date: 12/15/13 Code(s): I10 - ESSENTIAL (PRIMARY) HYPERTENSION SNOMED Code(s): 36649771 Comment: Not on amlodipine recently, dose reduce to 2.5 mg start 05/09.
[2017-05-09] MEDS ORDERED: Ondansetron ODT TAB* 4 MG PO PRN (17:32)
[2017-05-09] MEDS: MDI INH SCH ×2 (19:55→19:59)
[2017-05-09] MEDS: VILANTEROL MDI INH SCH ×2 (19:55→19:59)
[2017-05-09] MEDS: FLUTICASONE INH SCH ×2 (19:55→19:59)
[2017-05-09] MEDS: traZODone TAB* 50 MG TAB PO PRN (23:03)
[2017-05-10] MEDS: Levalbuterol 1.25MG/0.5ML NEB INH SCH ×2 (01:10→08:19)
[2017-05-10] MEDS: LORazepam INJ* 2 MG/ML 1 ML VIAL IV PUSH PRN ×2 (04:38→22:55)
[2017-05-10] MEDS: Tiotropium CAP.INH* CAP.INH/18 MCG (USE ORDER SET !) INH SCH (08:57)
[2017-05-10] MEDS ORDERED: predniSONE TAB* 20 MG PO SCH (09:00)
[2017-05-10] MEDS: Metoprolol Succinate XL TAB* 25 MG PO SCH (11:03)
[2017-05-10] MEDS: Oseltamivir CAP* 30 MG CAP PO SCH ×2 (11:04→21:07)
[2017-05-10] MEDS: Omeprazole CAP* 20 MG PO SCH (11:04)
[2017-05-10] MEDS: Aspirin EC Low Dose* 81 MG TAB.EC PO SCH (11:04)
[2017-05-10] MEDS: amLODIPine TAB* 5 MG PO SCH (11:05)
[2017-05-10] MEDS: LORazepam TAB(*) 0.5 MG PO PRN ×2 (11:08→21:08)
--- NOTE | 2017-05-10 16:16 | PN ---
Subjective Date of Service: 05/10/17 Interval History: Had difficulty sleeping overnight. Thinks the steroids inhibited her sleep Breathing is better but cough continues No other complaints Objective Active Medications: Albuterol (Ventolin 2.5 Mg/3 Ml Neb.Kate*) 2.5 mg INH Q2H PRN PRN Reason: SOB/WHEEZING Amlodipine Besylate (Norvasc Tab*) 2.5 mg PO DAILY [facility] Last Admin: 05/10/17 11:05 Dose: 2.5 mg Aspirin (Aspirin Ec Low Dose*) 81 mg PO DAILY [facility] Last Admin: 05/10/17 11:04 Dose: 81 mg Fluticasone/Vilanterol (Breo Ellipta Mdi 100/25(Nf)) 1 puff INH BEDTIME [facility] Last Admin: 05/09/17 19:59 Dose: 1 puff Hydralazine HCl (Apresoline Iv*) 10 mg IV SLOW PU Q6H PRN PRN Reason: SYSTOLIC BP GREATER THAN: Last Admin: 05/08/17 07:56 Dose: 10 mg Lorazepam (Ativan Inj*) 0.5 mg IV PUSH Q4H PRN PRN Reason: ANXIETY Last Admin: 05/10/17 04:38 Dose: 0.5 mg Lorazepam (Ativan Tab(*)) 0.5 mg PO BID PRN PRN Reason: AGITATION Last Admin: 05/10/17 11:08 Dose: 0.5 mg Metoprolol Succinate (Toprol Xl Tab*) 25 mg PO DAILY [facility] Last Admin: 05/10/17 11:03 Dose: 25 mg Omeprazole (Prilosec Cap*) 20 mg PO DAILY [facility] Last Admin: 05/10/17 11:04 Dose: 20 mg Ondansetron HCl (Zofran Odt Tab*) 4 mg PO Q4H PRN PRN Reason: NAUSEA Oseltamivir Phosphate (Tamiflu Cap*) 30 mg PO BID [facility] Stop: 05/11/17 21:01 Last Admin: 05/10/17 11:04 Dose: 30 mg Prednisone (Deltasone Tab*) 20 mg PO DAILY [facility] Last Admin: 05/10/17 11:06 Dose: Not Given Tiotropium [place] (Spiriva Cap.Inh*) 1 cap INH DAILY [facility] Last Admin: 05/10/17 08:57 Dose: 1 cap Trazodone HCl (Desyrel Tab*) 50 mg PO BEDTIME PRN PRN Reason: INSOMNIA Last Admin: 05/09/17 23:03 Dose: 50 mg Vital Signs - 8 hr 05/10/17 05/10/17 05/10/17 09:00 11:08 11:14 Temperature 98.0 F Pulse Rate 80 83 Respiratory 16 20 Rate Blood Pressure 147/61 (mmHg) O2 Sat by Pulse 98 96 Oximetry 05/10/17 15:07 Temperature Pulse Rate Respiratory 18 Rate Blood Pressure (mmHg) O2 Sat by Pulse Oximetry Oxygen Devices in Use Now: Nasal Cannula Appearance: stated age, NAD Eyes: No Scleral Icterus, PERRLA Ears/Nose/Mouth/Throat: Clear Oropharnyx, Mucous Membranes Moist Neck: NL Appearance and Movements; NL JVP, Trachea Midline Respiratory: Symmetrical Chest Expansion and Respiratory Effort, - - scattered wheeze Cardiovascular: RRR Abdominal: NL Sounds; No Tenderness; No Distention, No Hepatosplenomegaly Lymphatic: No Cervical Adenopathy Extremities: No Edema Skin: No Rash or Ulcers Neurological: Alert and Oriented x 3 Result Diagrams: 05/07/17 12:50 05/07/17 12:50 Additional Lab and Data: Lab Results 05/07/17 05/07/17 05/07/17 Range/Units 12:50 12:50 12:50 WBC 6.4 (3.5-10.8) 10^3/ul RBC 4.24 (4.0-5.4) 10^6/ul Hgb 12.0 (12.0-16.0) g/dl Hct 36 (35-47) % MCV 86 (80-97) fL MCH 28 (27-31) pg MCHC 33 (31-36) g/dl RDW 15 (10.5-15) % Plt Count 216 (150-450) 10^3/ul MPV 9 (7.4-10.4) um3 Neut % (Auto) 67.0 (38-83) % Lymph % (Auto) 19.7 L (25-47) % [place] % (Auto) 11.3 H (1-9) % Eos % (Auto) 1.5 (0-6) % Baso % (Auto) 0.5 (0-2) % Absolute Neuts (auto) 4.3 (1.5-7.7) 10^3/ul Absolute Lymphs (auto) 1.3 (1.0-4.8) 10^3/ul Absolute Monos (auto) 0.7 (0-0.8) 10^3/ul Absolute Eos (auto) 0.1 (0-0.6) 10^3/ul Absolute Basos (auto) 0 (0-0.2) 10^3/ul Absolute Nucleated RBC 0 10^3/ul Nucleated RBC % 0 Patient Temperature ABG pH (7.35-7.45) ABG pH (Temp Correct) ABG pCO2 (35-45) mmHg ABG pCO2 (Temp Corrct ABG pO2 (80-100) mmHg ABG pO2 (Temp Correct ABG HCO3 (19-31) mmol/L ABG O2 Saturation (95-98) % ABG Base Excess (-2.0-2.0) Respiration Rate O2 Delivery Device Ventilator Type Vent Mode FiO2 Inspiratory Time PEEP Pressure Support Pressure Control EPAP IPAP BiPAP Sodium 136 (133-145) mmol/L Potassium 3.9 (3.5-5.0) mmol/L Chloride 99 L (101-111) mmol/L Carbon Dioxide 36 H (22-32) mmol/L Anion Gap 1 L (2-11) mmol/L BUN 21 (6-24) mg/dL Creatinine 0.81 (0.51-0.95) mg/dL Est GFR ( Amer) 86.2 (>60) Est GFR (Non-Af Amer) 67.0 (>60) BUN/Creatinine Ratio 25.9 H (8-20) Glucose 83 (70-100) mg/dL Lactic Acid (0.5-2.0) mmol/L Calcium 9.1 (8.6-10.3) mg/dL Total Bilirubin 0.40 (0.2-1.0) mg/dL AST 32 (13-39) U/L ALT 32 (7-52) U/L Alkaline Phosphatase 97 (34-104) U/L Total Creatine Kinase 46 (10-223) U/L CK-MB (CK-2) 3.8 (0.6-6.3) ng/mL Troponin I 0.03 (<0.04) ng/mL C-Reactive Protein 6.45 H (< 5.00) mg/L B-Natriuretic Peptide 367 H ( - 100) pg/mL Total Protein 7.0 (6.4-8.9) g/dL Albumin 3.7 (3.2-5.2) g/dL Globulin 3.3 (2-4) g/dL Albumin/Globulin Ratio 1.1 (1-3) Influenza A (Rapid) (Negative) Influenza B (Rapid) (Negative) 05/07/17 05/07/17 05/07/17 Range/Units 12:50 13:15 14:25 WBC (3.5-10.8) 10^3/ul RBC (4.0-5.4) 10^6/ul Hgb (12.0-16.0) g/dl Hct (35-47) % MCV (80-97) fL MCH (27-31) pg MCHC (31-36) g/dl RDW (10.5-15) % Plt Count (150-450) 10^3/ul MPV (7.4-10.4) um3 Neut % (Auto) (38-83) % Lymph % (Auto) (25-47) % [place] % (Auto) (1-9) % Eos % (Auto) (0-6) % Baso % (Auto) (0-2) % Absolute Neuts (auto) (1.5-7.7) 10^3/ul Absolute Lymphs (auto) (1.0-4.8) 10^3/ul Absolute Monos (auto) (0-0.8) 10^3/ul Absolute Eos (auto) (0-0.6) 10^3/ul Absolute Basos (auto) (0-0.2) 10^3/ul Absolute Nucleated RBC 10^3/ul Nucleated RBC % Patient Temperature Not Reportable ABG pH 7.29 L (7.35-7.45) ABG pH (Temp Correct) Not Reportable ABG pCO2 70 H (35-45) mmHg ABG pCO2 (Temp Corrct Not Reportable ABG pO2 359 H (80-100) mmHg ABG pO2 (Temp Correct Not Reportable ABG HCO3 29.1 (19-31) mmol/L ABG O2 Saturation 100.4 H (95-98) % ABG Base Excess 5.3 H (-2.0-2.0) Respiration Rate Not Reportable O2 Delivery Device Neb Ventilator Type Not Reportable Vent Mode Not Reportable FiO2 8 Inspiratory Time Not Reportable PEEP Not Reportable Pressure Support Not Reportable Pressure Control Not Reportable EPAP Not Reportable IPAP Not Reportable BiPAP Not Reportable Sodium (133-145) mmol/L Potassium (3.5-5.0) mmol/L Chloride (101-111) mmol/L Carbon Dioxide (22-32) mmol/L Anion Gap (2-11) mmol/L BUN (6-24) mg/dL Creatinine (0.51-0.95) mg/dL Est GFR ( Amer) (>60) Est GFR (Non-Af Amer) (>60) BUN/Creatinine Ratio (8-20) Glucose (70-100) mg/dL Lactic Acid 0.7 (0.5-2.0) mmol/L Calcium (8.6-10.3) mg/dL Total Bilirubin (0.2-1.0) mg/dL AST (13-39) U/L ALT (7-52) U/L Alkaline Phosphatase (34-104) U/L Total Creatine Kinase (10-223) U/L CK-MB (CK-2) (0.6-6.3) ng/mL Troponin I (<0.04) ng/mL C-Reactive Protein (< 5.00) mg/L B-Natriuretic Peptide ( - 100) pg/mL Total Protein (6.4-8.9) g/dL Albumin (3.2-5.2) g/dL Globulin (2-4) g/dL Albumin/Globulin Ratio (1-3) Influenza A (Rapid) Negative (Negative) Influenza B (Rapid) Positive H (Negative) Microbiology and Other Data: Microbiology 05/07/17 16:00 Nasal Screen MRSA (PCR)([facility]) - Final Nasal Mrsa Not Detected Assess/Plan/Problems-Billing Assessment: 86 yo F a/w acute hyspoxic respiratory failure in setting of COPD and influenza B - Patient Problems (1) COPD (chronic obstructive pulmonary disease) Comment: Does not want additional system steroids Last PO prednisone 05/09 c/w breo/ellipta re evaluate tomorrow. If improved can discharge. If worsening or stagnation will re discuss systemic steroids (2) Hypertension Comment: 2.5 mg amlodipine started 05/09. (3) Influenza B Comment: Finish oseltamivir course, dose reduced due to creat clearance est 37 per pharmacist. (4) DVT prophylaxis Comment: HSQ. noted rectus sheath hematoma 1 year prior
[2017-05-10] MEDS: VILANTEROL MDI INH SCH (20:00)
[2017-05-10] MEDS: FLUTICASONE INH SCH (20:00)
[2017-05-10] MEDS: MDI INH SCH (20:00)
[2017-05-10] MEDS: Heparin VIAL(*) 5000 UNITS/ML VIAL (FIVE THOUSAND) SUBCUT SCH (21:06)
[2017-05-10] MEDS: traZODone TAB* 50 MG TAB PO PRN (21:09)
[2017-05-11] MEDS: hydrALAZINE IV* 20 MG/ML VIAL IV SLOW PU PRN (00:23)
[2017-05-11] MEDS: Heparin VIAL(*) 5000 UNITS/ML VIAL (FIVE THOUSAND) SUBCUT SCH (06:04)
[2017-05-11] MEDS: Tiotropium CAP.INH* CAP.INH/18 MCG (USE ORDER SET !) INH SCH (08:05)
[2017-05-11 08:15] VITALS: BP 168/66
[2017-05-11] MEDS ORDERED: predniSONE TAB* 20 MG PO SCH (09:00)
[2017-05-11] MEDS: amLODIPine TAB* 5 MG PO SCH (10:29)
[2017-05-11] MEDS: Metoprolol Succinate XL TAB* 25 MG PO SCH (10:30)
[2017-05-11] MEDS: Aspirin EC Low Dose* 81 MG TAB.EC PO SCH (10:30)
[2017-05-11] MEDS: Omeprazole CAP* 20 MG PO SCH (10:30)
[2017-05-11] MEDS: Oseltamivir CAP* 30 MG CAP PO SCH (10:30)
--- NOTE | 2017-05-11 22:14 | DS ---
CC: Dr. Garcia * DISCHARGE SUMMARY: DATE OF ADMISSION: 05/07/17 DATE OF DISCHARGE: 05/11/17 PRIMARY CARE PROVIDER: Dr. Garcia. PRIMARY DIAGNOSES: 1. Acute hypercarbic respiratory failure. 2. Influenza B. 3. Chronic obstructive pulmonary disease exacerbation. SECONDARY DIAGNOSES: 1. History of cerebrovascular disease. 2. Paroxysmal atrial fibrillation. 3. History of gastrointestinal bleed. MEDICATIONS ON DISCHARGE: 1. Metoprolol succinate 25 mg daily. 2. Tiotropium 1 cap inhaled daily. 3. Albuterol nebulizer every 6 hours as needed. 4. Trazodone 50 mg at bedtime. 5. Ativan 0.5 mg twice daily. 6. Breo Ellipta 100/25 one puff daily. 7. Aspirin 81 mg daily. 8. Prilosec 20 mg daily. 9. Levalbuterol 2 puffs every 4 hours as needed. 10. Prednisone 50 mg daily for 4 additional days. 11. Tamiflu 30 mg twice daily for 1 additional day. 12. Lisinopril 10 mg daily. Please note the addition of lisinopril to the patient's regimen. 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 She was swabbed and found to have influenza B , thought to be the etiology of her COPD exacerbation, which produced hypercarbic respiratory failure. She used BiPAP intermittently with success. She received steroids intermittently, although has had negative side effects from prednisone including insomnia, so intermittently refused the prednisone. She continued to improve with Tamiflu and prednisone, as well as methylprednisolone, antibiotics were discontinued. She was transferred out of the intensive care unit. Complications of the hospital stay included significant hypertension, systolic values recorded as high as 214, when she was at her sickest. She was started on low-dose amlodipine; however, was not discharged on amlodipine given our EMR' s indication that it would not be covered by her insurance. I note that she has had significant hyponatremia in the past and her resting heart rate is between 60 and 75. For these reasons, I have avoided diuretics including hydrochlorothiazide and increased dose of metoprolol to control her tension. I discharged her on a low dose of lisinopril, in addition to one more day of Tamiflu and 4 days of prednisone with no taper. On the day of discharge , the patient was able to ambulate to and from the bathroom. She felt comfortable returning home. Discussed the plan with both her daughter and son- in-law who are in agreement with the plan. DISCHARGE INSTRUCTIONS: At followup, please: 1. Please evaluate for need for prolonged taper of steroids. 2. Please evaluate blood pressure, adjust medications as necessary. 3. Consider BMP check on lisinopril if those continued or increased. 4. No other specific labs or vitals that need followup. Reasons to return to the hospital included, but are not limited to, recurrent or worsening symptoms, including worsening breathing, shortness of breath, chest pain, lightheadedness, loss of consciousness, near loss of consciousness, inability to obtain or tolerate medications were discussed with the patient. She acknowledged understanding. TIME SPENT: Greater than 45 minutes was spent in the discharge of this patient , greater than half was spent [id number] with the patient. [id number]/[facility] #: [id number] MTDD
== END 2017-05-11 12:25 | disposition home health service (06) | DRG 193 ==
LOC: ED 12:32 → ICU 14:57 → MED 05-08 11:00
PROVIDERS: ADMIT Internal Medicine Critical Care Medicine; ATTEND Internal Medicine
PROC: 5A09358 Assistance with Respiratory Ventilation, Less than 24 Consecutive Hours, Intermittent Positive Airway Pressure (ICD-10-PCS; principal; 2017-05-07)
DX: J10.1 Influenza due to other identified influenza virus with other respiratory manifestations (principal); J96.22 Acute and chronic respiratory failure with hypercapnia; I48.0 Paroxysmal atrial fibrillation; J44.1 Chronic obstructive pulmonary disease with (acute) exacerbation; I10 Essential (primary) hypertension; F41.9 Anxiety disorder, unspecified; M10.9 Gout, unspecified; E78.00 Pure hypercholesterolemia, unspecified; Z88.8 Allergy status to other drugs, medicaments and biological substances; Z91.030 Bee allergy status; Z91.040 Latex allergy status; Z91.09 Other allergy status, other than to drugs and biological substances; Z86.73 Personal history of transient ischemic attack (TIA), and cerebral infarction without residual deficits; Z85.828 Personal history of other malignant neoplasm of skin; Z98.42 Cataract extraction status, left eye; Z98.41 Cataract extraction status, right eye; Z90.710 Acquired absence of both cervix and uterus; Z87.891 Personal history of nicotine dependence; Z79.82 Long term (current) use of aspirin
CPT/HCPCS: 36415; 36600; 71045; 80053; 81003; 81015; 82550; 82553; 82803; 83605; 83880; 84484; 85025; 86140; 87040; 87070; 87205; 87502; 87641; 93005; 94640; 94660; 94760; 99284; A9270-GY; J0360; J1644; J2060; J2920; J7512

== ENCOUNTER 2017-07-21 08:18 | Day surgery (SDC) | payer MEDICARE ==
[~2017-07-21 08:18] MED LIST: Buffered Lidocaine 0.9% SYRIN* 5 ML/SYR SYRINGE INTRADERM ONE
[2017-07-21] MEDS ORDERED: Buffered Lidocaine 0.9% SYRIN* 5 ML/SYR SYRINGE ONE (08:30)
[2017-07-21] MEDS ORDERED: Clindamycin 900 MG IVPREMIX(* 900 MG/50 ML SDV IV ONE (08:30)
[2017-07-21] MEDS ORDERED: Lisinopril TAB* 5 MG PO ONE (10:00)
[2017-07-21] MEDS ORDERED: Lidocain 1% EPI 1:100,000 * 30 ML MDV ONE (10:23)
[2017-07-21] MEDS ORDERED: Bupivacaine 0.25% SDV* 30 ML ONE (10:23)
[2017-07-21] MEDS ORDERED: Mineral Oil Sterile, TOPICAL* 25 ML BTL ONE (10:24)
[2017-07-21] MEDS ORDERED: Midazolam* 1 MG/ML 2 ML VIAL (2 MG) ONE ×2 (10:41→12:16)
[2017-07-21] MEDS ORDERED: fentaNYL* 50 MCG/ML 2 ML VIAL (100 MCG VIAL) ONE (10:41)
[2017-07-21] MEDS ORDERED: Naloxone* 0.4 MG/ML 1 ML VIAL IV PRN (11:49)
[2017-07-21] MEDS ORDERED: Propofol* 10 MG/ML 20 ML BTL IV PUSH ONE (11:53)
[2017-07-21 14:41] VITALS: BP 164/58
== END 2017-07-21 14:42 | disposition home or self-care (01) ==
LOC: OR 08:18
PROVIDERS: ATTEND Plastic Surgery
DX: C44.212 Basal cell carcinoma of skin of right ear and external auricular canal (principal); I25.10 Atherosclerotic heart disease of native coronary artery without angina pectoris; I10 Essential (primary) hypertension; J44.9 Chronic obstructive pulmonary disease, unspecified; Z86.73 Personal history of transient ischemic attack (TIA), and cerebral infarction without residual deficits; F41.9 Anxiety disorder, unspecified; K21.9 Gastro-esophageal reflux disease without esophagitis
CPT/HCPCS: 88305; 88331; 88332; A9270-GY; J2250; J2704; J3010

== ENCOUNTER 2018-08-11 14:54 | Observation (INO) | payer MEDICARE ==
[2018-08-11] MEDS ORDERED: Ketorolac INJ* 30 MG/ML 1 ML VIAL IV PUSH ONE (15:45)
[2018-08-11] MEDS ORDERED: Acetaminophen TAB* 325 MG PO ONE (15:46)
[2018-08-11 16:14] LABS: ABS Eosinophils 0.2 10^3/ul (0-0.6); ABS Lymphocytes 0.9 10^3/ul (1.0-4.8); ABS Monocytes 0.3 10^3/ul (0-0.8); ABS Neutrophils 3.5 10^3/ul (1.5-7.7); Eosinophil % 3.4 %; Hematocrit 34 % (35-47); Hemoglobin 11.4 g/dL (12.0-16.0); Lymphocyte % 17.8 %; Mean Corpuscular HGB Conc 34 g/dL (31-36); Mean Corpuscular Hemoglobin 29 pg (27-31); Mean Corpuscular Volume 85 fL (80-97); Mean Platelet Volume 8.4 fL (7.4-10.4); Platelet Count 212 10^3/uL (150-450); Red Blood Count 3.98 10^6 /uL (3.70-4.87); Red Cell Distribution Width 14 % (10.5-15); White Blood Count 4.9 10^3/uL (3.5-10.8)
[2018-08-11 16:25] LABS: Troponin I 0.01 ng/mL (<0.04)
[2018-08-11 16:32] LABS: ALT 9 U/L (7-52); AST 13 U/L (13-39); Alkaline Phosphatase 77 U/L (34-104); Anion Gap 4 mmol/L (2-11); BUN/Creatinine Ratio 18.1 (8-20); Blood Urea Nitrogen 17 mg/dL (6-24); C Reactive Protein < 1.00 mg/L (<8.01); CO2 Carbon Dioxide 29 mmol/L (22-32); Chloride 105 mmol/L (101-111); EGFR African American 68.2 (>60); EGFR Non-African American 56.3 (>60); Glucose 100 mg/dL (70-100); Potassium 4.3 mmol/L (3.5-5.0); Sodium 138 mmol/L (135-145)
--- NOTE | 2018-08-11 16:46 | ED ---
Complex/Multi-Sys Presentation - HPI Summary HPI Summary: The patient is an 87 Y/o F presenting the ED accompanied by her [id number] with a chief complaint of low back spasms and chest pain.The back spasms developed since 08/08/18 and the chest pain started on 08/09/18. Patient reports the chest pain wakes her up in the night and lasts for 3 minutes. Patient also reports an occasionally productive cough with white sputum but usually is unproductive because when the chest pain started, she has a build-up of mucus in the lungs that she "can't get out". She also reports feeling short of breath from the buildup of mucus. During the episode she rates her chest pain as a 6/ 10. The patient also reports symptoms of nausea, discomfort with her abdomen, and that her diaphragm feels like there is a pressure. She reports sitting up alleviates the pain but no aggravating factors. The patient also states that she used a heating pad, had a hot shower, and hydrated which all did not help her sx. The patient denies diarrhea, problems with urinating, constipation, acute edema, hematuria, and other urinary symptoms. The patient reports taking lorazepam which helped with the back spasms prior to todays visit. The patient had a blood pressure of 237/88 upon exam. The patient has a Hx of COPD. The patient is constantly on 2L O2 at home. - History Of Current Complaint Chief Complaint: EDShortnessOfBreath Time Seen by Provider: 08/11/18 15:07 Hx Obtained From: Patient Onset/Duration: Gradual Onset - 3 days for back spams, 2 days for Chest Pain Timing: Minutes - 3 minutes for chest pain Severity Currently: Moderate Severity Initially: Severe Location: Pain At: - L lateral chest, lower back Aggravating Factor(s): nothing Alleviating Factor(s): sitting up helps; prior treatment includes a heating pack and a hot shower that did not alleviate her sx. Associated Signs And Symptoms: Positive: SOB - from pain and mucus, Cough, Nausea, Other - back spasms. Negative: Vomiting, Diarrhea, Dysuria - Allergies/Home Medications Allergies/Adverse Reactions: Allergies Allergy/AdvReac Type Severity Reaction Status Date / Time bee venom protein (honey bee) Allergy Severe Anaphylatic Verified 08/11/18 15:05 Shock latex Allergy Intermediate See Comment Verified 08/11/18 15:05 amoxicillin Allergy Mild Vomiting Verified 08/11/18 15:05 clavulanic acid Allergy Mild Vomiting Verified 08/11/18 15:05 indomethacin Allergy See Comment Verified 08/11/18 15:05 shellfish derived Allergy See Comment Verified 08/11/18 15:05 prednisone AdvReac See Comment Verified 08/11/18 15:05 Home Medications: Home Medications Fluticasone/Vilanterol MDI(NF) [Breo Ellipta MDI (NF)] 1 puff INH DAILY [History Confirmed 08/11/18] Levalbuterol HFA INHALER* [Xopenex Hfa Inhaler*] 2 puff INH Q4H PRN 08/11/18 [ History Confirmed 08/11/18] Lisinopril TAB* [Prinivil TAB*] 5 mg PO DAILY 08/11/18 [History Confirmed ] Umeclidinium 62.5 MDI(NF) [Incruse ELLIPTA MDI (NF)] 1 puff INH DAILY 08/11/18 [ History Confirmed 08/11/18] PMH/Surg Hx/FS Hx/Imm Hx Previously Healthy: No Endocrine/Hematology History: Denies: Hx Diabetes, Hx Systemic Lupus Erythematosus, Hx Sickle Cell Disease , Hx Thyroid Disease, Hx Anemia, Hx Unexplained Bleeding Cardiovascular History: Reports: Hx Hypercholesterolemia, Hx Hypotension, Hx Hypertension, Other Cardiovascular Problems/Disorders - Diastolic heart failure Denies: Hx Aneurysm, Hx Angina, Hx Angioplasty, Hx Auto Implanted Cardiovert Defib, Hx Cardiac Arrest, Hx Cardiomegaly, Hx Congenital Heart Disease, Hx Congestive Heart Failure, Hx Coronary Artery Disease, Hx Deep Vein Thrombosis, Hx Embolism, Hx Pacemaker/ICD, Hx Peripheral Vascular Disease, Hx Rheumatic Fever, Hx Syncope, Hx Valvular Heart Disease Respiratory History: Reports: Hx Asthma, Hx Chronic Bronchitis, Hx Chronic Obstructive Pulmonary Disease (COPD), Hx Pneumonia Denies: Hx Cystic Fibrosis, Hx Lung Cancer, Hx Pleural Effusion, Hx Pulmonary Edema, Hx Pulmonary Embolism, Hx Seasonal Allergies, Hx Sleep Apnea, Other Respiratory Problems/Disorders GI History: Reports: Other GI Disorders - "BOWEL SPASMS" History: Denies: Hx Dialysis, Hx Renal Disease, Other Problems/Disorders Musculoskeletal History: Reports: Hx Gout, Other Musculoskeletal History - USES CANE Denies: Hx Arthritis, Hx Rheumatoid Arthritis, Hx Osteoporosis Sensory History: Reports: Hx Contacts or Glasses Denies: Hx Cataracts, Hx Eye Injury, Hx Eye Prosthesis, Hx Glaucoma, Hx Legally Blind, Hx Macular Degeneration, Hx Vision Problem, Hx Deafness, Hx Hearing Aid, Hx Hearing Problem, Other Sensory Impairments Opthamlomology History: Reports: Hx Contacts or Glasses Denies: Hx Cataracts, Hx Eye Injury, Hx Eye Prosthesis, Hx Glaucoma, Hx Legally Blind, Hx Macular Degeneration, Hx Vision Problem, Other Sensory Impairments Neurological History: Reports: 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 BILAT CATARACT[place] [facility] [place]. [place] ovarian cystectomy. lip cancer squamous 2012 [facility] [place]. Mohs surgery July 2015 right side of nose. RIGHT KNEE RECONSTRUCTION 1941 [place]. D+C . RIGHT EAR CA EXC 2014 [facility] [place] Hx Anesthesia Reactions: No Infectious Disease History: No Infectious Disease History: Reports: Hx Shingles Denies: Hx Tuberculosis, Traveled Outside the [place] in Last 30 Days - Family History Known Family History: Positive: Other - CVA. Negative malignant hyperthermia, negative anesthesia reaction. - Social History Alcohol Use: None Hx Substance Use: No Substance Use Type: Reports: None Hx Tobacco Use: Yes Smoking Status (MU): Former Smoker Type: Cigarettes Amount Used/How Often: <1/2 PPD X 10 YEARS Length of Time of Smoking/Using Tobacco: PROBABLY QUIT 50 YRS AGO Have You Smoked in the Last Year: No Review of Systems Positive: Chest Pain - L lateral abdomen, wakes her up from sleep Positive: Shortness Of Breath - from mucus, Cough - occasionally productive with white sputum but usually unproductive Positive: Abdominal Pain, Nausea, Other - Negative: constipations. Negative: Vomiting, Diarrhea Positive: no symptoms reported Negative: Edema All Other Systems Reviewed And Are Negative: Yes Physical Exam - Summary Physical Exam Summary: Constitutional: Well-developed, Well-nourished, Alert. (-) Distressed Skin: Warm, Dry HENT: Normocephalic; Atraumatic Eyes: Conjunctiva normal Neck: Musculoskeletal ROM normal neck. (-) JVD, (-) Stridor, (-) Tracheal deviation Cardio: Rhythm regular, rate normal, Heart sounds normal; Intact distal pulses; The pedal pulses are 2+ and symmetric. Radial pulses are 2+ and symmetric. (-) Murmur Pulmonary/Chest wall: Effort normal. (-) Respiratory distress, (-) Wheezes, (-) Rales, decreased breath sounds in the posterior lung palomares Abd: Soft, tenderness in the LUQ, epigastric, and the L flank, (-) Distension, ( -) Guarding, (-) Rebound Musculoskeletal: (-) Edema, Tenderness to palpation in the L mid lateral back muscles. No CVA tenderness. Lymph: (-) Cervical adenopathy Neuro: Alert, Oriented x3 Psych: Mood and affect Normal Triage Information Reviewed: Yes Vital Signs On Initial Exam: Initial Vitals Temp Pulse Resp BP Pulse Ox 100.9 F 69 20 242/79 95 08/11/18 14:58 08/11/18 14:58 08/11/18 14:58 08/11/18 14:58 08/11/18 14:58 Vital Signs Reviewed: Yes Diagnostics - Vital Signs Vital Signs Temp Pulse Resp BP Pulse Ox 08/11/18 15:46 17 100 08/11/18 15:43 62 17 207/76 100 08/11/18 15:40 61 26 205/80 100 08/11/18 15:14 61 24 237/88 99 08/11/18 15:13 65 23 231/100 99 08/11/18 15:12 66 19 99 08/11/18 14:58 100.9 F 69 20 242/79 95 - Laboratory Lab Results: Lab Results 08/11/18 08/11/18 08/11/18 Range/Units 15:58 15:58 15:58 WBC 4.9 (3.5-10.8) 10^3/uL RBC 3.98 (3.70-4.87) 10^6 /uL Hgb 11.4 L (12.0-16.0) g/dL Hct 34 L (35-47) % MCV 85 (80-97) fL MCH 29 (27-31) pg MCHC 34 (31-36) g/dL RDW 14 (10.5-15) % Plt Count 212 (150-450) 10^3/uL MPV 8.4 (7.4-10.4) fL Neut % (Auto) 71.1 % Lymph % (Auto) 17.8 % [place] % (Auto) 7.0 % Eos % (Auto) 3.4 % Baso % (Auto) 0.7 % Absolute Neuts (auto) 3.5 (1.5-7.7) 10^3/ul Absolute Lymphs (auto) 0.9 L (1.0-4.8) 10^3/ul Absolute Monos (auto) 0.3 (0-0.8) 10^3/ul Absolute Eos (auto) 0.2 (0-0.6) 10^3/ul Absolute Basos (auto) 0.0 (0-0.2) 10^3/ul Absolute Nucleated RBC 0.0 10^3/ul Nucleated RBC % 0.0 Sodium 138 (135-145) mmol/L Potassium 4.3 (3.5-5.0) mmol/L Chloride 105 (101-111) mmol/L Carbon Dioxide 29 (22-32) mmol/L Anion Gap 4 (2-11) mmol/L BUN 17 (6-24) mg/dL Creatinine 0.94 (0.51-0.95) mg/dL Est GFR ( Amer) 68.2 (>60) Est GFR (Non-Af Amer) 56.3 (>60) BUN/Creatinine Ratio 18.1 (8-20) Glucose 100 (70-100) mg/dL Lactic Acid 0.5 (0.5-2.0) mmol/L Calcium 10.0 (8.6-10.3) mg/dL Total Bilirubin 0.50 (0.2-1.0) mg/dL AST 13 (13-39) U/L ALT 9 (7-52) U/L Alkaline Phosphatase 77 (34-104) U/L Troponin I 0.01 (<0.04) ng/mL C-Reactive Protein < 1.00 (<8.01) mg/L B-Natriuretic Peptide (<=100) pg/mL Total Protein 6.0 L (6.4-8.9) g/dL Albumin 4.0 (3.2-5.2) g/dL Globulin 2.0 (2-4) g/dL Albumin/Globulin Ratio 2.0 (1-3) Lipase 33 (11.0-82.0) U/L 08/11/18 Range/Units 15:58 WBC (3.5-10.8) 10^3/uL RBC (3.70-4.87) 10^6 /uL Hgb (12.0-16.0) g/dL Hct (35-47) % MCV (80-97) fL MCH (27-31) pg MCHC (31-36) g/dL RDW (10.5-15) % Plt Count (150-450) 10^3/uL MPV (7.4-10.4) fL Neut % (Auto) % Lymph % (Auto) % [place] % (Auto) % Eos % (Auto) % Baso % (Auto) % Absolute Neuts (auto) (1.5-7.7) 10^3/ul Absolute Lymphs (auto) (1.0-4.8) 10^3/ul Absolute Monos (auto) (0-0.8) 10^3/ul Absolute Eos (auto) (0-0.6) 10^3/ul Absolute Basos (auto) (0-0.2) 10^3/ul Absolute Nucleated RBC 10^3/ul Nucleated RBC % Sodium (135-145) mmol/L Potassium (3.5-5.0) mmol/L Chloride (101-111) mmol/L Carbon Dioxide (22-32) mmol/L Anion Gap (2-11) mmol/L BUN (6-24) mg/dL Creatinine (0.51-0.95) mg/dL Est GFR ( Amer) (>60) Est GFR (Non-Af Amer) (>60) BUN/Creatinine Ratio (8-20) Glucose (70-100) mg/dL Lactic Acid (0.5-2.0) mmol/L Calcium (8.6-10.3) mg/dL Total Bilirubin (0.2-1.0) mg/dL AST (13-39) U/L ALT (7-52) U/L Alkaline Phosphatase (34-104) U/L Troponin I (<0.04) ng/mL C-Reactive Protein (<8.01) mg/L B-Natriuretic Peptide 190 H (<=100) pg/mL Total Protein (6.4-8.9) g/dL Albumin (3.2-5.2) g/dL Globulin (2-4) g/dL Albumin/Globulin Ratio (1-3) Lipase (11.0-82.0) U/L Result Diagrams: 08/11/18 15:58 08/11/18 15:58 Lab Statement: Any lab studies that have been ordered have been reviewed, and results considered in the medical decision making process. - Radiology CXR Radiology Interpretation Completed By: Radiologist Summary of Radiographic Findings: NO ACTIVE CARDIOPULMONARY DISEASE. ED physician has reviewed this report. - CT No standard instances CT Interpretation Completed By: Radiologist Summary of CT Findings: CT A/P: Low density lesions in liver likely represent cysts and are stable since May 01, 2016. No evidence of obstructive uropathy is noted. Cholelithiasis without biliary ductal dilatation is noted. No hernias are noted. ED physician has reviewed this report. - EKG 1422 Cardiac Rate: NL - 60 BPM EKG Rhythm: Sinus Rhythm ST Segment: Normal Summary of EKG Findings: Normal sinus rhythm at 60 bpm, normal HI, normal QRS, normal QTc, normal axis, normal ST, normal T-waves, normal EKG. 1706 Cardiac Rate: Bradycardia EKG Rhythm: Sinus Rhythm ST Segment: Normal Ectopy: PVCs EKG Comparison: Other - t-waves flattened in AVF and V6 when compared to 1422 today. Complex Multi-Symp Course/Dx Course Of Treatment: The paitient is an 87 Y/o F presenting the ED accompanied by her [id number] with a chief complaint of low back spasms and chest pain. The paient had abnormal values in Hgb 11.4, MCV 34, absolute nymph 190, B- natriuretic pep 190, and total protein of 60. The patient also received an EKG that shows Normal sinus rhythm at 60 bpm, normal HI, normal QRS, normal QTc, normal axis, normal ST, normal T-waves, normal EKG. THe patient also received a CXR that showed NO ACTIVE CARDIOPULMONARY DISEASE. The patient also received a CT A/P that showed Low density lesions in liver likely represent cysts and are stable since May 01, 2016. No evidence of obstructive uropathy is noted. Cholelithiasis without biliary ductal dilatation is noted. No hernias are noted. The patient was admitted to the hospital per Dr. Jarvis at 1654. The patient was diagnosed with back pain and chest pain. - Diagnoses Differential Diagnoses/HQI/PQRI: Other - chest pain, back pain Provider Diagnoses: Chest pain, Back pain - Physician Notifications Discussed Care Of Patient With: Lorie Jarvis Time Discussed With Above Provider: 16:54 Instructed by Provider To: Admit As Inpatient Discharge - Sign-Out/Discharge Documenting (check all that apply): Patient Departure - admit Patient Received Moderate/Deep Sedation with Procedure: No - Discharge Plan Condition: Stable Disposition: ADMITTED TO [facility] Referrals: Maulik Garcia MD [Primary Care Provider] - - Attestation Statements Document Initiated by Scribe: Yes Documenting Scribe: Samir Ga Provider For Whom Scribe is Documenting (Include Credential): Corinne Garcia MD Scribe Attestation: Samir Mistry, scribed for Corinne Ding MD on 08/11/18 at 1940. Status of Scribe Document: Ready
[2018-08-11] MEDS ORDERED: Aspirin 81 mg CHEW TAB* 81 MG TAB.CHEW PO ONE (16:50)
[2018-08-11] MEDS ORDERED: Nitroglycerin TAB 0.4 MG* 0.4 MG TAB SL ONE (16:50)
[2018-08-11 18:26] LABS: Urine Appearance Clear; Urine Bilirubin Negative (Negative); Urine Blood Negative (Negative); Urine Color Yellow; Urine Glucose Negative (Negative); Urine Ketones Negative (Negative); Urine Nitrite Negative (Negative); Urine Protein Negative (Negative); Urine Specific Gravity 1.016 (1.010-1.030); Urine Urobilinogen Negative (Negative)
[2018-08-11] MEDS ORDERED: Acetaminophen TAB* 325 MG PO PRN (20:00)
[2018-08-11] MEDS ORDERED: Umeclidinium 62.5 MDI(NF) MDI INH PRN (20:08)
[2018-08-11] MEDS ORDERED: Levalbuterol HFA INHALER* 1 PUFF MDI INH PRN (20:08)
[2018-08-11] MEDS ORDERED: LORazepam TAB(*) 0.5 MG PO PRN (20:08)
[2018-08-11] MEDS ORDERED: Ketorolac TAB * 10 MG TAB PO PRN (20:09)
[2018-08-11] MEDS ORDERED: Ketorolac INJ* 15 MG/ML 1 ML VIAL IV PUSH PRN (20:51)
[2018-08-11] MEDS ORDERED: Enoxaparin(*) 40 MG/0.4 ML SYR SUBCUT SCH (21:00)
[2018-08-11] MEDS ORDERED: traZODone TAB* 50 MG TAB PO SCH (21:00)
[2018-08-11] MEDS: Lidocaine PATCH 5%* 1 PATCH TRANSDERM SCH (21:15)
--- NOTE | 2018-08-11 22:13 | HP ---
CC: Dr. Garcia; Dr. Chung * HISTORY AND PHYSICAL: DATE OF ADMISSION: 08/11/18 PROVIDER: Kerri Damon NP PRIMARY CARE PROVIDER: Dr. Garcia. ATTENDING PHYSICIAN WHILE IN THE HOSPITAL: Dr. Pablo Stock * (dictated by Kerri Damon NP) CHIEF COMPLAINT: Chest pain, left lower rib pain. HISTORY OF PRESENT ILLNESS: Ms. 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 The patient also reports that she was nauseated at breakfast this morning. The patient reports that she has tried multiple measures at home including taking a hot shower with no relief of the pain. So, she presented to the emergency room for further evaluation. The patient reports that she has pain that starts in her posterior lower ribs and as that subsides, she develops pain in her anterior lower ribs that radiates up to the upper portion of her left chest. She reports that this pain is exacerbated by movement. It is reproducible with chest pain. She reports that the pain feels like a spasm. She reports that she has had this left-sided anterior chest pain for the past 2 days as well. While in the emergency room, the patient had routine lab work drawn. She had 2 negative troponins. She did have an EKG that showed bradycardia with ST depressions in V5 and V6 and then T wave flattening in V5 and V6. Due to her chest pain, we were asked to see and evaluate her for admission. PAST MEDICAL HISTORY: 1. COPD. 2. CVA related to atrial fibrillation. 3. Hypertension. 4. History of congestive heart failure. 5. Anxiety. 6. Insomnia. 7. Hyperlipidemia. 8. Gout. 9. History of lip carcinoma. PAST SURGICAL HISTORY: 1. Hysterectomy. 2. Removal of lip carcinoma. 3. Basal and squamous cell skin cancer removed. 4. Left knee arthroscopy. 5. Ovarian cyst removal. 6. D and Cs. MEDICATIONS: Home medications include: 1. Incruse Ellipta 1 puff b.i.d. as needed. 2. Lorazepam 0.5 mg p.o. b.i.d. 3. Metoprolol 25 mg p.o. daily. 4. Omeprazole 20 mg p.o. daily. 5. Lisinopril 5 mg p.o. daily. 6. Aspirin 81 mg p.o. daily. 7. Trazodone 50 mg p.o. at bedtime. 8. Breo Ellipta 1 puff inhale daily. 9. Levalbuterol HFA inhaler 2 puffs q.4 hours as needed for shortness of breath. ALLERGIES: She has an allergy to BEE VENOM, anaphylactic shock. Allergy to AUGMENTIN, INDOMETHACIN, SHELLFISH, PREDNISONE, and LATEX, which she reports are adverse reactions to those medications. FAMILY HISTORY: Father with a history of stroke, in his 80s. No reported history of diabetes. Mother with cervical cancer and brother had an aortic aneurysm. SOCIAL HISTORY: The patient reports that she quit smoking approximately 53 years ago. Prior to that, she smoked approximately 2 cigarettes a day for 10 years. She does report daily alcohol use with wine. Denies any illicit drug use. She is . She lives with her son. Surrogate decision maker in the event she is unable to make her own decisions is her son, Tristan, his phone number is . She is a DNR with trial intubation. REVIEW OF SYSTEMS: A 11-point review of systems was completed, all pertinent positives were mentioned in the HPI, otherwise were negative. She did report anxiety and shortness of breath and cough as well. PHYSICAL EXAMINATION GENERAL: Ms. Preciado is an 87-year-old female, she is alert and oriented, resting on the stretcher in the emergency room, she does not appear to be in any acute distress. VITAL SIGNS: Blood pressure is 203/83, heart rate is 58, respirations 20, O2 saturation is 100%, temperature 100.9. HEENT: Head is atraumatic, normocephalic. Eyes: EOMs are intact. Sclerae anicteric and not pale. Oral mucosa appeared to be moist. NECK: Supple. LUNGS: Diminished throughout bilaterally. No wheezes, rales, or rhonchi. CARDIAC: S1, S2. She is bradycardiac with regular rate and rhythm. No rubs or gallops. ABDOMEN: Soft and nontender. Bowel sounds are present x4. EXTREMITIES: She is able to move all 4 extremities with 5/5 strength. There is no clubbing or cyanosis. NEUROLOGIC: She is awake, alert, oriented x3. Speech is clear. Thought process is intact. There are no gross focal deficits. PSYCH: The patient is alert and oriented x4. She is calm and cooperative. SKIN: She has scattered areas of dry skin. DIAGNOSTIC STUDIES/LAB DATA: WBCs are 4.9, RBCs 3.98, hemoglobin 11.4, hematocrit is 34, platelet count is 212. Sodium 138, potassium 4.3, chloride 105, carbon dioxide is 29, anion gap is 4, BUN was 17, creatinine 0.94, glucose is 100. Lactic acid 0.5. Calcium 10.0. ASTs were 13, ALTs were 9, alkaline phosphatase is 77. Troponin was 0.01 x2. C-reactive protein was less than 1. BNP was 190. Lipase was 33. Urine was within normal limits. She had a chest x-ray, radiologist's impression: No active cardiopulmonary disease. CT of the abdomen and pelvis demonstrates no dilated loops of bowel, urinary bladder is unremarkable, colon is filled with stool, no hernias are noted. Low density lesions in the liver represent cysts and are stable since 2017. No evidence of obstructed uropathy, cholelithiasis without biliary dilatation is noted. No hernias are noted. She had an electrocardiogram, which showed sinus rhythm at a rate of [address] depressions in V5 and V6. Repeat EKG in the emergency room showed sinus bradycardia at a rate of [address] flattening in V6, mild ST depression in V5. ASSESSMENT AND PLAN: Ms. 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 Due to the chest pain, we were asked to see and evaluate her for admission. She will be admitted under observation for: 1. Chest pain. The patient will be ruled out for acute coronary syndrome. We will continue to trend her troponin. I will repeat an EKG at [address] her on telemetry. The patient does have reproducible chest pain to her left chest with palpation. I suspect that her chest pain could be related to pleuritic- type chest pain. I will give her Toradol p.o. q.6 hours as needed for the pain. 2. Hypertension. The patient was hypertensive on admission. I suspect her elevation in blood pressure is related to pain and anxiety. I will give her lorazepam for anxiety and I will treat her left pleuritic-type chest pain with Toradol. 3. Anxiety. The patient will have her Ativan as needed for anxiety. 4. Insomnia. She can take her trazodone 50 mg p.o. daily. 5. Gastroesophageal reflux disease. She can have omeprazole 20 mg p.o. daily as needed for GERD. 6. Chronic obstructive pulmonary disease. The patient will continue on home inhalers as previously prescribed. 7. FEN. She can have a heart healthy caffeine okay diet. 8. Code status. She is a DNR with trial intubation. 9. DVT prophylaxis. Lovenox subcu. TIME SPENT: Time spent on this admission was approximately 60 minutes, greater than half that time was spent at the bedside reviewing events leading thus far to her hospitalization, performing my physical exam, and reviewing my plan of care. I have discussed this with my attending physician, Dr. Pablo Stock, he is in agreement with my plan. KERRI DAMON, MIKE [id number]/[facility] #: [id number]
[2018-08-12] MEDS ORDERED: Lisinopril TAB* 5 MG PO ONE (00:24)
[2018-08-12 06:47] LABS: HDL Cholesterol 49.1 mg/dL
[2018-08-12] MEDS: Lidocaine PATCH 5%* 1 PATCH TRANSDERM SCH (08:41)
[2018-08-12] MEDS ORDERED: Lidocaine Patch REMOVE* 1 NOTE MISC PATCH OFF ONE (09:00)
[2018-08-12] MEDS ORDERED: Aspirin EC TAB* 81 MG TAB.EC PO SCH (09:00)
[2018-08-12] MEDS ORDERED: Fluticasone/Vilanterol MDI(NF) 100/25 MDI INH SCH (09:00)
[2018-08-12] MEDS ORDERED: Metoprolol Succinate XL TAB* 25 MG PO SCH (09:00)
[2018-08-12] MEDS ORDERED: Pantoprazole TAB * 40 MG TAB PO SCH (09:00)
[2018-08-12] MEDS ORDERED: Lisinopril TAB* 5 MG PO SCH (09:00)
[2018-08-12] MEDS ORDERED: amLODIPine TAB* 5 MG PO SCH (09:30)
--- NOTE | 2018-08-12 11:02 | PN ---
Subjective Date of Service: 08/12/18 Interval History: BP very high - will given once dose amlodipine. Pt denies headache, blurry vision, chest pain. Son, Maulik, states that pt always have very high BP in the hospital but bottoms out at home if her home medications are increased on discharge. Has exquisite tenderness over L lateral ribs. States it started with burning/ tingling on skin - could be shingles? Never had it before. No rash currently. Antsy to get up and walk around. Connected to wall for O2. SaO2 99%. States the pain is not present at rest. Still anxious. Objective Active Medications: Acetaminophen (Tylenol Tab*) 650 mg PO Q4H PRN PRN Reason: FEVER/PAIN Amlodipine Besylate (Norvasc Tab*) 5 mg PO DAILY [facility] Last Admin: 08/12/18 09:42 Dose: 5 mg Aspirin (Aspirin Ec Tab*) 81 mg PO QAM [facility] Last Admin: 08/12/18 08:42 Dose: 81 mg Enoxaparin Sodium (Lovenox(*)) 40 mg SUBCUT BEDTIME [facility] Last Admin: 08/11/18 23:36 Dose: 40 mg Fluticasone/Vilanterol (Breo Ellipta Mdi 100/25(Nf)) 1 puff INH DAILY [facility] Last Admin: 08/12/18 08:07 Dose: Not Given Levalbuterol HCl (Xopenex Hfa Inhaler*) 2 puff INH Q4H PRN PRN Reason: SHORTNESS OF BREATH Lidocaine (Lidoderm 5% Patch*) 1 patch TRANSDERM DAILY [facility] Last Admin: 08/12/18 08:41 Dose: 1 patch Lisinopril (Prinivil Tab*) 10 mg PO DAILY [facility] Lorazepam (Ativan Tab(*)) 0.5 mg PO BID PRN PRN Reason: ANXIETY Last Admin: 08/11/18 21:14 Dose: 0.5 mg Metoprolol Succinate (Toprol Xl Tab*) 25 mg PO DAILY [facility] Last Admin: 08/12/18 08:42 Dose: 25 mg Pantoprazole Sodium (Protonix Tab*) 40 mg PO QAM [facility] Last Admin: 08/12/18 08:42 Dose: 40 mg Pharmacy Profile Note (Lidocaine Patch Remove*) 1 note N/A 2100 [facility] Trazodone HCl (Desyrel Tab*) 50 mg PO BEDTIME [facility] Last Admin: 08/11/18 23:36 Dose: 50 mg Umeclidinium [place] (Incruse Ellipta Mdi (Nf)) 1 inh INH BID PRN PRN Reason: SHORTNESS OF BREATH Vital Signs - 8 hr 08/12/18 08/12/18 08/12/18 04:02 08:21 08:29 Temperature 97.7 F 98.1 F Pulse Rate 63 57 60 Respiratory 14 20 Rate Blood Pressure 170/63 186/62 (mmHg) O2 Sat by Pulse 100 100 Oximetry Oxygen Devices in Use Now: Nasal Cannula Appearance: anxioius but otherwise in NAD, appears comfortable, no increased WOB Ears/Nose/Mouth/Throat: Clear Oropharnyx, Mucous Membranes Moist Neck: NL Appearance and Movements; NL JVP Respiratory: Clear to Auscultation Cardiovascular: RRR Abdominal: NL Sounds; No Tenderness; No Distention Skin: - - no skin changes over area of rib pain - no erythema, blisters, or rash Result Diagrams: 08/11/18 15:58 08/11/18 15:58 Additional Lab and Data: Lab Results 08/11/18 08/11/18 08/11/18 Range/Units 15:58 15:58 15:58 WBC 4.9 (3.5-10.8) 10^3/uL RBC 3.98 (3.70-4.87) 10^6 /uL Hgb 11.4 L (12.0-16.0) g/dL Hct 34 L (35-47) % MCV 85 (80-97) fL MCH 29 (27-31) pg MCHC 34 (31-36) g/dL RDW 14 (10.5-15) % Plt Count 212 (150-450) 10^3/uL MPV 8.4 (7.4-10.4) fL Neut % (Auto) 71.1 % Lymph % (Auto) 17.8 % [place] % (Auto) 7.0 % Eos % (Auto) 3.4 % Baso % (Auto) 0.7 % Absolute Neuts (auto) 3.5 (1.5-7.7) 10^3/ul Absolute Lymphs (auto) 0.9 L (1.0-4.8) 10^3/ul Absolute Monos (auto) 0.3 (0-0.8) 10^3/ul Absolute Eos (auto) 0.2 (0-0.6) 10^3/ul Absolute Basos (auto) 0.0 (0-0.2) 10^3/ul Absolute Nucleated RBC 0.0 10^3/ul Nucleated RBC % 0.0 Sodium 138 (135-145) mmol/L Potassium 4.3 (3.5-5.0) mmol/L Chloride 105 (101-111) mmol/L Carbon Dioxide 29 (22-32) mmol/L Anion Gap 4 (2-11) mmol/L BUN 17 (6-24) mg/dL Creatinine 0.94 (0.51-0.95) mg/dL Est GFR ( Amer) 68.2 (>60) Est GFR (Non-Af Amer) 56.3 (>60) BUN/Creatinine Ratio 18.1 (8-20) Glucose 100 (70-100) mg/dL Lactic Acid 0.5 (0.5-2.0) mmol/L Calcium 10.0 (8.6-10.3) mg/dL Total Bilirubin 0.50 (0.2-1.0) mg/dL AST 13 (13-39) U/L ALT 9 (7-52) U/L Alkaline Phosphatase 77 (34-104) U/L Troponin I 0.01 (<0.04) ng/mL C-Reactive Protein < 1.00 (<8.01) mg/L B-Natriuretic Peptide (<=100) pg/mL Total Protein 6.0 L (6.4-8.9) g/dL Albumin 4.0 (3.2-5.2) g/dL Globulin 2.0 (2-4) g/dL Albumin/Globulin Ratio 2.0 (1-3) Lipase 33 (11.0-82.0) U/L 08/11/18 Range/Units 15:58 WBC (3.5-10.8) 10^3/uL RBC (3.70-4.87) 10^6 /uL Hgb (12.0-16.0) g/dL Hct (35-47) % MCV (80-97) fL MCH (27-31) pg MCHC (31-36) g/dL RDW (10.5-15) % Plt Count (150-450) 10^3/uL MPV (7.4-10.4) fL Neut % (Auto) % Lymph % (Auto) % [place] % (Auto) % Eos % (Auto) % Baso % (Auto) % Absolute Neuts (auto) (1.5-7.7) 10^3/ul Absolute Lymphs (auto) (1.0-4.8) 10^3/ul Absolute Monos (auto) (0-0.8) 10^3/ul Absolute Eos (auto) (0-0.6) 10^3/ul Absolute Basos (auto) (0-0.2) 10^3/ul Absolute Nucleated RBC 10^3/ul Nucleated RBC % Sodium (135-145) mmol/L Potassium (3.5-5.0) mmol/L Chloride (101-111) mmol/L Carbon Dioxide (22-32) mmol/L Anion Gap (2-11) mmol/L BUN (6-24) mg/dL Creatinine (0.51-0.95) mg/dL Est GFR ( Amer) (>60) Est GFR (Non-Af Amer) (>60) BUN/Creatinine Ratio (8-20) Glucose (70-100) mg/dL Lactic Acid (0.5-2.0) mmol/L Calcium (8.6-10.3) mg/dL Total Bilirubin (0.2-1.0) mg/dL AST (13-39) U/L ALT (7-52) U/L Alkaline Phosphatase (34-104) U/L Troponin I (<0.04) ng/mL C-Reactive Protein (<8.01) mg/L B-Natriuretic Peptide 190 H (<=100) pg/mL Total Protein (6.4-8.9) g/dL Albumin (3.2-5.2) g/dL Globulin (2-4) g/dL Albumin/Globulin Ratio (1-3) Lipase (11.0-82.0) U/L Assess/Plan/Problems-Billing Assessment: - Patient Problems (1) Rib pain on left side Comment: Ruled out for NV. No pulm symptoms, not tachycardic, and SaO2 99% on home o2. States it started as burning tingling on skin. Could be shingles. Will give Valtrex script to keep at pharmacy in case of blistering, otherwise will control pain with APAP, lidocaine, and judicious use of NSAIDs prn (2) COPD (chronic obstructive pulmonary disease) Comment: Cont home inhalers. On home O2 and with SaO2 100% - will defer to outpatient providers to re-assess need for O2. (3) Hypertensive urgency Comment: Cont home metoprolol suc 25; increase lisinopril to 10mg (HTN dose); giving one dose amlo while admitted but son states her BP is always high in the hospital and bottoms out if she is discharged on an increased regimen - treat anxiety and pain,too
[2018-08-12 15:32] VITALS: BP 187/55
[2018-08-12] MEDS ORDERED: Calcium Carbonate CHEW TAB* 500 MG (TUMS) PO STA (18:08)
[2018-08-12] MEDS ORDERED: Lidocaine Patch REMOVE* 1 NOTE MISC SCH (21:00)
[2018-08-12] MEDS ORDERED: Calcium Carbonate CHEW TAB* 500 MG (TUMS) PO SCH (21:00)
--- NOTE | 2018-08-13 00:34 | DS ---
CC: Maulik Garcia MD * DISCHARGE SUMMARY: DATE OF ADMISSION: 08/11/18 DATE OF DISCHARGE: 08/12/18 PRIMARY CARE PHYSICIAN: Maulik Garcia MD. PRIMARY DIAGNOSIS: Rib pain possibly from costochondritis versus muscle strain. SECONDARY DIAGNOSIS: Hypertension. DISCHARGE MEDICATIONS: 1. Lisinopril 5 mg daily. 2. Metoprolol succinate 25 mg daily. 3. Acetaminophen 1 g every 8 hours as needed for pain. 4. Naproxen 500 mg every 12 hours as needed for severe pain. 5. Lidocaine patch 1 patch topically daily. 6. Valacyclovir 1 g 3 times a day for 7 days, only take if patient experiences eruption of rash. 7. Breo Ellipta 1 puff daily. 8. Albuterol 2 puffs every 4 hours as needed for shortness of breath. 9. Trazodone 50 mg nightly. 10. Aspirin 81 mg daily. 11. Omeprazole 20 mg daily. 12. Lorazepam 0.5 mg twice a day as needed for anxiety. 13. Incruse Ellipta inhaler 1 puff twice a day. HISTORY OF PRESENT ILLNESS: An 87-year-old woman with COPD, on home O2, history of CVA due to atrial fibrillation, hypertension, history of CHF, anxiety , insomnia, who presented to the emergency room with left posterior lower rib and back pain for 2 days in the context of possibly coughing more at home in the setting of increased nasal congestion. She reports the pain is increased with cough and movement. She experienced nausea this morning with breakfast. She tried multiple measures at home for the pain including taking the hot shower with no relief, thus she presented to the emergency room for further evaluation. The pain is exacerbated by movement and it is reproducible, not pleuritic or exertional. She feels like it is a spasm. It may have started with a burning or tingling sensation on the skin. She denies rash. HOSPITAL COURSE: In the emergency room, she had 2 negative troponins and an EKG without concerning finding. She was asked to be admitted for ruling out cardiac ischemia. A third troponin was negative and the patient's pain improved with primary intervention of Toradol with repeat EEGs not concerning for ischemic changes. Of note, the patient's blood pressures in the hospital were difficult to control with highest pressure notably 231/100. The patient was noted to be only on lisinopril 5 mg daily and metoprolol succinate 25 mg daily. So, she was given a higher dose of lisinopril as starting hypertension dose at 10 mg as well as an additional dose of amlodipine. On discussion with the patient's family, son noted that the patient always has very high blood pressures in the hospital and she has had her blood pressure regimen increased several times for this reason only to go home and experience hypotension. She is basically a very anxious person and this pain as well as being in the hospital has caused further anxiety for her. Throughout admission she remained on her home 2 L, saturating 100% without shortness of breath, palpitations, or recurrence of radiating chest pain. She did continue to experience chest pain on palpation of her left lower ribs. Given low likelihood for cardiopulmonary pathology, it was decided to discharge the patient to manage her pain at home thought likely from costochondritis. The patient also reported increased episode of coughing few days prior to admission and she thinks her pain started at that time, so it is also possible that her pain could be from intercostal muscle strain. Also given possible prodrome of burning, tingling on skin, it is possible that patient could develop shingles, although on exam in the hospital, she had no skin changes. She was educted on how to control her pain at home and her son felt comfortable with her going home with close monitoring. PERTINENT DIAGNOSTIC STUDIES: Troponins negative x2, hemoglobin 11.4 which is near her baseline, MCV 85. BMP unremarkable. BNP 190. UA clear. DISCHARGE PLAN: The patient is to follow up closely with her primary care provider. She was given extra strength Tylenol with lidocaine patches for pain control. She was also given a prescription for naproxen but educated to use this medication judiciously. Although it may provide the most benefit from her pain, given her age and renal function and comorbidities she is to only use it short term. She was also sent a prescription for Valtrex in case of skin eruption, although she was educated that she does not need to pickle sorter this prescription unless she has a skin finding. Her and her son were educated on return precautions, which include but are not limited to exertional chest pain, diaphoresis, fever. She is to resume a healthy diet with a normal level of activity as tolerated. DISPOSITION: Home. CONDITION: Good. TIME SPENT: Approximately 60 minutes spent on discharge of this patient, more than half of which was spent with care coordination at bedside for interview and exam. [id number]/[facility] #: [id number] SHANNON
[2018-08-13] MEDS ORDERED: Lisinopril TAB* 5 MG PO SCH (09:00)
== END 2018-08-12 19:40 | disposition home or self-care (01) ==
LOC: ED 14:54 → MEDTELE 20:00
PROVIDERS: ADMIT Internal Medicine; ATTEND Internal Medicine
DX: R07.81 Pleurodynia (principal); I10 Essential (primary) hypertension; Z79.82 Long term (current) use of aspirin; J44.9 Chronic obstructive pulmonary disease, unspecified; Z86.73 Personal history of transient ischemic attack (TIA), and cerebral infarction without residual deficits; M54.9 Dorsalgia, unspecified; R06.02 Shortness of breath; R05 Cough; Z88.0 Allergy status to penicillin; Z87.891 Personal history of nicotine dependence; M10.9 Gout, unspecified; Z66 Do not resuscitate
CPT/HCPCS: 36415; 71045; 74176; 80053; 80061; 81003; 83605; 83690; 83880; 84484; 85025; 86140; 87040; 93005; 96372; 96374; 96375; 99285; A9270-GY; G0378; J1650; J1885

== ENCOUNTER 2018-11-23 13:21 | Inpatient (IN) | payer MEDICARE ==
--- NOTE | 2018-11-23 13:39 | ED ---
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 She notes some tightness in her chest but no CP. No aggravating or alleviating factors noted. She mentions that her current cough is likely related to her COPD. She also reports chills, SOB, and swelling but denies any nausea, vomiting, fever, or dysuria. She has Hx of CHF. - History of Current Complaint Chief Complaint: EDShortnessOfBreath Time Seen by Provider: 11/23/18 13:35 Hx Obtained From: Patient Onset/Duration: Sudden Onset, Lasting Days, Still Present Timing: Constant Current Severity: Moderate Aggravating Factors: Nothing Alleviating Factors: Nothing Associated Signs & Symptoms: Negative - nausea, vomiting, fever, dysuria, Cough (Productive), Chills, Edema - Allergy/Home Medications Allergies/Adverse Reactions: Allergies Allergy/AdvReac Type Severity Reaction Status Date / Time bee venom protein (honey bee) Allergy Severe Anaphylatic Verified 11/23/18 13:32 Shock latex Allergy Intermediate See Comment Verified 11/23/18 13:32 amoxicillin Allergy Mild Vomiting Verified 11/23/18 13:32 clavulanic acid Allergy Mild Vomiting Verified 11/23/18 13:32 indomethacin Allergy See Comment Verified 11/23/18 13:32 shellfish derived Allergy See Comment Verified 11/23/18 13:32 prednisone AdvReac See Comment Verified 11/23/18 13:32 Home Medications: Home Medications EPINEPHrine [Epipen 2-Mayank] 0.3 mg IM .FOR BEE STING 11/23/18 [History Confirmed 11/23/18] Levalbuterol HFA INHALER* [Xopenex Hfa Inhaler*] 2 puff INH Q4H PRN 11/23/18 [ History Confirmed 11/23/18] Naproxen [Naproxen 500 mg tab] 250 mg PO BID 11/23/18 [History Confirmed ] Umeclidinium [place] [Incruse Ellipta] 62.5 mcg INH DAILY 11/23/18 [History Confirmed 11/23/18] traMADol TAB* [Ultram*] 50 mg PO Q6HR PRN 11/23/18 [History Confirmed 11/23/18] PMH/Surg Hx/FS Hx/Imm Hx Endocrine/Hematology History: Denies: Hx Diabetes, Hx Systemic Lupus Erythematosus, Hx Sickle Cell Disease , Hx Thyroid Disease, Hx Anemia, Hx Unexplained Bleeding Cardiovascular History: Reports: Hx Congestive Heart Failure - Diastolic heart failure, Hx Hypercholesterolemia, Hx Hypotension - Orthostatic, Hx Hypertension , Other Cardiovascular Problems/Disorders - Diastolic heart failure Denies: Hx Aneurysm, Hx Angina, Hx Angioplasty, Hx Auto Implanted Cardiovert Defib, Hx Cardiac Arrest, Hx Cardiomegaly, Hx Congenital Heart Disease, Hx Coronary Artery Disease, Hx Deep Vein Thrombosis, Hx Embolism, Hx Pacemaker/ICD , Hx Peripheral Vascular Disease, Hx Rheumatic Fever, Hx Syncope, Hx Valvular Heart Disease Respiratory History: Reports: Hx Asthma, Hx Chronic Bronchitis, Hx Chronic Obstructive Pulmonary Disease (COPD), Hx Pneumonia Denies: Hx Cystic Fibrosis, Hx Lung Cancer, Hx Pleural Effusion, Hx Pulmonary Edema, Hx Pulmonary Embolism, Hx Seasonal Allergies, Hx Sleep Apnea, Other Respiratory Problems/Disorders GI History: Reports: Other GI Disorders - "BOWEL SPASMS" History: Denies: Hx Dialysis, Hx Renal Disease, Other Problems/Disorders Musculoskeletal History: Reports: Hx Gout, Other Musculoskeletal History - USES CANE Denies: Hx Arthritis, Hx Rheumatoid Arthritis, Hx Osteoporosis Sensory History: Reports: Hx Contacts or Glasses Denies: Hx Cataracts, Hx Eye Injury, Hx Eye Prosthesis, Hx Glaucoma, Hx Legally Blind, Hx Macular Degeneration, Hx Vision Problem, Hx Deafness, Hx Hearing Aid, Hx Hearing Problem, Other Sensory Impairments Opthamlomology History: Reports: Hx Contacts or Glasses Denies: Hx Cataracts, Hx Eye Injury, Hx Eye Prosthesis, Hx Glaucoma, Hx Legally Blind, Hx Macular Degeneration, Hx Vision Problem, Other Sensory Impairments Neurological History: Reports: Hx Transient Ischemic Attacks (TIA) - R/T PAROXYSMAL AFIB Denies: Hx Headaches, Other Neuro Impairments/Disorders Psychiatric History: Reports: Hx Anxiety Denies: Hx Depression, Hx Panic Disorder - Cancer History Cancer Type, Location and Year: skin- basal cell and squamous cell, lip and left face, 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 Hx Chemotherapy: No Hx Radiation Therapy: No Hx Palliative Cancer Treatment: No - Surgical History Surgery Procedure, Year, and Place: 06/2011-left knee arthroscopy-[facility] [place]. BILAT CATARACTS [facility]. 1969's hysterectomy. 1959's ovarian cystectomy. lip cancer squamous 2012 [facility]. Mohs surgery July 2015 right side of nose. RIGHT KNEE RECONSTRUCTION [address]. D+C 1959'S. RIGHT EAR CA EXC 2014 [facility] Hx Anesthesia Reactions: No Infectious Disease History: No Infectious Disease History: Reports: Hx Shingles Denies: Hx Tuberculosis, Traveled Outside the [place] in Last 30 Days - Family History Known Family History: Positive: Other - CVA. Negative malignant hyperthermia, negative anesthesia reaction. - Social History Alcohol Use: Daily Hx Substance Use: No Substance Use Type: Reports: None Hx Tobacco Use: Yes Smoking Status (MU): Former Smoker Type: Cigarettes Amount Used/How Often: <1/2 PPD X 10 YEARS Length of Time of Smoking/Using Tobacco: PROBABLY QUIT 50 YRS AGO Have You Smoked in the Last Year: No Review of Systems Positive: Chills. Negative: Fever Positive: Other - pos - congestion Positive: Other - pos - chest tightness. Negative: Chest Pain Positive: Shortness Of Breath, Cough Negative: Vomiting, Nausea Negative: dysuria Positive: Edema All Other Systems Reviewed And Are Negative: Yes Physical Exam - Summary Physical Exam Summary: Constitutional: Well-developed, Well-nourished, Alert. (-) Distressed. Speaking in full sentences. Skin: Warm, Dry HENT: Normocephalic; Atraumatic Eyes: Conjunctiva normal Neck: Musculoskeletal ROM normal neck. (-) JVD, (-) Stridor, (-) Tracheal deviation Cardio: Rhythm regular, rate normal, Heart sounds normal; Intact distal pulses; The pedal pulses are 2+ and symmetric. Radial pulses are 2+ and symmetric. (-) Murmur Pulmonary/Chest wall: Effort normal. (-) Respiratory distress, (-) Rales. Breathing well on 2 liters of O2. Mild wheezing sounds in the upper lungs. TCoarse breath sounds bilaterally. Abd: Soft, (-) tenderness, (-) Distension, (-) Guarding, (-) Rebound Musculoskeletal: 1+ pitting edema bilaterally. Lymph: (-) Cervical adenopathy Neuro: Alert, Oriented x3 Psych: Mood and affect Normal Triage Information Reviewed: Yes Vital Signs On Initial Exam: Initial Vitals Temp Pulse Resp BP Pulse Ox 98.8 F 67 22 208/77 97 11/23/18 13:29 11/23/18 13:29 11/23/18 13:29 11/23/18 13:29 11/23/18 13:29 Vital Signs Reviewed: Yes Diagnostics - Vital Signs Vital Signs Temp Pulse Resp BP Pulse Ox 11/23/18 13:29 98.8 F 67 22 208/77 97 - Laboratory Result Diagrams: 11/23/18 14:13 11/23/18 14:13 Lab Statement: Any lab studies that have been ordered have been reviewed, and results considered in the medical decision making process. - Radiology CXR Radiology Interpretation Completed By: Radiologist Summary of Radiographic Findings: IMPRESSION: NEW SMALL RIGHT BASILAR INFILTRATE. ED Physician has reviewed this report. - EKG 1331 Cardiac Rate: NL - 66 bpm EKG Rhythm: Sinus Rhythm Summary of EKG Findings: NSR @ 66 bpm, T wave inversions in 3, normal intervals. Course/Dx - Course Course Of Treatment: Patient is here with shortness of breath in the setting of infectious exposure. Patient a chest x-ray which showed pneumonia. Patient is given a DuoNeb. Patient is given azithromycin and Rocephin. Patient is allergic to steroids so she is not given a dose here. Patient was admitted to the hospital for further management - Diagnoses Differential Diagnosis/HQI/PQRI: Positive: Pneumonia Provider Diagnoses: COPD exacerbation, PNA (pneumonia), SOB (shortness of breath) - Physician Notifications Discussed Care of Patient With: Lorie Jarvis - Dr. Jarvis will admit pt to [facility] Time Discussed With Above Provider: 15:27 Instructed by Provider To: Admit As Inpatient Discharge ED - Sign-Out/Discharge Documenting (check all that apply): Patient Departure - admit Patient Received Moderate/Deep Sedation with Procedure: No - Discharge Plan Condition: Stable Disposition: ADMITTED TO [facility] - Billing Disposition and Condition Condition: STABLE Disposition: Admitted to [facility] - Attestation Statements Document Initiated by Scribe: Yes Documenting Scribe: Crow Dela Cruz Provider For Whom Donis is Documenting (Include Credential): Aiden Maciel MD Scribe Attestation: Crow Mistry, scribed for Aiden Maciel MD on 11/23/18 at 2214. Scribe Documentation Reviewed: Yes Provider Attestation: The documentation as recorded by the scribeCrow accurately reflects the service I personally performed and the decisions made by me, Aiden Maciel MD Status of Scribe Document: Viewed
[2018-11-23] MEDS ORDERED: Albuterol/Ipratropium NEB.SOL* Albuterol 2.5 MG/Ipratropium 0.5 MG 3 ML INH ONE (13:50)
--- OUTSIDE RECORDS SUMMARY | 2018-11-23 13:50 | XMS REPORT | Continuity of Care Document ---
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 Active Problems Provider Date Chronic obstructive lung disease Danielle Chung MD Onset: 05/22/2016 Social History Type Date Description Comments Sex Unknown Tobacco Use Start: Unknown End: Former Cigarette Smoker Unknown Tobacco Use Start: Unknown Quit 50 years ago, as of 05/22/16 Smoking Status Reviewed: 11/08/18 Quit 50 years ago, as of 05/22/16 ETOH Use Denies alcohol use ETOH Use consumed 1-2 glasses of wine per day Tobacco Use Start: Unknown End: Patient is a former in college, quit in Unknown smoker 1966 Recreational Drug Use Denies Drug Use Tobacco Use Start: Unknown Second hand smoke smoked for 31 years Exercise Type/Frequency Exercises regularly walking 6-9 minutes laps Allergies, Adverse Reactions, Alerts Active Allergies Reaction Severity Comments Date Bee Sting 05/20/2016 Augmentin 05/20/2016 Indomethacin 05/20/2016 Prednisone 05/20/2016 Shellfish-derived Products 05/20/2016 Medications Active Medications SIG Qnty Indications Ordering Date Provider Ipratropium [place] 1 vial in nebulizer 187.5ml J44.9 Danielle Chung, 10/2017 2 times a day, last MD 0.02% Solution office visit 05/07/17 Oxygen please use o2 at 1units J44.9 Sharonda Holguin, 05/04/2017 Misc 2l/min during N.P. exertion, pls provide pt with portable o2 concentrator R09.02 Breo Ellipta 1 puff inhaled 60units Danielle Juliet, 06/02/2016 100-25mcg/Inh daily MD Aerosol Oxygen as directed/needed Unknown 05/21/2016 about 8 pm, over night Xopenex HFA inhale two puffs by Unknown 45mcg/Act Aerosol mouth every four hours as needed Epipen 2-Mayank use as directed Unknown 0.3mg/0.3ML Solution Auto-Inject Aspirin 1 by mouth every Unknown 81mg Tablets DR day Omeprazole 1 by mouth every Unknown 20mg Capsules DR other day Lorazepam 1-2 Tab PO bid Christopher Wright, 0.5mg Tablets Metoprolol Tartrate 1 by mouth qd Unknown 25mg Tablets Lisinopril 1 tab by mouth Unknown every day for sleep Incruse Ellipta inhale one puff by J44.9 Unknown 62.5mcg/Inh mouth every day Aerosol Trazodone HCL Take 1 Tablet By Unknown 50mg Tablets Mouth AT Bedtime For Sleep Tramadol HCL Take One Tablet By Unknown 50mg Tablets Mouth Every 6 Hours as Needed -- Maximum Daily Dose Of 4 Per Day Medications Administered in Office Medication SIG Qnty Indications Ordering Provider Date Inj, Regadenoson, 0.1 MG Surjit Membreno M.D. 01/19/2013 Injection Technetium TC 99M Tetrofosmin, Surjit Membreno M.D. 01/19/2013 Per Unit Dose Up To 40 Millicuries Injection Immunizations Description No Information Available Vital Signs Date Vital Result Comment 11/08/2018 12:57pm Height 61 inches 5'1" Weight 135.50 lb Heart Rate 66 /min BP Systolic Sitting 144 mmHg Lue reg cuff BP Diastolic Sitting 70 mmHg Lue reg cuff Respiratory Rate 26 /min O2 % BldC Oximetry 95 % O2 at 2 pulse via nasal cannula, Poc BMI (Body Mass Index) 25.6 kg/m2 05/10/2018 1:12pm Height 61 inches 5'1" Weight 135.00 lb Heart Rate 66 /min BP Systolic Sitting 130 mmHg Lue regular cuff BP Diastolic Sitting 64 mmHg Lue regular cuff Respiratory Rate 14 /min O2 % BldC Oximetry 99 % 2LMP BMI (Body Mass Index) 25.5 kg/m2 Results Description No Information Available Procedures Date Code Description Status 10/25/2018 97207 Spirometry Incl Graphic Record Completed 08/11/2018 29568 EKG, Interpretation Only Completed Medical Devices Description No Information Available Encounters Type Date Location Provider Dx Diagnosis Office Visit 11/08/2018 Pulmonology And Danielle Chung, David44.9 Chronic obstructive 1:30p Sleep Services Of pulmonary disease, [facility] unspecified R09.02 Hypoxemia Office Visit 08/12/2018 1:18p [facility],lizabeth Diaz MD (primary) Hospitalists hypertension Office Visit 08/11/2018 1:18p [facility] Kerri R07.9 Chest pain, Assoc,lizabeth Damon NP unspecified Hospitalists [facility] (primary) hypertension Assessments Date Code Description Provider 11/08/2018 J44.9 Chronic obstructive pulmonary disease, Danielle Chung MD unspecified 11/08/2018 R09.02 Hypoxemia Danielle Chung MD 10/25/2018 J44.9 Chronic obstructive pulmonary disease, Danielle Chung MD unspecified 08/12/2018 [facility] (primary) hypertension Haley Diaz MD 08/11/2018 R07.9 Chest pain, unspecified Kerri Damon NP 08/11/2018 [facility] (primary) hypertension Kerri Damon NP Plan of Treatment Future Appointment(s):05/30/2019 1:45 pm - Danielle Chung MD at [facility]11/08/2018 - Danielle Chung MDJ44.9 Chronic obstructive pulmonary disease, unspecifiedFollow up:6 kvepenT90.02 Hypoxemia Functional Status Description No Information Available Mental Status Description No Information Available Referrals Description No Information Available
[2018-11-23 14:27] LABS: ABS Eosinophils 0.1 10^3/ul (0-0.6); ABS Lymphocytes 0.8 10^3/ul (1.0-4.8); ABS Monocytes 0.7 10^3/ul (0-0.8); ABS Neutrophils 5.9 10^3/ul (1.5-7.7); Hematocrit 33 % (35-47); Hemoglobin 11.2 g/dL (12.0-16.0); Lymphocyte % 10.7 %; Mean Corpuscular HGB Conc 33 g/dL (31-36); Mean Corpuscular Hemoglobin 29 pg (27-31); Mean Corpuscular Volume 86 fL (80-97); Mean Platelet Volume 8.5 fL (7.4-10.4); Platelet Count 221 10^3/uL (150-450); Red Blood Count 3.88 10^6 /uL (3.70-4.87); Red Cell Distribution Width 14 % (10-15); White Blood Count 7.5 10^3/uL (3.5-10.8)
[2018-11-23 14:44] LABS: Albumin 4.1 g/dL (3.2-5.2); Albumin/Globulin Ratio 1.6 (1-3); BUN/Creatinine Ratio 17.2 (8-20); Calcium 10.4 mg/dL (8.6-10.3); Globulin 2.5 g/dL (2-4); Potassium 4.5 mmol/L (3.5-5.0); Total Bilirubin 0.7 mg/dL (0.2-1.0); Total Protein 6.6 g/dL (6.4-8.9)
[2018-11-23] MEDS ORDERED: Azithromycin 500 mg/250 ml NS 500 MG/250 ML BAG IVPB ONE (15:03)
[2018-11-23] MEDS ORDERED: cefTRIAXone(*) 1 GM in NS 0.9% 50 ML* 50 ML IVPB ONE (15:03)
[2018-11-23 15:31] LABS: Urine Appearance Clear; Urine Bilirubin Negative (Negative); Urine Blood Negative (Negative); Urine Color Yellow; Urine Glucose Negative (Negative); Urine Ketones Negative (Negative); Urine Nitrite Negative (Negative); Urine Protein Negative (Negative); Urine Specific Gravity 1.013 (1.010-1.030); Urine Urobilinogen Negative (Negative)
[2018-11-23] MEDS ORDERED: Lisinopril TAB* 10 MG PO ONE (15:59)
[2018-11-23] MEDS ORDERED: Albuterol/Ipratropium NEB.SOL* Albuterol 2.5 MG/Ipratropium 0.5 MG 3 ML INH PRN (16:14)
--- NOTE | 2018-11-23 18:13 | HP ---
CC: Dr. Garcia; Dr. Chung * HISTORY AND PHYSICAL: DATE OF ADMISSION: 11/23/18 TIME OF EVALUATION: 3:50 p.m. PRIMARY CARE PROVIDER: Dr. Garcia. PALLET SORTER: Dr. Chung. CHIEF COMPLAINT: "I was really short of breath." HISTORY OF PRESENT ILLNESS: The patient states that she was in her usual state of health until 11/19/18. That day, both her son and [id number] were complaining of respiratory symptoms. The qzaffqys-[id number] thought that she had a cold and the son thought that he had allergies, but soon after the patient started to have respiratory symptoms too. She states that initially she had some dry cough that rapidly progressed to a productive cough with clear sputum. She states the amount of sputum was "impressive." She states that in the morning she would try to expectorate as much as possible, but it felt like it would never end. She states that over the weekend her symptoms progressed with worsening of her shortness of breath and today got to the point that she thought she would not be able to dress herself. She contacted Dr. Chung's office and was advised to come to the emergency room for further evaluation. She denies fevers, but states that she had chills and was feeling cold at night. She denies chest pain, palpitations, nausea, vomiting, diarrhea. In the emergency room, she was noted to have a blood pressure that was very high and she states that this is not uncommon for her that every time she comes to the hospital her blood pressure is very high, and she thinks this is secondary to anxiety. She states that usually by the time she leaves the hospital her blood pressure is back to normal. She denies headache, dizziness, or other complaints. PAST MEDICAL HISTORY: 1. COPD. 2. CVA. 3. Paroxysmal atrial fibrillation. 4. Hypertension. 5. Diastolic congestive heart failure. 6. Anxiety. 7. Insomnia. 8. Hyperlipidemia. 9. Gout. 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 PAST SURGICAL HISTORY: 1. Status post hysterectomy. 2. Status post basal and squamous cell carcinoma removal. 3. Status post left knee arthroscopy. 4. Status post ovarian cyst removal. 5. D and C. MEDICATION LIST: 1. Aspirin 81 mg p.o. daily. 2. EpiPen 0.3 mg intramuscular as needed for bee sting. 3. Breo Ellipta 100/25 one puff inhaled daily. 4. Levalbuterol HFA 2 puffs inhaled q.4 hours p.r.n. shortness of breath. 5. Lisinopril 5 mg p.o. daily. 6. Lorazepam 0.25 to 0.5 mg p.o. b.i.d. as needed for anxiety. 7. Metoprolol succinate 25 mg p.o. daily. 8. Naproxen 250 mg p.o. b.i.d. 9. Omeprazole 20 mg p.o. daily. 10. Tramadol 50 mg p.o. q.6 hours p.r.n. pain. 11. Trazodone 50 mg p.o. at bedtime. 12. Incruse Ellipta 62.5 mcg inhaled daily. ALLERGIES: The patient is allergic to BEE VENOM, LATEX, AMOXICILLIN (the reaction is vomiting), INDOMETHACIN, SHELLFISH, and she states that she had severe anxiety with PREDNISONE. FAMILY HISTORY: The patient's father had a history of stroke, in his 80s. Mother had a history of cervical cancer. Brother had aortic aneurysm. SOCIAL HISTORY: The patient smoked 2 cigarettes a day for 10 years and she quit smoking more than 50 years ago. She has a glass of wine daily. No history of drug use. Surrogate decision maker is her daughter, Jessica Woodson , phone number is [phone] or [phone]. REVIEW OF SYSTEMS: A 14-point review of systems was performed and all the pertinent negative and positive findings are in the HPI. PHYSICAL EXAMINATION GENERAL: The patient is a pleasant elderly lady, sitting up in a recliner, in no acute distress, but anxious. VITAL SIGNS: Temperature 99.2, heart rate is 78, respiratory rate is 21, oxygen saturation is 98% on 2 L nasal cannula, blood pressure is 206/74. HEENT: Pupils are equal. Moist mucous membranes. CHEST: Breath sounds present bilaterally with scattered rhonchi and crackles on the right base. CVS: Normal S1, S2. Regular rate and rhythm. ABDOMEN: Obese, soft. Bowel sounds present. EXTREMITIES: There is mild bilateral lower extremity edema. NEURO: She is alert and oriented x3. Able to move all 4 extremities. DIAGNOSTIC STUDIES/LAB DATA: CBC showed a WBC of 7.5, hemoglobin of 11.2, hematocrit of 33, platelets of 221 with 78% neutrophils. VBG showed a pH of 7.37, pCO2 of 58, pO2 less than 38, bicarb of 28.6. Chemistry showed a sodium of 136, potassium of 4.5, chloride of 99, bicarb of 33, BUN of 16, creatinine of 0.93, glucose of 106, calcium is 10.4. LFTs are normal. BNP is 411. Troponin is 0. Urinalysis was negative. Chest x-ray showed small right basilar infiltrate. Her EKG that was done on 11/23/18 at 1:30 p.m. showed sinus rhythm at 66 beats per minute with no acute ischemic changes and there was no significant change when compared to her prior EKG. ASSESSMENT AND PLAN: Ms. Preciado is an 87-year-old lady with a past medical history of chronic obstructive pulmonary disease, cerebrovascular accident, paroxysmal atrial fibrillation, hypertension, diastolic congestive heart failure , anxiety, insomnia, hyperlipidemia, gout, who presents to the emergency room with complaints of progressive shortness of breath and cough, found to have chronic obstructive pulmonary disease exacerbation secondary to community- acquired pneumonia. 1. Chronic obstructive pulmonary disease exacerbation. This is secondary to community-acquired pneumonia. The patient would prefer not to use steroids due to severe anxiety she experienced in the past while taking that medication. At this point, I believe we can treat her pneumonia and continue bronchodilators, but if she does not improve, we may consider giving her steroids and addressing her worsening anxiety. 2. Community-acquired pneumonia. The patient will be continued on ceftriaxone and Zithromax. Sputum and blood cultures will be sent as well as legionella and pneumococcal antigens. 3. Uncontrolled hypertension. The patient's systolic blood pressure is greater than 200, but she is asymptomatic. She states that she took her medications this morning and that it is not uncommon for her blood pressure to be very elevated when she comes to the emergency room. This may be secondary to anxiety. The patient received 1 dose of lisinopril in the emergency room and we will continue to lower her blood pressure slowly. She states that in the past as her breathing improved her blood pressure would return to normal. 4. DVT prophylaxis: The patient has a score of 3 on the DVT Prophylaxis Risk Assessment Guide and she will be started on subcutaneous heparin. 5. Code status was reviewed with the patient and she wishes to be a full code. She already had a MOLST form in our system and this will be placed in her chart. TIME SPENT: Approximately 55 minutes was spent with the patient's interview, medical records review, physical examination to complete this admission, more than half of this time was spent [id number]-[id number] with the patient and coordination of care. [id number]/CPS #: [id number] SHANNON
[2018-11-23] MEDS: Naproxen TAB* 250 MG PO SCH (20:33)
[2018-11-23] MEDS: LORazepam TAB(*) 0.5 MG PO PRN (20:33)
[2018-11-23] MEDS: Heparin VIAL(*) 5000 UNITS/ML VIAL (FIVE THOUSAND) SUBCUT SCH (20:36)
[2018-11-23] MEDS: traZODone TAB* 50 MG TAB PO SCH (20:37)
[2018-11-23] MEDS: traMADol TAB* 50 MG PO PRN (22:53)
[2018-11-24] MEDS: Levalbuterol HFA INHALER* 1 PUFF MDI INH PRN (04:08)
[2018-11-24] MEDS: LORazepam TAB(*) 0.5 MG PO PRN ×2 (04:08→20:22)
[2018-11-24 05:30] LABS: ABS Eosinophils 0.2 10^3/ul (0-0.6); ABS Lymphocytes 1.3 10^3/ul (1.0-4.8); ABS Monocytes 0.5 10^3/ul (0-0.8); ABS Neutrophils 4.2 10^3/ul (1.5-7.7); Eosinophil % 2.8 %; Hematocrit 31 % (35-47); Hemoglobin 10.4 g/dL (12.0-16.0); Lymphocyte % 20.4 %; Mean Corpuscular HGB Conc 34 g/dL (31-36); Mean Corpuscular Hemoglobin 29 pg (27-31); Mean Corpuscular Volume 86 fL (80-97); Platelet Count 198 10^3/uL (150-450); Red Blood Count 3.57 10^6 /uL (3.70-4.87); Red Cell Distribution Width 13 % (10-15); White Blood Count 6.2 10^3/uL (3.5-10.8)
[2018-11-24 05:47] LABS: BUN/Creatinine Ratio 17.3 (8-20); Calcium 9.5 mg/dL (8.6-10.3); EGFR Non-African American 53.7 (>60)
[2018-11-24] MEDS: Heparin VIAL(*) 5000 UNITS/ML VIAL (FIVE THOUSAND) SUBCUT SCH ×3 (05:48→20:15)
[2018-11-24] MEDS: Mometasone/Formoter 100/5 MDI INH SCH ×2 (07:33→20:16)
[2018-11-24] MEDS: SPIRIVA Respimat* (tiotropium) 2.5 mcg/inh Inhaler INH SCH (07:33)
[2018-11-24] MEDS: Aspirin EC TAB* 81 MG TAB.EC PO SCH (09:09)
[2018-11-24] MEDS: Pantoprazole TAB * 40 MG TAB PO SCH ×2 (09:09→09:13)
[2018-11-24] MEDS: Metoprolol Succinate XL TAB* 25 MG PO SCH (09:09)
[2018-11-24] MEDS: Lisinopril TAB* 5 MG PO SCH (09:10)
[2018-11-24] MEDS: Naproxen TAB* 250 MG PO SCH ×3 (09:11→20:15)
--- NOTE | 2018-11-24 13:04 | PN ---
Subjective Date of Service: 11/24/18 Interval History: HOSPITALIST PROGRESS NOTE Patient seen and examined at bedside. Care reviewed and d/w Trisha Paulino RN. She feels improved today. Still had severe dyspnea overnight, improved after inhalers and expectorating a lot of white mucus. Family History: Unchanged from Admission Social History: Unchanged from Admission Past Medical History: Unchanged from Admission Objective Active Medications: Albuterol/Ipratropium (Duoneb (Albuterol 2.5 Mg/Ipratropium 0.5 Mg)) 1 neb INH Q4H PRN PRN Reason: SOB/WHEEZING Aspirin (Aspirin Ec Tab*) 81 mg PO QAM [facility] Last Admin: 11/24/18 09:09 Dose: 81 mg Heparin Sodium (Porcine) (Heparin Vial(*)) 5,000 units SUBCUT Q8HR [facility] Last Admin: 11/24/18 12:34 Dose: Not Given Azithromycin (Zithromax 500 Mg/250 Ml) 500 mg in 250 mls @ 250 mls/hr IVPB Q24H [facility] Ceftriaxone Sodium 1 gm/ (Sodium Chloride) 50 mls @ 100 mls/hr IVPB Q24H [facility] Levalbuterol HCl (Xopenex Hfa Inhaler*) 2 puff INH Q4H PRN PRN Reason: SHORTNESS OF BREATH Last Admin: 11/24/18 04:08 Dose: 2 puff Lisinopril (Prinivil Tab*) 5 mg PO DAILY [facility] Last Admin: 11/24/18 09:10 Dose: 5 mg Lorazepam (Ativan Tab(*)) 0.5 mg PO BID PRN PRN Reason: ANXIETY Last Admin: 11/24/18 04:08 Dose: 0.5 mg Metoprolol Succinate (Toprol Xl Tab*) 25 mg PO DAILY [facility] Last Admin: 11/24/18 09:09 Dose: 25 mg Mometasone Furoate/Formoterol Fumar (Dulera 100/5 Mdi*) 2 puff INH BID [facility] Last Admin: 11/24/18 07:33 Dose: 2 puff Naproxen (Naprosyn Tab*) 250 mg PO BID [facility] Last Admin: 11/24/18 09:11 Dose: Not Given Pantoprazole Sodium (Protonix Tab*) 40 mg PO DAILY [facility] Last Admin: 11/24/18 09:13 Dose: Not Given Tiotropium [place] (Spiriva Respimat 2.5 Mcg) 2 puff INH DAILY [facility] Last Admin: 11/24/18 07:33 Dose: 2 puff Tramadol HCl (Ultram*) 50 mg PO Q6HR PRN PRN Reason: PAIN - MODERATE Last Admin: 11/23/18 22:53 Dose: 50 mg Trazodone HCl (Desyrel Tab*) 50 mg PO BEDTIME [facility] Last Admin: 11/23/18 20:37 Dose: 50 mg Vital Signs - 8 hr 11/24/18 11/24/18 11/24/18 07:10 07:37 08:00 Temperature Pulse Rate 61 Respiratory 20 18 18 Rate Blood Pressure (mmHg) O2 Sat by Pulse 98 Oximetry 11/24/18 11/24/18 11/24/18 08:17 09:05 10:54 Temperature 97.7 F 98.2 F Pulse Rate 60 70 62 Respiratory 16 16 Rate Blood Pressure 152/59 174/46 (mmHg) O2 Sat by Pulse 100 100 Oximetry Oxygen Devices in Use Now: Nasal Cannula - 2 liters Appearance: Pleasant elderly lady sitting up in a recliner in NAD Eyes: No Scleral Icterus Ears/Nose/Mouth/Throat: Mucous Membranes Moist Neck: Trachea Midline Respiratory: Symmetrical Chest Expansion and Respiratory Effort, - - BS+ bilaterally with scattered rhonchi, crackles right base Cardiovascular: RRR - Normal S1 and S2 Abdominal: NL Sounds; No Tenderness; No Distention Neurological: Alert and Oriented x 3, NL Muscle Strength and Tone Result Diagrams: 11/24/18 04:54 11/24/18 04:54 Microbiology and Other Data: Microbiology 11/23/18 15:16 Legionella Urinary Antigen - Final Urine Negative Legionella Antigen Streptococcus pneumoniae Ag Screen - Final Negative S. pneumo Antigen 11/23/18 15:04 Gram Stain - Final Sputum Expectorated Assess/Plan/Problems-Billing Assessment: Mrs Preciado is an 87yo F with PMH of COPD, CVA, PAF, HTN, diastolic CHF, anxiety , HLD, gout, who presented to ED with c/o dyspnea or productive cough, found to have pneumonia. - Patient Problems (1) COPD exacerbation Comment: - Secondary to pneumonia. - Continue bronchodilators. - Not on systemic steroids due to severe anxiety, but already improving. (2) Pneumonia Comment: - Blood and sputum cultures show no growth so far. - Legionella and pneumococcal Ag are negative. - Continue Ceftriaxone and Zithromax. (3) Hypertension Comment: - Continue Lisinopril and Metoprolol. (4) DVT prophylaxis Comment: - SQ heparin. (5) DNR (do not resuscitate) Status and Disposition: Inpatient. Possible d/c in AM if she continues to improve.
--- NOTE | 2018-11-24 13:43 | HP ---
HISTORY AND PHYSICAL: ADDENDUM: Code status was reviewed with the patient and she wishes to be a do-not- resuscitate. She already has a MOLST form in our system, and this was placed in her chart. [id number]/[facility] #: [id number]
[2018-11-24] MEDS: cefTRIAXone(*) 1 GM in NS 0.9% 50 ML* 50 ML IVPB SCH (15:41)
[2018-11-24] MEDS: Azithromycin 500 mg/250 ml NS 500 MG/250 ML BAG IVPB SCH (16:22)
[2018-11-24] MEDS: traZODone TAB* 50 MG TAB PO SCH ×2 (20:11→21:53)
[2018-11-25] MEDS: Levalbuterol HFA INHALER* 1 PUFF MDI INH PRN (01:00)
[2018-11-25] MEDS: traMADol TAB* 50 MG PO PRN ×2 (01:04→19:28)
[2018-11-25] MEDS: Heparin VIAL(*) 5000 UNITS/ML VIAL (FIVE THOUSAND) SUBCUT SCH ×3 (04:09→21:33)
[2018-11-25] MEDS: SPIRIVA Respimat* (tiotropium) 2.5 mcg/inh Inhaler INH SCH (08:04)
[2018-11-25] MEDS: Mometasone/Formoter 100/5 MDI INH SCH ×2 (08:04→19:41)
[2018-11-25] MEDS: Naproxen TAB* 250 MG PO SCH ×2 (09:58→21:32)
[2018-11-25] MEDS: Pantoprazole TAB * 40 MG TAB PO SCH (10:00)
[2018-11-25] MEDS: Aspirin EC TAB* 81 MG TAB.EC PO SCH (10:13)
[2018-11-25] MEDS: Lisinopril TAB* 5 MG PO SCH (10:22)
[2018-11-25] MEDS: Metoprolol Succinate XL TAB* 25 MG PO SCH ×2 (10:25→10:40)
--- NOTE | 2018-11-25 14:41 | PN ---
Subjective Date of Service: 11/25/18 Interval History: HOSPITALIST PROGRESS NOTE Patient seen and examined at bedside. Care reviewed and d/w Rachelle Peterson RN. Her breathing is improving slowly day by day, but she still feels very weak. Concerned her son and DIL will go on a trip and she'll be by herself at home. Family History: Unchanged from Admission Social History: Unchanged from Admission Past Medical History: Unchanged from Admission Objective Active Medications: Albuterol/Ipratropium (Duoneb (Albuterol 2.5 Mg/Ipratropium 0.5 Mg)) 1 neb INH Q4H PRN PRN Reason: SOB/WHEEZING Aspirin (Aspirin Ec Tab*) 81 mg PO QAM [facility] Last Admin: 11/25/18 10:13 Dose: 81 mg Heparin Sodium (Porcine) (Heparin Vial(*)) 5,000 units SUBCUT Q8HR [facility] Last Admin: 11/25/18 14:21 Dose: Not Given Azithromycin (Zithromax 500 Mg/250 Ml) 500 mg in 250 mls @ 250 mls/hr IVPB Q24H [facility] Last Admin: 11/24/18 16:22 Dose: 250 mls/hr Ceftriaxone Sodium 1 gm/ (Sodium Chloride) 50 mls @ 100 mls/hr IVPB Q24H [facility] Last Admin: 11/24/18 15:41 Dose: 100 mls/hr Levalbuterol HCl (Xopenex Hfa Inhaler*) 2 puff INH Q4H PRN PRN Reason: SHORTNESS OF BREATH Last Admin: 11/25/18 01:00 Dose: 2 puff Lisinopril (Prinivil Tab*) 5 mg PO DAILY [facility] Last Admin: 11/25/18 10:22 Dose: 5 mg Lorazepam (Ativan Tab(*)) 0.5 mg PO BID PRN PRN Reason: ANXIETY Last Admin: 11/24/18 20:22 Dose: 0.5 mg Metoprolol Succinate (Toprol Xl Tab*) 25 mg PO DAILY [facility] Last Admin: 11/25/18 10:25 Dose: 25 mg Mometasone Furoate/Formoterol Fumar (Dulera 100/5 Mdi*) 2 puff INH BID [facility] Last Admin: 11/25/18 08:04 Dose: 2 puff Naproxen (Naprosyn Tab*) 250 mg PO BID [facility] Last Admin: 11/25/18 09:58 Dose: Not Given Pantoprazole Sodium (Protonix Tab*) 40 mg PO DAILY [facility] Last Admin: 11/25/18 10:00 Dose: Not Given Tiotropium [place] (Spiriva Respimat 2.5 Mcg) 2 puff INH DAILY [facility] Last Admin: 11/25/18 08:04 Dose: 2 puff Tramadol HCl (Ultram*) 50 mg PO Q6HR PRN PRN Reason: PAIN - MODERATE Last Admin: 11/25/18 01:04 Dose: 50 mg Trazodone HCl (Desyrel Tab*) 50 mg PO BEDTIME [facility] Last Admin: 11/24/18 21:53 Dose: 50 mg Vital Signs - 8 hr 11/25/18 11/25/18 11/25/18 07:15 08:00 11:15 Temperature 97.3 F 97.9 F Pulse Rate 67 56 Respiratory 18 18 18 Rate Blood Pressure 156/57 129/48 (mmHg) O2 Sat by Pulse 100 100 Oximetry 11/25/18 11:27 Temperature Pulse Rate 67 Respiratory 18 Rate Blood Pressure (mmHg) O2 Sat by Pulse 100 Oximetry Oxygen Devices in Use Now: Nasal Cannula Appearance: Pleasant elderly lady sitting up in a recliner in [facility]. Eyes: No Scleral Icterus Ears/Nose/Mouth/Throat: Mucous Membranes Moist Neck: Trachea Midline Respiratory: Symmetrical Chest Expansion and Respiratory Effort, - - BS+ bilaterally diminished with no added sounds Cardiovascular: RRR - Normal S1 and S2 Abdominal: NL Sounds; No Tenderness; No Distention Neurological: Alert and Oriented x 3, NL Muscle Strength and Tone Result Diagrams: 11/24/18 04:54 11/24/18 04:54 Microbiology and Other Data: Microbiology 11/23/18 15:16 Legionella Urinary Antigen - Final Urine Negative Legionella Antigen Streptococcus pneumoniae Ag Screen - Final Negative S. pneumo Antigen 11/23/18 15:04 Gram Stain - Final Sputum Expectorated Assess/Plan/Problems-Billing Assessment: Mrs Preciado is an 87yo F with PMH of COPD, CVA, PAF, HTN, diastolic CHF, anxiety , HLD, gout, who presented to ED with c/o dyspnea or productive cough, found to have pneumonia. - Patient Problems (1) COPD exacerbation Comment: - Secondary to pneumonia. - Continue bronchodilators. - Not on systemic steroids due to severe anxiety, but continues improving. (2) Pneumonia Comment: - Blood and sputum cultures show no growth so far. - Legionella and pneumococcal Ag are negative. - Continue Ceftriaxone and Zithromax. (3) Hypertension Comment: - Continue Lisinopril and Metoprolol. (4) DVT prophylaxis Comment: - SQ heparin. (5) DNR (do not resuscitate) Status and Disposition: Inpatient. PT/OT consults to see if patient qualifies for PILAR.
[2018-11-25] MEDS: cefTRIAXone(*) 1 GM in NS 0.9% 50 ML* 50 ML IVPB SCH (15:20)
[2018-11-25] MEDS: Azithromycin 500 mg/250 ml NS 500 MG/250 ML BAG IVPB SCH (16:11)
[2018-11-25] MEDS: traZODone TAB* 50 MG TAB PO SCH (21:31)
[2018-11-25] MEDS: LORazepam TAB(*) 0.5 MG PO PRN (21:31)
[2018-11-26] MEDS: Heparin VIAL(*) 5000 UNITS/ML VIAL (FIVE THOUSAND) SUBCUT SCH ×2 (05:57→13:07)
[2018-11-26] MEDS: Mometasone/Formoter 100/5 MDI INH SCH (07:57)
[2018-11-26] MEDS: SPIRIVA Respimat* (tiotropium) 2.5 mcg/inh Inhaler INH SCH (07:58)
[2018-11-26] MEDS: Lisinopril TAB* 5 MG PO SCH (09:29)
[2018-11-26] MEDS: Aspirin EC TAB* 81 MG TAB.EC PO SCH (09:29)
[2018-11-26] MEDS: Metoprolol Succinate XL TAB* 25 MG PO SCH (09:29)
[2018-11-26] MEDS: Pantoprazole TAB * 40 MG TAB PO SCH (09:30)
[2018-11-26] MEDS: Naproxen TAB* 250 MG PO SCH (09:30)
[2018-11-26] MEDS: LORazepam TAB(*) 0.5 MG PO PRN (14:22)
[2018-11-26] MEDS: cefTRIAXone(*) 1 GM in NS 0.9% 50 ML* 50 ML IVPB SCH (15:15)
[2018-11-26] MEDS: Azithromycin 500 mg/250 ml NS 500 MG/250 ML BAG IVPB SCH (15:54)
[2018-11-26 16:03] VITALS: BP 143/64
--- NOTE | 2018-11-27 07:44 | PN ---
Progress Note - Progress Note Date of Service: 11/27/18 Note: Time spent on discharge including exam of pt, discussion with patient, CM, nurse , review of EMR and preparation of discharge documents is 45 minutes.
--- NOTE | 2018-11-27 10:18 | DS ---
CC: Dr. Garcia DISCHARGE SUMMARY: DATE OF ADMISSION: DATE OF DISCHARGE: 11/26/18 HISTORY OF PRESENT ILLNESS: This 87-year-old woman presented with dyspnea. She had a nonproductive cough initially that progressed to a productive cough of clear sputum. She felt cold the night, but denied fevers. The patient was found to have pneumonia causing chronic obstructive pulmonary disease exacerbation. She was started on ceftriaxone and azithromycin, both given intravenously. Her blood pressure was high, which the patient stated was quite common, when she arrived in the emergency room . She was continued on her usual doses of medication. She did get one extra dose of lisinopril in t emergency room. She did well in the hospital. She had no fever. Her white count remained normal. She will complete treatment with cefuroxime and oral azithromycin at home. FINAL DIAGNOSES: 1. Pneumonia and chronic obstructive pulmonary disease exacerbation. 2. Hypertension. 3. Anxiety. DISCHARGE MEDICATIONS: 1. Azithromycin 250 mg daily. 2. Cefuroxime 500 mg b.i.d. 3. Lorazepam as prescribed. 4. Aspirin 81 mg daily. 5. Omeprazole 20 mg daily. 6. Metoprolol succinate 25 mg daily. 7. Trazodone 50 mg h.s. 8. Lisinopril 5 mg daily. 9. Fluticasone/salmeterol 1 puff daily. 10. Levalbuterol inhaler 2 puffs every 4 hours p.r.n. 11. Tramadol 50 mg every 6 hours p.r.n. 12. Umeclidinium bromide 62.5 mcg by inhaler daily. 13. Epinephrine 0.3 mg IM for bee sting. 14. Naproxen 250 mg b.i.d. CONDITION ON DISCHARGE: Improved. DISPOSITION ON DISCHARGE: Discharged home. Chest x-ray for resolution of her right basilar infiltrate should be done in 6 to 8 weeks. [id number]/[facility] #: [id number]
== END 2018-11-26 17:45 | disposition home health service (06) | DRG 190 ==
LOC: ED 13:21 → MED 15:50
PROVIDERS: ADMIT Internal Medicine; ATTEND Internal Medicine
DX: J44.1 Chronic obstructive pulmonary disease with (acute) exacerbation (principal); J18.9 Pneumonia, unspecified organism; I50.32 Chronic diastolic (congestive) heart failure; J44.0 Chronic obstructive pulmonary disease with (acute) lower respiratory infection; I11.0 Hypertensive heart disease with heart failure; E78.00 Pure hypercholesterolemia, unspecified; M10.9 Gout, unspecified; F41.9 Anxiety disorder, unspecified; E78.5 Hyperlipidemia, unspecified; I48.0 Paroxysmal atrial fibrillation; Z66 Do not resuscitate; Z88.8 Allergy status to other drugs, medicaments and biological substances; Z85.828 Personal history of other malignant neoplasm of skin; Z88.1 Allergy status to other antibiotic agents; Z91.030 Bee allergy status; Z91.040 Latex allergy status; Z88.0 Allergy status to penicillin; Z91.013 Allergy to seafood; Z86.73 Personal history of transient ischemic attack (TIA), and cerebral infarction without residual deficits; Z98.42 Cataract extraction status, left eye; Z98.41 Cataract extraction status, right eye; Z90.710 Acquired absence of both cervix and uterus; Z82.3 Family history of stroke; Z72.89 Other problems related to lifestyle; Z87.891 Personal history of nicotine dependence; Z86.19 Personal history of other infectious and parasitic diseases; Z80.49 Family history of malignant neoplasm of other genital organs; Z79.82 Long term (current) use of aspirin
CPT/HCPCS: 36415; 71046; 80048; 80053; 81003; 82803; 83880; 84484; 85025; 87040; 87070; 87205; 87899; 93005; 94640; 99284; A9270-GY; G8978-GP-CI; G8979-GP-CI; G8987-GO-CK; G8988-GO-CI; J0456; J0696; J1644; J3535